=== PATIENT | male | born 1965 | race African-American/Black ===

== ENCOUNTER 2016-10-22 08:12 | Inpatient (IN) | payer BC ==
[2016-10-22 10:28] VITALS: BMI 21.9
--- NOTE | 2016-10-22 11:01 | HP ---
CIWA Score - CIWA Score Nausea/Vomitin-No Nausea/No Vomiting Muscle Tremors: 4-Moderate,w/Arms Extend Anxiety: 4-Mod. Anxious/Guarded Agitation: 4-Moderately Restless Paroxysmal Sweats: 3 Orientation: 0-Oriented Tacttile Disturbances: 0-None Auditory Disturbances: 0-None Visual Disturbances: 0-None Headache: 0-None Present CIWA-Ar Total Score: 15 Admission ROS BHS - HPI Chief Complaint: Withdrawal sx. Allergies/Adverse Reactions: Allergies Allergy/AdvReac Type Severity Reaction Status Date / Time No Known Allergies Allergy Verified 10/22/16 10:11 History of Present Illness: 51 y/o man with a long hx. of alcoholism is admitted for detox. Pt. has been in previous detox reports 2 yrs. sobriety.Pt. went to [facility] ED last because of trauma to rt. wrist. Pt. has a splint on rt. wrist. Exam Limitations: No Limitations - Ebola screening Have you traveled outside of the country in the last 21 days: No Have you had contact with anyone from an Ebola affected area: No Have you been sick,other than usual withdrawal symptoms: No - Review of Systems Constitutional: Diaphoresis EENT: reports: No Symptoms Reported Respiratory: reports: No Symptoms reported Cardiac: reports: No Symptoms Reported GI: reports: No Symptoms Reported : reports: No Symptoms Reported Musculoskeletal: reports: No Symptoms Reported Integumentary: reports: Sweating Neuro: reports: Tremors Endocrine: reports: No Symptoms Reported Hematology: reports: No Symptoms Reported Psychiatric: reports: No Sypmtoms Reported Other Systems: Reviewed and Negative Patient History - Patient Medical History Hx Anemia: No Hx Asthma: No Hx Chronic Obstructive Pulmonary Disease (COPD): No Hx Cancer: No Hx Cardiac Disorders: No Hx Congestive Heart Failure: No Hx Hypertension: No Hx Hypercholesterolemia: No Hx Pacemaker: No HX Cerebrovascular Accident: No Hx Seizures: No Hx Dementia: No Hx Diabetes: No Hx Gastrointestinal Disorders: No Hx Liver Disease: No Hx Genitourinary Disorders: No Hx Sexually Transmitted Disorders: No Hx Renal Disease (ESRD): No Hx Thyroid Disease: No Hx Human Immunodeficiency Virus (HIV): No Hx Hepatitis C: No Hx Depression: Yes Hx Suicide Attempt: No Hx Bipolar Disorder: Yes Hx Schizophrenia: No - Patient Surgical History Past Surgical History: No Hx Neurologic Surgery: No Hx Cataract Extraction: No Hx Cardiac Surgery: No Hx Lung Surgery: No Hx Breast Surgery: No Hx Breast Biopsy: No Hx Abdominal Surgery: No Hx Appendectomy: No Hx Cholecystectomy: No Hx Genitourinary Surgery: No Hx Section: No Hx Orthopedic Surgery: No Anesthesia Reaction: No - PPD History Previous Implant?: Yes Documented Results: Positive w/o proof Results: CXR(-)12/12/2015 PPD to be Administered?: No - Smoking Cessation Smoking history: Current every day smoker Have you smoked in the past 12 months: Yes Aproximately how many cigarettes per day: 10 Cigars Per Day: 0 Hx Chewing Tobacco Use: No Initiated information on smoking cessation: Yes 'Breaking Loose' booklet given: 10/22/16 - Substance & Tx. History Hx Alcohol Use: Yes Hx Substance Use: No Substance Use Type: Alcohol Hx Substance Use Treatment: Yes (detox) - Substances Abused Alcohol-beer Route: Oral Frequency: Daily Amount used: 2-6 pks. Age of first use: 15 Date of Last Use: 10/21/16 Family Disease History - Family Disease History Family Disease History: Diabetes: Father, Other: Mother (DEMENTIA) Admission Physical Exam S - Vital Signs Vital Signs: Vital Signs - 24 hr 10/22/16 10:16 Temperature 97.6 F Pulse Rate 110 H Respiratory 20 Rate Blood Pressure 145/112 - Physical General Appearance: Yes: Tremorous, Sweating, Anxious HEENTM: Yes: Within Normal Limits Respiratory: Yes: Chest Non-Tender, Lungs Clear, Normal Breath Sounds Neck: Yes: Supple Breast: Yes: Breast Exam Deferred Cardiology: Yes: Regular Rhythm, Regular Rate, S1, S2 Abdominal: Yes: Normal Bowel Sounds, Non Tender, Soft Genitourinary: Yes: Within Normal Limits Back: Yes: Within Normal Limits Musculoskeletal: Yes: Within Normal Limits Extremities: Yes: Tremors Neurological: Yes: Fully Oriented, Alert Integumentary: Yes: Diaphoresis Lymphatic: Yes: Within Normal Limits - Diagnostic (1) Alcohol dependence with uncomplicated withdrawal Current Visit: Yes Status: Acute (2) Nicotine dependence Current Visit: Yes Status: Acute Qualifiers: Nicotine product type: cigarettes Substance use status: uncomplicated Qualified Code(s): F17.210 - Nicotine dependence, cigarettes, uncomplicated Comment: . (3) Right wrist injury Current Visit: Yes Status: Acute Qualifiers: Encounter type: initial encounter Qualified Code(s): S69.91XA - Unspecified injury of right wrist, hand and finger(s), initial encounter Cleared for Admission [facility] - Detox or Rehab [facility] Level of Care: Medically Managed Detox Regimen/Protocol: Librium [facility] Breath Alcohol Content Breath Alcohol Content: 0 Urine Drug Screen - Results Drug Screen Negative: No Urine Drug Screen Results: BZO-Benzodiazepines, OXY-Oxycodone
[2016-10-22] MEDS ORDERED: chlordiazePOXIDE HCL 25 MG CAPSULE PO PRN (11:13)
[2016-10-22] MEDS ORDERED: MAGNESIUM CITRATE 300 ML BOTTLE PO PRN (11:13)
[2016-10-22] MEDS ORDERED: MENTHOL/PHENOL 1 EACH UD MM PRN (11:13)
[2016-10-22] MEDS ORDERED: guaiFENesin/D-METHORPHAN HB 10 ML UNIT-DOSE CUPS PO PRN (11:13)
[2016-10-22] MEDS ORDERED: NICOTINE POLACRILEX 2 MG GUM BUC PRN (11:13)
[2016-10-22] MEDS ORDERED: MAGNESIUM HYDROX 2400MG/30ML ORAL SUSPENSION 30 ML CUP PO PRN (11:13)
[2016-10-22] MEDS ORDERED: hydrOXYzine PAMOATE 50 MG CAPSULE (FP) PO PRN (11:13)
[2016-10-22] MEDS ORDERED: LOPERAMIDE HCL 2 MG CAPSULE PO PRN (11:13)
[2016-10-22] MEDS ORDERED: P-EPHED 60MG/TRIPROLIDI 2.5MG TABLET PO PRN (11:13)
[2016-10-22] MEDS ORDERED: MAG HYDROX/AL HYDROX/SIMETH 30 ML UNIT-DOSE CUP PO PRN (11:13)
[2016-10-22] MEDS ORDERED: diphenhydrAMINE HCL 50 MG CAPSULE PO PRN (11:13)
[2016-10-22] MEDS ORDERED: chlordiazePOXIDE HCL 25 MG CAPSULE PO ONE (12:02)
[2016-10-22] MEDS: NICOTINE 21 MG/24 HOURS TOPICAL PATCH TD SCH (12:58)
[2016-10-22] MEDS: chlordiazePOXIDE HCL 25 MG CAPSULE PO SCH ×2 (17:28→22:14)
[2016-10-22] MEDS: IBUPROFEN 400 MG TABLET (FP) PO PRN (17:30)
[2016-10-22 18:02] LABS: URINE APPEARANCE CLOUDY; URINE BILIRUBIN NEGATIVE (NEGATIVE); URINE BLOOD NEGATIVE (NEGATIVE); URINE COLOR YELLOW; URINE GLUCOSE (UA) NEGATIVE (NEGATIVE); URINE KETONE TRACE (NEGATIVE); URINE LEUK ESTERASE NEGATIVE (NEGATIVE); URINE NITRITE NEGATIVE (NEGATIVE); URINE PROTEIN NEGATIVE (NEGATIVE); URINE UROBILINOGEN NEGATIVE E.U./dl (0.2-1.0)
[2016-10-22] MEDS: THIAMINE HCL 100 MG TABLET (FP) PO SCH (22:13)
[2016-10-23] MEDS: chlordiazePOXIDE HCL 25 MG CAPSULE PO SCH ×4 (05:50→22:16)
[2016-10-23] MEDS: IBUPROFEN 400 MG TABLET (FP) PO PRN ×3 (05:51→23:27)
--- NOTE | 2016-10-23 08:26 | EKG ---
Test Reason : Blood Pressure : / mmHG Vent. Rate : 076 BPM Atrial Rate : 076 BPM P-R Int : 130 ms QRS Dur : 086 ms QT Int : 378 ms P-R-T Axes : 071 081 068 degrees QTc Int : 425 ms NORMAL SINUS RHYTHM NORMAL ECG NO PREVIOUS ECGS AVAILABLE Confirmed by SANDY DAMON MD ([id number]) on 10/23/2016 8:25:49 AM Referred By: Eric Orourke Confirmed By:SANDY DAMON MD
[2016-10-23] MEDS: PRENATAL VITAMINS W/ FOLIC ACID TABLET (FP) PO SCH (10:07)
[2016-10-23] MEDS: ACETAMINOPHEN 325 MG TABLET (FP) PO PRN ×2 (10:08→20:09)
[2016-10-23] MEDS: NICOTINE 21 MG/24 HOURS TOPICAL PATCH TD SCH (10:08)
[2016-10-23 10:25] LABS: ALBUMIN 3.7 g/dl (3.4-5.0); ANION GAP 11 (8-16); CALCIUM 9.7 mg/dL (8.5-10.1); CO2 27 mmol/L (21-32); GLUCOSE,RANDOM 109 mg/dL (74-106)
[2016-10-23 10:29] LABS: ALK PHOS 72 U/L (45-117); BILIRUBIN,TOTAL 0.4 mg/dL (0.2-1.0); COCKROFT - GAULT 98.65; CREATININE 0.8 mg/dL (0.7-1.3); SGOT/AST 20 U/L (15-37); SGPT/ALT 11 U/L (12-78); TOT PROT 8.3 g/dl (6.4-8.2)
--- NOTE | 2016-10-23 10:39 | PN ---
[facility] CIWA - CIWA Score Nausea/Vomitin-No Nausea/No Vomiting Muscle Tremors: 4-Moderate,w/Arms Extend Anxiety: 4-Mod. Anxious/Guarded Agitation: 4-Moderately Restless Paroxysmal Sweats: 1-Minimal Palms Moist Orientation: 0-Oriented Tacttile Disturbances: 3-Moderate Itch/Numb/Burn Auditory Disturbances: 0-None Visual Disturbances: 0-None Headache: 0-None Present CIWA-Ar Total Score: 16 BHS Progress Note (SOAP) Subjective: ANXIETY,IRRITABILITY,TREMORS,RIGHT ARM PAIN S/P RIGHT HAND FX TRUAMA. Objective: 10/23/16 10:34 Vital Signs Temperature 95.8 F L 10/23/16 10:01 Pulse Rate 83 10/23/16 10:01 Respiratory Rate 20 10/23/16 10:01 Blood Pressure 139/97 10/23/16 10:01 O2 Sat by Pulse Oximetry (%) Laboratory Last Values Urine Color Yellow 10/22/16 13:00 Urine Appearance Cloudy 10/22/16 13:00 Urine pH 5.0 (5.0-8.0) 10/22/16 13:00 Ur Specific [place] 1.023 (1.001-1.035) 10/22/16 13:00 Urine Protein Negative (NEGATIVE) 10/22/16 13:00 Urine Glucose (UA) Negative (NEGATIVE) 10/22/16 13:00 Urine Ketones Trace (NEGATIVE) H 10/22/16 13:00 Urine Blood Negative (NEGATIVE) 10/22/16 13:00 Urine Nitrite Negative (NEGATIVE) 10/22/16 13:00 Urine Bilirubin Negative (NEGATIVE) 10/22/16 13:00 Urine Urobilinogen Negative E.U./dl (0.2-1.0) 10/22/16 13:00 Ur Leukocyte Esterase Negative (NEGATIVE) 10/22/16 13:00 LAB RESULTS PENDING RIGHT FOREARM IN CAST. ACTIVE ROM OF ALL DIGITS. NO CYANOSIS TO NAIL BEDS. Assessment: 10/23/16 10:35 WITHDRAWAL SX Plan: CONTINUE DETOX MOTRIN PRN
[2016-10-23 10:51] LABS: MCH 34.1 pg (25.7-33.7); MCHC 33.5 g/dl (32.0-35.9); MEAN CELL VOLUME 101.8 fl (80-96); MEAN PLT VOLUME 6.7 fl (7.5-11.1); PLATELET COUNT 710 K/MM3 (134-434); RDW 14.5 % (11.9-15.9); WHITE BLOOD COUNT 6.7 K/mm3 (4.0-10.0)
--- NOTE | 2016-10-23 10:57 | CONSULT ---
[facility] Psychiatric Consult - Data Date of interview: 10/23/16 Admission source: [facility] Identifying data: This is 51 years old male witn unclear past psychiatric hospitalization history , history of nSAchizoaffective disorder, PTSD, intoxicated with: Alcohol and Nicotine Substance Abuse History: - Smoking Cessation. Smoking history: Current every day smoker. Have you smoked in the past 12 months: Yes. Aproximately how many cigarettes per day: 10. Cigars Per Day: 0. Hx Chewing Tobacco Use: No. Initiated information on smoking cessation: Yes. 'Breaking Loose' booklet given : 10/22/16. - Substance & Tx. History. Hx Alcohol Use: Yes. Hx Substance Use : No. Substance Use Type: Alcohol. Hx Substance Use Treatment: Yes (detox). - Substances Abused. Alcohol-beer. Route: Oral. Frequency: Daily. Amount used: 2-6 pks. Age of first use: 15. Date of Last Use: 10/21/16 Medical History: Right wrist injury history Psychiatric History: Patient reports hyiostory of psychiatic disorder, reports taking prior to admission: Seroquel 200mg po qhs. Winside 450mg po tid. Prozac 20mg poqd Physical/Sexual Abuse/Trauma History: Denies Additional Comment: Seroquel 200mg po qhs. Winside 450mg po bid. Prozac 20mg poqd Mental Status Exam - Mental Status Exam Alert and Oriented to: Person Cognitive Function: Fair Patient Appearance: Unkempt Mood: Sad Affect: Flat Patient Behavior: Sedated Speech Pattern: Delayed Voice Loudness: Moderately Soft/Quiet Thought Process: Circumstantial, Thought Blocking Thought Disorder: Being Controlled Hallucinations: Denies Suicidal Ideation: Denies Homicidal Ideation: Denies Insight/Judgement: Fair Sleep: Difficulty falling asleep Appetite: Fair Muscle strength/Tone: Mild Hypotonicity Gait/Station: Shuffling Additional Comments: Seroquel 200mg po qhs. Winside 450mg po tid. Prozac 20mg poqd Psychiatric Findings - Problem List ([place] 1, 2,3) (1) Alcohol dependence with uncomplicated withdrawal Current Visit: Yes Status: Acute (2) Nicotine dependence Current Visit: Yes Status: Acute Qualifiers: Nicotine product type: cigarettes Substance use status: uncomplicated Qualified Code(s): F17.210 - Nicotine dependence, cigarettes, uncomplicated Comment: . (3) Drug-induced mood disorder Current Visit: No Status: Acute Comment: . (4) PTSD (post-traumatic stress disorder) Current Visit: No Status: Chronic (5) Schizoaffective disorder Current Visit: No Status: Chronic Comment: . (6) Schizoaffective disorder, depressive type Current Visit: No Status: Chronic Comment: . (7) Schizoaffective disorder, bipolar type Current Visit: No Status: Suspected - Initial Treatment Plan Initial Treatment Plan: Due to sedated status of patient his medications adjusted to: Winside 300mg po tid. Prozac 20mg poqd. Seroquel 200mg po qhs. Winside blood level
[2016-10-23] MEDS: THIAMINE HCL 100 MG TABLET (FP) PO SCH (22:15)
[2016-10-23] MEDS: LITHIUM CARBONATE 300 MG CAPSULE (FP) PO SCH (22:16)
[2016-10-23] MEDS: QUEtiapine FUMARATE 200 MG TABLET PO SCH (22:16)
[2016-10-24] MEDS: IBUPROFEN 400 MG TABLET (FP) PO PRN ×2 (06:07→22:21)
[2016-10-24] MEDS: chlordiazePOXIDE HCL 25 MG CAPSULE PO SCH ×2 (06:07→10:11)
[2016-10-24] MEDS: PRENATAL VITAMINS W/ FOLIC ACID TABLET (FP) PO SCH (10:10)
[2016-10-24] MEDS: FLUoxetine HCL 20 MG CAPSULE (FP) PO SCH (10:11)
[2016-10-24] MEDS: LITHIUM CARBONATE 300 MG CAPSULE (FP) PO SCH ×2 (10:11→22:20)
[2016-10-24] MEDS: ACETAMINOPHEN 325 MG TABLET (FP) PO PRN (10:11)
[2016-10-24] MEDS: NICOTINE 21 MG/24 HOURS TOPICAL PATCH TD SCH (10:11)
--- NOTE | 2016-10-24 11:53 | PN ---
[facility] CIWA - CIWA Score Nausea/Vomitin-No Nausea/No Vomiting Muscle Tremors: 4-Moderate,w/Arms Extend Anxiety: 4-Mod. Anxious/Guarded Agitation: 4-Moderately Restless Paroxysmal Sweats: 1-Minimal Palms Moist Orientation: 0-Oriented Tacttile Disturbances: 3-Moderate Itch/Numb/Burn Auditory Disturbances: 0-None Visual Disturbances: 0-None Headache: 0-None Present CIWA-Ar Total Score: 16 BHS Progress Note (SOAP) Subjective: ANXIETY,TREMORS,IRRITABILITY. Objective: 10/24/16 11:52 Vital Signs Temperature 96.3 F L 10/24/16 09:22 Pulse Rate 86 10/24/16 09:22 Respiratory Rate 18 10/24/16 09:22 Blood Pressure 121/88 10/24/16 09:22 O2 Sat by Pulse Oximetry (%) Laboratory Last Values WBC 6.7 K/mm3 (4.0-10.0) 10/23/16 06:00 RBC 3.72 M/mm3 (4.00-5.60) L 10/23/16 06:00 Hgb 12.7 GM/dL (11.7-16.9) D 10/23/16 06:00 Hct 37.8 % (35.4-49) 10/23/16 06:00 MCV 101.8 fl (80-96) H 10/23/16 06:00 MCHC 33.5 g/dl (32.0-35.9) 10/23/16 06:00 RDW 14.5 % (11.9-15.9) 10/23/16 06:00 Plt Count 710 K/MM3 (134-434) H D 10/23/16 06:00 MPV 6.7 fl (7.5-11.1) L D 10/23/16 06:00 Sodium 135 mmol/L (136-145) L 10/23/16 06:00 Potassium 4.6 mmol/L (3.5-5.1) 10/23/16 06:00 Chloride 97 mmol/L (98-107) L 10/23/16 06:00 Carbon Dioxide 27 mmol/L (21-32) 10/23/16 06:00 Anion Gap 11 (8-16) 10/23/16 06:00 BUN 4 mg/dL (7-18) L D 10/23/16 06:00 Creatinine 0.8 mg/dL (0.7-1.3) D 10/23/16 06:00 Creat Clearance w eGFR > 60 (>60) 10/23/16 06:00 Random Glucose 109 mg/dL (74-106) H 10/23/16 06:00 Calcium 9.7 mg/dL (8.5-10.1) 10/23/16 06:00 Total Bilirubin 0.4 mg/dL (0.2-1.0) 10/23/16 06:00 AST 20 U/L (15-37) D 10/23/16 06:00 ALT 11 U/L (12-78) L D 10/23/16 06:00 Alkaline Phosphatase 72 U/L (45-117) D 10/23/16 06:00 Total Protein 8.3 g/dl (6.4-8.2) H 10/23/16 06:00 Albumin 3.7 g/dl (3.4-5.0) 10/23/16 06:00 Urine Color Yellow 10/22/16 13:00 Urine Appearance Cloudy 10/22/16 13:00 Urine pH 5.0 (5.0-8.0) 10/22/16 13:00 Ur Specific [place] 1.023 (1.001-1.035) 10/22/16 13:00 Urine Protein Negative (NEGATIVE) 10/22/16 13:00 Urine Glucose (UA) Negative (NEGATIVE) 10/22/16 13:00 Urine Ketones Trace (NEGATIVE) H 10/22/16 13:00 Urine Blood Negative (NEGATIVE) 10/22/16 13:00 Urine Nitrite Negative (NEGATIVE) 10/22/16 13:00 Urine Bilirubin Negative (NEGATIVE) 10/22/16 13:00 Urine Urobilinogen Negative E.U./dl (0.2-1.0) 10/22/16 13:00 Ur Leukocyte Esterase Negative (NEGATIVE) 10/22/16 13:00 RPR Titer Nonreactive (NONREACTIVE) 10/23/16 06:00 Assessment: 10/24/16 11:52 WITHDRAWAL SX Plan: CONTINUE DETOX
[2016-10-24] MEDS: chlordiazePOXIDE 5 MG CAPSULE PO SCH ×2 (17:21→22:20)
[2016-10-24] MEDS: THIAMINE HCL 100 MG TABLET (FP) PO SCH (22:20)
[2016-10-24] MEDS: QUEtiapine FUMARATE 200 MG TABLET PO SCH (22:20)
[2016-10-25] MEDS: chlordiazePOXIDE 5 MG CAPSULE PO SCH ×2 (06:33→10:16)
[2016-10-25] MEDS: LITHIUM CARBONATE 300 MG CAPSULE (FP) PO SCH ×2 (10:16→21:54)
[2016-10-25] MEDS: FLUoxetine HCL 20 MG CAPSULE (FP) PO SCH (10:16)
[2016-10-25] MEDS: NICOTINE 21 MG/24 HOURS TOPICAL PATCH TD SCH (10:16)
[2016-10-25] MEDS: PRENATAL VITAMINS W/ FOLIC ACID TABLET (FP) PO SCH (10:16)
[2016-10-25] MEDS: IBUPROFEN 400 MG TABLET (FP) PO PRN ×2 (10:17→21:56)
--- NOTE | 2016-10-25 12:29 | PN ---
BHS Progress Note (SOAP) Subjective: Sweating,interrupted sleep,restless Objective: 10/25/16 12:27 Vital Signs - 8 hr 10/25/16 09:27 Temperature 96.8 F L Pulse Rate 83 Respiratory 18 Rate Blood Pressure 125/90 Laboratory Last Values WBC 6.7 K/mm3 (4.0-10.0) 10/23/16 06:00 RBC 3.72 M/mm3 (4.00-5.60) L 10/23/16 06:00 Hgb 12.7 GM/dL (11.7-16.9) D 10/23/16 06:00 Hct 37.8 % (35.4-49) 10/23/16 06:00 MCV 101.8 fl (80-96) H 10/23/16 06:00 MCHC 33.5 g/dl (32.0-35.9) 10/23/16 06:00 RDW 14.5 % (11.9-15.9) 10/23/16 06:00 Plt Count 710 K/MM3 (134-434) H D 10/23/16 06:00 MPV 6.7 fl (7.5-11.1) L D 10/23/16 06:00 Sodium 135 mmol/L (136-145) L 10/23/16 06:00 Potassium 4.6 mmol/L (3.5-5.1) 10/23/16 06:00 Chloride 97 mmol/L (98-107) L 10/23/16 06:00 Carbon Dioxide 27 mmol/L (21-32) 10/23/16 06:00 Anion Gap 11 (8-16) 10/23/16 06:00 BUN 4 mg/dL (7-18) L D 10/23/16 06:00 Creatinine 0.8 mg/dL (0.7-1.3) D 10/23/16 06:00 Creat Clearance w eGFR > 60 (>60) 10/23/16 06:00 Random Glucose 109 mg/dL (74-106) H 10/23/16 06:00 Calcium 9.7 mg/dL (8.5-10.1) 10/23/16 06:00 Total Bilirubin 0.4 mg/dL (0.2-1.0) 10/23/16 06:00 AST 20 U/L (15-37) D 10/23/16 06:00 ALT 11 U/L (12-78) L D 10/23/16 06:00 Alkaline Phosphatase 72 U/L (45-117) D 10/23/16 06:00 Total Protein 8.3 g/dl (6.4-8.2) H 10/23/16 06:00 Albumin 3.7 g/dl (3.4-5.0) 10/23/16 06:00 Urine Color Yellow 10/22/16 13:00 Urine Appearance Cloudy 10/22/16 13:00 Urine pH 5.0 (5.0-8.0) 10/22/16 13:00 Ur Specific [place] 1.023 (1.001-1.035) 10/22/16 13:00 Urine Protein Negative (NEGATIVE) 10/22/16 13:00 Urine Glucose (UA) Negative (NEGATIVE) 10/22/16 13:00 Urine Ketones Trace (NEGATIVE) H 10/22/16 13:00 Urine Blood Negative (NEGATIVE) 10/22/16 13:00 Urine Nitrite Negative (NEGATIVE) 10/22/16 13:00 Urine Bilirubin Negative (NEGATIVE) 10/22/16 13:00 Urine Urobilinogen Negative E.U./dl (0.2-1.0) 10/22/16 13:00 Ur Leukocyte Esterase Negative (NEGATIVE) 10/22/16 13:00 [place] 0.2 MEQ/L (0.6-1.2) L 10/24/16 06:00 RPR Titer Nonreactive (NONREACTIVE) 10/23/16 06:00 labs noted Assessment: 10/25/16 12:28 Withdrawal sx. Plan: Continue detox
[2016-10-25] MEDS: chlordiazePOXIDE HCL 10 MG CAPSULE PO SCH ×2 (17:27→22:00)
[2016-10-25] MEDS: QUEtiapine FUMARATE 200 MG TABLET PO SCH (21:54)
[2016-10-25] MEDS: THIAMINE HCL 100 MG TABLET (FP) PO SCH (21:54)
[2016-10-26] MEDS: chlordiazePOXIDE HCL 10 MG CAPSULE PO SCH (06:00)
[2016-10-26 06:34] VITALS: BP 129/87; PULSE 75; TEMP 97.5
--- NOTE | 2016-10-26 14:52 | DS ---
[facility] Detox Discharge Summary Admission Date: 10/22/16 Discharge Date: 10/26/16 - History Present History: Alcohol Dependence Additional Comments: ADVISED PATIENT TO FOLLOW-UP WITH [facility] / REHAB MEDICAL PROVIDER AFTER DISCHARGE FROM DETOX FOR GENERAL MEDICAL ASSESSMENT AND FOR ABNORMAL ADMISSION LAB VALUES. Pertinent Past History: Depression, Bi-Polar disorder. - Physical Exam Results Vital Signs: Vital Signs Temperature 97.5 F L 10/26/16 06:00 Pulse Rate 75 10/26/16 06:00 Respiratory Rate 16 10/26/16 06:00 Blood Pressure 129/87 10/26/16 06:00 O2 Sat by Pulse Oximetry (%) Pertinent Admission Physical Exam Findings: WITHDRAWAL SYMPTOMS. Laboratory Last Values WBC 6.7 K/mm3 (4.0-10.0) 10/23/16 06:00 RBC 3.72 M/mm3 (4.00-5.60) L 10/23/16 06:00 Hgb 12.7 GM/dL (11.7-16.9) D 10/23/16 06:00 Hct 37.8 % (35.4-49) 10/23/16 06:00 MCV 101.8 fl (80-96) H 10/23/16 06:00 MCHC 33.5 g/dl (32.0-35.9) 10/23/16 06:00 RDW 14.5 % (11.9-15.9) 10/23/16 06:00 Plt Count 710 K/MM3 (134-434) H D 10/23/16 06:00 MPV 6.7 fl (7.5-11.1) L D 10/23/16 06:00 Sodium 135 mmol/L (136-145) L 10/23/16 06:00 Potassium 4.6 mmol/L (3.5-5.1) 10/23/16 06:00 Chloride 97 mmol/L (98-107) L 10/23/16 06:00 Carbon Dioxide 27 mmol/L (21-32) 10/23/16 06:00 Anion Gap 11 (8-16) 10/23/16 06:00 BUN 4 mg/dL (7-18) L D 10/23/16 06:00 Creatinine 0.8 mg/dL (0.7-1.3) D 10/23/16 06:00 Creat Clearance w eGFR > 60 (>60) 10/23/16 06:00 Random Glucose 109 mg/dL (74-106) H 10/23/16 06:00 Calcium 9.7 mg/dL (8.5-10.1) 10/23/16 06:00 Total Bilirubin 0.4 mg/dL (0.2-1.0) 10/23/16 06:00 AST 20 U/L (15-37) D 10/23/16 06:00 ALT 11 U/L (12-78) L D 10/23/16 06:00 Alkaline Phosphatase 72 U/L (45-117) D 10/23/16 06:00 Total Protein 8.3 g/dl (6.4-8.2) H 10/23/16 06:00 Albumin 3.7 g/dl (3.4-5.0) 10/23/16 06:00 Urine Color Yellow 10/22/16 13:00 Urine Appearance Cloudy 10/22/16 13:00 Urine pH 5.0 (5.0-8.0) 10/22/16 13:00 Ur Specific [place] 1.023 (1.001-1.035) 10/22/16 13:00 Urine Protein Negative (NEGATIVE) 10/22/16 13:00 Urine Glucose (UA) Negative (NEGATIVE) 10/22/16 13:00 Urine Ketones Trace (NEGATIVE) H 10/22/16 13:00 Urine Blood Negative (NEGATIVE) 10/22/16 13:00 Urine Nitrite Negative (NEGATIVE) 10/22/16 13:00 Urine Bilirubin Negative (NEGATIVE) 10/22/16 13:00 Urine Urobilinogen Negative E.U./dl (0.2-1.0) 10/22/16 13:00 Ur Leukocyte Esterase Negative (NEGATIVE) 10/22/16 13:00 [place] 0.2 MEQ/L (0.6-1.2) L 10/24/16 06:00 RPR Titer Nonreactive (NONREACTIVE) 10/23/16 06:00 LABS NOTED. - Treatment Hospital Course: Detox Protocol Followed, Detoxed Safely, Responded well, Discharged Condition Good Patient has Accepted a Rehab Referral to: NO - PT. ELECTING TO GO HOME. AA / 12- STEP PROGRAMS RECOMMENDED. - Medication Discharge Medications: Ambulatory Orders Jones Carbonate [Lithobid] 600 mg PO TID 12/11/15 Fluoxetine HCl [Prozac] 20 mg PO DAILY #30 capsule 12/12/15 Quetiapine Fumarate [Seroquel -] 200 mg PO HS #30 tab 12/12/15 Ibuprofen [Motrin -] 400 mg PO TID PRN 06/03/16 Fluoxetine HCl [Prozac] 20 mg PO DAILY #30 capsule 10/23/16 [place] Carbonate [Eskalith -] 300 mg PO BID #60 cap 10/23/16 Quetiapine Fumarate [Seroquel -] 200 mg PO HS #30 tab 10/23/16 - Diagnosis (1) Alcohol dependence with uncomplicated withdrawal Status: Acute (2) Drug-induced mood disorder Status: Acute (3) Nicotine dependence Status: Chronic Qualifiers: Nicotine product type: cigarettes Substance use status: uncomplicated Qualified Code(s): F17.210 - Nicotine dependence, cigarettes, uncomplicated (4) Right wrist injury Status: Acute Qualifiers: Encounter type: initial encounter Qualified Code(s): S69.91XA - Unspecified injury of right wrist, hand and finger(s), initial encounter (5) PTSD (post-traumatic stress disorder) Status: Chronic (6) Schizoaffective disorder Status: Chronic Qualifiers: Schizoaffective disorder type: unspecified Qualified Code(s): F25.9 - Schizoaffective disorder, unspecified (7) Schizoaffective disorder, depressive type Status: Chronic (8) Schizoaffective disorder, bipolar type Status: Suspected - AMA Did Patient Leave Against Medical Advice: No
== END 2016-10-26 09:51 | disposition home or self-care (01) | DRG 775 ==
LOC: YASAS 08:12 → Y3N 11:51
PROVIDERS: ADMIT Internal Medicine; ATTEND Internal Medicine
PROC: HZ2ZZZZ Detoxification Services for Substance Abuse Treatment (ICD-10-PCS; principal; 2016-10-26)
DX: F10.230 Alcohol dependence with withdrawal, uncomplicated (principal); F17.210 Nicotine dependence, cigarettes, uncomplicated; F19.24 Other psychoactive substance dependence with psychoactive substance-induced mood disorder; F25.0 Schizoaffective disorder, bipolar type; S69.91XD Unspecified injury of right wrist, hand and finger(s), subsequent encounter; X58.XXXD Exposure to other specified factors, subsequent encounter
CPT/HCPCS: 36415; 80053; 80178; 81003; 85027; 86593; 93005; 93010

== ENCOUNTER 2016-12-03 12:40 | Inpatient (IN) | payer BC ==
[2016-12-03 16:42] VITALS: BMI 21.9
--- NOTE | 2016-12-03 19:49 | HP ---
CIWA Score - CIWA Score Nausea/Vomitin-Mild Nausea/No Vomiting Muscle Tremors: 4-Moderate,w/Arms Extend Anxiety: 4-Mod. Anxious/Guarded Agitation: 4-Moderately Restless Paroxysmal Sweats: 1-Minimal Palms Moist Orientation: 1-Uncertain about Date Tacttile Disturbances: 0-None Auditory Disturbances: 0-None Visual Disturbances: 1-Very Mild Sensitivity Headache: 1-Very Mild CIWA-Ar Total Score: 17 Admission ROS BHS - HPI Chief Complaint: withdrawal sx patient was treated for alcohol intoxication at "[facility]" 12/02/16 released 12/03/16 Allergies/Adverse Reactions: Allergies Allergy/AdvReac Type Severity Reaction Status Date / Time No Known Allergies Allergy Verified 10/22/16 10:11 History of Present Illness: 51 yeas old male with long history of alcohol nicotine dependence has positive ppd and bipolar ii is admitted to detox Exam Limitations: No Limitations - Ebola screening Have you traveled outside of the country in the last 21 days: No Have you had contact with anyone from an Ebola affected area: No Have you been sick,other than usual withdrawal symptoms: No Do you have a fever: No - Review of Systems Constitutional: Chills, Loss of Appetite, Changes in sleep, Unintentional Wgt. Loss, Unexplained wgt Loss EENT: reports: No Symptoms Reported Respiratory: reports: No Symptoms reported Cardiac: reports: No Symptoms Reported GI: reports: Nausea, Poor Appetite, Poor Fluid Intake, Indigestion, Abdominal cramping : reports: No Symptoms Reported Musculoskeletal: reports: No Symptoms Reported Neuro: reports: Seizure (2015), Tremors Endocrine: reports: No Symptoms Reported Hematology: reports: No Symptoms Reported Psychiatric: reports: Judgement Intact, Anxious, Depressed Other Systems: Reviewed and Negative Patient History - Patient Medical History Hx Anemia: No Hx Asthma: No Hx Chronic Obstructive Pulmonary Disease (COPD): No Hx Cancer: No Hx Cardiac Disorders: No Hx Congestive Heart Failure: No Hx Hypertension: No Hx Hypercholesterolemia: No Hx Pacemaker: No HX Cerebrovascular Accident: No Hx Seizures: Yes (alcohol related) Hx Dementia: No Hx Diabetes: No Hx Gastrointestinal Disorders: Yes Hx Liver Disease: No Hx Genitourinary Disorders: No Hx Sexually Transmitted Disorders: No Hx Renal Disease (ESRD): No Hx Thyroid Disease: No Hx Human Immunodeficiency Virus (HIV): No Hx Hepatitis C: No Hx Depression: No Hx Suicide Attempt: Yes (stabbed self 2012) Hx Bipolar Disorder: Yes Hx Schizophrenia: No - Patient Surgical History Past Surgical History: No Hx Neurologic Surgery: No Hx Cataract Extraction: No Hx Cardiac Surgery: No Hx Lung Surgery: No Hx Breast Surgery: No Hx Breast Biopsy: No Hx Abdominal Surgery: No Hx Appendectomy: No Hx Cholecystectomy: No Hx Genitourinary Surgery: No Hx Orthopedic Surgery: No - PPD History Previous Implant?: Yes Documented Results: Positive w/o proof Implanted On Prior R Admission?: No Results: CXR(-)12/12/2015 PPD to be Administered?: No - Smoking Cessation Smoking history: Current every day smoker Have you smoked in the past 12 months: Yes Aproximately how many cigarettes per day: 10 Cigars Per Day: 0 Hx Chewing Tobacco Use: No Initiated information on smoking cessation: Yes 'Breaking Loose' booklet given: 12/03/16 - Substance & Tx. History Hx Alcohol Use: Yes Hx Substance Use: No Substance Use Type: Alcohol Hx Substance Use Treatment: Yes - Substances Abused Alcohol Route: Oral Frequency: Daily Amount used: 40ozx4 Age of first use: 14 Date of Last Use: 12/03/16 Family Disease History - Family Disease History Family Disease History: Diabetes: Father (), Other: Mother (DEMENTIA ) Other Family History: only child Admission Physical Exam BHS - Vital Signs Vital Signs: Vital Signs - 24 hr 12/03/16 16:40 Temperature 96 F L Pulse Rate 78 Respiratory 20 Rate Blood Pressure 121/73 - Physical General Appearance: Yes: Appropriately Dressed, Mild Distress, Alcohol on Breath , Thin, Tremorous, Irritable, Sweating, Anxious HEENTM: Yes: Hearing grossly Normal, Normal ENT Inspection, Normocephalic, Normal Voice Respiratory: Yes: Chest Non-Tender, Lungs Clear, Normal Breath Sounds, No Respiratory Distress, No Accessory Muscle Use Neck: Yes: Supple, Trachea in good position Breast: Yes: Breasts Symetrical Cardiology: Yes: Regular Rhythm, Regular Rate, S1, S2 Abdominal: Yes: Non Tender, Soft Genitourinary: Yes: Within Normal Limits Back: Yes: Normal Inspection Musculoskeletal: Yes: full range of Motion, Gait Steady Extremities: Yes: Normal Range of Motion, Non-Tender, Tremors Neurological: Yes: Alert, Motor Strength 5/5, Normal Response, Depressed Affect Integumentary: Yes: Warm Lymphatic: Yes: Within Normal Limits - Diagnostic (1) Alcohol dependence with uncomplicated withdrawal Current Visit: Yes Status: Acute (2) Nicotine dependence Current Visit: Yes Status: Acute Qualifiers: Nicotine product type: cigarettes Substance use status: in withdrawal Qualified Code(s): F17.213 - Nicotine dependence, cigarettes, with withdrawal Comment: . (3) Positive PPD, treated Current Visit: Yes Status: Resolved (4) Bipolar II disorder Current Visit: Yes Status: Suspected (5) Weight loss Current Visit: Yes Status: Acute (6) GERD (gastroesophageal reflux disease) Current Visit: Yes Status: Chronic Qualifiers: Esophagitis presence: without esophagitis Qualified Code(s): K21.9 - Gastro-esophageal reflux disease without esophagitis Cleared for Admission BHS - Detox or Rehab [facility] Level of Care: Medically Managed Detox Regimen/Protocol: Librium [facility] Breath Alcohol Content Breath Alcohol Content: 0.164 Urine Drug Screen - Results Drug Screen Negative: No Urine Drug Screen Results: BZO-Benzodiazepines, TCA-Tricyclic Antidepress
[2016-12-03] MEDS ORDERED: NICOTINE POLACRILEX 2 MG GUM BC PRN (19:55)
[2016-12-03] MEDS ORDERED: MAGNESIUM HYDROX 2400MG/30ML ORAL SUSPENSION 30 ML CUP PO PRN (19:55)
[2016-12-03] MEDS ORDERED: MAG HYDROX/AL HYDROX/SIMETH 30 ML UNIT-DOSE CUP PO PRN (19:55)
[2016-12-03] MEDS ORDERED: MAGNESIUM CITRATE 300 ML BOTTLE PO PRN (19:55)
[2016-12-03] MEDS ORDERED: guaiFENesin/D-METHORPHAN HB 10 ML UNIT-DOSE CUPS PO PRN (19:55)
[2016-12-03] MEDS ORDERED: P-EPHED 60MG/TRIPROLIDI 2.5MG TABLET PO PRN (19:55)
[2016-12-03] MEDS ORDERED: hydrOXYzine PAMOATE 50 MG CAPSULE (FP) PO PRN (19:55)
[2016-12-03] MEDS ORDERED: MENTHOL/PHENOL 1 EACH UD MM PRN (19:55)
[2016-12-03] MEDS ORDERED: LOPERAMIDE HCL 2 MG CAPSULE PO PRN (19:55)
[2016-12-03] MEDS ORDERED: chlordiazePOXIDE HCL 25 MG CAPSULE PO ONE (19:55)
[2016-12-03] MEDS ORDERED: chlordiazePOXIDE HCL 25 MG CAPSULE PO PRN (19:55)
[2016-12-03] MEDS: THIAMINE HCL 100 MG TABLET (FP) PO SCH (21:39)
[2016-12-03] MEDS: RANITIDINE HCL 150 MG TABLET (FP) PO SCH (21:39)
[2016-12-03] MEDS: diphenhydrAMINE HCL 50 MG CAPSULE PO PRN (21:40)
[2016-12-03] MEDS: chlordiazePOXIDE HCL 25 MG CAPSULE PO SCH (23:01)
[2016-12-04 00:21] LABS: URINE APPEARANCE CLEAR; URINE BILIRUBIN NEGATIVE (NEGATIVE); URINE BLOOD NEGATIVE (NEGATIVE); URINE COLOR LTYELLOW; URINE GLUCOSE (UA) NEGATIVE (NEGATIVE); URINE KETONE NEGATIVE (NEGATIVE); URINE LEUK ESTERASE NEGATIVE (NEGATIVE); URINE NITRITE NEGATIVE (NEGATIVE); URINE PROTEIN NEGATIVE (NEGATIVE); URINE UROBILINOGEN NEGATIVE E.U./dl (0.2-1.0)
[2016-12-04] MEDS: chlordiazePOXIDE HCL 25 MG CAPSULE PO SCH ×4 (05:42→22:35)
[2016-12-04 10:07] LABS: MCH 34.3 pg (25.7-33.7); MCHC 34.2 g/dl (32.0-35.9); MEAN CELL VOLUME 100.2 fl (80-96); MEAN PLT VOLUME 7.1 fl (7.5-11.1); PLATELET COUNT 530 K/MM3 (134-434); RDW 15.2 % (11.9-15.9); WHITE BLOOD COUNT 7.2 K/mm3 (4.0-10.0)
[2016-12-04 10:19] LABS: ALBUMIN 4.1 g/dl (3.4-5.0); ALK PHOS 56 U/L (45-117); ANION GAP 10 (8-16); BILIRUBIN,TOTAL 0.4 mg/dL (0.2-1.0); CALCIUM 9.9 mg/dL (8.5-10.1); CO2 26 mmol/L (21-32); COCKROFT - GAULT 98.65; CREATININE 0.8 mg/dL (0.7-1.3); GLUCOSE,RANDOM 102 mg/dL (74-106); SGOT/AST 16 U/L (15-37); SGPT/ALT 12 U/L (12-78); TOT PROT 8.1 g/dl (6.4-8.2)
[2016-12-04] MEDS: RANITIDINE HCL 150 MG TABLET (FP) PO SCH ×2 (10:39→22:35)
[2016-12-04] MEDS: PRENATAL VITAMINS W/ FOLIC ACID TABLET (FP) PO SCH (10:39)
[2016-12-04] MEDS: NICOTINE 14 MG/24 HOURS TOPICAL PATCH TD SCH (10:40)
--- NOTE | 2016-12-04 11:23 | PN ---
[facility] CIWA - CIWA Score Nausea/Vomitin-No Nausea/No Vomiting Muscle Tremors: 4-Moderate,w/Arms Extend Anxiety: 4-Mod. Anxious/Guarded Agitation: 4-Moderately Restless Paroxysmal Sweats: 1-Minimal Palms Moist Orientation: 0-Oriented Tacttile Disturbances: 3-Moderate Itch/Numb/Burn Auditory Disturbances: 0-None Visual Disturbances: 0-None Headache: 0-None Present CIWA-Ar Total Score: 16 S Progress Note (SOAP) Subjective: ANXIETY,SWEATS, TREMORS,MUSCLE ACHES, INTERMITTENT SLEEP Objective: 12/04/16 11:22 Vital Signs Temperature 99.1 F 12/04/16 10:26 Pulse Rate 79 12/04/16 10:26 Respiratory Rate 18 12/04/16 10:26 Blood Pressure 117/79 12/04/16 10:26 O2 Sat by Pulse Oximetry (%) Laboratory Last Values WBC 7.2 K/mm3 (4.0-10.0) 12/04/16 06:00 RBC 3.31 M/mm3 (4.00-5.60) L 12/04/16 06:00 Hgb 11.3 GM/dL (11.7-16.9) L D 12/04/16 06:00 Hct 33.2 % (35.4-49) L 12/04/16 06:00 MCV 100.2 fl (80-96) H 12/04/16 06:00 MCHC 34.2 g/dl (32.0-35.9) 12/04/16 06:00 RDW 15.2 % (11.9-15.9) 12/04/16 06:00 Plt Count 530 K/MM3 (134-434) H D 12/04/16 06:00 MPV 7.1 fl (7.5-11.1) L 12/04/16 06:00 Sodium 137 mmol/L (136-145) 12/04/16 06:00 Potassium 4.4 mmol/L (3.5-5.1) 12/04/16 06:00 Chloride 101 mmol/L (98-107) 12/04/16 06:00 Carbon Dioxide 26 mmol/L (21-32) 12/04/16 06:00 Anion Gap 10 (8-16) 12/04/16 06:00 BUN 12 mg/dL (7-18) D 12/04/16 06:00 Creatinine 0.8 mg/dL (0.7-1.3) 12/04/16 06:00 Creat Clearance w eGFR > 60 (>60) 12/04/16 06:00 Random Glucose 102 mg/dL (74-106) 12/04/16 06:00 Calcium 9.9 mg/dL (8.5-10.1) 12/04/16 06:00 Total Bilirubin 0.4 mg/dL (0.2-1.0) 12/04/16 06:00 AST 16 U/L (15-37) 12/04/16 06:00 ALT 12 U/L (12-78) 12/04/16 06:00 Alkaline Phosphatase 56 U/L (45-117) D 12/04/16 06:00 Total Protein 8.1 g/dl (6.4-8.2) 12/04/16 06:00 Albumin 4.1 g/dl (3.4-5.0) 12/04/16 06:00 Urine Color Ltyellow 12/03/16 23:15 Urine Appearance Clear 12/03/16 23:15 Urine pH 6.0 (5.0-8.0) 12/03/16 23:15 Urine Protein Negative (NEGATIVE) 12/03/16 23:15 Urine Glucose (UA) Negative (NEGATIVE) 12/03/16 23:15 Urine Ketones Negative (NEGATIVE) 12/03/16 23:15 Urine Blood Negative (NEGATIVE) 12/03/16 23:15 Urine Nitrite Negative (NEGATIVE) 12/03/16 23:15 Urine Bilirubin Negative (NEGATIVE) 12/03/16 23:15 Urine Urobilinogen Negative E.U./dl (0.2-1.0) 12/03/16 23:15 Ur Leukocyte Esterase Negative (NEGATIVE) 12/03/16 23:15 Assessment: 12/04/16 11:22 WITHDRAWAL SX Plan: CONTINUE DETOX
--- NOTE | 2016-12-04 11:43 | EKG ---
Test Reason : Blood Pressure : / mmHG Vent. Rate : 080 BPM Atrial Rate : 080 BPM P-R Int : 134 ms QRS Dur : 078 ms QT Int : 394 ms P-R-T Axes : 075 081 060 degrees QTc Int : 454 ms NORMAL SINUS RHYTHM NORMAL ECG WHEN COMPARED WITH ECG OF 22-OCT-2016 12:02, NO SIGNIFICANT CHANGE WAS FOUND Confirmed by ADEBAYO JONES MD ([id number]) on 12/04/2016 11:43:00 AM Referred By: Confirmed By:ADEBAYO JONES MD
--- NOTE | 2016-12-04 16:35 | CONSULT ---
[facility] Psychiatric Consult - Data Date of interview: 12/04/16 Admission source: [facility] Identifying data: Readmission to [facility] for this 51 y/o AA male seeking detox treatment on for alcohol dependence.Patient is ,a father of one ,domiciled,unemployed and supported on SSI benefits. Substance Abuse History: - Smoking Cessation. Smoking history: Current every day smoker. Have you smoked in the past 12 months: Yes. Aproximately how many cigarettes per day: 10. Cigars Per Day: 0. Hx Chewing Tobacco Use: No. Initiated information on smoking cessation: Yes. 'Breaking Loose' booklet given : 12/03/16. - Substance & Tx. History. Hx Alcohol Use: Yes. Hx Substance Use : No. Substance Use Type: Alcohol. Hx Substance Use Treatment: Yes. - Substances Abused. Alcohol. Route: Oral. Frequency: Daily. Amount used: 40ozx4. Age of first use: 14. Date of Last Use: 12/03/16. Confirmed by patient. Medical History: History of withdrawal-related seizures. Psychiatric History: Diagnosed with Schizoaffective Disorder and PTSD (2013) .History of multiple psychiatric hospitalizations.Mr Reilly is an unreliable historian.He indicates that he still gets his outpatient psychiatric services at the [facility] in the [place].Maintained on a combination of seroquel 200 mg/hs + lithium carbonate 300 mg po tid (verified via review of recent pharmacy claims of 11/19/16 at [facility]) .Patient declares that he has NOT taken his prescribed medications for " a little over a week." Denies history of suicide attempts. Physical/Sexual Abuse/Trauma History: Patient denies. Additional Comment: Urine Drug Screen Results: BZO-Benzodiazepines, TCA- Tricyclic Antidepressant.Noted. Mental Status Exam - Mental Status Exam Alert and Oriented to: Time, Place, Person Cognitive Function: Good Patient Appearance: Well Groomed Mood: Anxious Affect: Mood Congruent Patient Behavior: Fatigued, Cooperative Speech Pattern: Clear Voice Loudness: Normal Thought Process: Goal Oriented Thought Disorder: Not Present Hallucinations: Denies Suicidal Ideation: Denies Homicidal Ideation: Denies Insight/Judgement: Poor Sleep: Poorly, Difficulty falling asleep Appetite: Good Muscle strength/Tone: Normal Gait/Station: Normal (observed ambulating around unit) Psychiatric Findings - Problem List ([place] 1, 2,3) (1) Schizoaffective disorder Current Visit: Yes Status: Chronic Qualifiers: Schizoaffective disorder type: unspecified Qualified Code(s): F25.9 - Schizoaffective disorder, unspecified Comment: . (2) Alcohol dependence with uncomplicated withdrawal Current Visit: Yes Status: Acute (3) Nicotine dependence Current Visit: Yes Status: Acute Qualifiers: Nicotine product type: cigarettes Substance use status: in withdrawal Qualified Code(s): F17.213 - Nicotine dependence, cigarettes, with withdrawal Comment: . (4) GERD (gastroesophageal reflux disease) Current Visit: Yes Status: Chronic Qualifiers: Esophagitis presence: without esophagitis Qualified Code(s): K21.9 - Gastro-esophageal reflux disease without esophagitis (5) Positive PPD, treated Current Visit: Yes Status: Resolved (6) Insomnia Current Visit: Yes Status: Acute - Initial Treatment Plan Initial Treatment Plan: Previous records are reviewed.Psychoeducation.Detoxification.Medications : lithium is held (until level becomes available) + seroquel 100 mg po hs (reduced in view of past history of oversedation).Patient is made aware of this strategy of treatment.Consent (verbal) given.Observation.Will follow lithium level (sample already drawn and sent).NO scripts needed at discharge.
[2016-12-04] MEDS: QUEtiapine FUMARATE 100 MG TABLET (FP) PO SCH (22:35)
[2016-12-04] MEDS: diphenhydrAMINE HCL 50 MG CAPSULE PO PRN (22:35)
[2016-12-04] MEDS: THIAMINE HCL 100 MG TABLET (FP) PO SCH (22:35)
[2016-12-04] MEDS: ACETAMINOPHEN 325 MG TABLET (FP) PO PRN (22:36)
[2016-12-05] MEDS: chlordiazePOXIDE HCL 25 MG CAPSULE PO SCH ×3 (05:26→17:08)
[2016-12-05] MEDS: RANITIDINE HCL 150 MG TABLET (FP) PO SCH ×2 (10:32→22:03)
[2016-12-05] MEDS: PRENATAL VITAMINS W/ FOLIC ACID TABLET (FP) PO SCH (10:32)
[2016-12-05] MEDS: NICOTINE 14 MG/24 HOURS TOPICAL PATCH TD SCH (10:33)
[2016-12-05] MEDS: ACETAMINOPHEN 325 MG TABLET (FP) PO PRN ×2 (10:33→17:08)
--- NOTE | 2016-12-05 11:29 | PN ---
[facility] CIWA - CIWA Score Nausea/Vomitin-No Nausea/No Vomiting Muscle Tremors: 3 Anxiety: 5 Agitation: 4-Moderately Restless Paroxysmal Sweats: 1-Minimal Palms Moist Orientation: 0-Oriented Tacttile Disturbances: 2-Mild Itch/Numbness/Burn Auditory Disturbances: 0-None Visual Disturbances: 0-None Headache: 0-None Present CIWA-Ar Total Score: 15 S Progress Note (SOAP) Subjective: IRRITABILITY,ANXIETY,SWEATS. Objective: 12/05/16 11:28 Vital Signs Temperature 97.8 F 12/05/16 10:22 Pulse Rate 67 12/05/16 10:22 Respiratory Rate 18 12/05/16 10:22 Blood Pressure 124/78 12/05/16 10:22 O2 Sat by Pulse Oximetry (%) Laboratory Last Values WBC 7.2 K/mm3 (4.0-10.0) 12/04/16 06:00 RBC 3.31 M/mm3 (4.00-5.60) L 12/04/16 06:00 Hgb 11.3 GM/dL (11.7-16.9) L D 12/04/16 06:00 Hct 33.2 % (35.4-49) L 12/04/16 06:00 MCV 100.2 fl (80-96) H 12/04/16 06:00 MCHC 34.2 g/dl (32.0-35.9) 12/04/16 06:00 RDW 15.2 % (11.9-15.9) 12/04/16 06:00 Plt Count 530 K/MM3 (134-434) H D 12/04/16 06:00 MPV 7.1 fl (7.5-11.1) L 12/04/16 06:00 Sodium 137 mmol/L (136-145) 12/04/16 06:00 Potassium 4.4 mmol/L (3.5-5.1) 12/04/16 06:00 Chloride 101 mmol/L (98-107) 12/04/16 06:00 Carbon Dioxide 26 mmol/L (21-32) 12/04/16 06:00 Anion Gap 10 (8-16) 12/04/16 06:00 BUN 12 mg/dL (7-18) D 12/04/16 06:00 Creatinine 0.8 mg/dL (0.7-1.3) 12/04/16 06:00 Creat Clearance w eGFR > 60 (>60) 12/04/16 06:00 Random Glucose 102 mg/dL (74-106) 12/04/16 06:00 Calcium 9.9 mg/dL (8.5-10.1) 12/04/16 06:00 Total Bilirubin 0.4 mg/dL (0.2-1.0) 12/04/16 06:00 AST 16 U/L (15-37) 12/04/16 06:00 ALT 12 U/L (12-78) 12/04/16 06:00 Alkaline Phosphatase 56 U/L (45-117) D 12/04/16 06:00 Total Protein 8.1 g/dl (6.4-8.2) 12/04/16 06:00 Albumin 4.1 g/dl (3.4-5.0) 12/04/16 06:00 Urine Color Ltyellow 12/03/16 23:15 Urine Appearance Clear 12/03/16 23:15 Urine pH 6.0 (5.0-8.0) 12/03/16 23:15 Ur Specific [place] 1.020 (1.005-1.025) 12/03/16 23:15 Urine Protein Negative (NEGATIVE) 12/03/16 23:15 Urine Glucose (UA) Negative (NEGATIVE) 12/03/16 23:15 Urine Ketones Negative (NEGATIVE) 12/03/16 23:15 Urine Blood Negative (NEGATIVE) 12/03/16 23:15 Urine Nitrite Negative (NEGATIVE) 12/03/16 23:15 Urine Bilirubin Negative (NEGATIVE) 12/03/16 23:15 Urine Urobilinogen Negative E.U./dl (0.2-1.0) 12/03/16 23:15 Ur Leukocyte Esterase Negative (NEGATIVE) 12/03/16 23:15 [place] 0.4 MEQ/L (0.6-1.2) L 12/03/16 11:30 RPR Titer Nonreactive (NONREACTIVE) 12/04/16 06:00 Assessment: 12/05/16 11:29 WITHDRAWAL SX Plan: CONTINUE DETOX
[2016-12-05] MEDS ORDERED: LIDOCAINE VISCOUS 2% ORAL/TOP 20 ML UNIT-DOSE CUP MM PRN (19:03)
[2016-12-05] MEDS: chlordiazePOXIDE 5 MG CAPSULE PO SCH (22:03)
[2016-12-05] MEDS: QUEtiapine FUMARATE 100 MG TABLET (FP) PO SCH (22:03)
[2016-12-05] MEDS: THIAMINE HCL 100 MG TABLET (FP) PO SCH (22:03)
[2016-12-05] MEDS: diphenhydrAMINE HCL 50 MG CAPSULE PO PRN (22:04)
[2016-12-06] MEDS: chlordiazePOXIDE 5 MG CAPSULE PO SCH ×3 (05:52→17:23)
--- NOTE | 2016-12-06 09:48 | PN ---
[facility]HS Progress Note (SOAP) Subjective: Sweating,interrupted sleep,restless. Objective: 12/06/16 09:47 Vital Signs - 8 hr 12/06/16 12/06/16 03:30 06:29 Temperature 98.0 F Pulse Rate 72 Respiratory 18 16 Rate Blood Pressure 100/66 Laboratory Last Values WBC 7.2 K/mm3 (4.0-10.0) 12/04/16 06:00 RBC 3.31 M/mm3 (4.00-5.60) L 12/04/16 06:00 Hgb 11.3 GM/dL (11.7-16.9) L D 12/04/16 06:00 Hct 33.2 % (35.4-49) L 12/04/16 06:00 MCV 100.2 fl (80-96) H 12/04/16 06:00 MCHC 34.2 g/dl (32.0-35.9) 12/04/16 06:00 RDW 15.2 % (11.9-15.9) 12/04/16 06:00 Plt Count 530 K/MM3 (134-434) H D 12/04/16 06:00 MPV 7.1 fl (7.5-11.1) L 12/04/16 06:00 Sodium 137 mmol/L (136-145) 12/04/16 06:00 Potassium 4.4 mmol/L (3.5-5.1) 12/04/16 06:00 Chloride 101 mmol/L (98-107) 12/04/16 06:00 Carbon Dioxide 26 mmol/L (21-32) 12/04/16 06:00 Anion Gap 10 (8-16) 12/04/16 06:00 BUN 12 mg/dL (7-18) D 12/04/16 06:00 Creatinine 0.8 mg/dL (0.7-1.3) 12/04/16 06:00 Creat Clearance w eGFR > 60 (>60) 12/04/16 06:00 Random Glucose 102 mg/dL (74-106) 12/04/16 06:00 Calcium 9.9 mg/dL (8.5-10.1) 12/04/16 06:00 Total Bilirubin 0.4 mg/dL (0.2-1.0) 12/04/16 06:00 AST 16 U/L (15-37) 12/04/16 06:00 ALT 12 U/L (12-78) 12/04/16 06:00 Alkaline Phosphatase 56 U/L (45-117) D 12/04/16 06:00 Total Protein 8.1 g/dl (6.4-8.2) 12/04/16 06:00 Albumin 4.1 g/dl (3.4-5.0) 12/04/16 06:00 Urine Color Ltyellow 12/03/16 23:15 Urine Appearance Clear 12/03/16 23:15 Urine pH 6.0 (5.0-8.0) 12/03/16 23:15 Ur Specific [place] 1.020 (1.005-1.025) 12/03/16 23:15 Urine Protein Negative (NEGATIVE) 12/03/16 23:15 Urine Glucose (UA) Negative (NEGATIVE) 12/03/16 23:15 Urine Ketones Negative (NEGATIVE) 12/03/16 23:15 Urine Blood Negative (NEGATIVE) 12/03/16 23:15 Urine Nitrite Negative (NEGATIVE) 12/03/16 23:15 Urine Bilirubin Negative (NEGATIVE) 12/03/16 23:15 Urine Urobilinogen Negative E.U./dl (0.2-1.0) 12/03/16 23:15 Ur Leukocyte Esterase Negative (NEGATIVE) 12/03/16 23:15 [place] 0.4 MEQ/L (0.6-1.2) L 12/03/16 11:30 RPR Titer Nonreactive (NONREACTIVE) 12/04/16 06:00 labs noted Assessment: 12/06/16 09:48 Withdrawal sx. Plan: Continue detox
[2016-12-06] MEDS: RANITIDINE HCL 150 MG TABLET (FP) PO SCH ×2 (10:32→22:09)
[2016-12-06] MEDS: PRENATAL VITAMINS W/ FOLIC ACID TABLET (FP) PO SCH (10:32)
[2016-12-06] MEDS: IBUPROFEN 600 MG TABLET (FP) PO PRN ×2 (10:33→22:09)
[2016-12-06] MEDS: NICOTINE 14 MG/24 HOURS TOPICAL PATCH TD SCH (10:33)
--- NOTE | 2016-12-06 10:39 | PN ---
[facility] Progress Note Note: Psychiatry Attending's note : Labs reviewed. Normal electrolytes. Li level = 0.4 on 12/04/16. BUN = 12 / creatinine = 0.8 GFR > 60.Normal renal function. [place] is re-started at 300 mg po tid. Side-effects/benefits discussed with patient. Made aware of risks of renal dysfunction, thyroid problems,weight gain,alopecia areata exacerbation of psoriasis and tremors. History of good tolerability,as per patient. Mr Reilly is in agreement with careplan.
[2016-12-06] MEDS: LITHIUM CARBONATE 300 MG CAPSULE (FP) PO SCH ×2 (14:12→22:09)
[2016-12-06] MEDS: chlordiazePOXIDE HCL 10 MG CAPSULE PO SCH (22:09)
[2016-12-06] MEDS: THIAMINE HCL 100 MG TABLET (FP) PO SCH (22:09)
[2016-12-06] MEDS: diphenhydrAMINE HCL 50 MG CAPSULE PO PRN (22:09)
[2016-12-06] MEDS: QUEtiapine FUMARATE 100 MG TABLET (FP) PO SCH (22:09)
[2016-12-07] MEDS: chlordiazePOXIDE HCL 10 MG CAPSULE PO SCH (06:03)
[2016-12-07] MEDS: LITHIUM CARBONATE 300 MG CAPSULE (FP) PO SCH (06:03)
[2016-12-07] MEDS: IBUPROFEN 600 MG TABLET (FP) PO PRN (06:04)
[2016-12-07 06:41] VITALS: BP 129/78; PULSE 75; TEMP 98.2
--- NOTE | 2016-12-07 20:02 | DS ---
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 Pertinent Past History: GERD, Seizures (Alcohol-Related), History of Positive PPD (Treated), Bipolar Disorder. - Physical Exam Results Vital Signs: Vital Signs Temperature 98.2 F 12/07/16 06:39 Pulse Rate 75 12/07/16 06:39 Respiratory Rate 18 12/07/16 06:39 Blood Pressure 129/78 12/07/16 06:39 O2 Sat by Pulse Oximetry (%) Pertinent Admission Physical Exam Findings: WITHDRAWAL SYMPTOMS. Laboratory Tests 12/03/16 12/03/16 12/04/16 11:30 23:15 06:00 WBC 7.2 RBC 3.31 L Hgb 11.3 L D Hct 33.2 L MCV 100.2 H MCHC 34.2 RDW 15.2 Plt Count 530 H D MPV 7.1 L Sodium Potassium Chloride Carbon Dioxide Anion Gap BUN Creatinine Creat Clearance w eGFR Random Glucose Calcium Total Bilirubin AST ALT Alkaline Phosphatase Total Protein Albumin Urine Color Ltyellow Urine Appearance Clear Urine pH 6.0 Ur Specific [place] 1.020 Urine Protein Negative Urine Glucose (UA) Negative Urine Ketones Negative Urine Blood Negative Urine Nitrite Negative Urine Bilirubin Negative Urine Urobilinogen Negative Ur Leukocyte Esterase Negative [place] 0.4 L RPR Titer 12/04/16 12/04/16 06:00 06:00 WBC RBC Hgb Hct MCV MCHC RDW Plt Count MPV Sodium 137 Potassium 4.4 Chloride 101 Carbon Dioxide 26 Anion Gap 10 BUN 12 D Creatinine 0.8 Creat Clearance w eGFR > 60 Random Glucose 102 Calcium 9.9 Total Bilirubin 0.4 AST 16 ALT 12 Alkaline Phosphatase 56 D Total Protein 8.1 Albumin 4.1 Urine Color Urine Appearance Urine pH Ur Specific [place] Urine Protein Urine Glucose (UA) Urine Ketones Urine Blood Urine Nitrite Urine Bilirubin Urine Urobilinogen Ur Leukocyte Esterase [place] RPR Titer Nonreactive LABS NOTED. - Treatment Hospital Course: Detox Protocol Followed, Detoxed Safely, Responded well, Discharged Condition Good Patient has Accepted a Rehab Referral to: PT. ELECTING TO GO HOME. 12-STEP AA OUTPATIENT PROGRAMS RECOMMENDED. - Medication Discharge Medications: Ambulatory Orders [place] Carbonate [Lithobid] 600 mg PO TID 12/11/15 Fluoxetine HCl [Prozac] 20 mg PO DAILY #30 capsule 12/12/15 Quetiapine Fumarate [Seroquel -] 200 mg PO HS #30 tab 12/12/15 Ibuprofen [Motrin -] 400 mg PO TID PRN 06/03/16 Fluoxetine HCl [Prozac] 20 mg PO DAILY #30 capsule 10/23/16 [place] Carbonate [Eskalith -] 300 mg PO BID #60 cap 10/23/16 Quetiapine Fumarate [Seroquel -] 200 mg PO HS #30 tab 10/23/16 - Diagnosis (1) Alcohol dependence with uncomplicated withdrawal Status: Acute (2) Drug-induced mood disorder Status: Acute (3) Insomnia Status: Acute Qualifiers: Insomnia type: unspecified Qualified Code(s): G47.00 - Insomnia, unspecified (4) Nicotine dependence Status: Chronic Qualifiers: Nicotine product type: cigarettes Substance use status: in withdrawal Qualified Code(s): F17.213 - Nicotine dependence, cigarettes, with withdrawal (5) Weight loss Status: Acute (6) GERD (gastroesophageal reflux disease) Status: Chronic Qualifiers: Esophagitis presence: without esophagitis Qualified Code(s): K21.9 - Gastro-esophageal reflux disease without esophagitis (7) Bipolar II disorder Status: Suspected - AMA Did Patient Leave Against Medical Advice: No
== END 2016-12-07 09:00 | disposition home or self-care (01) | DRG 775 ==
LOC: YASAS 12:40 → Y3N 20:09
PROVIDERS: ADMIT Internal Medicine; ATTEND Internal Medicine
PROC: HZ2ZZZZ Detoxification Services for Substance Abuse Treatment (ICD-10-PCS; principal; 2016-12-03)
DX: F10.230 Alcohol dependence with withdrawal, uncomplicated (principal); F17.213 Nicotine dependence, cigarettes, with withdrawal; F19.24 Other psychoactive substance dependence with psychoactive substance-induced mood disorder; F31.81 Bipolar II disorder; F25.9 Schizoaffective disorder, unspecified; G47.00 Insomnia, unspecified; K21.9 Gastro-esophageal reflux disease without esophagitis; R76.11 Nonspecific reaction to tuberculin skin test without active tuberculosis; Z86.69 Personal history of other diseases of the nervous system and sense organs; Z87.898 Personal history of other specified conditions; Z91.5 Personal history of self-harm
CPT/HCPCS: 36415; 71020-TC; 80053; 80178; 81003; 85027; 86593; 93005; 93010

== ENCOUNTER 2017-04-10 09:09 | Inpatient (IN) | payer BC ==
[2017-04-10 10:52] VITALS: BMI 19.8
--- NOTE | 2017-04-10 13:28 | HP ---
CIWA Score - CIWA Score Nausea/Vomitin Muscle Tremors: 3 Anxiety: 4-Mod. Anxious/Guarded Agitation: 2 Paroxysmal Sweats: 4-Forehead w/Sweat Beads Orientation: 0-Oriented Tacttile Disturbances: 0-None Auditory Disturbances: 1-Very Mild Visual Disturbances: 0-None Headache: 0-None Present CIWA-Ar Total Score: 17 Admission ROS BHS - HPI Chief Complaint: "I'm here because I want to better my life and because I want to get off of Alcohol." Pt. is here to detox from Alcohol. Allergies/Adverse Reactions: Allergies Allergy/AdvReac Type Severity Reaction Status Date / Time No Known Allergies Allergy Verified 04/10/17 11:39 History of Present Illness: Pt. is a 51 YO male here to Detox from Alcohol. Pt. has had several previous Detox admissions at [facility]; Last One: 11/2016. Exam Limitations: No Limitations - Ebola screening Have you traveled outside of the country in the last 21 days: No Have you had contact with anyone from an Ebola affected area: No Have you been sick,other than usual withdrawal symptoms: No Do you have a fever: No - Review of Systems Constitutional: Chills, Diaphoresis, Loss of Appetite, Malaise, Night Sweats, Changes in sleep, Unintentional Wgt. Loss (Lost approx. 15 lbs. over last 3 months.) EENT: reports: No Symptoms Reported Respiratory: reports: No Symptoms reported Cardiac: reports: No Symptoms Reported GI: reports: Nausea, Poor Appetite, Vomiting : reports: No Symptoms Reported Musculoskeletal: reports: Back Pain Integumentary: reports: Sweating Neuro: reports: Tremors Endocrine: reports: No Symptoms Reported Hematology: reports: No Symptoms Reported Psychiatric: reports: Judgement Intact, Mood/Affect Appropiate, Orientated x3, Anxious, Depressed (and Bipolar Disorder. On meds.) Other Systems: Reviewed and Negative Patient History - Patient Medical History Hx Anemia: No Hx Asthma: No Hx Chronic Obstructive Pulmonary Disease (COPD): No Hx Cancer: No Hx Cardiac Disorders: No Hx Congestive Heart Failure: No Hx Hypertension: No Hx Hypercholesterolemia: No Hx Pacemaker: No HX Cerebrovascular Accident: No Hx Seizures: No Hx Dementia: No Hx Diabetes: No Hx Gastrointestinal Disorders: No Hx Liver Disease: No Hx Genitourinary Disorders: No Hx Sexually Transmitted Disorders: No Hx Renal Disease (ESRD): No Hx Thyroid Disease: No Hx Human Immunodeficiency Virus (HIV): No (Last tested: 2015: NEGATIVE.) Hx Hepatitis C: No (Last tested: 2015: NEGATIVE.) Hx Depression: Yes (On meds.) Hx Suicide Attempt: No (ROMANT[facility] DENIES CURRENT SI / HI.) Hx Bipolar Disorder: Yes (On meds.) Hx Schizophrenia: No Other Medical History: DENIES. - Patient Surgical History Past Surgical History: No Hx Neurologic Surgery: No Hx Cataract Extraction: No Hx Cardiac Surgery: No Hx Lung Surgery: No Hx Breast Surgery: No Hx Breast Biopsy: No Hx Abdominal Surgery: No Hx Appendectomy: No Hx Cholecystectomy: No Hx Genitourinary Surgery: No Hx Section: No Hx Orthopedic Surgery: No Anesthesia Reaction: No - PPD History Previous Implant?: Yes Documented Results: Positive w/o proof Implanted On Prior [facility] Admission?: No Results: CXR(-)12/04/16 PPD to be Administered?: No - Reproductive History Patient is a Female of Child Bearing Age (11 -55 yrs old): No (PAITENT IS MALE.) - Smoking Cessation Smoking history: Current every day smoker Have you smoked in the past 12 months: Yes Aproximately how many cigarettes per day: 10 Cigars Per Day: 0 Hx Chewing Tobacco Use: No Initiated information on smoking cessation: Yes 'Breaking Loose' booklet given: 04/10/17 (GIVEN TO PATIENT.) - Substance & Tx. History Hx Alcohol Use: Yes Hx Substance Use: Yes Substance Use Type: Alcohol Hx Substance Use Treatment: Yes (Several previous Detox admissions at [facility]; Last : 11/2016.) - Substances Abused Alcohol-beer Route: Oral Frequency: Daily Amount used: 2-6 pks. Age of first use: 19 Date of Last Use: 04/10/17 Family Disease History - Family Disease History Family Disease History: Diabetes: Father (), Other: Mother (DEMENTIA ) Admission Physical Exam BHS - Vital Signs Vital Signs: Vital Signs - 24 hr 04/10/17 10:48 Temperature 98 F Pulse Rate 150 H Respiratory 20 Rate Blood Pressure 106/72 - Physical General Appearance: Yes: Nourished, Appropriately Dressed, Mild Distress, Tremorous, Sweating, Anxious HEENTM: Yes: Hearing grossly Normal, Normocephalic, Normal Voice, TESSA, Pharynx Normal Respiratory: Yes: Chest Non-Tender, Lungs Clear, No Respiratory Distress, No Accessory Muscle Use Neck: Yes: No masses,lesions,Nodules, Supple, Trachea in good position Breast: Yes: Breast Exam Deferred Cardiology: Yes: Regular Rhythm, S1, S2, Tachycardia Abdominal: Yes: Normal Bowel Sounds, Non Tender, Flat, Soft Genitourinary: Yes: Within Normal Limits Back: Yes: Decreased Range of Motion Musculoskeletal: Yes: Gait Steady, Back pain Extremities: Yes: Normal Range of Motion, Non-Tender, Tremors Neurological: Yes: Fully Oriented, Alert, Normal Mood/Affect, Normal Response Integumentary: Yes: Normal Color, Dry, Warm Lymphatic: Yes: Within Normal Limits - Diagnostic (1) Alcohol dependence with uncomplicated withdrawal Current Visit: Yes Status: Acute (2) Nicotine dependence Current Visit: Yes Status: Chronic Qualifiers: Nicotine product type: cigarettes Substance use status: uncomplicated Qualified Code(s): F17.210 - Nicotine dependence, cigarettes, uncomplicated; F17.210 - Nicotine dependence, cigarettes, uncomplicated Comment: . (3) Anxiety and depression Current Visit: Yes Status: Chronic (4) History of bipolar disorder Current Visit: Yes Status: Chronic Cleared for Admission [facility] - Detox or Rehab [facility] Level of Care: Medically Managed Detox Regimen/Protocol: Librium [facility] Breath Alcohol Content Breath Alcohol Content: 0.228 Urine Drug Screen - Results Drug Screen Negative: No Urine Drug Screen Results: BZO-Benzodiazepines
[2017-04-10] MEDS ORDERED: guaiFENesin/D-METHORPHAN HB 10 ML UNIT-DOSE CUPS PO PRN (13:59)
[2017-04-10] MEDS ORDERED: chlordiazePOXIDE HCL 25 MG CAPSULE PO PRN (13:59)
[2017-04-10] MEDS ORDERED: MAGNESIUM CITRATE 300 ML BOTTLE PO PRN (13:59)
[2017-04-10] MEDS ORDERED: P-EPHED 60MG/TRIPROLIDI 2.5MG TABLET PO PRN (13:59)
[2017-04-10] MEDS ORDERED: MAGNESIUM HYDROX 2400MG/30ML ORAL SUSPENSION 30 ML CUP PO PRN (13:59)
[2017-04-10] MEDS ORDERED: MAG HYDROX/AL HYDROX/SIMETH 30 ML UNIT-DOSE CUP PO PRN (13:59)
[2017-04-10] MEDS ORDERED: NICOTINE POLACRILEX 2 MG GUM BUC PRN (13:59)
[2017-04-10] MEDS ORDERED: LOPERAMIDE HCL 2 MG CAPSULE PO PRN (13:59)
[2017-04-10] MEDS ORDERED: IBUPROFEN 400 MG TABLET (FP) PO PRN (13:59)
[2017-04-10] MEDS ORDERED: MENTHOL/PHENOL 1 EACH UD MM PRN (13:59)
[2017-04-10] MEDS ORDERED: ACETAMINOPHEN 325 MG TABLET (FP) PO PRN (13:59)
[2017-04-10] MEDS ORDERED: chlordiazePOXIDE HCL 25 MG CAPSULE PO ONE (14:06)
[2017-04-10] MEDS: hydrOXYzine PAMOATE 50 MG CAPSULE (FP) PO PRN (14:58)
[2017-04-10] MEDS: NICOTINE 21 MG/24 HOURS TOPICAL PATCH TD SCH (14:59)
[2017-04-10 16:36] LABS: MCH 34.6 pg (25.7-33.7); MCHC 34.5 g/dl (32.0-35.9); MEAN CELL VOLUME 100.3 fl (80-96); MEAN PLT VOLUME 7.7 fl (7.5-11.1); PLATELET COUNT 281 K/MM3 (134-434); RDW 15.7 % (11.9-15.9); WHITE BLOOD COUNT 7.3 K/mm3 (4.0-10.0)
[2017-04-10 16:50] LABS: ALBUMIN 3.4 g/dl (3.4-5.0); ANION GAP 14 (8-16); CALCIUM 8.9 mg/dL (8.5-10.1); CO2 21 mmol/L (21-32); GLUCOSE,RANDOM 74 mg/dL (74-106)
[2017-04-10 16:55] LABS: ALK PHOS 81 U/L (45-117); BILIRUBIN,TOTAL 0.7 mg/dL (0.2-1.0); CREATININE 0.6 mg/dL (0.7-1.3); SGPT/ALT 12 U/L (12-78); TOT PROT 7.6 g/dl (6.4-8.2)
[2017-04-10 16:57] LABS: SGOT/AST 26 U/L (15-37)
[2017-04-10] MEDS: chlordiazePOXIDE HCL 25 MG CAPSULE PO SCH ×2 (17:24→22:23)
[2017-04-10 20:25] LABS: URINE APPEARANCE SLCLOUDY; URINE BILIRUBIN NEGATIVE (NEGATIVE); URINE BLOOD 1+ (NEGATIVE); URINE COLOR YELLOW; URINE GLUCOSE (UA) NEGATIVE (NEGATIVE); URINE KETONE TRACE (NEGATIVE); URINE NITRITE NEGATIVE (NEGATIVE); URINE UROBILINOGEN NEGATIVE mg/dL (0.2-1.0)
[2017-04-10 20:58] LABS: URINE PROTEIN 1+ (NEGATIVE)
[2017-04-10 21:02] LABS: URINE HYALINE CAST 1 /lpf; URINE MUCUS RARE; URINE RBC <1 /hpf (0-3); URINE WBC 1 /hpf (3-5)
[2017-04-10] MEDS: THIAMINE HCL 100 MG TABLET (FP) PO SCH (22:23)
[2017-04-10 22:50] LABS: URINE LEUK ESTERASE Negative (NEGATIVE)
[2017-04-11] MEDS: chlordiazePOXIDE HCL 25 MG CAPSULE PO SCH ×4 (05:49→22:36)
--- NOTE | 2017-04-11 09:29 | EKG ---
Test Reason : Blood Pressure : / mmHG Vent. Rate : 153 BPM Atrial Rate : 072 BPM P-R Int : 000 ms QRS Dur : 088 ms QT Int : 304 ms P-R-T Axes : 000 084 080 degrees QTc Int : 485 ms SUPRAVENTRICULAR TACHYCARDIA NONSPECIFIC ST ABNORMALITY ABNORMAL ECG WHEN COMPARED WITH ECG OF 03-DEC-2016 20:51, VENT. RATE HAS INCREASED BY 73 BPM Confirmed by OLENA SALCEDO MD ([id number]) on 04/11/2017 9:29:30 AM Referred By: Confirmed By:OLENA SALCEDO MD
[2017-04-11] MEDS: PRENATAL VITAMINS W/ FOLIC ACID TABLET (FP) PO SCH (10:11)
[2017-04-11] MEDS: NICOTINE 21 MG/24 HOURS TOPICAL PATCH TD SCH (10:12)
--- NOTE | 2017-04-11 14:40 | PN ---
[facility] CIWA - CIWA Score Nausea/Vomitin-No Nausea/No Vomiting Muscle Tremors: 4-Moderate,w/Arms Extend Anxiety: 4-Mod. Anxious/Guarded Agitation: 3 Paroxysmal Sweats: 3 Orientation: 1-Uncertain about Date Tacttile Disturbances: 1-Very Mild Itch/Numbness Auditory Disturbances: 0-None Visual Disturbances: 0-None Headache: 0-None Present CIWA-Ar Total Score: 16 S Progress Note (SOAP) Subjective: Interrupted sleep, agitation, tremors, chills, body aches, anxiety, fatigue Objective: 04/11/17 14:38 Vital Signs Temperature 96.4 F L 04/11/17 13:04 Pulse Rate 85 04/11/17 13:04 Respiratory Rate 18 04/11/17 13:04 Blood Pressure 101/57 04/11/17 13:04 O2 Sat by Pulse Oximetry (%) Laboratory Last Values WBC 7.3 K/mm3 (4.0-10.0) 04/10/17 14:00 RBC 3.82 M/mm3 (4.00-5.60) L 04/10/17 14:00 Hgb 13.2 GM/dL (11.7-16.9) D 04/10/17 14:00 Hct 38.4 % (35.4-49) D 04/10/17 14:00 MCV 100.3 fl (80-96) H 04/10/17 14:00 MCH 34.6 pg (25.7-33.7) H 04/10/17 14:00 MCHC 34.5 g/dl (32.0-35.9) 04/10/17 14:00 RDW 15.7 % (11.9-15.9) 04/10/17 14:00 Plt Count 281 K/MM3 (134-434) D 04/10/17 14:00 MPV 7.7 fl (7.5-11.1) 04/10/17 14:00 Sodium 130 mmol/L (136-145) L 04/10/17 14:00 Potassium 4.1 mmol/L (3.5-5.1) 04/10/17 14:00 Chloride 95 mmol/L (98-107) L 04/10/17 14:00 Carbon Dioxide 21 mmol/L (21-32) 04/10/17 14:00 Anion Gap 14 (8-16) 04/10/17 14:00 BUN 4 mg/dL (7-18) L D 04/10/17 14:00 Creatinine 0.6 mg/dL (0.7-1.3) L D 04/10/17 14:00 Creat Clearance w eGFR > 60 (>60) 04/10/17 14:00 Random Glucose 74 mg/dL (74-106) D 04/10/17 14:00 Calcium 8.9 mg/dL (8.5-10.1) 04/10/17 14:00 Total Bilirubin 0.7 mg/dL (0.2-1.0) D 04/10/17 14:00 AST 26 U/L (15-37) D 04/10/17 14:00 ALT 12 U/L (12-78) 04/10/17 14:00 Alkaline Phosphatase 81 U/L (45-117) D 04/10/17 14:00 Total Protein 7.6 g/dl (6.4-8.2) 04/10/17 14:00 Albumin 3.4 g/dl (3.4-5.0) 04/10/17 14:00 Urine Color Yellow 04/10/17 19:43 Urine Appearance Slcloudy 04/10/17 19:43 Urine pH 6.0 (5.0-8.0) 04/10/17 19:43 Ur Specific [place] 1.010 (1.005-1.025) 04/10/17 19:43 Urine Protein 1+ (NEGATIVE) H 04/10/17 19:43 Urine Glucose (UA) Negative (NEGATIVE) 04/10/17 19:43 Urine Ketones Trace (NEGATIVE) H 04/10/17 19:43 Urine Blood 1+ (NEGATIVE) H 04/10/17 19:43 Urine Nitrite Negative (NEGATIVE) 04/10/17 19:43 Urine Bilirubin Negative (NEGATIVE) 04/10/17 19:43 Urine Urobilinogen Negative mg/dL (0.2-1.0) 04/10/17 19:43 Ur Leukocyte Esterase Negative (NEGATIVE) 04/10/17 19:43 Urine RBC <1 /hpf (0-3) 04/10/17 19:43 Urine WBC 1 /hpf (3-5) 04/10/17 19:43 Ur Epithelial Cells Rare /hpf (FEW) 04/10/17 19:43 Hyaline Casts 1 /lpf 04/10/17 19:43 Urine Mucus Rare 04/10/17 19:43 RPR Titer Nonreactive (NONREACTIVE) 04/10/17 14:00 Labs noted, Sodium and chloride decreased, increased oral hydration encouraged. 04/11/17 14:47 04/11/17 14:49 04/11/17 14:51 Assessment: Withdrawal sx Plan: Continue detox. Alert and oriented x 3 and in no acute distress No significant medical hx Increase oral fluid intake
--- NOTE | 2017-04-11 16:40 | CONSULT ---
[facility] Psychiatric Consult - Data Date of interview: 04/11/17 Admission source: [facility] Identifying data: One of multiple admissions to [facility] for this 51 y/o AA male seeking detox treatment on for alcohol dependence.Patient is ,a father of one,domiciled,unemployed and supported on SSI benefits. Substance Abuse History: Patient agrees with this report. Smoking Cessation. Smoking history: Current every day smoker. Have you smoked in the past 12 months: Yes. Aproximately how many cigarettes per day: 10. Cigars Per Day: 0. Hx Chewing Tobacco Use: No. Initiated information on smoking cessation: Yes. 'Breaking Loose' booklet given: 04/10/17 (GIVEN TO PATIENT.). - Substance & Tx. History. Hx Alcohol Use: Yes. Hx Substance Use: Yes. Substance Use Type: Alcohol. Hx Substance Use Treatment: Yes (Several previous Detox admissions at [facility]; Last: 11/2016.). - Substances Abused. Alcohol-beer. Route: Oral. Frequency: Daily. Amount used: 2-6 pks. Age of first use: 19. Date of Last Use: 04/10/17 Medical History: History of withdrawal-related seizures. Psychiatric History: Diagnosed with Schizoaffective Disorder and PTSD (2013) .History of multiple psychiatric hospitalizations.Patient is still followed at the [facility] in the [place].Prescribed seroquel 200 mg/ hs + lithium carbonate 300 mg po tid (as per recent pharmacy claims of 02/17/17 at [facility]).Mr Reilly states that he has not taken his medications " for a couple of weeks ".He denies history of suicide attempts. Physical/Sexual Abuse/Trauma History: Patient denies. Additional Comment: Urine Drug Screen Results: BZO-Benzodiazepines.Noted. Mental Status Exam - Mental Status Exam Alert and Oriented to: Time, Place, Person Cognitive Function: Good Patient Appearance: Unkempt, Disheveled Mood: Nervous, Withdrawn Affect: Mood Congruent Patient Behavior: Fatigued, Cooperative Speech Pattern: Clear Voice Loudness: Normal Thought Process: Goal Oriented Thought Disorder: Not Present Hallucinations: Denies Suicidal Ideation: Denies Homicidal Ideation: Denies Insight/Judgement: Poor Sleep: Poorly, Difficulty falling asleep (wants seroquel) Appetite: Good Muscle strength/Tone: Normal Gait/Station: Normal Psychiatric Findings - Problem List ([place] 1, 2,3) (1) Schizoaffective disorder Current Visit: Yes Status: Chronic Qualifiers: Schizoaffective disorder type: bipolar Qualified Code(s): F25.0 - Schizoaffective disorder, bipolar type; F25.0 - Schizoaffective disorder, bipolar type; F25.0 - Schizoaffective disorder, bipolar type; F25.0 - Schizoaffective disorder, bipolar type Comment: . (2) Alcohol dependence with uncomplicated withdrawal Current Visit: Yes Status: Acute (3) Nicotine dependence Current Visit: Yes Status: Acute Qualifiers: Nicotine product type: cigarettes Substance use status: uncomplicated Qualified Code(s): F17.210 - Nicotine dependence, cigarettes, uncomplicated; F17.210 - Nicotine dependence, cigarettes, uncomplicated Comment: . (4) GERD (gastroesophageal reflux disease) Current Visit: Yes Status: Chronic Qualifiers: Esophagitis presence: without esophagitis Qualified Code(s): K21.9 - Gastro-esophageal reflux disease without esophagitis; K21.9 - Gastro- esophageal reflux disease without esophagitis; K21.9 - Gastro-esophageal reflux disease without esophagitis (5) Insomnia Current Visit: Yes Status: Acute Qualifiers: Insomnia type: unspecified Qualified Code(s): G47.00 - Insomnia, unspecified; G47.00 - Insomnia, unspecified - Initial Treatment Plan Initial Treatment Plan: Psychoeducation.Detoxification.Medications : seroquel 100 mg po hs.No lithium (patient is inconsistent,non-adherent).Awaits lithium level.Side effects/benefits of seroquel discussed with the patient.He agrees with this careplan.Observation.
[2017-04-11] MEDS: QUEtiapine FUMARATE 100 MG TABLET (FP) PO SCH (22:36)
[2017-04-11] MEDS: THIAMINE HCL 100 MG TABLET (FP) PO SCH (22:36)
[2017-04-12] MEDS: chlordiazePOXIDE HCL 25 MG CAPSULE PO SCH ×2 (05:32→10:14)
[2017-04-12] MEDS: PRENATAL VITAMINS W/ FOLIC ACID TABLET (FP) PO SCH (10:14)
[2017-04-12] MEDS: NICOTINE 21 MG/24 HOURS TOPICAL PATCH TD SCH (10:20)
--- NOTE | 2017-04-12 15:08 | PN ---
S CIWA - CIWA Score Nausea/Vomitin Muscle Tremors: 3 Anxiety: 3 Agitation: 3 Paroxysmal Sweats: 1-Minimal Palms Moist Orientation: 0-Oriented Tacttile Disturbances: 1-Very Mild Itch/Numbness Auditory Disturbances: 1-Very Mild Visual Disturbances: 0-None Headache: 2-Mild CIWA-Ar Total Score: 17 BHS Progress Note (SOAP) Subjective: alert,irritable,anxious,interrupted sleep,tremor Objective: 04/12/17 15:04 Vital Signs Temperature 98.2 F 04/12/17 14:09 Pulse Rate 93 H 04/12/17 14:09 Respiratory Rate 18 04/12/17 14:09 Blood Pressure 106/66 04/12/17 14:09 O2 Sat by Pulse Oximetry (%) ekg on 04/10/17 supravetricular tachcardia on 04/10/17 153 /min no chest pain,no sob,no dizziness will repeat ekg now Laboratory Last Values WBC 7.3 K/mm3 (4.0-10.0) 04/10/17 14:00 RBC 3.82 M/mm3 (4.00-5.60) L 04/10/17 14:00 Hgb 13.2 GM/dL (11.7-16.9) D 04/10/17 14:00 Hct 38.4 % (35.4-49) D 04/10/17 14:00 MCV 100.3 fl (80-96) H 04/10/17 14:00 MCH 34.6 pg (25.7-33.7) H 04/10/17 14:00 MCHC 34.5 g/dl (32.0-35.9) 04/10/17 14:00 RDW 15.7 % (11.9-15.9) 04/10/17 14:00 Plt Count 281 K/MM3 (134-434) D 04/10/17 14:00 MPV 7.7 fl (7.5-11.1) 04/10/17 14:00 Sodium 130 mmol/L (136-145) L 04/10/17 14:00 Potassium 4.1 mmol/L (3.5-5.1) 04/10/17 14:00 Chloride 95 mmol/L (98-107) L 04/10/17 14:00 Carbon Dioxide 21 mmol/L (21-32) 04/10/17 14:00 Anion Gap 14 (8-16) 04/10/17 14:00 BUN 4 mg/dL (7-18) L D 04/10/17 14:00 Creatinine 0.6 mg/dL (0.7-1.3) L D 04/10/17 14:00 Creat Clearance w eGFR > 60 (>60) 04/10/17 14:00 Random Glucose 74 mg/dL (74-106) D 04/10/17 14:00 Calcium 8.9 mg/dL (8.5-10.1) 04/10/17 14:00 Total Bilirubin 0.7 mg/dL (0.2-1.0) D 04/10/17 14:00 AST 26 U/L (15-37) D 04/10/17 14:00 ALT 12 U/L (12-78) 04/10/17 14:00 Alkaline Phosphatase 81 U/L (45-117) D 04/10/17 14:00 Total Protein 7.6 g/dl (6.4-8.2) 04/10/17 14:00 Albumin 3.4 g/dl (3.4-5.0) 04/10/17 14:00 Urine Color Yellow 04/10/17 19:43 Urine Appearance Slcloudy 04/10/17 19:43 Urine pH 6.0 (5.0-8.0) 04/10/17 19:43 Ur Specific [place] 1.010 (1.005-1.025) 04/10/17 19:43 Urine Protein 1+ (NEGATIVE) H 04/10/17 19:43 Urine Glucose (UA) Negative (NEGATIVE) 04/10/17 19:43 Urine Ketones Trace (NEGATIVE) H 04/10/17 19:43 Urine Blood 1+ (NEGATIVE) H 04/10/17 19:43 Urine Nitrite Negative (NEGATIVE) 04/10/17 19:43 Urine Bilirubin Negative (NEGATIVE) 04/10/17 19:43 Urine Urobilinogen Negative mg/dL (0.2-1.0) 04/10/17 19:43 Ur Leukocyte Esterase Negative (NEGATIVE) 04/10/17 19:43 Urine RBC <1 /hpf (0-3) 04/10/17 19:43 Urine WBC 1 /hpf (3-5) 04/10/17 19:43 Ur Epithelial Cells Rare /hpf (FEW) 04/10/17 19:43 Hyaline Casts 1 /lpf 04/10/17 19:43 Urine Mucus Rare 04/10/17 19:43 RPR Titer Nonreactive (NONREACTIVE) 04/10/17 14:00 Assessment: 04/12/17 15:07 withdrawal symptom Plan: continue detox,repeat ekg today
--- NOTE | 2017-04-12 15:18 | PN ---
S Progress Note Note: repeat ekg today,nsr,normal ecg, continue detox
[2017-04-12] MEDS: chlordiazePOXIDE 5 MG CAPSULE PO SCH ×2 (18:02→22:10)
[2017-04-12] MEDS: THIAMINE HCL 100 MG TABLET (FP) PO SCH (22:10)
[2017-04-12] MEDS: QUEtiapine FUMARATE 100 MG TABLET (FP) PO SCH (22:10)
[2017-04-13] MEDS: chlordiazePOXIDE 5 MG CAPSULE PO SCH ×2 (05:18→10:21)
[2017-04-13] MEDS: NICOTINE 21 MG/24 HOURS TOPICAL PATCH TD SCH (10:21)
[2017-04-13] MEDS: PRENATAL VITAMINS W/ FOLIC ACID TABLET (FP) PO SCH (10:21)
--- NOTE | 2017-04-13 11:41 | EKG ---
Test Reason : Blood Pressure : / mmHG Vent. Rate : 086 BPM Atrial Rate : 086 BPM P-R Int : 128 ms QRS Dur : 092 ms QT Int : 390 ms P-R-T Axes : 057 070 067 degrees QTc Int : 466 ms NORMAL SINUS RHYTHM T WAVE ABNORMALITY, CONSIDER ANTERIOR ISCHEMIA Confirmed by OLENA SALCEDO MD ([id number]) on 04/13/2017 11:41:13 AM Referred By: Confirmed By:OLENA SALCEDO MD
--- NOTE | 2017-04-13 14:17 | PN ---
S Progress Note (SOAP) Subjective: ALERT,IRRITABLE,ANXIOUS,INTERRUPTED SLEEP,TREMOR Objective: 04/13/17 14:16 Vital Signs Temperature 98.1 F 04/13/17 11:05 Pulse Rate 79 04/13/17 11:05 Respiratory Rate 18 04/13/17 11:05 Blood Pressure 113/75 04/13/17 11:05 O2 Sat by Pulse Oximetry (%) Assessment: 04/13/17 14:17 WITHDRAWAL SYMPTOM Plan: CONTINUE DETOX,DISCHARGE IN AM
[2017-04-13] MEDS: chlordiazePOXIDE HCL 10 MG CAPSULE PO SCH ×2 (17:56→22:17)
[2017-04-13] MEDS ORDERED: QUEtiapine FUMARATE 200 MG TABLET PO SCH (22:00)
[2017-04-13] MEDS: THIAMINE HCL 100 MG TABLET (FP) PO SCH (22:17)
[2017-04-14] MEDS: hydrOXYzine PAMOATE 50 MG CAPSULE (FP) PO PRN (01:02)
[2017-04-14 06:39] VITALS: PULSE 83
--- NOTE | 2017-04-14 08:33 | PN ---
S Progress Note (SOAP) Subjective: patient has episode of confusion at night ammonia level drawn this morning alert agitated,oriented x 3 Objective: 04/14/17 08:32 Vital Signs Temperature 96.1 F L 04/14/17 06:00 Pulse Rate 83 04/14/17 06:00 Respiratory Rate 18 04/14/17 06:00 Blood Pressure 134/83 04/14/17 06:00 O2 Sat by Pulse Oximetry (%) Assessment: 04/14/17 08:32 04/14/17 08:32 alter mental status last night,agitated this morning Plan: hold discharge,psychiatric evaluation
[2017-04-14] MEDS: chlordiazePOXIDE HCL 10 MG CAPSULE PO SCH ×2 (08:50→10:25)
[2017-04-14] MEDS: NICOTINE 21 MG/24 HOURS TOPICAL PATCH TD SCH (10:25)
--- NOTE | 2017-04-14 10:28 | PN ---
S Progress Note Note: seen and evaluated by dr Jake jacobo for discharge alert,oriented x 3 Vital Signs Temperature 96.1 F L 04/14/17 06:00 Pulse Rate 83 04/14/17 06:00 Respiratory Rate 18 04/14/17 06:00 Blood Pressure 134/83 04/14/17 06:00 O2 Sat by Pulse Oximetry (%) blood for ammonia level pending patient would lik to be discharge,did not want to wait medically stable for discharge follow up with after care program as arrangement
--- NOTE | 2017-04-14 10:31 | PN ---
Psychiatric Progress Note Vital Signs: Vital Signs Period Temp Pulse Resp BP Sys/Leigh Pulse Ox Last 24 Hr 96.1 F-98.2 F 72-83 18-18 106-134/68-83 Date of Session: 04/14/17 Chief Complaint:: " I felt dizzy last night but I am fine now.I am ready to go home." HPI: Day 5 of detoxification treatment for alcohol dependence.Hospital course was uneventful until the patient developed alteration of mental status ( agitation,disorientation,disorganized behavior) and unsteady gait.Mr Reilly is scheduled for discharge on this date. ROS: Patient is ambulatory (steadier gait),alert and oriented to three spheres.Conversation is relevant,coherent and goal-directed.Patient is well- related to his surroundings.Answers questions appropriately.No somatic complaints offered. Current Medications: Active Medications Generic Name Dose Route Start Last Admin Trade Name Freq PRN Reason Stop Dose Admin Acetaminophen 650 mg 04/10/17 13:59 Tylenol - PO Q4H PRN FEVER OR PAIN Al Hydroxide/Mg Hydroxide 30 ml 04/10/17 13:59 Mylanta Oral Suspension - PO Q6H PRN DYSPEPSIA Chlordiazepoxide HCl 10 mg 04/13/17 17:00 04/14/17 10:25 Librium - PO 04/14/17 11:01 Not Given [id number] DOYLE Eucalyptus/Menthol/Phenol/Sorbitol 1 each 04/10/17 13:59 Cepastat Lozenge - MM Q4H PRN SORE THROAT Guaifenesin 10 ml 04/10/17 13:59 Robitussin Dm - PO Q6H PRN COUGH Hydroxyzine Pamoate 50 mg 04/10/17 13:59 04/14/17 01:02 Vistaril - PO 50 mg Q4H PRN Administration AGITATION Ibuprofen 400 mg 04/10/17 13:59 04/10/17 15:02 Motrin - PO 400 mg Q6H PRN Administration SEVERE PAIN Loperamide HCl 4 mg 04/10/17 13:59 Imodium - PO Q6H PRN DIARRHEA Magnesium Citrate 300 ml 04/10/17 13:59 Citroma - PO Q48H PRN CONSTIPATION Magnesium Hydroxide 30 ml 04/10/17 13:59 Milk Of Magnesia - PO DAILY PRN CONSTIPATION Nicotine 21 mg 04/10/17 14:00 04/14/17 10:25 Nicoderm Patch - TD Not Given DAILY DOYLE Nicotine Polacrilex 2 mg 04/10/17 13:59 Nicorette Gum - BUC Q2H PRN NICOTINE REPLACEMENT RX Multivit/Folic Acid/Iron 1 tab 04/11/17 10:00 04/13/17 10:21 Vitamins (Sjr) - PO 1 tab DAILY DOYLE Administration Pseudoephedrine/Triprolidine 1 combo 04/10/17 13:59 04/11/17 22:36 Actifed - PO 1 combo TID PRN Administration NASAL CONGESTION Quetiapine Fumarate 200 mg 04/13/17 22:00 04/13/17 22:17 Seroquel - PO 200 mg HS DOYLE Administration Thiamine HCl 100 mg 04/10/17 22:00 04/13/17 22:17 Vitamin B1 - PO 100 mg HS DOYLE Administration Medication(s) Change(s): Yes.Seroquel is lowered to 100 mg po hs.Contact made with the pharmacist at [facility] ([phone]) to cancel script for seroquel 200 mg/hs # 30 (sent on 04/11/17).New script for 100 mg/hs # 30 is electronically sent today.Patient is made aware.Mr Reilly declines lithium.He admits to total non-adherence (lithium level = 0).Patient states that he will revisit this aspect of his care with his psychiatrist at [facility]. Current Side Effect: Yes (sedation likely due to seroquel.Dose is now reduced.) Lab tests ordered: Yes (ammonia level is requested by medical attending,Dr Emmanuel..) Lab tests reviewed: Yes (ammonia level is pending.[place] level = 0.) Provider note:: Case discussed with the medical attending,Dr Emmanuel.Nursing progress notes are reviewed.Previous records are revisited (similar episode had occurred on 12/13/15 ; see my note).Patient is interviewed by this video game script writer.Mr Reilly is cooperative,eager to return home,fully aware of his environment and ambulatory.Gait has improved.Patient communicates coherently (mildly slurred speech) and appropriately.Goals are thoroughly described : go home,be with fiancee,take care of personal chores and return to [facility] program.Cognition is well preserved as evidenced by : aware of buses + train routes,direction to case address,cognizant of current world events and masterful of details pertinent to personal history.Mr Reilly does aknowledge the fact he " felt weird " overnight but he also reports feeling considerably much better as the morning progresses.No evidence of psychosis or olena.No delirium.Patient moves around independently.Fully capable of self-care at time of this examination.Mr Reilly has declined to transition to an inpatient rehabilitation program." This time,I prefer to go home to my .I will see my psychiatrist at [facility]." MSE completed.See report.Stable mental status. Total face to face time:: 35 Mental Status Exam - Mental Status Exam Alert and Oriented to: Time, Place, Person Cognitive Function: Good Patient Appearance: Well Groomed (acceptable level of personal hygiene) Mood: Hopeful, Euthymic Affect: Appropriate, Normal Range Patient Behavior: Fatigued, Appropriate, Cooperative Speech Pattern: Clear, Slurred (mildlyslurred ; spontaneous and logical speech) Voice Loudness: Normal Thought Process: Goal Oriented Hallucinations: Denies Suicidal Ideation: Denies Homicidal Ideation: Denies Insight/Judgement: Fair Sleep: Well Appetite: Good Gait/Station: Normal Psychiatric Treatment Plan - Problem List (1) Schizoaffective disorder Current Visit: Yes Qualifiers: Schizoaffective disorder type: bipolar Qualified Code(s): F25.0 - Schizoaffective disorder, bipolar type; F25.0 - Schizoaffective disorder, bipolar type; F25.0 - Schizoaffective disorder, bipolar type; F25.0 - Schizoaffective disorder, bipolar type Comment: . (2) Alcohol dependence with uncomplicated withdrawal Current Visit: Yes (3) Nicotine dependence Current Visit: Yes Qualifiers: Nicotine product type: cigarettes Substance use status: uncomplicated Qualified Code(s): F17.210 - Nicotine dependence, cigarettes, uncomplicated; F17.210 - Nicotine dependence, cigarettes, uncomplicated Comment: . (4) GERD (gastroesophageal reflux disease) Current Visit: Yes Qualifiers: Esophagitis presence: without esophagitis Qualified Code(s): K21.9 - Gastro-esophageal reflux disease without esophagitis; K21.9 - Gastro- esophageal reflux disease without esophagitis; K21.9 - Gastro-esophageal reflux disease without esophagitis (5) Insomnia Current Visit: Yes Qualifiers: Insomnia type: unspecified Qualified Code(s): G47.00 - Insomnia, unspecified; G47.00 - Insomnia, unspecified
--- NOTE | 2017-04-14 10:40 | DS ---
[facility] Detox Discharge Summary Admission Date: 04/10/17 Discharge Date: 04/14/17 - History Present History: Alcohol Dependence Additional Comments: follow up with after care program as arrangement ,follow up with own pmd and psychiatrist Pertinent Past History: nicotine dependence schizoaffective disorder - Physical Exam Results Vital Signs: Vital Signs Temperature 96.1 F L 04/14/17 06:00 Pulse Rate 83 04/14/17 06:00 Respiratory Rate 18 04/14/17 06:00 Blood Pressure 134/83 04/14/17 06:00 O2 Sat by Pulse Oximetry (%) Pertinent Admission Physical Exam Findings: withdrawal symptom - Treatment Hospital Course: Detox Protocol Followed, Detoxed Safely, Responded well, Discharged Condition Good Patient has Accepted a Rehab Referral to: declined - Medication Discharge Medications: Ambulatory Orders [place] Carbonate [Lithobid] 600 mg PO TID 12/11/15 Fluoxetine HCl [Prozac] 20 mg PO DAILY #30 capsule 12/12/15 Quetiapine Fumarate [Seroquel -] 200 mg PO HS #30 tab 12/12/15 Ibuprofen [Motrin -] 400 mg PO TID PRN 06/03/16 Quetiapine Fumarate [Seroquel -] 200 mg PO HS #30 tab 04/11/17 - Diagnosis (1) Alcohol dependence with uncomplicated withdrawal Current Visit: Yes Status: Acute (2) Nicotine dependence Current Visit: Yes Status: Acute Qualifiers: Nicotine product type: cigarettes Substance use status: uncomplicated Qualified Code(s): F17.210 - Nicotine dependence, cigarettes, uncomplicated; F17.210 - Nicotine dependence, cigarettes, uncomplicated (3) Schizoaffective disorder Current Visit: Yes Status: Chronic Qualifiers: Schizoaffective disorder type: bipolar Qualified Code(s): F25.0 - Schizoaffective disorder, bipolar type; F25.0 - Schizoaffective disorder, bipolar type; F25.0 - Schizoaffective disorder, bipolar type; F25.0 - Schizoaffective disorder, bipolar type - AMA Did Patient Leave Against Medical Advice: No
[2017-04-14 11:03] VITALS: BP 108/74; TEMP 97.5
== END 2017-04-14 11:06 | disposition home or self-care (01) | DRG 775 ==
LOC: YASAS 09:09 → Y6N 13:26
PROVIDERS: ADMIT Internal Medicine; ATTEND Internal Medicine
PROC: HZ2ZZZZ Detoxification Services for Substance Abuse Treatment (ICD-10-PCS; principal; 2017-04-10)
DX: F10.230 Alcohol dependence with withdrawal, uncomplicated (principal); F17.210 Nicotine dependence, cigarettes, uncomplicated; F25.0 Schizoaffective disorder, bipolar type; F31.9 Bipolar disorder, unspecified; G47.00 Insomnia, unspecified; K21.9 Gastro-esophageal reflux disease without esophagitis; R76.11 Nonspecific reaction to tuberculin skin test without active tuberculosis
CPT/HCPCS: 36415; 80053; 80178; 81003; 81015; 82140; 85027; 86593; 93005; 93010

== ENCOUNTER 2017-07-02 11:24 | Inpatient (IN) | payer BC ==
[2017-07-02 11:43] VITALS: BMI 21.2
--- NOTE | 2017-07-02 13:02 | HP ---
CIWA Score - CIWA Score Nausea/Vomitin-No Nausea/No Vomiting Muscle Tremors: 4-Moderate,w/Arms Extend Anxiety: 3 Agitation: 3 Paroxysmal Sweats: 3 Orientation: 0-Oriented Tacttile Disturbances: 0-None Auditory Disturbances: 0-None Visual Disturbances: 0-None Headache: 0-None Present CIWA-Ar Total Score: 13 Admission ROS BHS - HPI Chief Complaint: I am here for detox and go to rehab. Allergies/Adverse Reactions: Allergies Allergy/AdvReac Type Severity Reaction Status Date / Time No Known Allergies Allergy Verified 07/02/17 12:00 History of Present Illness: pt is a 51yr old male with a history of alcohol dependence seeking detox for treatment. Exam Limitations: No Limitations - Ebola screening Have you traveled outside of the country in the last 21 days: No (N) Have you had contact with anyone from an Ebola affected area: No Have you been sick,other than usual withdrawal symptoms: No Do you have a fever: No - Review of Systems Constitutional: Chills, Diaphoresis, Loss of Appetite, Changes in sleep EENT: reports: No Symptoms Reported Respiratory: reports: No Symptoms reported Cardiac: reports: No Symptoms Reported GI: reports: Poor Appetite, Poor Fluid Intake, Indigestion : reports: No Symptoms Reported Musculoskeletal: reports: No Symptoms Reported Integumentary: reports: [place] Neuro: reports: Headache, Tingling, Tremors Endocrine: reports: Excessive Sweating, Flushing Hematology: reports: No Symptoms Reported Psychiatric: reports: Judgement Intact, Mood/Affect Appropiate, Orientated x3, Agitated, Anxious Other Systems: Reviewed and Negative Patient History - Patient Medical History Hx Anemia: No Hx Asthma: No Hx Chronic Obstructive Pulmonary Disease (COPD): No Hx Cancer: No Hx Cardiac Disorders: No Hx Congestive Heart Failure: No Hx Hypertension: No Hx Hypercholesterolemia: No Hx Pacemaker: No HX Cerebrovascular Accident: No Hx Seizures: No Hx Dementia: No Hx Diabetes: No Hx Gastrointestinal Disorders: No Hx Liver Disease: No Hx Genitourinary Disorders: No Hx Sexually Transmitted Disorders: No Hx Renal Disease (ESRD): No Hx Thyroid Disease: No Hx Human Immunodeficiency Virus (HIV): No (NEGATIVE.) Hx Hepatitis C: No (NEGATIVE.) Hx Depression: Yes Hx Suicide Attempt: No Hx Bipolar Disorder: Yes (On meds.) Hx Schizophrenia: No - Patient Surgical History Past Surgical History: No Hx Neurologic Surgery: No Hx Cataract Extraction: No Hx Cardiac Surgery: No Hx Lung Surgery: No Hx Breast Surgery: No Hx Breast Biopsy: No Hx Abdominal Surgery: No Hx Appendectomy: No Hx Cholecystectomy: No Hx Genitourinary Surgery: No Hx Section: No Hx Orthopedic Surgery: No Anesthesia Reaction: No - PPD History Previous Implant?: Yes Documented Results: Positive w/o proof Results: CXR(-)12/04/16 PPD to be Administered?: No - Reproductive History Patient is a Female of Child Bearing Age (11 -55 yrs old): No - Smoking Cessation Smoking history: Current every day smoker Have you smoked in the past 12 months: Yes Aproximately how many cigarettes per day: 10 Cigars Per Day: 0 Hx Chewing Tobacco Use: No Initiated information on smoking cessation: Yes 'Breaking Loose' booklet given: 07/02/17 - Substance & Tx. History Hx Alcohol Use: Yes Hx Substance Use: No Substance Use Type: Alcohol Hx Substance Use Treatment: Yes (last detox 207) - Substances Abused Alcohol-beer/vodka Route: Oral Frequency: Daily Amount used: 2-6 pks./1 pt. Age of first use: 18 Date of Last Use: 07/02/17 Family Disease History - Family Disease History Family Disease History: Diabetes: Father (), Other: Mother (DEMENTIA ) Admission Physical Exam S - Vital Signs Vital Signs: Vital Signs - 24 hr 07/02/17 11:40 Temperature 96.9 F L Pulse Rate 110 H Respiratory 18 Rate Blood Pressure 110/80 - Physical General Appearance: Yes: Appropriately Dressed, Moderate Distress, Tremorous, Irritable, Sweating, Anxious HEENTM: Yes: Normal Voice Respiratory: Yes: Lungs Clear, Normal Breath Sounds, No Respiratory Distress Neck: Yes: No masses,lesions,Nodules Breast: Yes: Within Normal Limits Cardiology: Yes: Regular Rhythm, Regular Rate, S1, S2 Abdominal: Yes: Normal Bowel Sounds, Non Tender, Flat Genitourinary: Yes: Within Normal Limits Back: Yes: Normal Inspection Musculoskeletal: Yes: full range of Motion Extremities: Yes: Normal Capillary Refill, Normal Inspection, Tremors Neurological: Yes: Fully Oriented, Alert, Normal Response Integumentary: Yes: Normal Color Lymphatic: Yes: Within Normal Limits - Diagnostic (1) Alcohol dependence with uncomplicated withdrawal Current Visit: Yes Status: Chronic (2) Nicotine dependence Current Visit: No Status: Acute Qualifiers: Nicotine product type: cigarettes Substance use status: uncomplicated Qualified Code(s): F17.210 - Nicotine dependence, cigarettes, uncomplicated Comment: . (3) Anxiety and depression Current Visit: No Status: Chronic (4) GERD (gastroesophageal reflux disease) Current Visit: No Status: Chronic Qualifiers: Esophagitis presence: without esophagitis Qualified Code(s): K21.9 - Gastro -esophageal reflux disease without esophagitis (5) History of bipolar disorder Current Visit: No Status: Chronic Cleared for Admission [facility] - Detox or Rehab [facility] Level of Care: Medically Managed Detox Regimen/Protocol: Librium S Breath Alcohol Content Breath Alcohol Content: 0.268 Urine Drug Screen - Results Drug Screen Negative: Yes
[2017-07-02] MEDS ORDERED: NICOTINE POLACRILEX 4 MG GUM BUC PRN (13:03)
[2017-07-02] MEDS ORDERED: ACETAMINOPHEN 325 MG TABLET (FP) PO PRN (13:03)
[2017-07-02] MEDS ORDERED: hydrOXYzine PAMOATE 50 MG CAPSULE (FP) PO PRN (13:03)
[2017-07-02] MEDS ORDERED: LOPERAMIDE HCL 2 MG CAPSULE PO PRN (13:03)
[2017-07-02] MEDS ORDERED: chlordiazePOXIDE HCL 25 MG CAPSULE PO PRN (13:03)
[2017-07-02] MEDS ORDERED: MAGNESIUM HYDROX 2400MG/30ML ORAL SUSPENSION 30 ML CUP PO PRN (13:03)
[2017-07-02] MEDS ORDERED: MAGNESIUM CITRATE 300 ML BOTTLE PO PRN (13:03)
[2017-07-02] MEDS ORDERED: MAG HYDROX/AL HYDROX/SIMETH 30 ML UNIT-DOSE CUP PO PRN (13:03)
[2017-07-02] MEDS ORDERED: MENTHOL/PHENOL 1 EACH UD MM PRN (13:03)
[2017-07-02] MEDS ORDERED: P-EPHED 60MG/TRIPROLIDI 2.5MG TABLET PO PRN (13:03)
[2017-07-02] MEDS ORDERED: IBUPROFEN 400 MG TABLET (FP) PO PRN (13:03)
[2017-07-02] MEDS ORDERED: guaiFENesin/D-METHORPHAN HB 10 ML UNIT-DOSE CUPS PO PRN (13:03)
[2017-07-02] MEDS ORDERED: chlordiazePOXIDE HCL 25 MG CAPSULE PO ONE (14:15)
--- NOTE | 2017-07-02 15:00 | CONSULT ---
[facility] Psychiatric Consult - Data Date of interview: 07/02/17 Admission source: [facility] Identifying data: Readmission to [facility] for this 51 y/o AA male seeking detox treatment on for alcohol dependence.Patient is ,a father of one,domiciled,unemployed and supported on SSI benefits. Substance Abuse History: Discussed with patient in this interview.Mr Reilly confirmed daily use of alcohol.See details in current [facility] report : Smoking history: Current every day smoker. Have you smoked in the past 12 months: Yes. Aproximately how many cigarettes per day: 10. Cigars Per Day: 0. Hx Chewing Tobacco Use: No. Initiated information on smoking cessation: Yes. 'Breaking Loose' booklet given: 07/02/17. - Substance & Tx. History. Hx Alcohol Use: Yes. Hx Substance Use: No. Substance Use Type: Alcohol. Hx Substance Use Treatment: Yes (last detox 207). - Substances Abused. Alcohol-beer/vodka. Route: Oral. Frequency: Daily. Amount used: 2-6 pks./1 pt. Age of first use: 18. Date of Last Use: 07/02/17 Medical History: Patient endorses good general health.Remote history of withdrawal-related seizures. 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 Physical/Sexual Abuse/Trauma History: Patient denies. Additional Comment: Drug Screen is negative. Mental Status Exam - Mental Status Exam Alert and Oriented to: Time, Place, Person Cognitive Function: Grossly Intact Patient Appearance: Unkempt, Disheveled Mood: Angry, Nervous, Irritable Affect: Mood Congruent, Constricted Patient Behavior: Fatigued, Cooperative (superficially cooperative) Speech Pattern: Clear Voice Loudness: Normal Thought Process: Goal Oriented Thought Disorder: Not Present Hallucinations: Denies Suicidal Ideation: Denies Homicidal Ideation: Denies Insight/Judgement: Poor Sleep: Poorly, Difficulty falling asleep Appetite: Fair Muscle strength/Tone: Normal Gait/Station: Normal Psychiatric Findings - Problem List ([place] 1, 2,3) (1) Alcohol dependence with uncomplicated withdrawal Current Visit: Yes Status: Acute (2) Alcohol-induced mood disorder Current Visit: Yes Status: Acute (3) Nicotine dependence Current Visit: Yes Status: Acute Qualifiers: Nicotine product type: cigarettes Substance use status: uncomplicated Qualified Code(s): F17.210 - Nicotine dependence, cigarettes, uncomplicated (4) Schizoaffective disorder Current Visit: Yes Status: Chronic Qualifiers: Schizoaffective disorder type: bipolar Qualified Code(s): F25.0 - Schizoaffective disorder, bipolar type Comment: On medications.OPD care at the [facility] in [facility].Questionable compliance. (5) Insomnia Current Visit: Yes Status: Acute Qualifiers: Insomnia type: unspecified Qualified Code(s): G47.00 - Insomnia, unspecified - Initial Treatment Plan Initial Treatment Plan: Records reviewed.Medications reconciled.Psychoeducation and support.Sleep hygiene advised to patient.Detoxification initiated on admission.Will hold seroquel at this time (well established history of marked sedation / significant alteration of mental status ; see my note of 04/14/17) .Resume prozac at 20 mg po daily + trazodone 50 mg po hs.Side effects/benefits of both drugs are discussed with the patient.Mr Reilly is made aware of the risk of suicidal ideation,sexual dysfunction and priapism.[place] is deferred until results of basic metabolic panel and Li level (requested).Will follow.Patient consented (verbally) to this plan of care.Observation.
[2017-07-02] MEDS: chlordiazePOXIDE HCL 25 MG CAPSULE PO SCH ×2 (17:27→22:16)
[2017-07-02 18:40] LABS: MCH 34.6 pg (25.7-33.7); MCHC 34.3 g/dl (32.0-35.9); MEAN CELL VOLUME 101.1 fl (80-96); MEAN PLT VOLUME 7.5 fl (7.5-11.1); PLATELET COUNT 308 K/MM3 (134-434); RBC 3.75 M/mm3 (4.00-5.60); RDW 14.5 % (11.9-15.9); WHITE BLOOD COUNT 5.3 K/mm3 (4.0-10.0)
[2017-07-02 18:49] LABS: ALBUMIN 3.8 g/dl (3.4-5.0); ALK PHOS 66 U/L (45-117); ANION GAP 9 (8-16); BILIRUBIN,TOTAL 0.4 mg/dL (0.2-1.0); BLOOD UREA NITROGEN 4 mg/dL (7-18); CHLORIDE 100 mmol/L (98-107); CO2 25 mmol/L (21-32); CREATININE 0.7 mg/dL (0.7-1.3); GLUCOSE,RANDOM 77 mg/dL (74-106); POTASSIUM 4.2 mmol/L (3.5-5.1); SGOT/AST 41 U/L (15-37); SGPT/ALT 13 U/L (12-78); SODIUM 134 mmol/L (136-145)
[2017-07-02 19:05] LABS: URINE APPEARANCE SLCLOUDY; URINE BILIRUBIN NEGATIVE (NEGATIVE); URINE BLOOD NEGATIVE (NEGATIVE); URINE COLOR YELLOW; URINE GLUCOSE (UA) NEGATIVE (NEGATIVE); URINE KETONE TRACE (NEGATIVE); URINE LEUK ESTERASE NEGATIVE (NEGATIVE); URINE NITRITE NEGATIVE (NEGATIVE); URINE PROTEIN NEGATIVE (NEGATIVE)
[2017-07-02] MEDS: THIAMINE HCL 100 MG TABLET (FP) PO SCH (22:16)
[2017-07-02] MEDS: traZODone HCL 50 MG TABLET (FP) PO SCH (22:16)
[2017-07-02] MEDS: RANITIDINE HCL 150 MG TABLET (FP) PO SCH (22:16)
[2017-07-03] MEDS: chlordiazePOXIDE HCL 25 MG CAPSULE PO SCH ×4 (05:49→22:09)
[2017-07-03] MEDS: RANITIDINE HCL 150 MG TABLET (FP) PO SCH ×2 (10:33→22:09)
[2017-07-03] MEDS: PRENATAL VITAMINS W/ FOLIC ACID TABLET (FP) PO SCH (10:33)
[2017-07-03] MEDS: FLUoxetine HCL 20 MG CAPSULE (FP) PO SCH (10:33)
[2017-07-03] MEDS: NICOTINE 21 MG/24 HOURS TOPICAL PATCH TD SCH (10:34)
--- NOTE | 2017-07-03 10:44 | PN ---
[facility] CIWA - CIWA Score Nausea/Vomitin-No Nausea/No Vomiting Muscle Tremors: 4-Moderate,w/Arms Extend Anxiety: 4-Mod. Anxious/Guarded Agitation: 4-Moderately Restless Paroxysmal Sweats: 1-Minimal Palms Moist Orientation: 0-Oriented Tacttile Disturbances: 3-Moderate Itch/Numb/Burn Auditory Disturbances: 0-None Visual Disturbances: 0-None Headache: 0-None Present CIWA-Ar Total Score: 16 BHS Progress Note (SOAP) Subjective: ANXIETY,IRRITABILITY,TREMORS,CHILLS. Objective: 07/03/17 10:43 Vital Signs 07/03/17 07/03/17 07/03/17 03:30 06:17 08:54 Temperature 99.3 F 98.2 F Pulse Rate 61 63 Respiratory 18 18 18 Rate Blood Pressure 114/75 96/60 Laboratory Last Values WBC 5.3 K/mm3 (4.0-10.0) 07/02/17 15:00 RBC 3.75 M/mm3 (4.00-5.60) L 07/02/17 15:00 Hgb 13.0 GM/dL (11.7-16.9) 07/02/17 15:00 Hct 38.0 % (35.4-49) 07/02/17 15:00 MCV 101.1 fl (80-96) H 07/02/17 15:00 MCH 34.6 pg (25.7-33.7) H 07/02/17 15:00 MCHC 34.3 g/dl (32.0-35.9) 07/02/17 15:00 RDW 14.5 % (11.9-15.9) 07/02/17 15:00 Plt Count 308 K/MM3 (134-434) 07/02/17 15:00 MPV 7.5 fl (7.5-11.1) 07/02/17 15:00 Sodium 134 mmol/L (136-145) L 07/02/17 15:00 Potassium 4.2 mmol/L (3.5-5.1) 07/02/17 15:00 Chloride 100 mmol/L (98-107) 07/02/17 15:00 Carbon Dioxide 25 mmol/L (21-32) 07/02/17 15:00 Anion Gap 9 (8-16) 07/02/17 15:00 BUN 4 mg/dL (7-18) L D 07/02/17 15:00 Creatinine 0.7 mg/dL (0.7-1.3) D 07/02/17 15:00 Creat Clearance w eGFR > 60 (>60) 07/02/17 15:00 Random Glucose 77 mg/dL (74-106) 07/02/17 15:00 Calcium 9.0 mg/dL (8.5-10.1) 07/02/17 15:00 Total Bilirubin 0.4 mg/dL (0.2-1.0) D 07/02/17 15:00 AST 41 U/L (15-37) H D 07/02/17 15:00 ALT 13 U/L (12-78) 07/02/17 15:00 Alkaline Phosphatase 66 U/L (45-117) 07/02/17 15:00 Total Protein 8.0 g/dl (6.4-8.2) 07/02/17 15:00 Albumin 3.8 g/dl (3.4-5.0) 07/02/17 15:00 Urine Color Yellow 07/02/17 15:00 Urine Appearance Slcloudy 07/02/17 15:00 Urine pH 5.0 (5.0-8.0) 07/02/17 15:00 Ur Specific [place] 1.015 (1.001-1.035) 07/02/17 15:00 Urine Protein Negative (NEGATIVE) 07/02/17 15:00 Urine Glucose (UA) Negative (NEGATIVE) 07/02/17 15:00 Urine Ketones Trace (NEGATIVE) H 07/02/17 15:00 Urine Blood Negative (NEGATIVE) 07/02/17 15:00 Urine Nitrite Negative (NEGATIVE) 07/02/17 15:00 Urine Bilirubin Negative (NEGATIVE) 07/02/17 15:00 Urine Urobilinogen 2.0 mg/dL (0.2-1.0) 07/02/17 15:00 Ur Leukocyte Esterase Negative (NEGATIVE) 07/02/17 15:00 Assessment: 07/03/17 10:43 WITHDRAWAL SX Plan: CONTINUE DETOX
--- NOTE | 2017-07-03 12:35 | EKG ---
Test Reason : Blood Pressure : / mmHG Vent. Rate : 100 BPM Atrial Rate : 100 BPM P-R Int : 126 ms QRS Dur : 090 ms QT Int : 346 ms P-R-T Axes : 075 084 069 degrees QTc Int : 446 ms NORMAL SINUS RHYTHM NONSPECIFIC T WAVE ABNORMALITY ABNORMAL ECG WHEN COMPARED WITH ECG OF 12-APR-2017 14:10, NONSPECIFIC T WAVE ABNORMALITY NOW EVIDENT IN LATERAL LEADS Confirmed by NEY JEAN-BAPTISTE, YENY ([id number]) on 07/03/2017 12:34:29 PM Referred By: Confirmed By:YENY BREWSTER MD
--- NOTE | 2017-07-03 13:40 | PN ---
[facility] Progress Note Note: PT IS A 51 Y/O AA/MALE WHO WAS ADMITTED ON 07/02/17 FOR ALCOHOL DETOX. PT HAS ABNORMAL ADMISSION EKG WHICH DID NOT CONVERT IN SUBSEQUENT REPEATS, A CHANGE FROM LAST ADMISSION. ARTRIAL FIBRILLATION WITH PREMATURE VENTRICULAR OR ABERRANTTLY CONDUCTED COMPLEXES NONSPECIFIC T WAVE ABNORMALITY PROLONGED QT WITH VENT RATE 96. DENIES CP OR SOB BUT IRRITABLE. Vital Signs Temperature 97.7 F 07/03/17 13:27 Pulse Rate 86 07/03/17 13:27 Respiratory Rate 17 07/03/17 13:27 Blood Pressure 96/62 07/03/17 13:27 O2 Sat by Pulse Oximetry (%) 98 07/03/17 13:27 IMPRESSION: R/O CARDIAC INVOLVEMENT DEHYDRATION PLAN:TRANSFER PT VIA AMBULANCE TO [facility] FOR STABILIZATION. PT MAY RETURN TO [facility] WHEN STABLE TO CONTINUE DETOX. SPOKE TO LATISHA GARCIA AT THE ER.
[2017-07-03] MEDS: THIAMINE HCL 100 MG TABLET (FP) PO SCH (22:09)
[2017-07-03] MEDS: traZODone HCL 50 MG TABLET (FP) PO SCH (22:09)
[2017-07-04] MEDS: chlordiazePOXIDE HCL 25 MG CAPSULE PO SCH ×2 (05:17→10:17)
[2017-07-04] MEDS: FLUoxetine HCL 20 MG CAPSULE (FP) PO SCH (10:18)
[2017-07-04] MEDS: PRENATAL VITAMINS W/ FOLIC ACID TABLET (FP) PO SCH (10:18)
[2017-07-04] MEDS: NICOTINE 21 MG/24 HOURS TOPICAL PATCH TD SCH (10:18)
[2017-07-04] MEDS: RANITIDINE HCL 150 MG TABLET (FP) PO SCH ×2 (10:18→22:25)
--- NOTE | 2017-07-04 12:17 | PN ---
[facility] CIWA - CIWA Score Nausea/Vomitin-No Nausea/No Vomiting Muscle Tremors: 3 Anxiety: 4-Mod. Anxious/Guarded Agitation: 3 Paroxysmal Sweats: No Perspiration Orientation: 0-Oriented Tacttile Disturbances: 2-Mild Itch/Numbness/Burn Auditory Disturbances: 0-None Visual Disturbances: 0-None Headache: 0-None Present CIWA-Ar Total Score: 12 S Progress Note (SOAP) Subjective: DECREASED ANXIETY,SWEATS,TREMORS. DENIES ACUTE DISCOMFORT. PT WAS CLEARED YESTERDAY AT [facility] AND TRANSPORTED BACK TO CONTINUE DETOX. Objective: 07/04/17 12:16 Vital Signs Temperature 96.7 F L 07/04/17 09:28 Pulse Rate 71 07/04/17 09:28 Respiratory Rate 16 07/04/17 09:28 Blood Pressure 105/70 07/04/17 09:28 O2 Sat by Pulse Oximetry (%) 98 07/03/17 13:27 Laboratory Last Values WBC 5.3 K/mm3 (4.0-10.0) 07/02/17 15:00 RBC 3.75 M/mm3 (4.00-5.60) L 07/02/17 15:00 Hgb 13.0 GM/dL (11.7-16.9) 07/02/17 15:00 Hct 38.0 % (35.4-49) 07/02/17 15:00 MCV 101.1 fl (80-96) H 07/02/17 15:00 MCH 34.6 pg (25.7-33.7) H 07/02/17 15:00 MCHC 34.3 g/dl (32.0-35.9) 07/02/17 15:00 RDW 14.5 % (11.9-15.9) 07/02/17 15:00 Plt Count 308 K/MM3 (134-434) 07/02/17 15:00 MPV 7.5 fl (7.5-11.1) 07/02/17 15:00 Sodium 134 mmol/L (136-145) L 07/02/17 15:00 Potassium 4.2 mmol/L (3.5-5.1) 07/02/17 15:00 Chloride 100 mmol/L (98-107) 07/02/17 15:00 Carbon Dioxide 25 mmol/L (21-32) 07/02/17 15:00 Anion Gap 9 (8-16) 07/02/17 15:00 BUN 4 mg/dL (7-18) L D 07/02/17 15:00 Creatinine 0.7 mg/dL (0.7-1.3) D 07/02/17 15:00 Creat Clearance w eGFR > 60 (>60) 07/02/17 15:00 Random Glucose 77 mg/dL (74-106) 07/02/17 15:00 Calcium 9.0 mg/dL (8.5-10.1) 07/02/17 15:00 Total Bilirubin 0.4 mg/dL (0.2-1.0) D 07/02/17 15:00 AST 41 U/L (15-37) H D 07/02/17 15:00 ALT 13 U/L (12-78) 07/02/17 15:00 Alkaline Phosphatase 66 U/L (45-117) 07/02/17 15:00 Total Protein 8.0 g/dl (6.4-8.2) 07/02/17 15:00 Albumin 3.8 g/dl (3.4-5.0) 07/02/17 15:00 Urine Color Yellow 07/02/17 15:00 Urine Appearance Slcloudy 07/02/17 15:00 Urine pH 5.0 (5.0-8.0) 07/02/17 15:00 Ur Specific [place] 1.015 (1.001-1.035) 07/02/17 15:00 Urine Protein Negative (NEGATIVE) 07/02/17 15:00 Urine Glucose (UA) Negative (NEGATIVE) 07/02/17 15:00 Urine Ketones Trace (NEGATIVE) H 07/02/17 15:00 Urine Blood Negative (NEGATIVE) 07/02/17 15:00 Urine Nitrite Negative (NEGATIVE) 07/02/17 15:00 Urine Bilirubin Negative (NEGATIVE) 07/02/17 15:00 Urine Urobilinogen 2.0 mg/dL (0.2-1.0) 07/02/17 15:00 Ur Leukocyte Esterase Negative (NEGATIVE) 07/02/17 15:00 [place] 0.1 MEQ/L (0.6-1.2) L 01/03/18 15:00 RPR Titer Nonreactive (NONREACTIVE) 07/02/17 15:00 Assessment: 07/04/17 12:16 WITHDRAWAL SX Plan: CONTINUE DETOX
[2017-07-04] MEDS: chlordiazePOXIDE 5 MG CAPSULE PO SCH ×2 (17:12→22:25)
[2017-07-04] MEDS: THIAMINE HCL 100 MG TABLET (FP) PO SCH (22:25)
[2017-07-04] MEDS: traZODone HCL 50 MG TABLET (FP) PO SCH (22:25)
[2017-07-05] MEDS: chlordiazePOXIDE 5 MG CAPSULE PO SCH (05:32)
[2017-07-05 06:23] VITALS: BP 128/77; PULSE 70; TEMP 97.5
--- NOTE | 2017-07-05 13:59 | DS ---
[facility] Detox Discharge Summary Admission Date: 07/02/17 Discharge Date: 07/05/17 - History Present History: Alcohol Dependence, Cannabis Dependence, Cocaine Dependence Pertinent Past History: GERD, wrist injury, PTSD - Physical Exam Results Vital Signs: Vital Signs Temperature 97.5 F L 07/05/17 06:23 Pulse Rate 70 07/05/17 06:23 Respiratory Rate 18 07/05/17 06:23 Blood Pressure 128/77 07/05/17 06:23 O2 Sat by Pulse Oximetry (%) 98 07/03/17 13:27 Pertinent Admission Physical Exam Findings: Laboratory Last Values WBC 5.3 K/mm3 (4.0-10.0) 07/02/17 15:00 RBC 3.75 M/mm3 (4.00-5.60) L 07/02/17 15:00 Hgb 13.0 GM/dL (11.7-16.9) 07/02/17 15:00 Hct 38.0 % (35.4-49) 07/02/17 15:00 MCV 101.1 fl (80-96) H 07/02/17 15:00 MCH 34.6 pg (25.7-33.7) H 07/02/17 15:00 MCHC 34.3 g/dl (32.0-35.9) 07/02/17 15:00 RDW 14.5 % (11.9-15.9) 07/02/17 15:00 Plt Count 308 K/MM3 (134-434) 07/02/17 15:00 MPV 7.5 fl (7.5-11.1) 07/02/17 15:00 Sodium 134 mmol/L (136-145) L 07/02/17 15:00 Potassium 4.2 mmol/L (3.5-5.1) 07/02/17 15:00 Chloride 100 mmol/L (98-107) 07/02/17 15:00 Carbon Dioxide 25 mmol/L (21-32) 07/02/17 15:00 Anion Gap 9 (8-16) 07/02/17 15:00 BUN 4 mg/dL (7-18) L D 07/02/17 15:00 Creatinine 0.7 mg/dL (0.7-1.3) D 07/02/17 15:00 Creat Clearance w eGFR > 60 (>60) 07/02/17 15:00 Random Glucose 77 mg/dL (74-106) 07/02/17 15:00 Calcium 9.0 mg/dL (8.5-10.1) 07/02/17 15:00 Total Bilirubin 0.4 mg/dL (0.2-1.0) D 07/02/17 15:00 AST 41 U/L (15-37) H D 07/02/17 15:00 ALT 13 U/L (12-78) 07/02/17 15:00 Alkaline Phosphatase 66 U/L (45-117) 07/02/17 15:00 Total Protein 8.0 g/dl (6.4-8.2) 07/02/17 15:00 Albumin 3.8 g/dl (3.4-5.0) 07/02/17 15:00 Urine Color Yellow 07/02/17 15:00 Urine Appearance Slcloudy 07/02/17 15:00 Urine pH 5.0 (5.0-8.0) 07/02/17 15:00 Ur Specific [place] 1.015 (1.001-1.035) 07/02/17 15:00 Urine Protein Negative (NEGATIVE) 07/02/17 15:00 Urine Glucose (UA) Negative (NEGATIVE) 07/02/17 15:00 Urine Ketones Trace (NEGATIVE) H 07/02/17 15:00 Urine Blood Negative (NEGATIVE) 07/02/17 15:00 Urine Nitrite Negative (NEGATIVE) 07/02/17 15:00 Urine Bilirubin Negative (NEGATIVE) 07/02/17 15:00 Urine Urobilinogen 2.0 mg/dL (0.2-1.0) 07/02/17 15:00 Ur Leukocyte Esterase Negative (NEGATIVE) 07/02/17 15:00 [place] 0.1 MEQ/L (0.6-1.2) L 07/02/17 15:00 RPR Titer Nonreactive (NONREACTIVE) 07/02/17 15:00 Labs noted - Medication Discharge Medications: Ambulatory Orders Fluoxetine HCl [Prozac -] 20 mg PO DAILY #30 tab 05/05/17 [place] Carbonate [Eskalith -] 300 mg PO BID #60 tab 05/05/17 Quetiapine Fumarate [Seroquel -] 200 mg PO HS #30 tablet 05/05/17 Trazodone HCl [Desyrel -] 50 mg PO HS #30 tablet 05/05/17 Chlordiazepoxide [Librium -] 25 mg PO QID 07/03/17 Ranitidine HCl 150 mg PO BID 07/03/17 Thiamine HCl [B-1] 100 mg PO HS 07/03/17 - Diagnosis (1) Alcohol-induced mood disorder Status: Acute (2) Anxiety and depression Status: Chronic (3) GERD (gastroesophageal reflux disease) Status: Chronic Qualifiers: Esophagitis presence: without esophagitis Qualified Code(s): K21.9 - Gastro -esophageal reflux disease without esophagitis (4) History of bipolar disorder Status: Chronic (5) PTSD (post-traumatic stress disorder) Status: Chronic (6) Alcohol dependence with uncomplicated withdrawal Status: Acute - AMA Did Patient Leave Against Medical Advice: Yes (On assessment, pt appeared unsteady and unsafe for discharge.)
[2017-07-05] MEDS ORDERED: chlordiazePOXIDE HCL 10 MG CAPSULE PO SCH (17:00)
--- NOTE | 2017-07-07 12:47 | EKG ---
Test Reason : Blood Pressure : / mmHG Vent. Rate : 110 BPM Atrial Rate : 153 BPM P-R Int : 000 ms QRS Dur : 086 ms QT Int : 326 ms P-R-T Axes : 000 083 076 degrees QTc Int : 441 ms ATRIAL FIBRILLATION WITH RAPID VENTRICULAR RESPONSE ABNORMAL ECG WHEN COMPARED WITH ECG OF 02-JUL-2017 15:46, ATRIAL FIBRILLATION HAS REPLACED SINUS RHYTHM Confirmed by SANDY DAMON MD ([id number]) on 07/07/2017 12:47:25 PM Referred By: Confirmed By:SANDY DAMON MD
--- NOTE | 2017-07-07 22:07 | EKG ---
Test Reason : Blood Pressure : / mmHG Vent. Rate : 096 BPM Atrial Rate : 107 BPM P-R Int : 000 ms QRS Dur : 086 ms QT Int : 376 ms P-R-T Axes : 000 081 075 degrees QTc Int : 475 ms ATRIAL FIBRILLATION WITH PREMATURE VENTRICULAR OR ABERRANTLY CONDUCTED COMPLEXES NONSPECIFIC T WAVE ABNORMALITY PROLONGED QT ABNORMAL ECG WHEN COMPARED WITH ECG OF 03-JUL-2017 10:04, NO SIGNIFICANT CHANGE WAS FOUND Confirmed by SANDY DAMON MD ([id number]) on 07/07/2017 10:07:11 PM Referred By: Confirmed By:SANDY DAMON MD
== END 2017-07-05 09:20 | disposition left against medical advice (07) | DRG 770 ==
LOC: YASAS 11:24 → Y3N 12:43
PROVIDERS: ADMIT Internal Medicine; ATTEND Internal Medicine
PROC: HZ2ZZZZ Detoxification Services for Substance Abuse Treatment (ICD-10-PCS; principal; 2017-07-02)
DX: F10.24 Alcohol dependence with alcohol-induced mood disorder (principal); F43.10 Post-traumatic stress disorder, unspecified; F31.9 Bipolar disorder, unspecified; F41.8 Other specified anxiety disorders; F25.9 Schizoaffective disorder, unspecified; G47.00 Insomnia, unspecified
CPT/HCPCS: 36415; 80053; 80178; 81003; 85027; 86593; 93005; 93010

== ENCOUNTER 2017-07-03 14:11 | Emergency (ER) | payer BC ==
--- NOTE | 2017-07-03 14:18 | PDOC ---
History of Present Illness - General Chief Complaint: Revisit,Radiology Variance Stated Complaint: ABNORMAL EKG Time Seen by Provider: 07/03/17 14:17 - History of Present Illness Initial Comments: 07/03/17 14:19 Mr. Reilly is a 51 yo male w/ pmh of bipolar disorder and alcohol abuse admitted to [facility] yesterday for alcohol detox who presents for evaluation of abnormal admission EKG at detox facility that was read as afib with pvc's and qt prologation. Patient currently has no complaints and reports he is receiving librium for withdrawal treatment. Last drink was 2 days ago. The patient denies chest pain, shortness of breath, headache and dizziness. Denies fever, chills, nausea, vomit, diarrhea and constipation. Denies dysuria, frequency, urgency and hematuria. Allergies: NKDA Past History - Past Medical History Allergies/Adverse Reactions: Allergies Allergy/AdvReac Type Severity Reaction Status Date / Time No Known Allergies Allergy Verified 07/03/17 14:31 Home Medications: Ambulatory Orders Fluoxetine HCl [Prozac -] 20 mg PO DAILY #30 tab 05/05/17 [place] Carbonate [Eskalith -] 300 mg PO BID #60 tab 05/05/17 Quetiapine Fumarate [Seroquel -] 200 mg PO HS #30 tablet 05/05/17 Trazodone HCl [Desyrel -] 50 mg PO HS #30 tablet 05/05/17 Chlordiazepoxide [Librium -] 25 mg PO QID 07/03/17 Ranitidine HCl 150 mg PO BID 07/03/17 Thiamine HCl [B-1] 100 mg PO HS 07/03/17 Anemia: No Asthma: No Cancer: No Cardiac Disorders: No CVA: No COPD: No CHF: No Dementia: No Diabetes: No GI Disorders: No Disorders: No HTN: No Hypercholesterolemia: No Kidney Stones: No Liver Disease: No Psychiatric Problems: Yes (depression, anxiety, bipolar) Seizures: No Thyroid Disease: No - Surgical History Abdominal Surgery: No Appendectomy: No Cardiac Surgery: No Cholecystectomy: No Lung Surgery: No Neurologic Surgery: No Orthopedic Surgery: No - Reproductive History Testicular Surgery: No - Suicide/Smoking/Psychosocial Hx Smoking History: Current every day smoker Have you smoked in the past 12 months: Yes Number of Cigarettes Smoked Daily: 10 Cigars Per Day: 0 'Breaking Loose' booklet given: 07/02/17 Hx Alcohol Use: Yes Drug/Substance Use Hx: No Substance Use Type: Alcohol Hx Substance Use Treatment: Yes (last detox 207) Review of Systems - Review of Systems Comments:: 07/03/17 14:31 GENERAL/CONSTITUTIONAL: No fever or chills. No weakness. HEAD, EYES, EARS, NOSE AND THROAT: No change in vision. No ear pain or discharge. No sore throat. CARDIOVASCULAR: No chest pain or shortness of breath RESPIRATORY: No cough, wheezing, or hemoptysis. GASTROINTESTINAL: No nausea, vomiting, diarrhea or constipation. GENITOURINARY: No dysuria, frequency, or change in urination. MUSCULOSKELETAL: No joint or muscle swelling or pain. No neck or back pain. SKIN: No rash NEUROLOGIC: No headache, vertigo, loss of consciousness, or change in strength/ sensation. ENDOCRINE: No increased thirst. No abnormal weight change HEMATOLOGIC/LYMPHATIC: No anemia, easy bleeding, or history of blood clots. ALLERGIC/IMMUNOLOGIC: No hives or skin allergy. *Physical Exam - Physical Exam Comments: 07/03/17 14:31 GENERAL: Awake, alert, and fully oriented, in no acute distress HEAD: No signs of trauma, normocephalic, atraumatic EYES: PERRLA, EOMI, sclera anicteric, conjunctiva clear ENT: Auricles normal inspection, hearing grossly normal, nares patent, oropharynx clear without exudates. Moist mucosa NECK: Normal ROM, supple, no lymphadenopathy, JVD, or masses LUNGS: No distress, speaks full sentences, clear to auscultation bilaterally HEART: Regular rate and rhythm, normal S1 and S2, no murmurs, rubs or gallops, peripheral pulses normal and equal bilaterally. ABDOMEN: Soft, nontender, normoactive bowel sounds. No guarding, no rebound. No masses EXTREMITIES: Normal inspection, Normal range of motion, no edema. No clubbing or cyanosis. NEUROLOGICAL: Cranial nerves II through XII grossly intact. Normal speech, normal gait, no focal sensorimotor deficits SKIN: Warm, Dry, normal turgor, no rashes or lesions noted. ED Treatment Course - LABORATORY CBC & Chemistry Diagram: 07/03/17 14:52 07/03/17 14:52 Medical Decision Making - Medical Decision Making 07/03/17 14:40 Mr. Reilly is a 51 yo male w/ pmh of bipolar disorder and alcohol abuse who presents w/ new onset afib confirmed by in-house EKG. Currently rate controlled at 94 bpm. Will order cardiac workup to r/o acute process. 07/03/17 16:04 Labs all grossly wnl, patient rate controlled w/out medication. Discussed patient with Dr. Arnold for return to [facility]; patient ok for transfer back to detox - will provide cardiology information for outpatient follow-up. *DC/Admit/Observation/Transfer Diagnosis at time of Disposition: Afib Qualifiers: Atrial fibrillation type: unspecified Qualified Code(s): I48.91 - Unspecified atrial fibrillation - Discharge Dispostion Disposition: HOME - Referrals Referrals: Shakeel Cordon MD [Staff Physician] - - Patient Instructions Printed Discharge Instructions: DI for Alcohol Abuse Additional Instructions: Please return if any fever, pain, tremors, altered mental status, or any other concerning symptoms. - Post Discharge Activity
[2017-07-03 14:40] VITALS: TEMP 97.3; BMI 21.2
[2017-07-03 15:11] LABS: BASO % 0.5 % (0-2.0); EOS % 0.7 % (0-4.5); HEMOGLOBIN 12.7 GM/dL (11.7-16.9); LYMPH % 25.1 % (8-40); MCH 33.9 pg (25.7-33.7); MCHC 33.5 g/dl (32.0-35.9); MEAN CELL VOLUME 101.2 fl (80-96); MONO % 10.4 % (3.8-10.2); NEUT % 63.3 % (42.8-82.8); PLATELET COUNT 269 K/MM3 (134-434); RBC 3.75 M/mm3 (4.00-5.60); RDW 14.5 % (11.9-15.9); WHITE BLOOD COUNT 4.3 K/mm3 (4.0-10.0)
[2017-07-03 15:34] LABS: ALBUMIN 3.1 g/dl (3.4-5.0); ANION GAP 8 (8-16); BLOOD UREA NITROGEN 7 mg/dL (7-18); CHLORIDE 103 mmol/L (98-107); CO2 25 mmol/L (21-32); CREATININE 0.7 mg/dL (0.7-1.3); GLUCOSE,RANDOM 101 mg/dL (74-106); MAGNESIUM 1.9 mg/dL (1.8-2.4); POTASSIUM 4.6 mmol/L (3.5-5.1); SGOT/AST 17 U/L (15-37); SGPT/ALT 11 U/L (12-78); SODIUM 136 mmol/L (136-145)
[2017-07-03 15:38] LABS: ALK PHOS 59 U/L (45-117); BILIRUBIN,TOTAL 0.4 mg/dL (0.2-1.0); TOT PROT 6.9 g/dl (6.4-8.2)
[2017-07-03] MEDS ORDERED: MULTIVITAMINS (DAILY MVI) TABLET (FP) PO ONE (15:58)
[2017-07-03] MEDS ORDERED: FOLIC ACID 1 MG TABLET (FP) PO ONE (15:58)
[2017-07-03] MEDS ORDERED: THIAMINE HCL 100 MG TABLET (FP) PO ONE (15:58)
[2017-07-03] MEDS ORDERED: ASPIRIN COATED 81 MG TABLET.EC PO ONE (16:00)
[2017-07-03 16:12] VITALS: BP 95/78; PULSE 97
[2017-07-03] MEDS ORDERED: ASPIRIN COATED 81 MG TABLET.EC ONE (16:15)
[2017-07-03] MEDS ORDERED: FOLIC ACID 1 MG TABLET (FP) ONE (16:16)
== END 2017-07-03 17:47 | disposition home or self-care (01) ==
LOC: JER 14:11
DX: I48.91 Unspecified atrial fibrillation (principal); I49.3 Ventricular premature depolarization; I45.81 Long QT syndrome; F31.9 Bipolar disorder, unspecified; F41.9 Anxiety disorder, unspecified; F10.10 Alcohol abuse, uncomplicated; F17.210 Nicotine dependence, cigarettes, uncomplicated
CPT/HCPCS: 36415; 80053; 82550; 83735; 84484; 85025; 99283-25

== ENCOUNTER 2017-07-16 12:19 | Inpatient (IN) | payer BC ==
[2017-07-16 14:57] VITALS: BMI 21.2
[2017-07-16] MEDS ORDERED: MAGNESIUM CITRATE 300 ML BOTTLE PO PRN (17:45)
[2017-07-16] MEDS ORDERED: ACETAMINOPHEN 325 MG TABLET (FP) PO PRN (17:45)
[2017-07-16] MEDS ORDERED: MAG HYDROX/AL HYDROX/SIMETH 30 ML UNIT-DOSE CUP PO PRN (17:45)
[2017-07-16] MEDS ORDERED: MENTHOL/PHENOL 1 EACH UD MM PRN (17:45)
[2017-07-16] MEDS ORDERED: P-EPHED 60MG/TRIPROLIDI 2.5MG TABLET PO PRN (17:45)
[2017-07-16] MEDS ORDERED: IBUPROFEN 400 MG TABLET (FP) PO PRN (17:45)
[2017-07-16] MEDS ORDERED: MAGNESIUM HYDROX 2400MG/30ML ORAL SUSPENSION 30 ML CUP PO PRN (17:45)
[2017-07-16] MEDS ORDERED: chlordiazePOXIDE HCL 25 MG CAPSULE PO PRN (17:45)
[2017-07-16] MEDS ORDERED: LOPERAMIDE HCL 2 MG CAPSULE PO PRN (17:45)
[2017-07-16] MEDS ORDERED: guaiFENesin/D-METHORPHAN HB 10 ML UNIT-DOSE CUPS PO PRN (17:45)
--- NOTE | 2017-07-16 17:45 | HP ---
CIWA Score - CIWA Score Nausea/Vomitin-Mild Nausea/No Vomiting Muscle Tremors: 4-Moderate,w/Arms Extend Anxiety: 4-Mod. Anxious/Guarded Agitation: 4-Moderately Restless Paroxysmal Sweats: 1-Minimal Palms Moist Orientation: 3-Disoriented Date>2 days Tacttile Disturbances: 1-Very Mild Itch/Numbness Auditory Disturbances: 0-None Visual Disturbances: 0-None Headache: 0-None Present CIWA-Ar Total Score: 18 Admission ROS S - HPI Chief Complaint: withdrawal sx Allergies/Adverse Reactions: Allergies Allergy/AdvReac Type Severity Reaction Status Date / Time No Known Allergies Allergy Verified 07/03/17 14:31 History of Present Illness: 52 years old male with long history of alcohol nicotine dependence has positive ppd and bipolar ii is admitted to detox Exam Limitations: No Limitations - Ebola screening Have you traveled outside of the country in the last 21 days: No Have you had contact with anyone from an Ebola affected area: No Have you been sick,other than usual withdrawal symptoms: No Do you have a fever: No - Review of Systems Constitutional: Loss of Appetite, Changes in sleep, Unintentional Wgt. Loss, Unexplained wgt Loss EENT: reports: No Symptoms Reported Respiratory: reports: No Symptoms reported Cardiac: reports: No Symptoms Reported GI: reports: Nausea, Poor Appetite, Poor Fluid Intake, Abdominal cramping : reports: No Symptoms Reported Musculoskeletal: reports: No Symptoms Reported Integumentary: reports: No Symptoms Reported Neuro: reports: Tremors Endocrine: reports: No Symptoms Reported Hematology: reports: No Symptoms Reported Psychiatric: reports: Judgement Intact, Anxious, Depressed Other Systems: Reviewed and Negative Patient History - Patient Medical History Hx Anemia: No Hx Asthma: No Hx Chronic Obstructive Pulmonary Disease (COPD): No Hx Cancer: No Hx Cardiac Disorders: No Hx Congestive Heart Failure: No Hx Hypertension: No Hx Hypercholesterolemia: No Hx Pacemaker: No HX Cerebrovascular Accident: No Hx Seizures: No Hx Dementia: No Hx Diabetes: No Hx Gastrointestinal Disorders: No Hx Liver Disease: No Hx Genitourinary Disorders: No Hx Sexually Transmitted Disorders: No Hx Renal Disease (ESRD): No Hx Thyroid Disease: No Hx Human Immunodeficiency Virus (HIV): No (NEGATIVE.) Hx Hepatitis C: No (NEGATIVE.) Hx Depression: No Hx Suicide Attempt: No Hx Bipolar Disorder: Yes (On meds.) Hx Schizophrenia: No - Patient Surgical History Past Surgical History: No Hx Neurologic Surgery: No Hx Cataract Extraction: No Hx Cardiac Surgery: No Hx Lung Surgery: No Hx Breast Surgery: No Hx Breast Biopsy: No Hx Abdominal Surgery: No Hx Appendectomy: No Hx Cholecystectomy: No Hx Genitourinary Surgery: No Hx Orthopedic Surgery: No - PPD History Previous Implant?: Yes Documented Results: Positive w/o proof Implanted On Prior R Admission?: No Results: CXR(-)12/04/16 PPD to be Administered?: No - Smoking Cessation Smoking history: Current every day smoker Have you smoked in the past 12 months: Yes Aproximately how many cigarettes per day: 10 Cigars Per Day: 0 Hx Chewing Tobacco Use: No Initiated information on smoking cessation: Yes 'Breaking Loose' booklet given: 07/16/17 - Substance & Tx. History Hx Alcohol Use: Yes Hx Substance Use: No Substance Use Type: Alcohol Hx Substance Use Treatment: Yes (06/2017 [facility] - Substances Abused Alcohol Route: Oral Frequency: Daily Amount used: quart vodka Age of first use: 21 Date of Last Use: 07/16/17 Family Disease History - Family Disease History Family Disease History: Diabetes: Father (), Other: Mother (DEMENTIA ), Brother (no contact) Admission Physical Exam S - Vital Signs Vital Signs: Vital Signs - 24 hr 07/16/17 14:52 Temperature 97 F L Pulse Rate 99 H Respiratory 20 Rate Blood Pressure 121/73 - Physical General Appearance: Yes: Appropriately Dressed, Moderate Distress, Alcohol on Breath, Thin, Tremorous, Irritable, Sweating, Anxious HEENTM: Yes: Hearing grossly Normal, Normal ENT Inspection, Normocephalic, Normal Voice Respiratory: Yes: Chest Non-Tender, Lungs Clear, Normal Breath Sounds, No Respiratory Distress, No Accessory Muscle Use Neck: Yes: Supple, Trachea in good position Breast: Yes: Breasts Symetrical Cardiology: Yes: Regular Rhythm, S1, S2, Tachycardia Abdominal: Yes: Non Tender, Soft, Increased Bowel Sounds Genitourinary: Yes: Within Normal Limits Back: Yes: Normal Inspection Musculoskeletal: Yes: full range of Motion, Gait Steady Extremities: Yes: Normal Inspection, Normal Range of Motion, Non-Tender, Tremors Neurological: Yes: Alert, Motor Strength 5/5, Normal Response, Depressed Affect Integumentary: Yes: Warm Lymphatic: Yes: Within Normal Limits - Diagnostic (1) Bipolar II disorder Current Visit: Yes Status: Suspected (2) Alcohol dependence with uncomplicated withdrawal Current Visit: Yes Status: Acute (3) Nicotine dependence Current Visit: Yes Status: Acute Qualifiers: Nicotine product type: cigarettes Substance use status: in withdrawal Qualified Code(s): F17.213 - Nicotine dependence, cigarettes, with withdrawal (4) Bipolar II disorder Current Visit: Yes Status: Suspected (5) Weight loss Current Visit: Yes Status: Acute Cleared for Admission [facility] - Detox or Rehab [facility] Level of Care: Medically Managed Detox Regimen/Protocol: Librium [facility] Breath Alcohol Content Breath Alcohol Content: 0.308 Urine Drug Screen - Results Drug Screen Negative: No Urine Drug Screen Results: BZO-Benzodiazepines
[2017-07-16 23:34] LABS: URINE APPEARANCE CLEAR; URINE BILIRUBIN NEGATIVE (NEGATIVE); URINE BLOOD NEGATIVE (NEGATIVE); URINE COLOR YELLOW; URINE GLUCOSE (UA) NEGATIVE (NEGATIVE); URINE KETONE TRACE (NEGATIVE); URINE LEUK ESTERASE NEGATIVE (NEGATIVE); URINE NITRITE NEGATIVE (NEGATIVE); URINE PROTEIN NEGATIVE (NEGATIVE); URINE UROBILINOGEN NEGATIVE mg/dL (0.2-1.0)
[2017-07-17] MEDS: THIAMINE HCL 100 MG TABLET (FP) PO SCH ×2 (00:25→22:04)
[2017-07-17] MEDS: chlordiazePOXIDE HCL 25 MG CAPSULE PO SCH ×5 (00:25→22:04)
--- NOTE | 2017-07-17 09:13 | CONSULT ---
[facility] Psychiatric Consult - Data Date of interview: 07/17/17 Admission source: [facility] Identifying data: This is 52 years old male with history of Bipolar Disorder, history of [psychiatric hospitalization iontoxciated with: Alcohol andf Nicotine Substance Abuse History: - Smoking Cessation. Smoking history: Current every day smoker. Have you smoked in the past 12 months: Yes. Aproximately how many cigarettes per day: 10. Cigars Per Day: 0. Hx Chewing Tobacco Use: No. Initiated information on smoking cessation: Yes. 'Breaking Loose' booklet given : 07/16/17. - Substance & Tx. History. Hx Alcohol Use: Yes. Hx Substance Use : No. Substance Use Type: Alcohol. Hx Substance Use Treatment: Yes (06/2017 [facility]). - Substances Abused. Alcohol. Route: Oral. Frequency: Daily. Amount used: quart vodka. Age of first use: 21. Date of Last Use: 07/16/17 Medical History: Weight loss, GERD, history of A.Fib, Psychiatric History: Calista kaur history of Bipolar disorder with most [facility] psychiartric admission on 2014 at Unknown [facility] for safety, reports taking prior to admission: [place] 300mg po bid. Seroquel 200mg po qhs. Prozac 20mg poqd Physical/Sexual Abuse/Trauma History: Denies Additional Comment: [place] 300mg po bid. Seroquel 200mg po qhs. Prozac 20mg poqd Mental Status Exam - Mental Status Exam Alert and Oriented to: Person Cognitive Function: Fair Patient Appearance: Unkempt Mood: Sad Affect: Mood Congruent Patient Behavior: Cooperative Speech Pattern: Appropriate Voice Loudness: Normal Thought Process: Circumstantial Thought Disorder: Being Controlled Hallucinations: Denies Suicidal Ideation: Denies Homicidal Ideation: Denies Insight/Judgement: Fair Sleep: Difficulty falling asleep Appetite: Weight loss Muscle strength/Tone: Mild Hypotonicity Gait/Station: Shuffling Additional Comments: [place] 300mg po bid. Seroquel 200mg po qhs. Prozac 20mg poqd Psychiatric Findings - Problem List ([place] 1, 2,3) (1) Alcohol dependence with uncomplicated withdrawal Current Visit: Yes Status: Acute (2) Nicotine dependence Current Visit: Yes Status: Acute Qualifiers: Nicotine product type: cigarettes Substance use status: in withdrawal Qualified Code(s): F17.213 - Nicotine dependence, cigarettes, with withdrawal (3) Bipolar II disorder Current Visit: Yes Status: Suspected (4) Alcohol-induced mood disorder Current Visit: No Status: Acute (5) Drug-induced mood disorder Current Visit: No Status: Acute Comment: . - Initial Treatment Plan Initial Treatment Plan: [place] 300mg po bid. Seroquel 200mg po qhs. Prozac 20mg poqd
[2017-07-17 10:49] LABS: HEMATOCRIT 36.8 % (35.4-49); HEMOGLOBIN 12.4 GM/dL (11.7-16.9); MCH 33.8 pg (25.7-33.7); MCHC 33.7 g/dl (32.0-35.9); MEAN CELL VOLUME 100.5 fl (80-96); MEAN PLT VOLUME 6.5 fl (7.5-11.1); PLATELET COUNT 625 K/MM3 (134-434); RBC 3.66 M/mm3 (4.00-5.60); WHITE BLOOD COUNT 3.5 K/mm3 (4.0-10.0)
[2017-07-17] MEDS: PRENATAL VITAMINS W/ FOLIC ACID TABLET (FP) PO SCH (10:49)
[2017-07-17] MEDS: FLUoxetine HCL 20 MG CAPSULE (FP) PO SCH (10:49)
[2017-07-17] MEDS: LITHIUM CARBONATE 300 MG CAPSULE (FP) PO SCH ×2 (10:50→22:04)
[2017-07-17 10:51] LABS: ALBUMIN 3.4 g/dl (3.4-5.0); CHLORIDE 102 mmol/L (98-107); POTASSIUM 5.1 mmol/L (3.5-5.1); SODIUM 139 mmol/L (136-145)
[2017-07-17 11:00] LABS: ALK PHOS 55 U/L (45-117); ANION GAP 8 (8-16); BILIRUBIN,TOTAL 0.4 mg/dL (0.2-1.0); BLOOD UREA NITROGEN 8 mg/dL (7-18); CALCIUM 9.5 mg/dL (8.5-10.1); CO2 29 mmol/L (21-32); CREATININE 0.8 mg/dL (0.7-1.3); GLUCOSE,RANDOM 88 mg/dL (74-106); SGOT/AST 23 U/L (15-37); SGPT/ALT 16 U/L (12-78); TOT PROT 7.7 g/dl (6.4-8.2)
--- NOTE | 2017-07-17 11:32 | PN ---
S CIWA - CIWA Score Nausea/Vomitin-No Nausea/No Vomiting Muscle Tremors: 4-Moderate,w/Arms Extend Anxiety: 3 Agitation: 3 Paroxysmal Sweats: 3 Orientation: 0-Oriented Tacttile Disturbances: 0-None Auditory Disturbances: 0-None Visual Disturbances: 0-None Headache: 0-None Present CIWA-Ar Total Score: 13 [facility] Progress Note (SOAP) Subjective: shakes sweats interrupted sleep agitation anxiety Objective: 07/17/17 11:32 Vital Signs Temperature 98.2 F 07/17/17 09:23 Pulse Rate 89 07/17/17 09:23 Respiratory Rate 18 07/17/17 09:23 Blood Pressure 129/79 07/17/17 09:23 O2 Sat by Pulse Oximetry (%) Laboratory Tests 07/16/17 07/17/17 07/17/17 21:01 07:00 07:00 WBC 3.5 L RBC 3.66 L Hgb 12.4 Hct 36.8 MCV 100.5 H MCH 33.8 H MCHC 33.7 RDW 15.0 Plt Count 625 H D MPV 6.5 L Sodium 139 Potassium 5.1 Chloride 102 Carbon Dioxide 29 Anion Gap 8 BUN 8 Creatinine 0.8 Creat Clearance w eGFR > 60 Random Glucose 88 Calcium 9.5 Total Bilirubin 0.4 AST 23 D ALT 16 D Alkaline Phosphatase 55 Total Protein 7.7 Albumin 3.4 Urine Color Yellow Urine Appearance Clear Urine pH 5.0 Ur Specific [place] 1.012 Urine Protein Negative Urine Glucose (UA) Negative Urine Ketones Trace H Urine Blood Negative Urine Nitrite Negative Urine Bilirubin Negative Urine Urobilinogen Negative Ur Leukocyte Esterase Negative aaox3 ambulating no acute distress Assessment: 07/17/17 11:32 withdrawal sx Plan: continue detox increase fluids
--- NOTE | 2017-07-17 12:36 | EKG ---
Test Reason : Blood Pressure : / mmHG Vent. Rate : 095 BPM Atrial Rate : 095 BPM P-R Int : 128 ms QRS Dur : 078 ms QT Int : 368 ms P-R-T Axes : 077 080 052 degrees QTc Int : 462 ms NORMAL SINUS RHYTHM POSSIBLE LEFT ATRIAL ENLARGEMENT NONSPECIFIC T WAVE ABNORMALITY PROLONGED QT ABNORMAL ECG WHEN COMPARED WITH ECG OF 03-JUL-2017 14:04, SINUS RHYTHM HAS REPLACED ATRIAL FIBRILLATION Confirmed by NEY JEAN-BAPTISTE, YENY ([id number]) on 07/17/2017 12:36:00 PM Referred By: Confirmed By:YENY BREWSTER MD
[2017-07-17] MEDS: QUEtiapine FUMARATE 200 MG TABLET PO SCH (22:04)
[2017-07-18] MEDS: chlordiazePOXIDE HCL 25 MG CAPSULE PO SCH ×3 (06:05→17:42)
[2017-07-18] MEDS: PRENATAL VITAMINS W/ FOLIC ACID TABLET (FP) PO SCH (11:12)
[2017-07-18] MEDS: LITHIUM CARBONATE 300 MG CAPSULE (FP) PO SCH ×2 (11:12→22:19)
[2017-07-18] MEDS: FLUoxetine HCL 20 MG CAPSULE (FP) PO SCH (11:12)
--- NOTE | 2017-07-18 12:20 | PN ---
S CIWA - CIWA Score Nausea/Vomitin Muscle Tremors: 2 Anxiety: 2 Agitation: 1-Slight > Activity Paroxysmal Sweats: 2 Orientation: 0-Oriented Tacttile Disturbances: 1-Very Mild Itch/Numbness Auditory Disturbances: 0-None Visual Disturbances: 0-None Headache: 0-None Present CIWA-Ar Total Score: 10 BHS Progress Note (SOAP) Subjective: states he's feeling well wants to leave in am Objective: 07/18/17 12:21 Vital Signs Temperature 98.1 F 07/18/17 11:01 Pulse Rate 75 07/18/17 11:01 Respiratory Rate 18 07/18/17 11:01 Blood Pressure 136/89 07/18/17 11:01 O2 Sat by Pulse Oximetry (%) Laboratory Tests 07/16/17 07/17/17 07/17/17 21:01 07:00 07:00 WBC 3.5 L RBC 3.66 L Hgb 12.4 Hct 36.8 MCV 100.5 H MCH 33.8 H MCHC 33.7 RDW 15.0 Plt Count 625 H D MPV 6.5 L Sodium 139 Potassium 5.1 Chloride 102 Carbon Dioxide 29 Anion Gap 8 BUN 8 Creatinine 0.8 Creat Clearance w eGFR > 60 Random Glucose 88 Calcium 9.5 Total Bilirubin 0.4 AST 23 D ALT 16 D Alkaline Phosphatase 55 Total Protein 7.7 Albumin 3.4 Urine Color Yellow Urine Appearance Clear Urine pH 5.0 Ur Specific [place] 1.012 Urine Protein Negative Urine Glucose (UA) Negative Urine Ketones Trace H Urine Blood Negative Urine Nitrite Negative Urine Bilirubin Negative Urine Urobilinogen Negative Ur Leukocyte Esterase Negative [place] RPR Titer 07/17/17 07/17/17 07:00 07:00 WBC RBC Hgb Hct MCV MCH MCHC RDW Plt Count MPV Sodium Potassium Chloride Carbon Dioxide Anion Gap BUN Creatinine Creat Clearance w eGFR Random Glucose Calcium Total Bilirubin AST ALT Alkaline Phosphatase Total Protein Albumin Urine Color Urine Appearance Urine pH Ur Specific [place] Urine Protein Urine Glucose (UA) Urine Ketones Urine Blood Urine Nitrite Urine Bilirubin Urine Urobilinogen Ur Leukocyte Esterase [place] < 0.1 L RPR Titer Nonreactive pt aox3 in nad ambulating Assessment: 07/18/17 12:22 withdrawal sx's improve , will d/c early pt has important appt to attend Plan: cont. detox increase fluids d/c in am
[2017-07-18] MEDS: THIAMINE HCL 100 MG TABLET (FP) PO SCH (22:14)
[2017-07-18] MEDS: chlordiazePOXIDE 5 MG CAPSULE PO SCH (22:14)
[2017-07-18] MEDS: QUEtiapine FUMARATE 200 MG TABLET PO SCH (22:15)
[2017-07-19] MEDS: chlordiazePOXIDE 5 MG CAPSULE PO SCH (06:00)
[2017-07-19 06:16] VITALS: BP 127/71; PULSE 75; TEMP 98.1
--- NOTE | 2017-07-19 11:31 | DS ---
[facility] Detox Discharge Summary Admission Date: 07/16/17 Discharge Date: 07/19/17 - History Present History: Alcohol Dependence - Physical Exam Results Vital Signs: Vital Signs Temperature 98.1 F 07/19/17 06:16 Pulse Rate 75 07/19/17 06:16 Respiratory Rate 18 07/19/17 06:16 Blood Pressure 127/71 07/19/17 06:16 O2 Sat by Pulse Oximetry (%) Pertinent Admission Physical Exam Findings: withdrawal symptoms Laboratory Last Values WBC 3.5 K/mm3 (4.0-10.0) L 07/17/17 07:00 RBC 3.66 M/mm3 (4.00-5.60) L 07/17/17 07:00 Hgb 12.4 GM/dL (11.7-16.9) 07/17/17 07:00 Hct 36.8 % (35.4-49) 07/17/17 07:00 MCV 100.5 fl (80-96) H 07/17/17 07:00 MCH 33.8 pg (25.7-33.7) H 07/17/17 07:00 MCHC 33.7 g/dl (32.0-35.9) 07/17/17 07:00 RDW 15.0 % (11.9-15.9) 07/17/17 07:00 Plt Count 625 K/MM3 (134-434) H D 07/17/17 07:00 MPV 6.5 fl (7.5-11.1) L 07/17/17 07:00 Sodium 139 mmol/L (136-145) 07/17/17 07:00 Potassium 5.1 mmol/L (3.5-5.1) 07/17/17 07:00 Chloride 102 mmol/L (98-107) 07/17/17 07:00 Carbon Dioxide 29 mmol/L (21-32) 07/17/17 07:00 Anion Gap 8 (8-16) 07/17/17 07:00 BUN 8 mg/dL (7-18) 07/17/17 07:00 Creatinine 0.8 mg/dL (0.7-1.3) 07/17/17 07:00 Creat Clearance w eGFR > 60 (>60) 07/17/17 07:00 Random Glucose 88 mg/dL (74-106) 07/17/17 07:00 Calcium 9.5 mg/dL (8.5-10.1) 07/17/17 07:00 Total Bilirubin 0.4 mg/dL (0.2-1.0) 07/17/17 07:00 AST 23 U/L (15-37) D 07/17/17 07:00 ALT 16 U/L (12-78) D 07/17/17 07:00 Alkaline Phosphatase 55 U/L (45-117) 07/17/17 07:00 Total Protein 7.7 g/dl (6.4-8.2) 07/17/17 07:00 Albumin 3.4 g/dl (3.4-5.0) 07/17/17 07:00 Urine Color Yellow 07/16/17 21:01 Urine Appearance Clear 07/16/17 21:01 Urine pH 5.0 (5.0-8.0) 07/16/17 21:01 Ur Specific [place] 1.012 (1.001-1.035) 07/16/17 21:01 Urine Protein Negative (NEGATIVE) 07/16/17 21:01 Urine Glucose (UA) Negative (NEGATIVE) 07/16/17 21:01 Urine Ketones Trace (NEGATIVE) H 07/16/17 21:01 Urine Blood Negative (NEGATIVE) 07/16/17 21:01 Urine Nitrite Negative (NEGATIVE) 07/16/17 21:01 Urine Bilirubin Negative (NEGATIVE) 07/16/17 21:01 Urine Urobilinogen Negative mg/dL (0.2-1.0) 07/16/17 21:01 Ur Leukocyte Esterase Negative (NEGATIVE) 07/16/17 21:01 [place] 0.3 MEQ/L (0.6-1.2) L 07/18/17 07:00 RPR Titer Nonreactive (NONREACTIVE) 07/17/17 07:00 - Treatment Hospital Course: Detox Protocol Followed, Detoxed Safely, Responded well, Discharged Condition Good, Rehab Referral Accepted Patient has Accepted a Rehab Referral to: Patient to follow up with self help group - Medication Discharge Medications: Ambulatory Orders Quetiapine Fumarate [Seroquel -] 200 mg PO HS #30 tablet 05/05/17 Trazodone HCl [Desyrel -] 50 mg PO HS #30 tablet 05/05/17 Ranitidine HCl 150 mg PO BID 07/03/17 Fluoxetine HCl [Prozac -] 20 mg PO DAILY #30 tab 07/17/17 [place] Carbonate [Eskalith -] 300 mg PO BID #60 tab 07/17/17 Quetiapine Fumarate [Quetiapine Fumarate ER] 200 mg PO HS #30 tab.er.24h - Diagnosis (1) Alcohol-induced mood disorder Status: Acute (2) Drug-induced mood disorder Status: Acute (3) Alcohol dependence with uncomplicated withdrawal Status: Acute (4) GERD (gastroesophageal reflux disease) Status: Chronic Qualifiers: Esophagitis presence: without esophagitis Qualified Code(s): K21.9 - Gastro -esophageal reflux disease without esophagitis (5) Nicotine dependence Status: Chronic Qualifiers: Nicotine product type: cigarettes Substance use status: uncomplicated Qualified Code(s): F17.210 - Nicotine dependence, cigarettes, uncomplicated (6) Bipolar II disorder Status: Suspected - AMA Did Patient Leave Against Medical Advice: No
[2017-07-19] MEDS ORDERED: chlordiazePOXIDE HCL 10 MG CAPSULE PO SCH (23:00)
== END 2017-07-19 09:11 | disposition home or self-care (01) | DRG 775 ==
LOC: YASAS 12:19 → Y6N 19:49
PROVIDERS: ADMIT Internal Medicine; ATTEND Internal Medicine
PROC: HZ2ZZZZ Detoxification Services for Substance Abuse Treatment (ICD-10-PCS; principal; 2017-07-16)
DX: F10.230 Alcohol dependence with withdrawal, uncomplicated (principal); F10.24 Alcohol dependence with alcohol-induced mood disorder; F17.210 Nicotine dependence, cigarettes, uncomplicated; F25.1 Schizoaffective disorder, depressive type; F25.0 Schizoaffective disorder, bipolar type; F41.8 Other specified anxiety disorders; F43.10 Post-traumatic stress disorder, unspecified; I48.91 Unspecified atrial fibrillation; K21.9 Gastro-esophageal reflux disease without esophagitis; R94.31 Abnormal electrocardiogram [ECG] [EKG]; G47.00 Insomnia, unspecified; R00.0 Tachycardia, unspecified; Z87.898 Personal history of other specified conditions
CPT/HCPCS: 36415; 80053; 80178; 81003; 85027; 86593; 93005; 93010

== ENCOUNTER 2017-10-16 10:04 | Inpatient (IN) | payer BC ==
[2017-10-16 10:38] VITALS: BMI 22.1
--- NOTE | 2017-10-16 12:53 | HP ---
CIWA Score - CIWA Score Nausea/Vomitin Muscle Tremors: 3 Anxiety: 3 Agitation: 2 Paroxysmal Sweats: 1-Minimal Palms Moist Orientation: 0-Oriented Tacttile Disturbances: 2-Mild Itch/Numbness/Burn Auditory Disturbances: 1-Very Mild Visual Disturbances: 0-None Headache: 2-Mild CIWA-Ar Total Score: 17 Admission ROS BHS - HPI Chief Complaint: i need help to stop drinking alcohol Allergies/Adverse Reactions: Allergies Allergy/AdvReac Type Severity Reaction Status Date / Time No Known Allergies Allergy Verified 10/16/17 12:36 History of Present Illness: this 52 years old male with alcohol dependence seeking detox,withdrawal symptom, last detox 2 months ago unknown facility syncope alcohol related gerd longest period of sobriety 1 year nicotine dependence positive ppd bipolar disorder with depression multiple admissions in the past but keep relapsing - Ebola screening Have you traveled outside of the country in the last 21 days: No Have you traveled to any of the following countries: [place] Have you had contact with anyone from an Ebola affected area: No Have you been sick,other than usual withdrawal symptoms: No Do you have a fever: No - Review of Systems Constitutional: Loss of Appetite, Malaise, Night Sweats, Changes in sleep, Weakness, Unintentional Wgt. Loss EENT: reports: Nose Congestion Respiratory: reports: No Symptoms reported Cardiac: reports: No Symptoms Reported GI: reports: Nausea, Vomiting, Abdominal cramping : reports: No Symptoms Reported Musculoskeletal: reports: Back Pain, Muscle Pain Integumentary: reports: Dryness Neuro: reports: Headache, Tremors Endocrine: reports: No Symptoms Reported Hematology: reports: No Symptoms Reported Psychiatric: reports: No Sypmtoms Reported, Judgement Intact, Mood/Affect Appropiate, Agitated, Anxious, other (bipolar disorder) Patient History - Patient Medical History Hx Anemia: No Hx Asthma: No Hx Chronic Obstructive Pulmonary Disease (COPD): No Hx Cancer: No Hx Cardiac Disorders: No Hx Congestive Heart Failure: No Hx Hypertension: No Hx Hypercholesterolemia: No Hx Pacemaker: No HX Cerebrovascular Accident: No Hx Seizures: No Hx Dementia: No Hx Diabetes: No Hx Gastrointestinal Disorders: No Hx Liver Disease: No Hx Genitourinary Disorders: No Hx Sexually Transmitted Disorders: No Hx Renal Disease (ESRD): No Hx Thyroid Disease: No Hx Human Immunodeficiency Virus (HIV): No (NEGATIVE. last 2015) Hx Hepatitis C: No (NEGATIVE.) Hx Depression: Yes (on med) Hx Suicide Attempt: No Hx Bipolar Disorder: Yes (On meds.) Hx Schizophrenia: No Other Medical History: depression,no suicidal,no homicidal - Patient Surgical History Past Surgical History: No Hx Neurologic Surgery: No Hx Cataract Extraction: No Hx Cardiac Surgery: No Hx Lung Surgery: No Hx Breast Surgery: No Hx Breast Biopsy: No Hx Abdominal Surgery: No Hx Appendectomy: No Hx Cholecystectomy: No Hx Genitourinary Surgery: No Hx Section: No Hx Orthopedic Surgery: No Anesthesia Reaction: No - PPD History Documented Results: Positive w/proof Implanted On Prior [facility] Admission?: No Results: CXR(-)12/04/16 PPD to be Administered?: No - Smoking Cessation Smoking history: Current every day smoker Have you smoked in the past 12 months: Yes Aproximately how many cigarettes per day: 10 Cigars Per Day: 0 Hx Chewing Tobacco Use: No Initiated information on smoking cessation: Yes 'Breaking Loose' booklet given: 10/16/17 - Substance & Tx. History Hx Alcohol Use: Yes Hx Substance Use: No Substance Use Type: Alcohol Hx Substance Use Treatment: Yes (last 08/17 unknown facility) - Substances Abused Alcohol Route: Oral Frequency: Daily Amount used: 12pk beer Age of first use: 18 Date of Last Use: 10/16/17 Family Disease History - Family Disease History Family Disease History: Diabetes: Father (), Other: Mother (DEMENTIA ), Brother (no contact) Admission Physical Exam BHS - Vital Signs Vital Signs: Vital Signs - 24 hr 10/16/17 10:37 Temperature 97.2 F L Pulse Rate 103 H Respiratory 20 Rate Blood Pressure 102/68 - Physical General Appearance: Yes: Moderate Distress, Tremorous, Irritable, Sweating, Anxious HEENTM: Yes: Normal ENT Inspection, TESSA, Pharynx Normal Respiratory: Yes: Lungs Clear, Normal Breath Sounds, No Respiratory Distress Neck: Yes: Within Normal Limits Breast: Yes: Within Normal Limits Cardiology: Yes: Tachycardia Abdominal: Yes: Within Normal Limits, Normal Bowel Sounds, Non Tender, Flat, Soft Genitourinary: Yes: Within Normal Limits Back: Yes: Normal Inspection, Muscle Spasm Musculoskeletal: Yes: full range of Motion, Back pain, Muscle Pain Extremities: Yes: Normal Range of Motion, Tremors Neurological: Yes: senior research fellow II-XII NML intact, Fully Oriented, Alert, Motor Strength 5/5 Integumentary: Yes: Dry Lymphatic: Yes: Within Normal Limits - Diagnostic (1) Alcohol dependence with intoxication Status: Acute (2) Alcohol dependence with uncomplicated withdrawal Status: Acute (3) Weight loss Status: Acute (4) History of bipolar disorder Status: Chronic (5) Nicotine dependence Status: Chronic Qualifiers: Nicotine product type: cigarettes Substance use status: uncomplicated Qualified Code(s): F17.210 - Nicotine dependence, cigarettes, uncomplicated (6) Bipolar II disorder Status: Suspected Cleared for Admission [facility] - Detox or Rehab [facility] Level of Care: Medically Managed Detox Regimen/Protocol: Librium [facility] Breath Alcohol Content Breath Alcohol Content: 0.196 Urine Drug Screen - Results Drug Screen Negative: No Urine Drug Screen Results: DOUGLAS-Cocaine
[2017-10-16] MEDS ORDERED: MAGNESIUM HYDROX 2400MG/30ML ORAL SUSPENSION 30 ML CUP PO PRN (13:26)
[2017-10-16] MEDS ORDERED: ACETAMINOPHEN 325 MG TABLET (FP) PO PRN (13:26)
[2017-10-16] MEDS ORDERED: IBUPROFEN 400 MG TABLET (FP) PO PRN (13:26)
[2017-10-16] MEDS ORDERED: MENTHOL/PHENOL 1 EACH UD MM PRN (13:26)
[2017-10-16] MEDS ORDERED: MAGNESIUM CITRATE 300 ML BOTTLE PO PRN (13:26)
[2017-10-16] MEDS ORDERED: chlordiazePOXIDE HCL 25 MG CAPSULE PO PRN (13:26)
[2017-10-16] MEDS ORDERED: P-EPHED 60MG/TRIPROLIDI 2.5MG TABLET PO PRN (13:26)
[2017-10-16] MEDS ORDERED: LOPERAMIDE HCL 2 MG CAPSULE PO PRN (13:26)
[2017-10-16] MEDS ORDERED: guaiFENesin/D-METHORPHAN HB 10 ML UNIT-DOSE CUPS PO PRN (13:26)
[2017-10-16] MEDS ORDERED: MAG HYDROX/AL HYDROX/SIMETH 30 ML UNIT-DOSE CUP PO PRN (13:26)
[2017-10-16 13:54] VITALS: BP 120/78; PULSE 75; TEMP 98.8
[2017-10-16] MEDS ORDERED: chlordiazePOXIDE HCL 25 MG CAPSULE PO ONE (14:00)
[2017-10-16] MEDS ORDERED: NICOTINE 21 MG/24 HOURS TOPICAL PATCH TD SCH (14:00)
--- NOTE | 2017-10-16 14:32 | PN ---
[facility] Progress Note Note: ekg showed atrial fibrillation with rapid ventricular response rate 149/min bp 120/78,p150.r18,t98.8 patient to be transferred to [facility] for evaluation and stabilization ,endorsed to dr SPEAR to be [facility]
--- NOTE | 2017-10-16 14:52 | EKG ---
Test Reason : Blood Pressure : / mmHG Vent. Rate : 149 BPM Atrial Rate : 298 BPM P-R Int : 000 ms QRS Dur : 068 ms QT Int : 334 ms P-R-T Axes : 000 081 072 degrees QTc Int : 526 ms SUPRAVENTRICULAR TACHYCARDIA ABNORMAL ECG Confirmed by YENY BREWSTER MD ([id number]) on 10/16/2017 2:52:08 PM Referred By: Confirmed By:YENY BREWSTER MD
[2017-10-16] MEDS: RANITIDINE HCL 150 MG TABLET (FP) PO SCH (15:25)
--- NOTE | 2017-10-16 17:45 | PN ---
[facility] Progress Note Note: Psychiatric nurse practitioner note: Telecommunications Support informed by staff that patient was sent out by ambulance to emergency room due to abnormal EKG. Psychiatric consultation deferred.
[2017-10-16 18:06] LABS: URINE APPEARANCE CLEAR; URINE BILIRUBIN NEGATIVE (<2.0 mg/dL); URINE COLOR LTYELLOW; URINE GLUCOSE (UA) NEGATIVE (NEGATIVE); URINE KETONE NEGATIVE (NEGATIVE); URINE LEUK ESTERASE NEGATIVE (NEGATIVE); URINE NITRITE NEGATIVE (NEGATIVE); URINE PROTEIN NEGATIVE (NEGATIVE); URINE UROBILINOGEN NEGATIVE mg/dL (0.2-1.0)
[2017-10-16 18:15] LABS: URINE MUCUS RARE
[2017-10-16] MEDS: chlordiazePOXIDE HCL 25 MG CAPSULE PO SCH (18:49)
[2017-10-16] MEDS ORDERED: THIAMINE HCL 100 MG TABLET (FP) PO SCH (22:00)
[2017-10-16] MEDS ORDERED: MELATONIN 5 MG TABLETS PO PRN (22:00)
[2017-10-17] MEDS: chlordiazePOXIDE HCL 25 MG CAPSULE PO SCH (00:01)
[2017-10-17] MEDS: RANITIDINE HCL 150 MG TABLET (FP) PO SCH (00:01)
[2017-10-17] MEDS ORDERED: PRENATAL VITAMINS W/ FOLIC ACID TABLET (FP) PO SCH (10:00)
[2017-10-17] MEDS ORDERED: chlordiazePOXIDE HCL 25 MG CAPSULE PO SCH (17:00)
[2017-10-18] MEDS ORDERED: chlordiazePOXIDE 5 MG CAPSULE PO SCH (17:00)
[2017-10-19] MEDS ORDERED: chlordiazePOXIDE HCL 10 MG CAPSULE PO SCH (17:00)
== END 2017-10-17 00:06 | disposition short-term general hospital (02) | DRG 775 ==
LOC: YASAS 10:04 → Y3N 12:53
PROVIDERS: ADMIT Internal Medicine; ATTEND Internal Medicine
PROC: HZ2ZZZZ Detoxification Services for Substance Abuse Treatment (ICD-10-PCS; principal; 2017-10-16)
DX: F10.230 Alcohol dependence with withdrawal, uncomplicated (principal); F17.213 Nicotine dependence, cigarettes, with withdrawal; F31.81 Bipolar II disorder; F31.9 Bipolar disorder, unspecified; R94.31 Abnormal electrocardiogram [ECG] [EKG]; I48.91 Unspecified atrial fibrillation; K21.9 Gastro-esophageal reflux disease without esophagitis
CPT/HCPCS: 36415; 71045-TC-FY; 80053; 80307; 81003; 81015; 82550; 82553; 83605; 83735; 83880; 84100; 84443; 84484; 85025; 85610; 85730; 93005; 93010; 93306-TC; 96365; 96366; 99284-25; G0378; J7030

== ENCOUNTER 2017-10-16 15:24 | Observation (INO) | payer BC ==
--- NOTE | 2017-10-16 16:16 | PDOC ---
History of Present Illness - General History Source: Patient Exam Limitations: No Limitations - History of Present Illness Initial Comments: 10/16/17 17:06 The patient is a 52 year old female with significant past medical history of depression, anxiety and bipolar disorder is brought to the emergency department via EMS from [facility] due to Afib EKG waves. The EMS reports he was brought over for dehydration and withdrawal symptoms. The patient reports he checked into the [facility] facility for alcohol detox earlier today. The patient reports drinking couple of beers prior to checking into the detox facility. The patient denies chest pain, shortness of breath, heart palpitations, headache and dizziness. Denies fever, nausea, vomit, diarrhea and constipation. Denies dysuria, frequency, urgency and hematuria. Denies recent travel or recent trauma. Denies any leg cramps. Medication: Denies any use of medication Allergies: none reported Surgical History: None reported Social History: The patient reports drinking two 6 packs of beer daily. The reports history of smoking. Denies the use of any recreational drugs. <Gloria Florence - Last Filed: 10/16/17 17:06> <Kia Estrada - Last Filed: 10/16/17 19:18> - General Stated Complaint: DEHYDRATION Time Seen by Provider: 10/16/17 16:07 Past History <Gloria Florence - Last Filed: 10/16/17 17:06> - Past Medical History Anemia: No Asthma: No Cancer: No Cardiac Disorders: No CVA: No COPD: No CHF: No Dementia: No Diabetes: No GI Disorders: No Disorders: No HTN: No Hypercholesterolemia: No Kidney Stones: No Liver Disease: No Psychiatric Problems: Yes (depression, anxiety, bipolar) Seizures: No Thyroid Disease: No - Surgical History Abdominal Surgery: No Appendectomy: No Cardiac Surgery: No Cholecystectomy: No Lung Surgery: No Neurologic Surgery: No Orthopedic Surgery: No - Reproductive History Testicular Surgery: No - Suicide/Smoking/Psychosocial Hx Smoking History: Current every day smoker Have you smoked in the past 12 months: Yes Number of Cigarettes Smoked Daily: 10 Cigars Per Day: 0 'Breaking Loose' booklet given: 10/16/17 Hx Alcohol Use: Yes Drug/Substance Use Hx: No Substance Use Type: Alcohol Hx Substance Use Treatment: Yes (last 08/17 unknown facility) <Kia Estrada - Last Filed: 10/16/17 19:18> - Past Medical History Allergies/Adverse Reactions: Allergies Allergy/AdvReac Type Severity Reaction Status Date / Time No Known Allergies Allergy Verified 10/16/17 12:36 Home Medications: Ambulatory Orders Ranitidine HCl 150 mg PO BID 07/03/17 Fluoxetine HCl [Prozac -] 20 mg PO DAILY #30 tab 07/17/17 [place] Carbonate [Eskalith -] 300 mg PO BID #60 tab 07/17/17 Quetiapine Fumarate [Quetiapine Fumarate ER] 200 mg PO HS #30 tab.er.24h Review of Systems - Review of Systems Able to Perform ROS?: Yes Comments:: 10/16/17 17:07 GENERAL/CONSTITUTIONAL: (+) Withdrawal chills No fever or weakness. HEAD, EYES, EARS, NOSE AND THROAT: No change in vision. No ear pain or discharge. No sore throat. CARDIOVASCULAR: No chest pain or shortness of breath. RESPIRATORY: No cough, wheezing, or hemoptysis. GASTROINTESTINAL: No nausea, vomiting, diarrhea or constipation. GENITOURINARY: No dysuria, frequency, or change in urination. MUSCULOSKELETAL: No joint or muscle swelling or pain. No neck or back pain. SKIN: No rash NEUROLOGIC: No headache, vertigo, loss of consciousness, or change in strength/ sensation. ENDOCRINE: No increased thirst. No abnormal weight change. HEMATOLOGIC/LYMPHATIC: No anemia, easy bleeding, or history of blood clots. ALLERGIC/IMMUNOLOGIC: No hives or skin allergy. <Gloria Florence - Last Filed: 10/16/17 17:06> *Physical Exam - Vital Signs Last Vital Signs Temp Pulse Resp BP Pulse Ox 98.4 F 111 H 14 103/68 98 10/16/17 16:05 10/16/17 16:05 10/16/17 16:05 10/16/17 16:05 10/16/17 16:05 - Physical Exam Comments: 10/16/17 17:08 GENERAL: Awake, alert, and fully oriented, in no acute distress HEAD: No signs of trauma EYES: PERRLA, EOMI, sclera anicteric, conjunctiva clear ENT: (+) Mild tongue fasciculations. Auricles normal inspection, hearing grossly normal, nares patent, oropharynx clear without exudates. Moist mucosa NECK: Normal ROM, supple, no lymphadenopathy, JVD, or masses LUNGS: Breath sounds equal, clear to auscultation bilaterally. No wheezes, and no crackles HEART: (+) Irregularly irregular, Tachycardia., normal S1 and S2, no murmurs, rubs or gallops ABDOMEN: Soft, nontender, normoactive bowel sounds. No guarding, no rebound. No masses EXTREMITIES: (+) tremors in the hands.Normal range of motion, no edema. No clubbing or cyanosis. No cords, erythema, or tenderness NEUROLOGICAL: Cranial nerves II through XII grossly intact. Normal speech SKIN: Warm, Dry, normal turgor, no rashes or lesions noted. <Gloria Florenec - Last Filed: 10/16/17 17:06> Heart Score/ECG Review - ECG Intrepretation Comment:: 10/16/17 17:56 afib at 130, nl axis, pvc, abnl ekg with RVR 10/16/17 17:57 repeat ekg: sinus tach at 105, nl axis, nl interval, no acute st/t wave findings pts afib broke to sinus tach on her own <Kia Estrada - Last Filed: 10/16/17 19:18> ED Treatment Course - LABORATORY CBC & Chemistry Diagram: 10/16/17 16:40 10/16/17 16:40 - Medications Given in the ED: ED Medications Discontinued Medications Generic Name Dose Route Start Last Admin Trade Name Freq PRN Reason Stop Dose Admin Chlordiazepoxide HCl 25 mg 10/16/17 16:53 10/16/17 17:03 Librium - PO 10/16/17 16:54 25 mg ONCE ONE Administration Sodium Chloride 1,000 ml 10/16/17 16:22 10/16/17 16:59 Normal Saline - IV 10/16/17 16:23 1,000 ml ONCE ONE Administration <Gloria Florence - Last Filed: 10/16/17 17:06> - LABORATORY CBC & Chemistry Diagram: 10/16/17 16:40 10/16/17 16:40 <Kia Estrada - Last Filed: 10/16/17 19:18> Medical Decision Making - Medical Decision Making 10/16/17 17:54 a/p: 52yo male sent from [facility] for eval of afib w rvr -pt arrives in afib rvr at 130 -went to [facility] and was admitted for detox from [facility] -last drink was this AM - drinks 2x 6pack per day -denies palpitations, cp/sob, no abd pain, no n/v/d -denies urinary complaints -no drug use -no f/c -no cough -no recent meds -will monitor -labs, ekg, cxr, will need obs vs admission 10/16/17 18:02 pts afib w rvr has broken to sinus tach labs reviewed - currently stable will continue to monitor call placed to dr. gregg 10/16/17 19:01 case discussed with the IM resident Carolyn who accepts pt to service under Dr. Vyas another call placed to Dr. Larkin - pending call back 10/16/17 19:[address] Larkin who recommends metoprolol 25mg now asa - 324mg monitor overnight will monitor and reassess <Kia Estrada - Last Filed: 10/16/17 19:18> *DC/Admit/Observation/Transfer - Attestations Scribe Attestion: 10/16/17 17:09 Documentation prepared by Gloria Florence, acting as medical record consultant for Kia Estrada DO. <Gloria Florence - Last Filed: 10/16/17 17:06> - Discharge Dispostion Admit: Yes - Attestations Physician Attestion: 10/16/17 19:02 I, Dr. Kia Estrada DO, attest that this document has been prepared under my direction and personally reviewed by me in its entirety. I further attest, that it accurately reflects all work, treatment, procedures and medical decision -making performed by me. <Kia Estrada - Last Filed: 10/16/17 19:18> Diagnosis at time of Disposition: Alcohol dependence with intoxication, Abnormal EKG, Atrial fibrillation with RVR - Discharge Dispostion Condition at time of disposition: Fair
[2017-10-16] MEDS ORDERED: SODIUM CHLORIDE 0.9% 1000 ML INFUS.BAG IV ONE (16:22)
[2017-10-16] MEDS ORDERED: FOLIC ACID INJECTION - 1 MG, THIAMINE HCL 100 MG, MULTIVIT INJECTION ADULT 10 ML in SOD... IVPB ONE (16:23)
[2017-10-16] MEDS ORDERED: dilTIAZem HCL 50 MG/10 ML - 10 ML VIAL IVPUSH ONE (16:24)
[2017-10-16] MEDS ORDERED: dilTIAZem HCL 50 MG/10 ML - 10 ML VIAL ONE (16:34)
[2017-10-16] MEDS ORDERED: chlordiazePOXIDE HCL 25 MG CAPSULE PO ONE ×2 (16:53→23:45)
[2017-10-16] MEDS ORDERED: chlordiazePOXIDE HCL 25 MG CAPSULE ONE (17:01)
[2017-10-16 17:08] LABS: BASO % 0.3 % (0-2.0); EOS % 0.1 % (0-4.5); HEMATOCRIT 37.5 % (35.4-49); HEMOGLOBIN 13.3 GM/dL (11.7-16.9); LYMPH % 11.9 % (8-40); MCH 34.9 pg (25.7-33.7); MCHC 35.6 g/dl (32.0-35.9); MEAN CELL VOLUME 98.1 fl (80-96); MEAN PLT VOLUME 7.5 fl (7.5-11.1); MONO % 10.3 % (3.8-10.2); NEUT % 77.4 % (42.8-82.8); PLATELET COUNT 286 K/MM3 (134-434); RBC 3.82 M/mm3 (4.00-5.60); RDW 14.7 % (11.9-15.9)
[2017-10-16 17:18] LABS: INR 1.13 (0.82-1.09); PROTHROMBIN TIME (PATIENT) 12.8 SEC (9.98-11.88)
[2017-10-16 17:21] LABS: ACTIVATED PTT 30.6 SECONDS (26.9-34.4)
[2017-10-16 17:34] LABS: ALBUMIN 3.3 g/dl (3.4-5.0); ANION GAP 13 (8-16); BILIRUBIN,TOTAL 0.4 mg/dL (0.2-1.0); BLOOD UREA NITROGEN 6 mg/dL (7-18); CHLORIDE 97 mmol/L (98-107); CO2 23 mmol/L (21-32); CREATININE 0.8 mg/dL (0.7-1.3); GLUCOSE,RANDOM 103 mg/dL (74-106); SGOT/AST 17 U/L (15-37); SGPT/ALT 10 U/L (12-78); SODIUM 133 mmol/L (136-145); TOT PROT 7.8 g/dl (6.4-8.2)
[2017-10-16 17:37] LABS: ALK PHOS 75 U/L (45-117)
[2017-10-16] MEDS ORDERED: ASPIRIN 81 MG CHEWABLE TABLETS PO ONE (19:16)
[2017-10-16] MEDS ORDERED: metoPROLOL SUCCINATE 25 MG TAB.SR.24H (FP) PO ONE (19:17)
[2017-10-16] MEDS ORDERED: ASPIRIN 81 MG CHEWABLE TABLETS ONE (19:33)
--- NOTE | 2017-10-16 20:18 | HP ---
CHIEF COMPLAINT: A-Fib W/ RVR HISTORY OF PRESENT ILLNESS: Patient is a 52 yo M with pmh of Anxiety, Depression , Bipolar disorder and alcohol abuse, was sent to the emergency room from [facility] after routine EKG revealed A-Fib with RVR. In the ER he was in A-fib with rate of 130. Before medications were administered, patient went back into sinus rhythm. He denies chest pain, sob, lightheadedness, dizziness, palpitations. Patient denies having any heart conditions. Patient does complain of tremors, agitation and sweating but says its from alcohol withdrawals. Patient denies nausea, vomiting, diarrhea, fevers, cough, abdominal pain. ER course was notable for: (1) afib at 130, nl axis, pvc, abnl ekg with RVR (2) Currently in sinus rhythm Recent Travel: denies PAST MEDICAL HISTORY: per hpi PAST SURGICAL HISTORY: n/a Social History: Smoking: half pack a day for "many years" Alcohol: 2x 6 packs a day Drugs: denies Family History: Allergies No Known Allergies Allergy (Verified 10/16/17 12:36) HOME MEDICATIONS: Home Medications Medication Instructions Recorded Ranitidine HCl 150 mg PO BID 07/03/17 Fluoxetine HCl [Prozac -] 20 mg PO DAILY #30 tab 07/17/17 [place] Carbonate [Eskalith -] 300 mg PO BID #60 tab 07/17/17 Quetiapine Fumarate [Quetiapine 200 mg PO HS #30 tab.er.24h 07/17/17 Fumarate ER] REVIEW OF SYSTEMS CONSTITUTIONAL: diaphoresis Absent: fever, chills, generalized weakness, malaise, loss of appetite, weight change HEENT: Absent: rhinorrhea, nasal congestion, throat pain, throat swelling, difficulty swallowing, mouth swelling, ear pain, eye pain, visual changes CARDIOVASCULAR: Absent: chest pain, syncope, palpitations, irregular heart rate, lightheadedness , peripheral edema RESPIRATORY: Absent: cough, shortness of breath, dyspnea with exertion, orthopnea, wheezing, stridor, hemoptysis GASTROINTESTINAL: Absent: abdominal pain, abdominal distension, nausea, vomiting, diarrhea, constipation, melena, hematochezia GENITOURINARY: Absent: dysuria, frequency, urgency, hesitancy, hematuria, flank pain, genital pain MUSCULOSKELETAL: Absent: myalgia, arthralgia, joint swelling, back pain, neck pain SKIN: Absent: rash, itching, pallor NEUROLOGIC: Absent: headache, focal weakness or paresthesias, dizziness, unsteady gait, seizure, mental status changes, bladder or bowel incontinence PSYCHIATRIC: Absent: anxiety, depression, suicidal or homicidal ideation, hallucinations. PHYSICAL EXAMINATION Vital Signs - 24 hr 10/16/17 10/16/17 10/16/17 15:24 16:05 20:06 Temperature 98.4 F 98.4 F Pulse Rate 111 H Pulse Rate [ 96 H Right] Respiratory 14 16 Rate Blood Pressure 103/68 Blood Pressure 106/67 [Left] O2 Sat by Pulse 98 98 96 Oximetry (%) GENERAL: appears comfortable with slight hand tremors. in NAD HEAD: Normal with no signs of trauma. EYES: Pupils equal, round and reactive to light, extraocular movements intact, sclera anicteric, conjunctiva clear. EARS, NOSE, THROAT: Ears normal, nares patent, oropharynx clear without exudates. Moist mucous membranes. NECK: Normal range of motion, supple without lymphadenopathy, JVD, or masses. LUNGS: mild inspiratory wheezing HEART: tachy, no mumurs appreciated ABDOMEN: Soft, nontender, not distended, normoactive bowel sounds UPPER EXTREMITIES: 2+ pulses, warm, well-perfused. No cyanosis. No clubbing. No peripheral edema. LOWER EXTREMITIES: 2+ pulses, warm, well-perfused. No calf tenderness. No peripheral edema. NEUROLOGICAL: Cranial nerves II-XII intact. Normal speech. Normal gait. PSYCHIATRIC: Cooperative. Good eye contact. Appropriate mood and affect. Laboratory Results - last 24 hr 10/16/17 10/16/17 10/16/17 16:40 16:40 16:40 WBC RBC Hgb Hct MCV MCH MCHC RDW Plt Count MPV Neutrophils % Lymphocytes % Monocytes % Eosinophils % Basophils % PT with INR 12.80 H INR 1.13 PTT (Actin FS) 30.6 Sodium 133 L Potassium 4.0 D Chloride 97 L Carbon Dioxide 23 D Anion Gap 13 BUN 6 L D Creatinine 0.8 Creat Clearance w eGFR > 60 Random Glucose 103 Lactic Acid 1.7 Calcium 9.0 Magnesium 2.0 Total Bilirubin 0.4 AST 17 D ALT 10 L D Alkaline Phosphatase 75 D Creatine Kinase 203 Creatine Kinase Index 0.4 CK-MB (CK-2) < 1.000 Troponin I < 0.02 B-Natriuretic Peptide Total Protein 7.8 Albumin 3.3 L Alcohol, Quantitative 10/16/17 10/16/17 10/16/17 16:40 16:40 16:40 WBC 8.0 D RBC 3.82 L Hgb 13.3 Hct 37.5 MCV 98.1 H MCH 34.9 H MCHC 35.6 RDW 14.7 Plt Count 286 D MPV 7.5 D Neutrophils % 77.4 D Lymphocytes % 11.9 D Monocytes % 10.3 H Eosinophils % 0.1 D Basophils % 0.3 PT with INR INR PTT (Actin FS) Sodium Potassium Chloride Carbon Dioxide Anion Gap BUN Creatinine Creat Clearance w eGFR Random Glucose Lactic Acid Calcium Magnesium Total Bilirubin AST ALT Alkaline Phosphatase Creatine Kinase Creatine Kinase Index CK-MB (CK-2) Troponin I B-Natriuretic Peptide 53.43 Total Protein Albumin Alcohol, Quantitative 28.74 H* ASSESSMENT/PLAN: Patient is a 52 yo M with a pmhx of Anxiety, depression, bipolar disorder and alcohol abuse was sent from [facility] because of A-fib w/RVR found on routine EKG. #New Paroxysmal A-fib w/ RVR -now sinus -chadvasc2 score 0 -No AG indicated at this time -Cardiac monitoring -Echo in AM -TSH -Rate control with Metoprolol -Cardio consulted #Alcohol abuse -CIWA score 6 -seewald consulted -Librium -Utox #FEN -Banana Bag -WNL -Sodium restricted diet #PPX -SCDs Obs-telet Visit type - Emergency Visit Emergency Visit: Yes ED Registration Date: 10/16/17 Care time: The patient presented to the Emergency Department on the above date and was hospitalized for further evaluation of their emergent condition. - New Patient This patient is new to me today: Yes Date on this admission: 10/17/17 - Critical Care Critical Care patient: No Hospitalist Screening - Colonoscopy Questionnaire Colonoscopy Questionnaire: Colonoscopy Questionnaire - Patient: 50 - 75 years old and never had a screening colonoscopy: Unknown History of colon or rectal polyps, or CA: Unknown History of IBD, Crohn's disease or UC: Unknown History of abdominal radiation therapy as a child: Unknown - Relative: 1 with colon or rectal CA, or polyps at age 60 or younger: Unknown Colon or rectal CA diagnosed at age 45 or younger: Unknown Multiple relatives with colon or rectal CA: Unknown - Outcome: Screening Result: Negative Screen
--- NOTE | 2017-10-16 21:23 | PN ---
Teaching Attending Note Name of Resident: Samreen Johnson ATTENDING PHYSICIAN STATEMENT I saw and evaluated the patient. I reviewed the resident's note and discussed the case with the resident. I agree with the resident's findings and plan as documented. SUBJECTIVE: 52M pmh bipolar, anxiety, presents from [facility] when he went this morning for ETOH detox due to EKG showing Afib with RVR. He has anxiety, shaking, and sweating. no hallucinations or headache OBJECTIVE: Gen: AAOx3, no acute distress CV: mild tachycardia no m/r/g Lungs: CTA Na 133 EKGa: initially Afib , later sinus tachycardia ETOH 28 ASSESSMENT AND PLAN: 52M with ETOH withdrawal and new onset atrial fibrillation spontaneously reverted to sinus rhythm librium protocol IVF thiamine folate MTV monitor on Tele ECHO cardiology eval, will defer to them for anticoagulation recommendations given CHADSVasc of 0
--- NOTE | 2017-10-16 21:54 | HP ---
CHIEF COMPLAINT: irregular heart rhythm PCP: in [place] HISTORY OF PRESENT ILLNESS: This is a 52 year old male with a history of alcohol dependance, bipolar, who was sent over from [facility] due to irregular rhythm found on EKG during routine admission for detox. Patient was not symptomatic and unaware of his condition previously. Mr. Reilly drank a few beers before going to [facility]. He normally drink 12 beers a day or "as much as he can". HE has been in detox programs multiple times. He not been taking his prescribed medications for bipolar disorder due to alcohol consumption. HE denies chest pain, sob, palpitations, leg swelling. HE does admit to being anxious, tremulous and diaphoretic, diarrhea all x1 day. ER course was notable for: ECG a fib with rvr that resolved with out medication. Recent Travel: no PAST MEDICAL HISTORY: alcohol dependance , cocaine, bipolar, +ppd PAST SURGICAL HISTORY: Social History: Smoking:half ppd Alcohol:yes Drugs: "no" Family History: Allergies No Known Allergies Allergy (Verified 10/16/17 12:36) HOME MEDICATIONS: Home Medications Medication Instructions Recorded Ranitidine HCl 150 mg PO BID 07/03/17 Fluoxetine HCl [Prozac -] 20 mg PO DAILY #30 tab 07/17/17 [place] Carbonate [Eskalith -] 300 mg PO BID #60 tab 07/17/17 Quetiapine Fumarate [Quetiapine 200 mg PO HS #30 tab.er.24h 07/17/17 Fumarate ER] REVIEW OF SYSTEMS CONSTITUTIONAL: Absent: fever, chills, diaphoresis, generalized weakness, malaise, loss of appetite, weight change HEENT: Absent: rhinorrhea, nasal congestion, throat pain, throat swelling, difficulty swallowing, mouth swelling, ear pain, eye pain, visual changes CARDIOVASCULAR: Absent: chest pain, syncope, palpitations, irregular heart rate, lightheadedness , peripheral edema RESPIRATORY: Absent: cough, shortness of breath, dyspnea with exertion, orthopnea, wheezing, stridor, hemoptysis GASTROINTESTINAL: Positive:diarrhea Absent: abdominal pain, abdominal distension, nausea, vomiting, constipation, melena, hematochezia GENITOURINARY: Absent: dysuria, frequency, urgency, hesitancy, hematuria, flank pain, genital pain MUSCULOSKELETAL: Absent: myalgia, arthralgia, joint swelling, back pain, neck pain SKIN: Absent: rash, itching, pallor HEMATOLOGIC/IMMUNOLOGIC: Absent: easy bleeding, easy bruising, lymphadenopathy, frequent infections ENDOCRINE: Absent: unexplained weight gain, unexplained weight loss, heat intolerance, cold intolerance NEUROLOGIC: Absent: headache, focal weakness or paresthesias, dizziness, unsteady gait, seizure, mental status changes, bladder or bowel incontinence PSYCHIATRIC: Positive: anxiety Absent: depression, suicidal or homicidal ideation, hallucinations. PHYSICAL EXAMINATION Vital Signs - 24 hr 10/16/17 10/16/17 10/16/17 15:24 16:05 20:06 Temperature 98.4 F 98.4 F Pulse Rate 111 H Pulse Rate [ 96 H Right] Respiratory 14 16 Rate Blood Pressure 103/68 Blood Pressure 106/67 [Left] O2 Sat by Pulse 98 98 96 Oximetry (%) GENERAL: diaphoretic; anxious, Awake, alert, and fully oriented, in no acute distress. HEAD: Normal with no signs of trauma. EYES: Pupils equal, round and reactive to light, extraocular movements intact, sclera anicteric, conjunctiva clear. No lid lag. EARS, NOSE, THROAT: Ears normal, nares patent, oropharynx clear without exudates. Moist mucous membranes. NECK: Normal range of motion, supple without lymphadenopathy, JVD, or masses. LUNGS: bilateral wheezes HEART: Regular rate and rhythm, normal S1 and S2 without murmur, rub or gallop. ABDOMEN: Soft, nontender, not distended, normoactive bowel sounds, no guarding, no rebound, no masses. No hepatomegaly or splenomegaly. MUSCULOSKELETAL: Normal range of motion at all joints. No bony deformities or tenderness. No CVA tenderness. UPPER EXTREMITIES: 2+ pulses, warm, well-perfused. No cyanosis. No clubbing. No peripheral edema. LOWER EXTREMITIES: 2+ pulses, warm, well-perfused. No calf tenderness. No peripheral edema. NEUROLOGICAL: Cranial nerves II-XII intact. Normal speech. motor strength 5/5/ sensation intact throughout/reflexes 2+ PSYCHIATRIC: anxious SKIN: Warm, dry, normal turgor, no rashes or lesions noted, normal capillary refill. Laboratory Results - last 24 hr 10/16/17 10/16/17 10/16/17 16:40 16:40 16:40 WBC RBC Hgb Hct MCV MCH MCHC RDW Plt Count MPV Neutrophils % Lymphocytes % Monocytes % Eosinophils % Basophils % PT with INR 12.80 H INR 1.13 PTT (Actin FS) 30.6 Sodium 133 L Potassium 4.0 D Chloride 97 L Carbon Dioxide 23 D Anion Gap 13 BUN 6 L D Creatinine 0.8 Creat Clearance w eGFR > 60 Random Glucose 103 Lactic Acid 1.7 Calcium 9.0 Magnesium 2.0 Total Bilirubin 0.4 AST 17 D ALT 10 L D Alkaline Phosphatase 75 D Creatine Kinase 203 Creatine Kinase Index 0.4 CK-MB (CK-2) < 1.000 Troponin I < 0.02 B-Natriuretic Peptide Total Protein 7.8 Albumin 3.3 L Alcohol, Quantitative 10/16/17 10/16/17 10/16/17 16:40 16:40 16:40 WBC 8.0 D RBC 3.82 L Hgb 13.3 Hct 37.5 MCV 98.1 H MCH 34.9 H MCHC 35.6 RDW 14.7 Plt Count 286 D MPV 7.5 D Neutrophils % 77.4 D Lymphocytes % 11.9 D Monocytes % 10.3 H Eosinophils % 0.1 D Basophils % 0.3 PT with INR INR PTT (Actin FS) Sodium Potassium Chloride Carbon Dioxide Anion Gap BUN Creatinine Creat Clearance w eGFR Random Glucose Lactic Acid Calcium Magnesium Total Bilirubin AST ALT Alkaline Phosphatase Creatine Kinase Creatine Kinase Index CK-MB (CK-2) Troponin I B-Natriuretic Peptide 53.43 Total Protein Albumin Alcohol, Quantitative 28.74 H* ASSESSMENT/PLAN: This is a 52 year old male with alcohol dependance, with new onset atrial fibrillation found on ECG. #new paroxysmal atrial fibrillation with rvr -cardiac tele -repeat ECG in nsr; without any medications -was given metoprolol for rate control after rhythm had converted to sinus -echo -tsh chadvasc2 score is 0; will hold off AC -cardio consult #alcohol dependance : -banana bag; -vitamin replacement -librium protocol -detox consulted DVT ppl: lovenox sq Dispo:obs tele Visit type - Emergency Visit Emergency Visit: Yes ED Registration Date: 10/16/17 Care time: The patient presented to the Emergency Department on the above date and was hospitalized for further evaluation of their emergent condition. - New Patient This patient is new to me today: Yes Date on this admission: 10/16/17 - Critical Care Critical Care patient: No
--- NOTE | 2017-10-16 23:31 | CONSULT ---
Consult Detox [facility] Reason for Current Admission/Consult: substance use Referred by:: joy tomas - History History of Present Illness: 52 yo m admitted to [facility] for alcohol detox startted on libirum protocol but ekg showed atrial fibrillation with rapid ventricular response rate 149/min bp 120/78,p150.r18,t98.8 patient to be transferred to [facility] er for evaluation and admitted, libirum detox continued, patient comfortable in bed. - History Source History Provided By: Patient, Medical Record, Caregiver Limitations to Obtaining History: No Limitations - Alcohol/Substance Use Hx Alcohol Use: Yes - Significant Medical Findings: 52 yo m resting omfortably in bed, tolerating libirum detox as ordered, no signs of withdrwal noted. Assessment Plan - Diagnosis (1) Afib Status: Acute Qualifiers: Atrial fibrillation type: unspecified Qualified Code(s): I48.91 - Unspecified atrial fibrillation (2) Alcohol dependence with uncomplicated withdrawal Status: Acute (3) Alcohol-induced mood disorder Status: Acute (4) Drug-induced mood disorder Status: Acute Comment: . (5) Insomnia Status: Acute Qualifiers: Insomnia type: unspecified Qualified Code(s): G47.00 - Insomnia, unspecified (6) Nicotine dependence Status: Acute Qualifiers: Nicotine product type: cigarettes Substance use status: in withdrawal Qualified Code(s): F17.213 - Nicotine dependence, cigarettes, with withdrawal (7) Weight loss Status: Acute (8) Atrial fibrillation with RVR Status: Chronic (9) Bipolar II disorder Status: Chronic (10) GERD (gastroesophageal reflux disease) Status: Chronic Qualifiers: Esophagitis presence: without esophagitis Qualified Code(s): K21.9 - Gastro -esophageal reflux disease without esophagitis (11) Schizoaffective disorder, depressive type Status: Chronic Comment: . - Plan Plan: chart, imaging and labs reviewed. Patient examined and hsitory taken. care discussed with medical team. REcommend: 1. cont libiru detox as ordered, fluids, vitamins supplementation. 2. cardiac arrryhytmia management as per priamry team. [facility]. [facility] when[facility]. - Medication Detox Regimen/Protocol: Librium
[2017-10-16] MEDS ORDERED: chlordiazePOXIDE HCL 25 MG CAPSULE PO PRN (23:33)
[2017-10-17] MEDS: chlordiazePOXIDE HCL 25 MG CAPSULE PO SCH ×5 (00:10→21:35)
[2017-10-17] MEDS: SODIUM CHLORIDE 1,000 ML IV SCH ×2 (03:47→04:20)
[2017-10-17 04:16] VITALS: BMI 21.3
[2017-10-17 07:11] LABS: INR 1.17 (0.82-1.09); PROTHROMBIN TIME (PATIENT) 13.2 SEC (9.98-11.88)
[2017-10-17 07:34] LABS: MAGNESIUM 1.9 mg/dL (1.8-2.4); PHOSPHOROUS 2.4 mg/dL (2.5-4.9)
--- NOTE | 2017-10-17 09:55 | EKG ---
Test Reason : Blood Pressure : / mmHG Vent. Rate : 105 BPM Atrial Rate : 105 BPM P-R Int : 118 ms QRS Dur : 086 ms QT Int : 340 ms P-R-T Axes : 072 082 048 degrees QTc Int : 449 ms SINUS TACHYCARDIA POSSIBLE LEFT ATRIAL ENLARGEMENT WHEN COMPARED WITH ECG OF 16-OCT-2017 16:20, SINUS RHYTHM HAS REPLACED ATRIAL FIBRILLATION Confirmed by OLENA SALCEDO MD ([id number]) on 10/17/2017 9:55:14 AM Referred By: Confirmed By:OLENA SALCEDO MD
--- NOTE | 2017-10-17 09:56 | EKG ---
Test Reason : Blood Pressure : / mmHG Vent. Rate : 134 BPM Atrial Rate : 214 BPM P-R Int : 000 ms QRS Dur : 082 ms QT Int : 316 ms P-R-T Axes : 000 092 059 degrees QTc Int : 471 ms ATRIAL FIBRILLATION WITH RAPID VENTRICULAR RESPONSE WITH PREMATURE VENTRICULAR OR ABERRANTLY CONDUCTED COMPLEXES RIGHTWARD AXIS MINIMAL VOLTAGE CRITERIA FOR LVH, MAY BE NORMAL VARIANT ABNORMAL ECG Confirmed by OLENA SALCEDO MD ([id number]) on 10/17/2017 9:56:01 AM Referred By: Confirmed By:OLENA SALCEDO MD
[2017-10-17] MEDS ORDERED: PRENATAL VITAMINS W/ FOLIC ACID TABLET (FP) PO SCH (10:00)
[2017-10-17] MEDS ORDERED: metoPROLOL SUCCINATE 25 MG TAB.SR.24H (FP) PO SCH (10:00)
[2017-10-17] MEDS ORDERED: ASPIRIN 81 MG CHEWABLE TABLETS PO SCH (10:00)
[2017-10-17] MEDS: RANITIDINE HCL 150 MG TABLET (FP) PO SCH ×2 (11:00→21:33)
--- NOTE | 2017-10-17 11:04 | CON.CARD ---
Cardiology Consult (text) - Consultation Consultation Note: cc: afib hpi: 52 m hx etoh abuse, smoking here with new afib. Was at etoh rehab and ecg showed new afib with rvr so sent to ER. Pt reports feeling palps then. In ER converted on own to sr. No cp, sob, dizzy, loc, pnd, orthopnea, le edema. No hx hrt dz. pmh: per hpi psh: nc social: +etoh, +tob fam: no premature cad, scd ros: per hpi; no nvd, fever, vision changes, gib, hematuria, dysuira meds: Home Medications Medication Instructions Recorded Ranitidine HCl 150 mg PO BID 07/03/17 Fluoxetine HCl [Prozac -] 20 mg PO DAILY #30 tab 07/17/17 [place] Carbonate [Eskalith -] 300 mg PO BID #60 tab 07/17/17 Quetiapine Fumarate [Quetiapine 200 mg PO HS #30 tab.er.24h 07/17/17 Fumarate ER] pe: Vital Signs Period Temp Pulse Resp BP Sys/Leigh Pulse Ox Last 24 Hr 97.1 F-98.4 F 76-111 14-20 103-122/67-76 96-98 nad no jvd rrr s1s2 no mrg cta bl nl eff aaox3 no le e/c/c abd nt nd pos bs no jaundice diaphoresis pos dp pt no carortid bruits Laboratory Last Values WBC 8.0 K/mm3 (4.0-10.0) D 10/16/17 16:40 RBC 3.82 M/mm3 (4.00-5.60) L 10/16/17 16:40 Hgb 13.3 GM/dL (11.7-16.9) 10/16/17 16:40 Hct 37.5 % (35.4-49) 10/16/17 16:40 MCV 98.1 fl (80-96) H 10/16/17 16:40 MCH 34.9 pg (25.7-33.7) H 10/16/17 16:40 MCHC 35.6 g/dl (32.0-35.9) 10/16/17 16:40 RDW 14.7 % (11.9-15.9) 10/16/17 16:40 Plt Count 286 K/MM3 (134-434) D 10/16/17 16:40 MPV 7.5 fl (7.5-11.1) D 10/16/17 16:40 Neutrophils % 77.4 % (42.8-82.8) D 10/16/17 16:40 Lymphocytes % 11.9 % (8-40) D 10/16/17 16:40 Monocytes % 10.3 % (3.8-10.2) H 10/16/17 16:40 Eosinophils % 0.1 % (0-4.5) D 10/16/17 16:40 Basophils % 0.3 % (0-2.0) 10/16/17 16:40 PT with INR 13.20 SEC (9.98-11.88) H 10/17/17 06:25 INR 1.17 (0.82-1.09) H 10/17/17 06:25 PTT (Actin FS) 30.6 SECONDS (26.9-34.4) 10/16/17 16:40 Sodium 133 mmol/L (136-145) L 10/16/17 16:40 Potassium 4.0 mmol/L (3.5-5.1) D 10/16/17 16:40 Chloride 97 mmol/L (98-107) L 10/16/17 16:40 Carbon Dioxide 23 mmol/L (21-32) D 10/16/17 16:40 Anion Gap 13 (8-16) 10/16/17 16:40 BUN 6 mg/dL (7-18) L D 10/16/17 16:40 Creatinine 0.8 mg/dL (0.7-1.3) 10/16/17 16:40 Creat Clearance w eGFR > 60 (>60) 10/16/17 16:40 Random Glucose 103 mg/dL (74-106) 10/16/17 16:40 Lactic Acid 1.7 mmol/L (0.0-2.0) 10/16/17 16:40 Calcium 9.0 mg/dL (8.5-10.1) 10/16/17 16:40 Phosphorus 2.4 mg/dL (2.5-4.9) L 10/17/17 06:25 Magnesium 1.9 mg/dL (1.8-2.4) 10/17/17 06:25 Total Bilirubin 0.4 mg/dL (0.2-1.0) 10/16/17 16:40 AST 17 U/L (15-37) D 10/16/17 16:40 ALT 10 U/L (12-78) L D 10/16/17 16:40 Alkaline Phosphatase 75 U/L (45-117) D 10/16/17 16:40 Creatine Kinase 203 IU/L (39-308) 10/16/17 16:40 Creatine Kinase Index 0.4 % (0.0-5.0) 10/16/17 16:40 CK-MB (CK-2) < 1.000 ng/mL (0.5-3.6) 10/16/17 16:40 Troponin I < 0.02 ng/ml (0.00-0.05) 10/16/17 16:40 B-Natriuretic Peptide 53.43 pg/ml (5-125) 10/16/17 16:40 Total Protein 7.8 g/dl (6.4-8.2) 10/16/17 16:40 Albumin 3.3 g/dl (3.4-5.0) L 10/16/17 16:40 TSH 0.51 uIU/ml (0.358-3.74) 10/17/17 06:25 Alcohol, Quantitative 28.74 mg/dL (0.0-5.0) H* 10/16/17 16:40 cxr: clear lungs ecg: afib with rvr, no ischemic changes,nl qtc....repeat ecg sr with nl intervals, no ischemic changes tele: sr echo 09/2017: low nl lvef, nl rv, mild mr/pr a/p: 52 m hx etoh abuse, smoking here with new afib. afib: -converted to sr on own yesterday, remains in sr now -start toprol 25 qd in case has further afib -chadsvasc is 0 so cont asa 81. -echo, tsh, unremarkable etoh, smoking: -cessation -etoh detox per primary team cardiac [place] stable for dc
--- NOTE | 2017-10-17 14:08 | PN ---
Teaching Attending Note Name of Resident: Osvaldo Hanley ATTENDING PHYSICIAN STATEMENT I saw and evaluated the patient. I reviewed the resident's note and discussed the case with the resident. I agree with the resident's findings and plan as documented. SUBJECTIVE: complains of cough, no SOB, sputum production x 2 days , subjective fever at home . OBJECTIVE: NAD CV: irreg irreg , no JVD Lungs: CTAB Ext: no edema, no trmor ASSESSMENT AND PLAN: 52 y/o man with h/o ETOH dependence, Bipolar, anxiety and depression who presented to [facility] for detox, and was found tohave A fib with RVR. 1- A fib with RVR. recurred after converting to sinus. this was confirmed with EKG this am . trigger might be infection and/or alcohol intoxication - toprol xl daily - CHADSVASC score of 0 , aspirin - echo no etiology. TSH Nl 2- Cough , and sputum production. Cxray showed LLL infiltrate. will treat for CAP. CURB65 is 0 , no indication for hospitalization or IV abx for this - start po levaquin x 5 days 3- Alcohol intoxication : detox with librium. - MVT, thiamine and folate dispo : No medical indication for inpatient hospitalization , but needs detox. will d/w Dr. Arnold re. Admission to [facility] for detox
[2017-10-17] MEDS ORDERED: NAPH,MB-DB/K PH,MBDB POWDER PACKET PO ONE (16:15)
[2017-10-17] MEDS: guaiFENesin/D-METHORPHAN HB 10 ML UNIT-DOSE CUPS PO PRN ×2 (16:24→21:35)
--- NOTE | 2017-10-17 16:26 | PN ---
Physical Exam: Selected Entries 10/16/17 10/17/17 10/17/17 16:05 08:00 14:00 Temperature 98.3 F Pulse Rate 111 H 95 H Respiratory 20 Rate Blood Pressure 103/66 O2 Sat by Pulse 98 Oximetry (%) Oxygen Delivery Room Air Method Laboratory Tests 10/16/17 16:40 WBC 8.0 D Hgb 13.3 Hct 37.5 Plt Count 286 D 10/16 EKG- 1530: A fib with rvr rate of 134 and 1650: sinus tachycardia at 105 bpm 10/16 CXR- No acute disease 10/17 Echo- EF 50%, LA is borderline dilated 10/17 CXR- Developing left base infiltrate 10/17 EKG- Atrial Fibrillation ASSESSMENT/PLAN: 52 year old male with a history of alcohol dependance, bipolar, who was sent over from [facility] due to irregular rhythm found on EKG during routine admission for detox. Patient admitted for new onset atrial fibrillation with RVR. Patient converted to sinus rhythm in ER with toprol xl. Patient underwent echocardiogram and started on aspirin 81 mg as well as toprol xl 25 mg. Patient found to have pneumonia on CXR and will be treated with 5 days of levaquin 500 mg. Patient will be transferred back to [facility] to complete detox. Visit type - Emergency Visit Emergency Visit: Yes ED Registration Date: 10/16/17 Care time: The patient presented to the Emergency Department on the above date and was hospitalized for further evaluation of their emergent condition. - New Patient This patient is new to me today: Yes Date on this admission: 10/17/17 - Critical Care Critical Care patient: No
[2017-10-17] MEDS ORDERED: PT OWN MED DRAWER 7, Y5N ONE (18:52)
--- NOTE | 2017-10-17 19:29 | DS ---
Physical Exam: Selected Entries 10/16/17 10/17/17 10/17/17 16:05 08:00 14:00 Temperature 98.3 F Pulse Rate 111 H 95 H Respiratory 20 Rate Blood Pressure 103/66 O2 Sat by Pulse 98 Oximetry (%) Oxygen Delivery Room Air Method Laboratory Tests 10/16/17 16:40 WBC 8.0 D Hgb 13.3 Hct 37.5 Plt Count 286 D 10/16 EKG- 1530: A fib with rvr rate of 134 and 1650: sinus tachycardia at 105 bpm 10/16 CXR- No acute disease 10/17 Echo- EF 50%, LA is borderline dilated 10/17 CXR- Developing left base infiltrate 10/17 EKG- Atrial Fibrillation HOSPITAL COURSE: Date of Admission:10/16/17 Date of Discharge: 10/17/17 52 year old male with a history of alcohol dependance, bipolar, who was sent over from [facility] due to irregular rhythm found on EKG during routine admission for detox. Patient admitted for new onset atrial fibrillation with RVR. Patient converted to sinus rhythm in ER with toprol xl. Patient underwent echocardiogram and started on aspirin 81 mg as well as toprol xl 25 mg. Patient found to have pneumonia on CXR and will be treated with 5 days of levaquin 500 mg. Patient will be transferred back to [facility] to complete detox. Minutes to complete discharge: 36 Discharge Summary Reason For Visit: ATRIAL FIBRILLATION WITH RAPID VENTRICULAR RESPONS Current Active Problems Atrial fibrillation with RVR (Acute) Pneumonia (Acute) Alcohol dependence with intoxication (Chronic) Nicotine dependence (Chronic) Condition: Stable - Instructions Diet, Activity, Other Instructions: You were in the hospital for an abnormal heart rhythm found on your EKG. You will be transferred back to [facility] to finish alcohol detox. You will need to start taking aspirin 81 mg by mouth daily and Toprol Xl 25 mg by mouth daily. In addition, you have a pneumonia. You will need to take 4 more days of antibiotics. Take Levaquin 500 mg by mouth daily x 4 more days. Continue your home medications as prescribed. Please follow up with your primary care provider and art objects supervisor within 1 week. Referrals have been provided to our resident clinic (Dr. Cam) and the art objects supervisor that saw you in the hospital (Dr. Larkin). If you have chest pain, shortness of breath, or any new/worsening symptoms please come back to the hospital immediately. Referrals: James Cam MD [Staff Physician] - Martin Larkin MD [Staff Physician] - Nabil Arnold MD [Staff Physician] - Disposition: TRANSFER ACUTE CARE/OTHER HOSP - Home Medications Comprehensive Discharge Medication List: Ambulatory Orders Fluoxetine HCl [Prozac -] 20 mg PO DAILY #30 tab 07/17/17 Aspirin [ASA -] 81 mg PO DAILY #30 tab.chew 10/17/17 [place] Carbonate [Lithobid] 300 mg PO TID 10/17/17 Metoprolol Succinate [Toprol XL -] 25 mg PO DAILY #30 tab.sr.24h 10/17/17 Quetiapine Fumarate [Seroquel -] 100 mg PO DAILY 10/17/17 levoFLOXacin [Levaquin -] 500 mg PO DAILY@0600 #5 tablet 10/17/17 This patient is new to me today: Yes Date on this admission: 10/17/17 Emergency Visit: Yes ED Registration Date: 10/16/17 Care time: The patient presented to the Emergency Department on the above date and was hospitalized for further evaluation of their emergent condition. Critical Care patient: No - Discharge Referral Referred to [facility] Med [facility] No
[2017-10-17] MEDS ORDERED: THIAMINE HCL 100 MG TABLET (FP) PO SCH (22:00)
[2017-10-18 02:53] VITALS: PULSE 70
[2017-10-18] MEDS: chlordiazePOXIDE HCL 25 MG CAPSULE PO SCH (06:02)
[2017-10-18 06:04] VITALS: BP 112/72; TEMP 98.5
--- NOTE | 2017-10-18 08:30 | PN ---
Progress Note, Physician - Current Medication List Current Medications: Active Medications Aspirin (Asa -) 81 mg PO DAILY [facility] Last Admin: 10/17/17 11:00 Dose: 81 mg Chlordiazepoxide HCl (Librium -) 25 mg PO [id number] [facility] Stop: 10/18/17 17:01 Last Admin: 10/18/17 06:02 Dose: 25 mg Chlordiazepoxide HCl (Librium -) 15 mg PO [id number] [facility] Stop: 10/19/17 17:01 Chlordiazepoxide HCl (Librium -) 25 mg PO Q4H PRN PRN Reason: WITHDRAWAL(CONT SUBST) Stop: 10/19/17 23:32 Guaifenesin (Robitussin Dm -) 10 ml PO Q4H PRN PRN Reason: COUGH Last Admin: 10/17/17 21:35 Dose: 10 ml Levofloxacin (Levaquin -) 500 mg PO DAILY@0600 [facility] Last Admin: 10/18/17 06:02 Dose: 500 mg Metoprolol Succinate (Toprol Xl -) 25 mg PO DAILY [facility] Last Admin: 10/17/17 11:00 Dose: 25 mg Multivit/Folic Acid/Iron ( Vitamins (Sjr) -) 1 tab PO DAILY [facility] Last Admin: 10/17/17 11:00 Dose: 1 tab Ranitidine HCl (Zantac -) 150 mg PO BID [facility] Last Admin: 10/17/17 21:33 Dose: 150 mg Thiamine HCl (Vitamin B1 -) 100 mg PO HS [facility] Last Admin: 10/17/17 21:33 Dose: 100 mg - Objective Vital Signs: Vital Signs Temperature 98.5 F 10/18/17 05:00 Pulse Rate 70 10/18/17 05:00 Respiratory Rate 18 10/18/17 05:00 Blood Pressure 112/72 10/18/17 05:00 O2 Sat by Pulse Oximetry (%) 98 10/18/17 06:00 Labs: CBC, BMP 10/16/17 16:40 10/16/17 16:40 INR, PTT INR 1.17 (0.82-1.09) H 10/17/17 06:25 Assessment/Plan cxr: clear lungs ecg: afib with rvr, no ischemic changes,nl qtc....repeat ecg sr with nl intervals, no ischemic changes echo 09/2017: low nl lvef, nl rv, mild mr/pr a/p: 52 m hx etoh abuse, smoking here with new afib. afib: -converted to NSR spontaneously -started toprol 25 qd in case has further afib -chadsvasc is 0 so cont asa 81. -echo, tsh, unremarkable etoh, smoking: -cessation -etoh detox per primary team cardiac [place] stable for dc
--- NOTE | 2017-10-18 08:46 | EKG ---
Test Reason : Blood Pressure : / mmHG Vent. Rate : 096 BPM Atrial Rate : 357 BPM P-R Int : 000 ms QRS Dur : 084 ms QT Int : 356 ms P-R-T Axes : 000 074 049 degrees QTc Int : 449 ms ATRIAL FIBRILLATION WITH PREMATURE VENTRICULAR OR ABERRANTLY CONDUCTED COMPLEXES ABNORMAL ECG WHEN COMPARED WITH ECG OF 16-OCT-2017 17:54, ATRIAL FIBRILLATION HAS REPLACED SINUS RHYTHM Confirmed by ROBERT JEAN-BAPTISTE, ADEBAYO ([id number]) on 10/18/2017 8:46:08 AM Referred By: ANGELINA GOMES Confirmed By:ADEBAYO JONES MD
[2017-10-18] MEDS ORDERED: chlordiazePOXIDE 5 MG CAPSULE PO SCH (23:00)
== END 2017-10-18 10:28 | disposition other institution (70) ==
LOC: JER 15:24 → JERBED 19:02 → J4W 21:04
PROVIDERS: ADMIT Internal Medicine; ATTEND Internal Medicine
PROC: 3E033GC Introduction of Other Therapeutic Substance into Peripheral Vein, Percutaneous Approach (ICD-10-PCS; principal; 2017-10-16)
PROC: 3E0337Z Introduction of Electrolytic and Water Balance Substance into Peripheral Vein, Percutaneous Approach (ICD-10-PCS; 2017-10-16)
DX: I48.0 Paroxysmal atrial fibrillation (principal); F10.220 Alcohol dependence with intoxication, uncomplicated; F10.230 Alcohol dependence with withdrawal, uncomplicated; R94.31 Abnormal electrocardiogram [ECG] [EKG]; F17.210 Nicotine dependence, cigarettes, uncomplicated; F32.9 Major depressive disorder, single episode, unspecified; F41.9 Anxiety disorder, unspecified; R05 Cough; F10.24 Alcohol dependence with alcohol-induced mood disorder; K21.9 Gastro-esophageal reflux disease without esophagitis; F43.10 Post-traumatic stress disorder, unspecified; F25.1 Schizoaffective disorder, depressive type; J18.9 Pneumonia, unspecified organism
CPT/HCPCS: 36415; 71045-TC-FY; 80053; 80307; 82550; 82553; 83605; 83735; 83880; 84100; 84443; 84484; 85025; 85610; 85730; 93005; 93010; 93306-TC; 96365; 96366; 99284-25; G0378; J7030

== ENCOUNTER 2017-10-18 08:35 | Inpatient (IN) | payer BC ==
[2017-10-18] MEDS ORDERED: MAGNESIUM HYDROX 2400MG/30ML ORAL SUSPENSION 30 ML CUP PO PRN (09:31)
[2017-10-18] MEDS ORDERED: P-EPHED 60MG/TRIPROLIDI 2.5MG TABLET PO PRN (09:31)
[2017-10-18] MEDS ORDERED: chlordiazePOXIDE HCL 25 MG CAPSULE PO PRN (09:31)
[2017-10-18] MEDS ORDERED: MENTHOL/PHENOL 1 EACH UD MM PRN (09:31)
[2017-10-18] MEDS ORDERED: hydrOXYzine PAMOATE 25 MG CAPSULE (FP) PO PRN (09:31)
[2017-10-18] MEDS ORDERED: LOPERAMIDE HCL 2 MG CAPSULE PO PRN (09:31)
[2017-10-18] MEDS ORDERED: guaiFENesin/D-METHORPHAN HB 10 ML UNIT-DOSE CUPS PO PRN (09:31)
[2017-10-18] MEDS ORDERED: MAG HYDROX/AL HYDROX/SIMETH 30 ML UNIT-DOSE CUP PO PRN (09:31)
[2017-10-18] MEDS ORDERED: MAGNESIUM CITRATE 300 ML BOTTLE PO PRN (09:31)
[2017-10-18 09:40] VITALS: BMI 21.2
--- NOTE | 2017-10-18 09:48 | HP ---
CIWA Score - CIWA Score Nausea/Vomitin-Mild Nausea/No Vomiting Muscle Tremors: 3 Anxiety: 4-Mod. Anxious/Guarded Agitation: 0-Normal Activity Paroxysmal Sweats: No Perspiration Orientation: 1-Uncertain about Date Tacttile Disturbances: 0-None Auditory Disturbances: 0-None Visual Disturbances: 0-None Headache: 1-Very Mild CIWA-Ar Total Score: 10 Admission ROS [facility] - HPI Chief Complaint: I'm coming from the hospital, I need to finish my detox Allergies/Adverse Reactions: Allergies Allergy/AdvReac Type Severity Reaction Status Date / Time No Known Allergies Allergy Verified 10/16/17 12:36 History of Present Illness: 52 yo gentleman coming from [facility] where he was treated for afib and pneumonia. He was admitted to [facility] on 10/16, transferred to [facility] on 10/17 where he was treated and now back to complete detox. Patient diagnosed with pneumonia - levoquin changed to augmentin to avoid interaction with seroquel per consulation with pharmacist. Exam Limitations: Clinical Condition - Ebola screening Have you traveled outside of the country in the last 21 days: No (N) Have you had contact with anyone from an Ebola affected area: No Have you been sick,other than usual withdrawal symptoms: No Do you have a fever: No - Review of Systems Constitutional: Loss of Appetite, Changes in sleep, Weakness, Unintentional Wgt. Loss EENT: reports: Blurred Vision Respiratory: reports: Cough Cardiac: reports: No Symptoms Reported GI: reports: Nausea, Poor Appetite, Indigestion : reports: Frequency Musculoskeletal: reports: No Symptoms Reported Integumentary: reports: Dryness Neuro: reports: Tremors Endocrine: reports: No Symptoms Reported Hematology: reports: No Symptoms Reported Psychiatric: reports: Judgement Intact, Mood/Affect Appropiate, Anxious Other Systems: Reviewed and Negative Patient History - Patient Medical History Hx Anemia: No Hx Asthma: No Hx Chronic Obstructive Pulmonary Disease (COPD): No Hx Cancer: No Hx Cardiac Disorders: Yes (atrial fibrillation) Hx Congestive Heart Failure: No Hx Hypertension: No Hx Hypercholesterolemia: No Hx Pacemaker: No HX Cerebrovascular Accident: No Hx Seizures: No Hx Dementia: No Hx Diabetes: No Hx Gastrointestinal Disorders: Yes (GERD) Hx Liver Disease: No Hx Genitourinary Disorders: No Hx Sexually Transmitted Disorders: No Hx Renal Disease (ESRD): No Hx Thyroid Disease: No Hx Human Immunodeficiency Virus (HIV): No (NEGATIVE. last 2015) Hx Hepatitis C: No (NEGATIVE.) Hx Depression: Yes (on med) Hx Suicide Attempt: No Hx Bipolar Disorder: Yes (On meds.) Hx Schizophrenia: No - Patient Surgical History Past Surgical History: No Hx Neurologic Surgery: No Hx Cataract Extraction: No Hx Cardiac Surgery: No Hx Lung Surgery: No Hx Breast Surgery: No Hx Breast Biopsy: No Hx Abdominal Surgery: No Hx Appendectomy: No Hx Cholecystectomy: No Hx Genitourinary Surgery: No Hx Section: No Hx Orthopedic Surgery: No Anesthesia Reaction: No - PPD History Previous Implant?: Yes Documented Results: Negative w/proof Results: CXR(-)12/04/16 PPD to be Administered?: No - Reproductive History Patient is a Female of Child Bearing Age (11 -55 yrs old): No (male) - Smoking Cessation Smoking history: Current every day smoker Have you smoked in the past 12 months: Yes Aproximately how many cigarettes per day: 10 Cigars Per Day: 0 Hx Chewing Tobacco Use: No Initiated information on smoking cessation: Yes 'Breaking Loose' booklet given: 10/18/17 (give on floor) - Substance & Tx. History Hx Alcohol Use: Yes Hx Substance Use: No Substance Use Type: Alcohol Hx Substance Use Treatment: Yes (detox, rehab) - Substances Abused etoh Route: Oral Frequency: Daily Amount used: beer : three six packs Age of first use: 19 Date of Last Use: 10/16/17 Family Disease History - Family Disease History Family Disease History: Diabetes: Father (, etoh), Other: Mother ( DEMENTIA ), Brother (no contact), Sister (three - healthy) Admission Physical Exam S - Vital Signs Vital Signs: Vital Signs - 24 hr 10/18/17 09:37 Temperature 96 F L Pulse Rate 76 Respiratory 20 Rate Blood Pressure 118/75 - Physical General Appearance: Yes: Nourished, Appropriately Dressed, Mild Distress, Anxious HEENTM: Yes: EOMI, Hearing grossly Normal, Normal ENT Inspection, Normocephalic , Normal Voice, Pharynx Normal Respiratory: Yes: No Respiratory Distress, Crackles, Wheezing Neck: Yes: No masses,lesions,Nodules, Supple Breast: Yes: Breast Exam Deferred Cardiology: Yes: Regular Rhythm, Regular Rate Abdominal: Yes: Flat Genitourinary: Yes: Frequency Back: Yes: Normal Inspection Musculoskeletal: Yes: full range of Motion, Gait Steady Extremities: Yes: Normal Inspection, Normal Range of Motion, Non-Tender Neurological: Yes: Alert, Normal Mood/Affect, Normal Response, Numbness Integumentary: Yes: Normal Color, Dry, Warm Lymphatic: Yes: Within Normal Limits - Diagnostic (1) Alcohol dependence with intoxication Current Visit: Yes Status: Chronic Qualifiers: Complication of substance-induced condition: uncomplicated Qualified Code(s ): F10.220 - Alcohol dependence with intoxication, uncomplicated (2) Atrial fibrillation with RVR Current Visit: Yes Status: Resolved (3) Pneumonia Current Visit: Yes Status: Acute Qualifiers: Pneumonia type: due to unspecified organism Laterality: left Lung location: lower lobe of lung Qualified Code(s): J18.1 - Lobar pneumonia, unspecified organism (4) Nicotine dependence Current Visit: Yes Status: Chronic Qualifiers: Nicotine product type: cigarettes Substance use status: uncomplicated Qualified Code(s): F17.210 - Nicotine dependence, cigarettes, uncomplicated (5) Abnormal EKG Current Visit: Yes Status: Resolved (6) Insomnia Current Visit: Yes Status: Acute Qualifiers: Insomnia type: unspecified Qualified Code(s): G47.00 - Insomnia, unspecified (7) GERD (gastroesophageal reflux disease) Current Visit: Yes Status: Chronic Qualifiers: Esophagitis presence: without esophagitis Qualified Code(s): K21.9 - Gastro -esophageal reflux disease without esophagitis Cleared for Admission [facility] - Detox or Rehab [facility] Level of Care: Medically Managed Detox Regimen/Protocol: Librium S Breath Alcohol Content Breath Alcohol Content: 0 Urine Drug Screen - Results Drug Screen Negative: No Urine Drug Screen Results: BZO-Benzodiazepines
[2017-10-18] MEDS ORDERED: ACETAMINOPHEN 325 MG TABLET (FP) PO PRN (09:54)
[2017-10-18] MEDS ORDERED: AMOX TR/POT CLAV 500MG/125MG TABLETS (FP) PO SCH (10:15)
[2017-10-18] MEDS: metoPROLOL SUCCINATE 25 MG TAB.SR.24H (FP) PO SCH (11:23)
[2017-10-18] MEDS: chlordiazePOXIDE 5 MG CAPSULE PO SCH ×3 (11:23→22:17)
[2017-10-18] MEDS: ASPIRIN 81 MG CHEWABLE TABLETS PO SCH (11:23)
[2017-10-18] MEDS: FLUoxetine HCL 20 MG CAPSULE (FP) PO SCH (11:23)
[2017-10-18] MEDS: QUEtiapine FUMARATE 100 MG TABLET (FP) PO SCH (11:23)
[2017-10-18] MEDS: PRENATAL VITAMINS W/ FOLIC ACID TABLET (FP) PO SCH (11:24)
[2017-10-18] MEDS: AMOX TR/POT CLAV 500MG/125MG TABLETS (FP) PO SCH ×2 (11:58→17:25)
--- NOTE | 2017-10-18 13:50 | PN ---
[facility] Progress Note Note: Patient returned form [facility] ER after evaluation for Pneumonia and abnormal ECG. Patient currently in stable medical condition. VS Stable. Patient currently afebrile. A & O X 3, Observed ambulating on unit. Patient to continue remainder of Detox regimen. Patient denies chest pain and SOB. Patient advised to follow-up with [employer] at [facility] in [facility] after discharge from detox for follow-up medical evaluation for Pneumonia and history of cardiac abnormalities. Josue Harrison BLUNGER
[2017-10-18] MEDS: THIAMINE HCL 100 MG TABLET (FP) PO SCH (22:17)
[2017-10-18] MEDS: MELATONIN 5 MG TABLETS PO PRN (22:18)
[2017-10-19] MEDS: chlordiazePOXIDE 5 MG CAPSULE PO SCH (06:22)
[2017-10-19] MEDS: AMOX TR/POT CLAV 500MG/125MG TABLETS (FP) PO SCH (07:23)
[2017-10-19] MEDS: PRENATAL VITAMINS W/ FOLIC ACID TABLET (FP) PO SCH (10:17)
[2017-10-19] MEDS: QUEtiapine FUMARATE 100 MG TABLET (FP) PO SCH (10:17)
[2017-10-19] MEDS: ASPIRIN 81 MG CHEWABLE TABLETS PO SCH (10:18)
[2017-10-19] MEDS: metoPROLOL SUCCINATE 25 MG TAB.SR.24H (FP) PO SCH (10:18)
[2017-10-19] MEDS: FLUoxetine HCL 20 MG CAPSULE (FP) PO SCH (10:18)
--- NOTE | 2017-10-19 10:19 | CONSULT ---
[facility] Psychiatric Consult - Data Date of interview: 10/19/17 Admission source: Self-referred Identifying data: Mr Reilly is a 52 years old Black male, father of, unemployed on SSI, domiciled seeking detox treatment for alcohol. Substance Abuse History: Reports history of alcohol use. Refer to addiction counselor's note for further information Medical History: Significant GERD, recent treatment for AFib/ pneumonia and history of withdrawal-related seizures. Smokes 10 cigarettes daily
--- NOTE | 2017-10-19 10:27 | PN ---
[facility] Progress Note Note: Patient did not want to be seen
[2017-10-19] MEDS: chlordiazePOXIDE HCL 10 MG CAPSULE PO SCH ×3 (12:00→22:20)
--- NOTE | 2017-10-19 13:56 | PN ---
S CIWA - CIWA Score Nausea/Vomitin Muscle Tremors: 4-Moderate,w/Arms Extend Anxiety: 4-Mod. Anxious/Guarded Agitation: 4-Moderately Restless Paroxysmal Sweats: 3 Orientation: 0-Oriented Tacttile Disturbances: 0-None Auditory Disturbances: 0-None Visual Disturbances: 0-None Headache: 1-Very Mild CIWA-Ar Total Score: 19 [facility] Progress Note (SOAP) Subjective: Anxious, sweating, tremor Objective: 10/19/17 13:51 Last Vital Signs Temp Pulse Resp BP Pulse Ox 96.5 F L 79 18 93/60 10/19/17 13:32 10/19/17 13:32 10/19/17 13:32 10/19/17 13:32 Noted with hypotension (93/60) Labs reviewed: results within normal limits UA shows 1+ blood Assessment: 10/19/17 13:54 Withdrawal symptoms Noted with microscopic hematuria Plan: Continue detox Microscopic hematuria: encouraged to drink lots of water, repeat UA
[2017-10-19] MEDS: THIAMINE HCL 100 MG TABLET (FP) PO SCH (22:19)
[2017-10-19] MEDS: MELATONIN 5 MG TABLETS PO PRN (22:22)
[2017-10-20] MEDS: chlordiazePOXIDE HCL 10 MG CAPSULE PO SCH (05:15)
[2017-10-20 09:11] VITALS: BP 117/76; PULSE 77; TEMP 96.1
--- NOTE | 2017-10-20 10:23 | PN ---
[facility] Progress Note (SOAP) Subjective: DETOX COMPLETED. ALERT O X 3. NAD. PT REPORTS HE IS GOING HOME AND IS NOT GOING TO ANY REHAB AT ALL. REPORTS HIS PRIMARY CARE IS AT [place], [place] WITH DR. BALWINDER WELSH FOR MEDICAL MANAGEMENT. Objective: 10/20/17 10:22 Vital Signs Temperature 96.1 F L 10/20/17 09:11 Pulse Rate 77 10/20/17 09:11 Respiratory Rate 18 10/20/17 09:11 Blood Pressure 117/76 10/20/17 09:11 O2 Sat by Pulse Oximetry (%) Assessment: 10/20/17 10:23 WITHDRAWAL SX Plan: CONTINUE DETOX
--- NOTE | 2017-10-20 10:33 | PN ---
[facility] Progress Note (SOAP) Subjective: DETOX COMPLETED. ALERT O X 3. NAD. PT REPORTS HE IS GOING HOME AND IS NOT GOING TO ANY REHAB AT ALL. REPORTS HIS PRIMARY CARE IS AT [place], [place] WITH DR. BALWINDER WELSH FOR MEDICAL MANAGEMENT. AUGMENTIN RX #15 SENT TO [facility] TO COMPLETE HIS TREATMENT. PT REPORTS HE HAS HIS MEDS AT HOME. Objective: 10/20/17 10:36 Vital Signs Temperature 96.1 F L 10/20/17 09:11 Pulse Rate 77 10/20/17 09:11 Respiratory Rate 18 10/20/17 09:11 Blood Pressure 117/76 10/20/17 09:11 O2 Sat by Pulse Oximetry (%) Assessment: 10/20/17 10:36 MEDICALLY STABLE Plan: D/C PT TODAY FOLLOW UP WITH PMD FOR MEDICAL MANAGEMENT AFTER DISCHARGE.
--- NOTE | 2017-10-20 10:43 | DS ---
[facility] Detox Discharge Summary Admission Date: 10/18/17 Discharge Date: 10/20/17 - History Present History: Alcohol Dependence Additional Comments: DETOX COMPLETED. ALERT O X 3. MEDICALLY STABLE. FOLLOW UP WITH PMD AT [place], [place] FOR MEDICAL MANAGEMENT. Pertinent Past History: PLEASE SEE DX BELOW - Physical Exam Results Vital Signs: Vital Signs Temperature 96.1 F L 10/20/17 09:11 Pulse Rate 77 10/20/17 09:11 Respiratory Rate 18 10/20/17 09:11 Blood Pressure 117/76 10/20/17 09:11 O2 Sat by Pulse Oximetry (%) Pertinent Admission Physical Exam Findings: WITHDRAWAL SX - Treatment Hospital Course: Detox Protocol Followed, Detoxed Safely, Responded well, Discharged Condition Good, Rehab Referral Accepted Patient has Accepted a Rehab Referral to: REFUSED - Medication Discharge Medications: Ambulatory Orders Fluoxetine HCl [Prozac -] 20 mg PO DAILY #30 tab 07/17/17 Aspirin [ASA -] 81 mg PO DAILY #30 tab.chew 10/17/17 [place] Carbonate [Lithobid] 300 mg PO TID 10/17/17 Metoprolol Succinate [Toprol XL -] 25 mg PO DAILY #30 tab.sr.24h 10/17/17 Quetiapine Fumarate [Seroquel -] 100 mg PO DAILY 10/17/17 Amoxicillin/Potassium Clav [Augmentin 500-125 Tablet] 1 each PO TIDCM 5 Days # 15 tablet 10/18/17 Amox-Tr/K Cl [Augmentin 500-125mg Tablet -] 1 tab PO TIDCM #15 tablet 10/20/17 - Diagnosis (1) Afib Status: Acute Qualifiers: Atrial fibrillation type: unspecified Qualified Code(s): I48.91 - Unspecified atrial fibrillation (2) Alcohol dependence with uncomplicated withdrawal Status: Acute (3) Pneumonia Status: Acute Qualifiers: Pneumonia type: due to unspecified organism Laterality: left Lung location: lower lobe of lung Qualified Code(s): J18.1 - Lobar pneumonia, unspecified organism (4) GERD (gastroesophageal reflux disease) Status: Chronic Qualifiers: Esophagitis presence: without esophagitis Qualified Code(s): K21.9 - Gastro -esophageal reflux disease without esophagitis (5) Nicotine dependence Status: Acute Qualifiers: Nicotine product type: cigarettes Substance use status: in withdrawal Qualified Code(s): F17.213 - Nicotine dependence, cigarettes, with withdrawal - AMA Did Patient Leave Against Medical Advice: No
== END 2017-10-20 09:02 | disposition home or self-care (01) | DRG 775 ==
LOC: YASAS 08:35 → Y3N 09:50
PROVIDERS: ADMIT Internal Medicine; ATTEND Internal Medicine
PROC: HZ2ZZZZ Detoxification Services for Substance Abuse Treatment (ICD-10-PCS; principal; 2017-10-18)
DX: F10.230 Alcohol dependence with withdrawal, uncomplicated (principal); F17.213 Nicotine dependence, cigarettes, with withdrawal; K21.9 Gastro-esophageal reflux disease without esophagitis; G47.00 Insomnia, unspecified; R94.31 Abnormal electrocardiogram [ECG] [EKG]; J18.1 Lobar pneumonia, unspecified organism; F31.9 Bipolar disorder, unspecified; I48.91 Unspecified atrial fibrillation

== ENCOUNTER 2017-12-23 16:11 | Emergency (ER) | payer BC ==
[2017-12-23 17:01] VITALS: BMI 21.2
--- NOTE | 2017-12-23 17:07 | PDOC ---
Attending Attestation - Resident Resident Name: Edilson Mccord - ED Attending Attestation I have performed the following: I have examined & evaluated the patient, The case was reviewed & discussed with the resident, I agree w/resident's findings & plan, Exceptions are as noted - HPI HPI: 12/23/17 17:06 52 yo male sent frm [facility] because he had an ekg w bigeminy and tachycadrdia. he is intoxicated -pt has no chest pain - Physicial Exam PE: 12/23/17 17:10 slender ,conversant 52 yo male w AOB sent for ekg concerns hed ncat neck supple lungs cta b/l cvs [id number] abd flat,no rebound ext no cellulitis,from neuro intoxicated but conversant,moving al extremities purposefully - Medical Decision Making 12/23/17 17:13 ekg is NSR @ 93 bpm, no evidence of ischemia plan discharge back to [facility] detox
--- NOTE | 2017-12-23 17:11 | PDOC ---
History of Present Illness - General Chief Complaint: Tremors Stated Complaint: ABD PAIN Time Seen by Provider: 12/23/17 16:18 History Source: Patient Exam Limitations: No Limitations - History of Present Illness Initial Comments: 12/23/17 17:10 Patient is a 52M with history of alcohol abuse and afib sent here today from [facility] for an abnormal EKG that showed a rate of 116 with bigeminy. Patient has no complaints at this time. Denies chest pain, shortness of breath, nausea, vomiting, fevers, chills. Patient was intoxicated at [facility], and has not been given any librium at this point. Past History - Past Medical History Allergies/Adverse Reactions: Allergies Allergy/AdvReac Type Severity Reaction Status Date / Time No Known Allergies Allergy Verified 12/23/17 10:25 Home Medications: Ambulatory Orders Fluoxetine HCl [Prozac -] 20 mg PO DAILY #30 tab 07/17/17 Aspirin [ASA -] 81 mg PO DAILY #30 tab.chew 10/17/17 [place] Carbonate [Lithobid] 300 mg PO TID 10/17/17 Metoprolol Succinate [Toprol XL -] 25 mg PO DAILY #30 tab.sr.24h 10/17/17 Quetiapine Fumarate [Seroquel -] 100 mg PO DAILY 10/17/17 Anemia: No Asthma: No Cancer: No Cardiac Disorders: Yes (atrial fibrilation-GOES TO [facility] FOR CARE) CVA: No COPD: No CHF: No Dementia: No Diabetes: No GI Disorders: No Disorders: No HTN: No Hypercholesterolemia: No Kidney Stones: No Liver Disease: No Psychiatric Problems: Yes (depression, anxiety, bipolar) Seizures: No Thyroid Disease: No - Surgical History Abdominal Surgery: No Appendectomy: No Cardiac Surgery: No Cholecystectomy: No Lung Surgery: No Neurologic Surgery: No Orthopedic Surgery: No - Reproductive History Testicular Surgery: No - Immunization History Immunization Up to Date: No (UNKNOWN) - Suicide/Smoking/Psychosocial Hx Smoking History: Current every day smoker Have you smoked in the past 12 months: Yes Number of Cigarettes Smoked Daily: 10 Cigars Per Day: 0 Information on smoking cessation initiated: No 'Breaking Loose' booklet given: 12/23/17 Hx Alcohol Use: Yes (LAST DRINK THIS AM) Drug/Substance Use Hx: No Substance Use Type: Alcohol, Cocaine Hx Substance Use Treatment: Yes (LAST TX AT [facility]) Review of Systems - Review of Systems Comments:: 12/23/17 17:16 GENERAL/CONSTITUTIONAL: No fever or chills. No weakness. HEAD, EYES, EARS, NOSE AND THROAT: No change in vision. No sore throat. CARDIOVASCULAR: No chest pain or shortness of breath RESPIRATORY: No cough, wheezing, or hemoptysis. GASTROINTESTINAL: No nausea, vomiting, diarrhea or constipation. GENITOURINARY: No dysuria, frequency, or change in urination. MUSCULOSKELETAL: No joint or muscle swelling or pain. No neck or back pain. SKIN: No rash NEUROLOGIC: No headache, vertigo, loss of consciousness, or change in strength/ sensation. ENDOCRINE: No increased thirst. No abnormal weight change HEMATOLOGIC/LYMPHATIC: No anemia, easy bleeding, or history of blood clots. ALLERGIC/IMMUNOLOGIC: No hives or skin allergy. *Physical Exam - Vital Signs Last Vital Signs Temp Pulse Resp BP Pulse Ox 98.1 F 91 H 18 103/65 97 12/23/17 16:25 12/23/17 16:25 12/23/17 16:25 12/23/17 16:25 12/23/17 16:25 - Physical Exam Comments: 12/23/17 17:16 GENERAL: Awake, alert, and fully oriented, in no acute distress HEAD: No signs of trauma, normocephalic, atraumatic EYES: PERRLA, EOMI, sclera anicteric, conjunctiva clear ENT: Auricles normal inspection, hearing grossly normal, nares patent, oropharynx clear without exudates. Moist mucosa NECK: Normal ROM, supple, no lymphadenopathy, JVD, or masses LUNGS: No distress, speaks full sentences, clear to auscultation bilaterally HEART: Regular rate and rhythm, normal S1 and S2, no murmurs, rubs or gallops, peripheral pulses normal and equal bilaterally. ABDOMEN: Soft, nontender, normoactive bowel sounds. No guarding, no rebound. No masses EXTREMITIES: Normal inspection, Normal range of motion, no edema. No clubbing or cyanosis. NEUROLOGICAL: Cranial nerves II through XII grossly intact. Normal speech, normal gait, no focal sensorimotor deficits SKIN: Warm, Dry, normal turgor, no rashes or lesions noted. Medical Decision Making - Medical Decision Making 12/23/17 17:17 Patient is 52M with history of afib, cocaine abuse, and etoh abuse here today with abnormal EKG at [facility]. Patient with no complaints at this time. Will repeat EKG and dispo. Old EKG reviewed. Shows sinus tachycardia with rate of 115 and multiple PVCs in bigeminy pattern. Non-specific t wave abnormality. No st elevations/ depressions. EKG here today shows normal sinus rhythms with PVCs. QTc of 479. No significant t wave abnormalities. No st elevations/depressions. Normal QRS and [place] intervals. Will discharge back to [facility]. *DC/Admit/Observation/Transfer Diagnosis at time of Disposition: Abnormal EKG - Discharge Dispostion Disposition: HOME Condition at time of disposition: Good Decision to Admit order: No - Referrals - Patient Instructions Additional Instructions: Please return to [facility] for further treatment. Please return to the ED if you have any new, worsening or concerning symptoms. - Post Discharge Activity
[2017-12-23 18:45] VITALS: BP 108/69; PULSE 74; TEMP 98.4
--- NOTE | 2017-12-24 13:03 | EKG ---
Test Reason : Blood Pressure : / mmHG Vent. Rate : 093 BPM Atrial Rate : 093 BPM P-R Int : 128 ms QRS Dur : 086 ms QT Int : 386 ms P-R-T Axes : 067 077 062 degrees QTc Int : 479 ms SINUS RHYTHM WITH PREMATURE SUPRAVENTRICULAR COMPLEXES NONSPECIFIC ST AND T WAVE ABNORMALITY PROLONGED QT ABNORMAL ECG WHEN COMPARED WITH ECG OF 23-DEC-2017 14:10, PREMATURE VENTRICULAR COMPLEXES ARE NO LONGER PRESENT PREMATURE SUPRAVENTRICULAR COMPLEXES ARE NOW PRESENT Confirmed by ROBERT JEAN-BAPTISTE, ADEBAYO ([id number]) on 12/24/2017 1:03:32 PM Referred By: Confirmed By:ADEBAYO JONES MD
== END 2017-12-23 17:58 | disposition home or self-care (01) ==
LOC: JER 16:11
DX: R94.31 Abnormal electrocardiogram [ECG] [EKG] (principal); I48.91 Unspecified atrial fibrillation; F14.10 Cocaine abuse, uncomplicated; F10.10 Alcohol abuse, uncomplicated; F17.210 Nicotine dependence, cigarettes, uncomplicated; F41.8 Other specified anxiety disorders
CPT/HCPCS: 93005; 93010; 99282-25

== ENCOUNTER 2018-01-24 08:33 | Inpatient (IN) | payer BC ==
[2018-01-24 11:07] VITALS: BMI 22.8
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
[2018-01-24] MEDS ORDERED: NICOTINE POLACRILEX 2 MG GUM BUC PRN (12:15)
[2018-01-24] MEDS ORDERED: ACETAMINOPHEN 325 MG TABLET (FP) PO PRN (12:15)
[2018-01-24] MEDS ORDERED: MAGNESIUM HYDROX 2400MG/30ML ORAL SUSPENSION 30 ML CUP PO PRN (12:15)
[2018-01-24] MEDS ORDERED: guaiFENesin/D-METHORPHAN HB 10 ML UNIT-DOSE CUPS PO PRN (12:15)
[2018-01-24] MEDS ORDERED: P-EPHED 60MG/TRIPROLIDI 2.5MG TABLET PO PRN (12:15)
[2018-01-24] MEDS ORDERED: MAGNESIUM CITRATE 300 ML BOTTLE PO PRN (12:15)
[2018-01-24] MEDS ORDERED: LOPERAMIDE HCL 2 MG CAPSULE PO PRN (12:15)
[2018-01-24] MEDS ORDERED: chlordiazePOXIDE HCL 25 MG CAPSULE PO PRN (12:15)
[2018-01-24] MEDS ORDERED: MENTHOL/PHENOL 1 EACH UD MM PRN (12:15)
[2018-01-24] MEDS ORDERED: MAG HYDROX/AL HYDROX/SIMETH 30 ML UNIT-DOSE CUP PO PRN (12:15)
[2018-01-24] MEDS ORDERED: ARTIFICIAL TEARS (POLYVINYL ALCOHOL 1.4%) OPTH DROPS OU PRN (12:46)
[2018-01-24] MEDS ORDERED: chlordiazePOXIDE HCL 25 MG CAPSULE PO ONE (13:45)
[2018-01-24] MEDS: ASPIRIN 81 MG CHEWABLE TABLETS PO SCH (14:55)
[2018-01-24] MEDS: metoPROLOL SUCCINATE 25 MG TAB.SR.24H (FP) PO SCH (14:55)
[2018-01-24] MEDS: chlordiazePOXIDE HCL 25 MG CAPSULE PO SCH ×2 (17:09→22:09)
[2018-01-24 17:58] LABS: URINE APPEARANCE CLEAR; URINE BILIRUBIN NEGATIVE (<2.0 mg/dL); URINE COLOR STRAW; URINE GLUCOSE (UA) NEGATIVE (NEGATIVE); URINE KETONE NEGATIVE (NEGATIVE); URINE LEUK ESTERASE NEGATIVE (NEGATIVE); URINE NITRITE NEGATIVE (NEGATIVE); URINE PROTEIN NEGATIVE (NEGATIVE); URINE UROBILINOGEN NEGATIVE mg/dL (0.2-1.0)
[2018-01-24] MEDS: MELATONIN 5 MG TABLETS PO PRN (22:09)
[2018-01-24] MEDS: THIAMINE HCL 100 MG TABLET (FP) PO SCH (22:09)
[2018-01-25] MEDS: chlordiazePOXIDE HCL 25 MG CAPSULE PO SCH ×4 (05:03→22:04)
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
[2018-01-25 10:08] LABS: HEMATOCRIT 33.1 % (35.4-49); HEMOGLOBIN 11.3 GM/dL (11.7-16.9); MCH 33.3 pg (25.7-33.7); MCHC 34.1 g/dl (32.0-35.9); MEAN CELL VOLUME 97.7 fl (80-96); MEAN PLT VOLUME 6.6 fl (7.5-11.1); PLATELET COUNT 504 K/MM3 (134-434); RBC 3.39 M/mm3 (4.00-5.60); RDW 15.7 % (11.9-15.9); WHITE BLOOD COUNT 4.6 K/mm3 (4.0-10.0)
[2018-01-25 10:23] LABS: CHLORIDE 108 mmol/L (98-107); POTASSIUM 4.3 mmol/L (3.5-5.1); SODIUM 142 mmol/L (136-145)
[2018-01-25] MEDS: ASPIRIN 81 MG CHEWABLE TABLETS PO SCH (10:27)
[2018-01-25] MEDS: FLUoxetine HCL 20 MG CAPSULE (FP) PO SCH (10:27)
[2018-01-25] MEDS: PRENATAL VITAMINS W/ FOLIC ACID TABLET (FP) PO SCH (10:27)
[2018-01-25] MEDS: metoPROLOL SUCCINATE 25 MG TAB.SR.24H (FP) PO SCH (10:27)
[2018-01-25 10:34] LABS: ALBUMIN 3.4 g/dl (3.4-5.0); ALK PHOS 47 U/L (45-117); ANION GAP 7 (8-16); BILIRUBIN,TOTAL 0.4 mg/dL (0.2-1.0); BLOOD UREA NITROGEN 11 mg/dL (7-18); CALCIUM 8.9 mg/dL (8.5-10.1); CO2 27 mmol/L (21-32); CREATININE 0.8 mg/dL (0.7-1.3); GLUCOSE,RANDOM 92 mg/dL (74-106); SGOT/AST 18 U/L (15-37); SGPT/ALT 13 U/L (12-78); TOT PROT 7.2 g/dl (6.4-8.2)
--- NOTE | 2018-01-25 12:38 | PN ---
S CIWA - CIWA Score Nausea/Vomitin-Mild Nausea/No Vomiting Muscle Tremors: 2 Anxiety: 1-Mildly Anxious Agitation: 1-Slight > Activity Paroxysmal Sweats: 1-Minimal Palms Moist Orientation: 0-Oriented Tacttile Disturbances: 0-None Auditory Disturbances: 0-None Visual Disturbances: 0-None Headache: 0-None Present CIWA-Ar Total Score: 6 BHS Progress Note (SOAP) Subjective: pt requesting candelario for pos PPD, going to outpt Rx program that needs xray, also pt would like artificial tears- no eye pain, no vision problems- pt has a black eye from a recent injury Objective: 01/25/18 12:38 Vital Signs - 24 hr 01/24/18 01/24/18 01/24/18 14:02 14:30 15:00 Temperature 96.7 F L Pulse Rate 52 L 50 L 56 L Respiratory 18 14 14 Rate Blood Pressure 125/69 01/24/18 01/24/18 01/24/18 15:30 16:00 16:30 Temperature Pulse Rate 56 L 58 L 58 L Respiratory 14 14 Rate Blood Pressure 01/24/18 01/24/18 01/24/18 17:00 17:30 18:00 Temperature Pulse Rate 85 86 82 Respiratory 16 16 18 Rate Blood Pressure 01/24/18 01/24/18 01/24/18 18:03 18:30 19:00 Temperature 99.3 F Pulse Rate 85 91 H 86 Respiratory 16 18 18 Rate Blood Pressure 100/54 01/24/18 01/24/18 01/24/18 19:30 20:00 20:30 Temperature Pulse Rate 81 78 80 Respiratory 16 18 16 Rate Blood Pressure 01/24/18 01/24/18 01/24/18 21:00 21:30 22:00 Temperature Pulse Rate 82 78 80 Respiratory 16 18 18 Rate Blood Pressure 01/24/18 01/24/18 01/24/18 22:09 22:30 23:00 Temperature 98.4 F Pulse Rate 78 81 83 Respiratory 16 16 18 Rate Blood Pressure 113/70 01/24/18 01/25/18 01/25/18 23:30 00:00 00:32 Temperature Pulse Rate 84 80 73 Respiratory 18 18 Rate Blood Pressure 01/25/18 01/25/18 01/25/18 01:00 01:30 02:00 Temperature Pulse Rate 73 69 65 Respiratory 18 18 18 Rate Blood Pressure 01/25/18 01/25/18 01/25/18 02:30 03:00 03:30 Temperature Pulse Rate 67 74 67 Respiratory 18 18 Rate Blood Pressure 01/25/18 01/25/18 01/25/18 04:00 04:30 05:00 Temperature Pulse Rate 67 67 67 Respiratory 18 18 Rate Blood Pressure 01/25/18 01/25/18 01/25/18 05:30 06:00 06:11 Temperature 97.4 F L Pulse Rate 67 65 65 Respiratory 18 18 18 Rate Blood Pressure 105/68 01/25/18 01/25/18 01/25/18 06:30 07:00 07:30 Temperature Pulse Rate 65 63 61 Respiratory 18 18 18 Rate Blood Pressure 01/25/18 01/25/18 01/25/18 08:00 08:30 09:00 Temperature Pulse Rate 65 68 68 Respiratory 18 18 18 Rate Blood Pressure 01/25/18 01/25/18 01/25/18 09:13 09:30 10:00 Temperature 97.3 F L Pulse Rate 68 70 68 Respiratory 18 18 18 Rate Blood Pressure 96/59 01/25/18 01/25/18 01/25/18 10:30 11:00 11:30 Temperature Pulse Rate 65 65 68 Respiratory 18 18 18 Rate Blood Pressure 01/25/18 12:00 Temperature Pulse Rate 77 Respiratory 18 Rate Blood Pressure nl VS mild anemia Laboratory Tests 01/24/18 01/25/18 01/25/18 16:02 07:45 07:45 WBC 4.6 RBC 3.39 L Hgb 11.3 L Hct 33.1 L MCV 97.7 H MCH 33.3 MCHC 34.1 RDW 15.7 Plt Count 504 H D MPV 6.6 L Sodium 142 Potassium 4.3 Chloride 108 H Carbon Dioxide 27 Anion Gap 7 L BUN 11 Creatinine 0.8 Creat Clearance w eGFR > 60 Random Glucose 92 Calcium 8.9 Total Bilirubin 0.4 AST 18 D ALT 13 D Alkaline Phosphatase 47 Total Protein 7.2 Albumin 3.4 Urine Color Straw Urine Appearance Clear Urine pH 5.0 Ur Specific [place] 1.006 Urine Protein Negative Urine Glucose (UA) Negative Urine Ketones Negative Urine Blood Negative Urine Nitrite Negative Urine Bilirubin Negative Urine Urobilinogen Negative Ur Leukocyte Esterase Negative RPR Titer HIV 1&2 Antibody Screen HIV P24 Antigen 01/25/18 01/25/18 07:45 07:45 WBC RBC Hgb Hct MCV MCH MCHC RDW Plt Count MPV Sodium Potassium Chloride Carbon Dioxide Anion Gap BUN Creatinine Creat Clearance w eGFR Random Glucose Calcium Total Bilirubin AST ALT Alkaline Phosphatase Total Protein Albumin Urine Color Urine Appearance Urine pH Ur Specific [place] Urine Protein Urine Glucose (UA) Urine Ketones Urine Blood Urine Nitrite Urine Bilirubin Urine Urobilinogen Ur Leukocyte Esterase RPR Titer Nonreactive HIV 1&2 Antibody Screen Negative HIV P24 Antigen Negative eyes: vision, WNL, EOMI, with conjuctival hemorrage--L eye lateral lower eye and of eye lid Assessment: 01/25/18 12:49 52 yo gentleman here for detox from alcohol-continue detox protocol Plan: continue detox protocol
[2018-01-25] MEDS: THIAMINE HCL 100 MG TABLET (FP) PO SCH (22:04)
[2018-01-25] MEDS: QUEtiapine FUMARATE 100 MG TABLET (FP) PO SCH (22:04)
[2018-01-25] MEDS: ARTIFICIAL TEARS (POLYVINYL ALCOHOL 1.4%) OPTH DROPS OU SCH (22:40)
[2018-01-26] MEDS: chlordiazePOXIDE HCL 25 MG CAPSULE PO SCH ×2 (05:38→10:08)
[2018-01-26] MEDS: FLUoxetine HCL 20 MG CAPSULE (FP) PO SCH (10:07)
[2018-01-26] MEDS: metoPROLOL SUCCINATE 25 MG TAB.SR.24H (FP) PO SCH (10:07)
[2018-01-26] MEDS: PRENATAL VITAMINS W/ FOLIC ACID TABLET (FP) PO SCH (10:07)
[2018-01-26] MEDS: ASPIRIN 81 MG CHEWABLE TABLETS PO SCH (10:07)
[2018-01-26] MEDS: ARTIFICIAL TEARS (POLYVINYL ALCOHOL 1.4%) OPTH DROPS OU SCH ×2 (10:08→22:09)
--- NOTE | 2018-01-26 11:07 | EKG ---
Test Reason : Blood Pressure : / mmHG Vent. Rate : 090 BPM Atrial Rate : 090 BPM P-R Int : 132 ms QRS Dur : 088 ms QT Int : 370 ms P-R-T Axes : 070 082 063 degrees QTc Int : 452 ms SINUS RHYTHM WITH PREMATURE ATRIAL COMPLEXES OTHERWISE NORMAL ECG WHEN COMPARED WITH ECG OF 24-DEC-2017 12:01, PREMATURE ATRIAL COMPLEXES ARE NOW PRESENT T WAVE VARIATION Confirmed by MARISOL JEAN-BAPTISTE, SANDY ([id number]) on 01/26/2018 11:07:16 AM Referred By: Confirmed By:SANDY DAMON MD
--- NOTE | 2018-01-26 11:45 | PN ---
[facility] CIWA - CIWA Score Nausea/Vomitin-No Nausea/No Vomiting Muscle Tremors: 3 Anxiety: 4-Mod. Anxious/Guarded Agitation: 4-Moderately Restless Paroxysmal Sweats: No Perspiration Orientation: 0-Oriented Tacttile Disturbances: 2-Mild Itch/Numbness/Burn Auditory Disturbances: 0-None Visual Disturbances: 2-Mild Sensitivity Headache: 0-None Present CIWA-Ar Total Score: 15 BHS Progress Note (SOAP) Subjective: Anxious, Tremors, Interrupted Sleep. Objective: PATIENT A & O X 3, OBSERVED AMBULATING ON UNIT. NO ACUTE DISTRESS. 01/26/18 11:41 Vital Signs Temperature 98.1 F 01/26/18 09:36 Pulse Rate 58 L 01/26/18 09:36 Respiratory Rate 18 01/26/18 09:36 Blood Pressure 108/70 01/26/18 09:36 O2 Sat by Pulse Oximetry (%) Laboratory Tests 01/24/18 01/25/18 01/25/18 16:02 07:45 07:45 WBC 4.6 RBC 3.39 L Hgb 11.3 L Hct 33.1 L MCV 97.7 H MCH 33.3 MCHC 34.1 RDW 15.7 Plt Count 504 H D MPV 6.6 L Sodium 142 Potassium 4.3 Chloride 108 H Carbon Dioxide 27 Anion Gap 7 L BUN 11 Creatinine 0.8 Creat Clearance w eGFR > 60 Random Glucose 92 Calcium 8.9 Total Bilirubin 0.4 AST 18 D ALT 13 D Alkaline Phosphatase 47 Total Protein 7.2 Albumin 3.4 Urine Color Straw Urine Appearance Clear Urine pH 5.0 Ur Specific [place] 1.006 Urine Protein Negative Urine Glucose (UA) Negative Urine Ketones Negative Urine Blood Negative Urine Nitrite Negative Urine Bilirubin Negative Urine Urobilinogen Negative Ur Leukocyte Esterase Negative RPR Titer HIV 1&2 Antibody Screen HIV P24 Antigen 01/25/18 01/25/18 07:45 07:45 WBC RBC Hgb Hct MCV MCH MCHC RDW Plt Count MPV Sodium Potassium Chloride Carbon Dioxide Anion Gap BUN Creatinine Creat Clearance w eGFR Random Glucose Calcium Total Bilirubin AST ALT Alkaline Phosphatase Total Protein Albumin Urine Color Urine Appearance Urine pH Ur Specific [place] Urine Protein Urine Glucose (UA) Urine Ketones Urine Blood Urine Nitrite Urine Bilirubin Urine Urobilinogen Ur Leukocyte Esterase RPR Titer Nonreactive HIV 1&2 Antibody Screen Negative HIV P24 Antigen Negative LABS NOTED. Assessment: 01/26/18 11:42 WITHDRAWAL SYMPTOMS. ANEMIA. 01/26/18 11:45 Plan: CONTINUE DETOX.
[2018-01-26] MEDS: chlordiazePOXIDE 5 MG CAPSULE PO SCH ×2 (17:28→22:07)
[2018-01-26 21:11] VITALS: PULSE 58
[2018-01-26] MEDS: THIAMINE HCL 100 MG TABLET (FP) PO SCH (22:06)
[2018-01-26] MEDS: MELATONIN 5 MG TABLETS PO PRN (22:07)
[2018-01-26] MEDS: QUEtiapine FUMARATE 100 MG TABLET (FP) PO SCH (22:07)
[2018-01-27] MEDS: chlordiazePOXIDE 5 MG CAPSULE PO SCH (06:00)
[2018-01-27 06:07] VITALS: BP 106/64; TEMP 98
--- NOTE | 2018-01-27 11:10 | PN ---
BHS Progress Note (SOAP) Subjective: PT DECLINED TO COMPLETE DETOX STATING HE HAD IMPORTANT THINGS TO TAKE CARE OF SO HAS BASILIA LEAVE. ALERT O X 3. STEADY GAIT ON AMBULATION. DENIES ANY DISCOMFORT. Objective: 01/27/18 11:09 Vital Signs 01/27/18 01/27/18 03:30 06:07 Temperature 98 F Pulse Rate 58 L Respiratory 18 18 Rate Blood Pressure 106/64 Laboratory Tests 01/24/18 01/25/18 01/25/18 16:02 07:45 07:45 WBC 4.6 RBC 3.39 L Hgb 11.3 L Hct 33.1 L MCV 97.7 H MCH 33.3 MCHC 34.1 RDW 15.7 Plt Count 504 H D MPV 6.6 L Sodium 142 Potassium 4.3 Chloride 108 H Carbon Dioxide 27 Anion Gap 7 L BUN 11 Creatinine 0.8 Creat Clearance w eGFR > 60 Random Glucose 92 Calcium 8.9 Total Bilirubin 0.4 AST 18 D ALT 13 D Alkaline Phosphatase 47 Total Protein 7.2 Albumin 3.4 Urine Color Straw Urine Appearance Clear Urine pH 5.0 Ur Specific [place] 1.006 Urine Protein Negative Urine Glucose (UA) Negative Urine Ketones Negative Urine Blood Negative Urine Nitrite Negative Urine Bilirubin Negative Urine Urobilinogen Negative Ur Leukocyte Esterase Negative RPR Titer HIV 1&2 Antibody Screen HIV P24 Antigen 01/25/18 01/25/18 07:45 07:45 WBC RBC Hgb Hct MCV MCH MCHC RDW Plt Count MPV Sodium Potassium Chloride Carbon Dioxide Anion Gap BUN Creatinine Creat Clearance w eGFR Random Glucose Calcium Total Bilirubin AST ALT Alkaline Phosphatase Total Protein Albumin Urine Color Urine Appearance Urine pH Ur Specific [place] Urine Protein Urine Glucose (UA) Urine Ketones Urine Blood Urine Nitrite Urine Bilirubin Urine Urobilinogen Ur Leukocyte Esterase RPR Titer Nonreactive HIV 1&2 Antibody Screen Negative HIV P24 Antigen Negative Assessment: 01/27/18 11:09 NAD Plan: PT SIGNED OUT AMA
--- NOTE | 2018-01-27 11:17 | DS ---
[facility] Detox Discharge Summary Admission Date: 01/24/18 Discharge Date: 01/27/18 - History Present History: Alcohol Dependence, Cocaine Dependence, Sedative Dependence Additional Comments: PT DECLINED TO CONTINUE WITH DETOX FOR PERSONAL REASONS. ALERT O X 3. NAD. PT REPORTS HAS A PMD DR BRITT AT [facility] FOR HIS MEDICAL NEEDS. HAS OWN MEDS AT HOME. Pertinent Past History: PLEASE SEE DX BELOW. - Physical Exam Results Vital Signs: Vital Signs Temperature 98 F 01/27/18 06:07 Pulse Rate 58 L 01/27/18 06:07 Respiratory Rate 18 01/27/18 06:07 Blood Pressure 106/64 01/27/18 06:07 O2 Sat by Pulse Oximetry (%) Pertinent Admission Physical Exam Findings: WITHDRAWAL SX S/P BLACK EYE ON LEFT EYE SEEN ON ADMISSION Laboratory Tests 01/24/18 01/25/18 01/25/18 16:02 07:45 07:45 WBC 4.6 RBC 3.39 L Hgb 11.3 L Hct 33.1 L MCV 97.7 H MCH 33.3 MCHC 34.1 RDW 15.7 Plt Count 504 H D MPV 6.6 L Sodium 142 Potassium 4.3 Chloride 108 H Carbon Dioxide 27 Anion Gap 7 L BUN 11 Creatinine 0.8 Creat Clearance w eGFR > 60 Random Glucose 92 Calcium 8.9 Total Bilirubin 0.4 AST 18 D ALT 13 D Alkaline Phosphatase 47 Total Protein 7.2 Albumin 3.4 Urine Color Straw Urine Appearance Clear Urine pH 5.0 Ur Specific [place] 1.006 Urine Protein Negative Urine Glucose (UA) Negative Urine Ketones Negative Urine Blood Negative Urine Nitrite Negative Urine Bilirubin Negative Urine Urobilinogen Negative Ur Leukocyte Esterase Negative RPR Titer HIV 1&2 Antibody Screen HIV P24 Antigen 01/25/18 01/25/18 07:45 07:45 WBC RBC Hgb Hct MCV MCH MCHC RDW Plt Count MPV Sodium Potassium Chloride Carbon Dioxide Anion Gap BUN Creatinine Creat Clearance w eGFR Random Glucose Calcium Total Bilirubin AST ALT Alkaline Phosphatase Total Protein Albumin Urine Color Urine Appearance Urine pH Ur Specific [place] Urine Protein Urine Glucose (UA) Urine Ketones Urine Blood Urine Nitrite Urine Bilirubin Urine Urobilinogen Ur Leukocyte Esterase RPR Titer Nonreactive HIV 1&2 Antibody Screen Negative HIV P24 Antigen Negative - Treatment Hospital Course: Detox Protocol Followed, Detoxed Safely, Responded well, Discharged Condition Good - Medication Discharge Medications: Ambulatory Orders [place] Carbonate [Lithobid] 300 mg PO TID #90 tablet.er 12/24/17 Aspirin [ASA -] 81 mg PO DAILY #30 tab.chew 12/26/17 Metoprolol Succinate [Toprol XL -] 25 mg PO DAILY #30 tab.sr.24h 12/26/17 Fluoxetine HCl [Prozac -] 20 mg PO DAILY #30 tab 01/25/18 Quetiapine Fumarate [Seroquel] 100 mg PO HS #30 tablet 01/25/18 - Diagnosis (1) Alcohol dependence with uncomplicated withdrawal Status: Acute (2) Black eye of left side Status: Acute Qualifiers: Encounter type: subsequent encounter Qualified Code(s): S00.12XD - Contusion of left eyelid and periocular area, subsequent encounter (3) Cocaine dependence, uncomplicated Status: Acute (4) Sedative hypnotic or anxiolytic dependence Status: Acute (5) Weight loss Status: Acute (6) GERD (gastroesophageal reflux disease) Status: Chronic Qualifiers: Esophagitis presence: without esophagitis Qualified Code(s): K21.9 - Gastro -esophageal reflux disease without esophagitis (7) History of atrial fibrillation without current medication Status: Chronic (8) Nicotine dependence Status: Acute Qualifiers: Nicotine product type: cigarettes Substance use status: in withdrawal Qualified Code(s): F17.213 - Nicotine dependence, cigarettes, with withdrawal - AMA Did Patient Leave Against Medical Advice: Yes (AMA)
[2018-01-27] MEDS ORDERED: chlordiazePOXIDE HCL 10 MG CAPSULE PO SCH (17:00)
== END 2018-01-27 09:32 | disposition left against medical advice (07) | DRG 770 ==
LOC: YASAS 08:33 → Y3N 12:46
PROVIDERS: ADMIT Surgery; ATTEND Surgery
PROC: HZ2ZZZZ Detoxification Services for Substance Abuse Treatment (ICD-10-PCS; principal; 2018-01-24)
DX: F10.230 Alcohol dependence with withdrawal, uncomplicated (principal); F13.230 Sedative, hypnotic or anxiolytic dependence with withdrawal, uncomplicated; F14.20 Cocaine dependence, uncomplicated; F17.213 Nicotine dependence, cigarettes, with withdrawal; F25.1 Schizoaffective disorder, depressive type; F31.9 Bipolar disorder, unspecified; F19.24 Other psychoactive substance dependence with psychoactive substance-induced mood disorder; F19.282 Other psychoactive substance dependence with psychoactive substance-induced sleep disorder; F41.8 Other specified anxiety disorders; I48.91 Unspecified atrial fibrillation; K21.9 Gastro-esophageal reflux disease without esophagitis; R63.4 Abnormal weight loss; Z68.22 Body mass index [BMI] 22.0-22.9, adult; S00.12XD Contusion of left eyelid and periocular area, subsequent encounter; X58.XXXD Exposure to other specified factors, subsequent encounter
CPT/HCPCS: 36415; 80053; 81003; 85027; 86593; 87389; 93005; 93010

== ENCOUNTER 2018-04-08 11:27 | Inpatient (IN) | payer BC ==
[2018-04-08 11:54] VITALS: BMI 22.5
--- NOTE | 2018-04-08 13:12 | HP ---
CIWA Score - CIWA Score Nausea/Vomitin-No Nausea/No Vomiting Muscle Tremors: 2 Anxiety: 3 Agitation: 4-Moderately Restless Paroxysmal Sweats: 1-Minimal Palms Moist Orientation: 1-Uncertain about Date Tacttile Disturbances: 0-None Auditory Disturbances: 0-None Visual Disturbances: 0-None Headache: 3-Moderate CIWA-Ar Total Score: 14 Admission ROS S - HPI Chief Complaint: ETOH WITHDRAWAL SYMPTOMS. Allergies/Adverse Reactions: Allergies Allergy/AdvReac Type Severity Reaction Status Date / Time No Known Allergies Allergy Verified 04/08/18 12:50 History of Present Illness: PATIENT PRESENTS WITH ETOH WITHDRAWAL SYMPTOMS. PATIENT STARTED DRINKING AT AGE 16. LAST DRINK THIS MORNING. DRINKS 2 PINTS OF LIQUOR DAILY. DENIES HX OF SEIZURES BUT HAS HAD BLACKOUTS IN PAST. PATIENT HAS FIRST DRINK UPON WAKING UP IN THE MORNING. HAS HAD SEVERAL ATTEMPTS/ADMISSIONS TO DETOX IN PAST 6 MONTHS. ALSO SMOKES CRACK/COCAINE. 20 DOLLARS/DAY. LAST TIME HE SMOKED WAS LAST WEEK. PATIENTS LONGEST PERIOD OF SOBRIETY ONE YEAR. PMH AFIB, DEPRESSION, SCHIZOPHRENIA. DENIES SI/HI AND SUICIDE ATTEMPTS. Exam Limitations: Intoxication - Ebola screening Have you traveled outside of the country in the last 21 days: No Have you had contact with anyone from an Ebola affected area: No Have you been sick,other than usual withdrawal symptoms: No Do you have a fever: No - Review of Systems Constitutional: Night Sweats, Changes in sleep, Unexplained wgt Loss EENT: reports: No Symptoms Reported Respiratory: reports: No Symptoms reported Cardiac: reports: No Symptoms Reported GI: reports: Poor Appetite, Poor Fluid Intake, Abdominal cramping : reports: No Symptoms Reported Musculoskeletal: reports: Back Pain, Joint Pain, Muscle Pain Integumentary: reports: Sweating Neuro: reports: Headache, Tremors Endocrine: reports: Unexplained Weight Loss Hematology: reports: No Symptoms Reported Psychiatric: reports: Anxious, Depressed Patient History - Patient Medical History Hx Anemia: No Hx Asthma: No Hx Chronic Obstructive Pulmonary Disease (COPD): No Hx Cancer: No Hx Cardiac Disorders: Yes (HX AFIB) Hx Congestive Heart Failure: No Hx Hypertension: No Hx Hypercholesterolemia: No Hx Pacemaker: No HX Cerebrovascular Accident: No Hx Seizures: No Hx Dementia: No Hx Diabetes: No Hx Gastrointestinal Disorders: No Hx Liver Disease: Yes (elevated LFTs when drinking) Hx Genitourinary Disorders: No Hx Sexually Transmitted Disorders: No (DENIES) Hx Renal Disease (ESRD): No Hx Thyroid Disease: No Hx Human Immunodeficiency Virus (HIV): No (NEGATIVE HX) Hx Hepatitis C: No (NEGATIVE.) Hx Depression: Yes Hx Suicide Attempt: No (DENIES S/I) Hx Bipolar Disorder: Yes (poor adherence to meds.) Hx Schizophrenia: No - Patient Surgical History Past Surgical History: No Hx Neurologic Surgery: No Hx Cataract Extraction: No Hx Cardiac Surgery: No Hx Lung Surgery: No Hx Breast Surgery: No Hx Breast Biopsy: No Hx Abdominal Surgery: No Hx Appendectomy: No Hx Cholecystectomy: No Hx Genitourinary Surgery: No Hx Orthopedic Surgery: No Anesthesia Reaction: No - PPD History Previous Implant?: Yes Documented Results: Positive w/o proof Results: CXR- 12/24/17 PPD to be Administered?: No - Smoking Cessation Smoking history: Current every day smoker Have you smoked in the past 12 months: Yes Aproximately how many cigarettes per day: 10 Cigars Per Day: 0 Hx Chewing Tobacco Use: No Initiated information on smoking cessation: Yes 'Breaking Loose' booklet given: 04/08/18 - Substance & Tx. History Hx Alcohol Use: Yes Hx Substance Use: Yes Substance Use Type: Alcohol, Cocaine Hx Substance Use Treatment: Yes Family Disease History - Family Disease History Family Disease History: Diabetes: Father (, etoh), Other: Mother ( DEMENTIA ), Brother (no contact), Sister (three - healthy) Admission Physical Exam BHS - Vital Signs Vital Signs: Vital Signs - 24 hr 04/08/18 11:50 Temperature 96.4 F L Pulse Rate 101 H Respiratory 18 Rate Blood Pressure 140/70 - Physical General Appearance: Yes: Appropriately Dressed, Disheveled, Intoxicated, Thin, Sweating, Anxious HEENTM: Yes: Hearing grossly Normal, Normocephalic, Normal Voice, TESSA, Pharynx Normal, Nasal Congestion Respiratory: Yes: Chest Non-Tender, Lungs Clear, Normal Breath Sounds, No Respiratory Distress, No Accessory Muscle Use Neck: Yes: No masses,lesions,Nodules, Supple, Trachea in good position Breast: Yes: Breast Exam Deferred Cardiology: Yes: Regular Rhythm, Regular Rate, S1, S2 Abdominal: Yes: Normal Bowel Sounds, Non Tender, Soft Genitourinary: Yes: Within Normal Limits Musculoskeletal: Yes: Gait Steady, Back pain, Muscle Pain Neurological: Yes: linoleum layer helper II-XII NML intact, Alert, Motor Strength 5/5, Depressed Affect Integumentary: Yes: Normal Color, Warm, Moist Lymphatic: Yes: Within Normal Limits - Diagnostic (1) Cocaine dependence, uncomplicated Current Visit: Yes Status: Chronic (2) PPD positive, treated Current Visit: Yes Status: Chronic (3) Alcohol dependence with uncomplicated withdrawal Current Visit: Yes Status: Acute (4) Schizoaffective disorder, bipolar type Current Visit: Yes Status: Chronic (5) Depression Current Visit: Yes Status: Chronic Qualifiers: Depression Type: unspecified Qualified Code(s): F32.9 - Major depressive disorder, single episode, unspecified (6) Atrial fibrillation with RVR Current Visit: Yes Status: Chronic Cleared for Admission [facility] - Detox or Rehab [facility] Level of Care: Medically Managed Detox Regimen/Protocol: Librium [facility] Breath Alcohol Content Breath Alcohol Content: 0.177 Urine Drug Screen - Results Drug Screen Negative: No Urine Drug Screen Results: DOUGLAS-Cocaine
[2018-04-08] MEDS ORDERED: IBUPROFEN 400 MG TABLET (FP) PO PRN (13:22)
[2018-04-08] MEDS ORDERED: NICOTINE POLACRILEX 2 MG GUM BUC PRN (13:22)
[2018-04-08] MEDS ORDERED: LOPERAMIDE HCL 2 MG CAPSULE PO PRN (13:22)
[2018-04-08] MEDS ORDERED: P-EPHED 60MG/TRIPROLIDI 2.5MG TABLET PO PRN (13:22)
[2018-04-08] MEDS ORDERED: MAGNESIUM HYDROX 2400MG/30ML ORAL SUSPENSION 30 ML CUP PO PRN (13:22)
[2018-04-08] MEDS ORDERED: hydrOXYzine PAMOATE 25 MG CAPSULE (FP) PO PRN (13:22)
[2018-04-08] MEDS ORDERED: guaiFENesin/D-METHORPHAN HB 10 ML UNIT-DOSE CUPS PO PRN (13:22)
[2018-04-08] MEDS ORDERED: MAG HYDROX/AL HYDROX/SIMETH 30 ML UNIT-DOSE CUP PO PRN (13:22)
[2018-04-08] MEDS ORDERED: ACETAMINOPHEN 325 MG TABLET (FP) PO PRN (13:22)
[2018-04-08] MEDS ORDERED: MENTHOL/PHENOL 1 EACH UD MM PRN (13:22)
[2018-04-08] MEDS ORDERED: MAGNESIUM CITRATE 300 ML BOTTLE PO PRN (13:22)
[2018-04-08] MEDS ORDERED: chlordiazePOXIDE HCL 25 MG CAPSULE PO PRN (13:25)
[2018-04-08 14:46] LABS: HEMATOCRIT 38.2 % (35.4-49); HEMOGLOBIN 13.1 GM/dL (11.7-16.9); MCH 32.5 pg (25.7-33.7); MCHC 34.2 g/dl (32.0-35.9); MEAN PLT VOLUME 6.5 fl (7.5-11.1); PLATELET COUNT 527 K/MM3 (134-434); RBC 4.03 M/mm3 (4.00-5.60); RDW 17.8 % (11.9-15.9); WHITE BLOOD COUNT 4.6 K/mm3 (4.0-10.0)
[2018-04-08 14:53] LABS: ALBUMIN 3.6 g/dl (3.4-5.0); ALK PHOS 61 U/L (45-117); ANION GAP 9 MMOL/L (8-16); BILIRUBIN,TOTAL 0.3 mg/dL (0.2-1); BLOOD UREA NITROGEN 6 mg/dL (7-18); CALCIUM 9.1 mg/dL (8.5-10.1); CHLORIDE 105 mmol/L (98-107); CO2 24 mmol/L (21-32); CREATININE 0.9 mg/dL (0.55-1.3); GLUCOSE,RANDOM 99 mg/dL (74-106); SGOT/AST 31 U/L (15-37); SGPT/ALT 17 U/L (13-61); SODIUM 138 mmol/L (136-145); TOT PROT 7.9 g/dl (6.4-8.2)
[2018-04-08 17:17] LABS: URINE APPEARANCE CLEAR; URINE BILIRUBIN NEGATIVE (<2.0 mg/dL); URINE COLOR STRAW; URINE GLUCOSE (UA) NEGATIVE (NEGATIVE); URINE KETONE NEGATIVE (NEGATIVE); URINE LEUK ESTERASE NEGATIVE (NEGATIVE); URINE NITRITE NEGATIVE (NEGATIVE); URINE PROTEIN NEGATIVE (NEGATIVE); URINE UROBILINOGEN NEGATIVE mg/dL (0.2-1.0)
[2018-04-08 17:33] LABS: EPI CELLS RARE /HPF (FEW); URINE MUCUS RARE
[2018-04-08] MEDS: chlordiazePOXIDE HCL 25 MG CAPSULE PO SCH ×2 (18:30→23:38)
[2018-04-08] MEDS: THIAMINE HCL 100 MG TABLET (FP) PO SCH (23:38)
[2018-04-09] MEDS: chlordiazePOXIDE HCL 25 MG CAPSULE PO SCH ×4 (06:18→22:18)
--- NOTE | 2018-04-09 07:41 | CONSULT ---
[facility] Psychiatric Consult - Data Date of interview: 04/09/18 Admission source: [facility] Identifying data: This is a 52 years old male, single father of two, ,living alone, unemployed, on PA, with psychiatric hospitalization history, history of Bipolar Disorder/ Schizoaffective diosrder, with long history of Alcohol and Nicotine dependence, is here presenting withdrawal symptoms and seeking detox. Patient denies suicidal and homicidal history. Substance Abuse History: - Smoking Cessation. Smoking history: Current every day smoker. Have you smoked in the past 12 months: Yes. Aproximately how many cigarettes per day: 10. Cigars Per Day: 0. Hx Chewing Tobacco Use: No. Initiated information on smoking cessation: Yes. 'Breaking Loose' booklet given : 04/08/18. - Substance & Tx. History. Hx Alcohol Use: Yes. Hx Substance Use : Yes. Substance Use Type: Alcohol, Cocaine. 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 Patient reports currently taking: Prozac 20mg poqd. [place] 300mg po tid. Seroquel 100mg po qhs. Reports not taking [place] for the las 2 weeks. Rec: Blood [place] level. [place] 300mg po bid. Prozac 20mg poqd. Seroquel 100mg po qhs Physical/Sexual Abuse/Trauma History: Unclear Additional Comment: Rec: Blood [place] level. [place] 300mg po bid. Prozac 20mg poqd. Seroquel 100mg po qhs Mental Status Exam - Mental Status Exam Alert and Oriented to: Person Cognitive Function: Fair Patient Appearance: Unkempt Mood: Suspicious Affect: Constricted Patient Behavior: Cooperative Speech Pattern: Delayed Voice Loudness: Normal Thought Process: Circumstantial Thought Disorder: Being Controlled Hallucinations: Denies Suicidal Ideation: Denies Homicidal Ideation: Denies Insight/Judgement: Fair Sleep: Difficulty falling asleep Appetite: Weight loss Muscle strength/Tone: Mild Hypotonicity Gait/Station: Shuffling Additional Comments: Rec: Blood [place] level. [place] 300mg po bid. Prozac 20mg poqd. Seroquel 100mg po qhs Psychiatric Findings - Problem List ([place] 1, 2,3) (1) Alcohol dependence with uncomplicated withdrawal Current Visit: Yes Status: Acute (2) Cocaine dependence, uncomplicated Current Visit: Yes Status: Chronic (3) Schizoaffective disorder, bipolar type Current Visit: Yes Status: Chronic (4) Abnormal EKG Current Visit: No Status: Acute (5) Alcohol-induced mood disorder Current Visit: No Status: Acute (6) Delirium Current Visit: No Status: Acute (7) Drug-induced mood disorder Current Visit: No Status: Acute Comment: . (8) Non-compliance with treatment Current Visit: No Status: Acute (9) Right wrist injury Current Visit: No Status: Acute Qualifiers: Encounter type: initial encounter Qualified Code(s): S69.91XA - Unspecified injury of right wrist, hand and finger(s), initial encounter (10) Substance induced mood disorder Current Visit: No Status: Acute (11) Substance-induced sleep disorder Current Visit: No Status: Acute (12) Weight loss Current Visit: No Status: Acute (13) Bipolar II disorder Current Visit: No Status: Chronic (14) PTSD (post-traumatic stress disorder) Current Visit: No Status: Chronic - Initial Treatment Plan Initial Treatment Plan: Rec: Blood [place] level. [place] 300mg po bid. Prozac 20mg poqd. Seroquel 100mg po qhs
--- NOTE | 2018-04-09 11:16 | PN ---
[facility] CIWA - CIWA Score Nausea/Vomitin-No Nausea/No Vomiting Muscle Tremors: 3 Anxiety: 3 Agitation: 4-Moderately Restless Paroxysmal Sweats: 3 Orientation: 0-Oriented Tacttile Disturbances: 0-None Auditory Disturbances: 0-None Visual Disturbances: 0-None Headache: 0-None Present CIWA-Ar Total Score: 13 BHS Progress Note (SOAP) Subjective: sweats shakes interrupted sleep agitation Objective: 04/09/18 11:15 Vital Signs Temperature 98.2 F 04/09/18 10:56 Pulse Rate 96 H 04/09/18 10:56 Respiratory Rate 17 04/09/18 10:56 Blood Pressure 118/71 04/09/18 10:56 O2 Sat by Pulse Oximetry (%) Laboratory Tests 04/08/18 04/08/18 04/08/18 13:30 13:30 13:30 WBC 4.6 RBC 4.03 Hgb 13.1 Hct 38.2 MCV 95.0 MCH 32.5 MCHC 34.2 RDW 17.8 H Plt Count 527 H D MPV 6.5 L D Sodium 138 Potassium 4.0 Chloride 105 Carbon Dioxide 24 Anion Gap 9 BUN 6 L Creatinine 0.9 Creat Clearance w eGFR > 60 Random Glucose 99 Calcium 9.1 Total Bilirubin 0.3 AST 31 ALT 17 Alkaline Phosphatase 61 Total Protein 7.9 Albumin 3.6 Urine Color Urine Appearance Urine pH Ur Specific [place] Urine Protein Urine Glucose (UA) Urine Ketones Urine Blood Urine Nitrite Urine Bilirubin Urine Urobilinogen Ur Leukocyte Esterase Urine WBC (Auto) Urine RBC (Auto) Ur Epithelial Cells Urine Mucus RPR Titer Nonreactive 04/08/18 15:35 WBC RBC Hgb Hct MCV MCH MCHC RDW Plt Count MPV Sodium Potassium Chloride Carbon Dioxide Anion Gap BUN Creatinine Creat Clearance w eGFR Random Glucose Calcium Total Bilirubin AST ALT Alkaline Phosphatase Total Protein Albumin Urine Color Straw Urine Appearance Clear Urine pH 6.0 Ur Specific [place] 1.005 L Urine Protein Negative Urine Glucose (UA) Negative Urine Ketones Negative Urine Blood 1+ H Urine Nitrite Negative Urine Bilirubin Negative Urine Urobilinogen Negative Ur Leukocyte Esterase Negative Urine WBC (Auto) 1 Urine RBC (Auto) <1 Ur Epithelial Cells Rare Urine Mucus Rare RPR Titer aaox3 ambulating no acute distress repeat cbc d/t elevated platelets Assessment: 04/09/18 11:16 withdrawal sx Plan: continue detox increase fluids f/u pending labs
--- NOTE | 2018-04-09 12:13 | EKG ---
Test Reason : Blood Pressure : / mmHG Vent. Rate : 089 BPM Atrial Rate : 089 BPM P-R Int : 128 ms QRS Dur : 086 ms QT Int : 370 ms P-R-T Axes : 077 085 075 degrees QTc Int : 450 ms NORMAL SINUS RHYTHM NONSPECIFIC T WAVE ABNORMALITY ABNORMAL ECG WHEN COMPARED WITH ECG OF 23-FEB-2018 16:42, NONSPECIFIC T WAVE ABNORMALITY NOW EVIDENT IN LATERAL LEADS Confirmed by NEY JEAN-BAPTISTE, YENY ([id number]) on 04/09/2018 12:13:31 PM Referred By: Confirmed By:YENY BREWSTER MD
[2018-04-09] MEDS: LITHIUM CARBONATE 300 MG CAPSULE (FP) PO SCH ×2 (12:23→22:18)
[2018-04-09] MEDS: FLUoxetine HCL 20 MG CAPSULE (FP) PO SCH (12:23)
[2018-04-09] MEDS: ASPIRIN 81 MG CHEWABLE TABLETS PO SCH (12:23)
[2018-04-09] MEDS: PRENATAL VITAMINS W/ FOLIC ACID TABLET (FP) PO SCH (12:23)
[2018-04-09] MEDS: THIAMINE HCL 100 MG TABLET (FP) PO SCH (22:18)
[2018-04-09] MEDS: QUEtiapine FUMARATE 100 MG TABLET (FP) PO SCH (22:18)
[2018-04-09] MEDS: MELATONIN 5 MG TABLETS PO PRN (22:19)
[2018-04-10] MEDS: chlordiazePOXIDE HCL 25 MG CAPSULE PO SCH ×2 (07:57→10:17)
[2018-04-10 10:04] LABS: BASO % 0.2 % (0-2.0); EOS % 3.8 % (0-4.5); HEMATOCRIT 38.9 % (35.4-49); HEMOGLOBIN 12.7 GM/dL (11.7-16.9); LYMPH % 43.1 % (8-40); MCH 31.7 pg (25.7-33.7); MCHC 32.8 g/dl (32.0-35.9); MEAN CELL VOLUME 96.8 fl (80-96); MEAN PLT VOLUME 6.8 fl (7.5-11.1); MONO % 10.7 % (3.8-10.2); NEUT % 42.2 % (42.8-82.8); PLATELET COUNT 460 K/MM3 (134-434); RBC 4.02 M/mm3 (4.00-5.60); RDW 17.5 % (11.9-15.9); WHITE BLOOD COUNT 3.8 K/mm3 (4.0-10.0)
[2018-04-10] MEDS: PRENATAL VITAMINS W/ FOLIC ACID TABLET (FP) PO SCH (10:14)
[2018-04-10] MEDS: ASPIRIN 81 MG CHEWABLE TABLETS PO SCH (10:14)
[2018-04-10] MEDS: FLUoxetine HCL 20 MG CAPSULE (FP) PO SCH (10:15)
[2018-04-10] MEDS: LITHIUM CARBONATE 300 MG CAPSULE (FP) PO SCH ×2 (10:15→22:20)
--- NOTE | 2018-04-10 12:13 | PN ---
S CIWA - CIWA Score Nausea/Vomitin-No Nausea/No Vomiting Muscle Tremors: 4-Moderate,w/Arms Extend Anxiety: 3 Agitation: 4-Moderately Restless Paroxysmal Sweats: 2 Orientation: 0-Oriented Tacttile Disturbances: 0-None Auditory Disturbances: 0-None Visual Disturbances: 0-None Headache: 0-None Present CIWA-Ar Total Score: 13 BHS Progress Note (SOAP) Subjective: irritable agitation sweats body aches Objective: 04/10/18 12:12 Vital Signs Temperature 97.9 F 04/10/18 10:17 Pulse Rate 61 04/10/18 10:17 Respiratory Rate 16 04/10/18 10:17 Blood Pressure 134/78 04/10/18 10:17 O2 Sat by Pulse Oximetry (%) Laboratory Tests 04/08/18 04/08/18 04/08/18 13:30 13:30 13:30 WBC 4.6 RBC 4.03 Hgb 13.1 Hct 38.2 MCV 95.0 MCH 32.5 MCHC 34.2 RDW 17.8 H Plt Count 527 H D MPV 6.5 L D Absolute Neuts (auto) Neutrophils % Lymphocytes % Monocytes % Eosinophils % Basophils % Nucleated RBC % Sodium 138 Potassium 4.0 Chloride 105 Carbon Dioxide 24 Anion Gap 9 BUN 6 L Creatinine 0.9 Creat Clearance w eGFR > 60 Random Glucose 99 Calcium 9.1 Total Bilirubin 0.3 AST 31 ALT 17 Alkaline Phosphatase 61 Total Protein 7.9 Albumin 3.6 Urine Color Urine Appearance Urine pH Ur Specific [place] Urine Protein Urine Glucose (UA) Urine Ketones Urine Blood Urine Nitrite Urine Bilirubin Urine Urobilinogen Ur Leukocyte Esterase Urine WBC (Auto) Urine RBC (Auto) Ur Epithelial Cells Urine Mucus [place] RPR Titer Nonreactive 04/08/18 04/09/18 04/10/18 15:35 09:00 07:00 WBC 3.8 L RBC 4.02 Hgb 12.7 Hct 38.9 MCV 96.8 H MCH 31.7 MCHC 32.8 RDW 17.5 H Plt Count 460 H MPV 6.8 L Absolute Neuts (auto) 1.6 Neutrophils % 42.2 L D Lymphocytes % 43.1 H D Monocytes % 10.7 H Eosinophils % 3.8 D Basophils % 0.2 Nucleated RBC % 0 Sodium Potassium Chloride Carbon Dioxide Anion Gap BUN Creatinine Creat Clearance w eGFR Random Glucose Calcium Total Bilirubin AST ALT Alkaline Phosphatase Total Protein Albumin Urine Color Straw Urine Appearance Clear Urine pH 6.0 Ur Specific [place] 1.005 L Urine Protein Negative Urine Glucose (UA) Negative Urine Ketones Negative Urine Blood 1+ H Urine Nitrite Negative Urine Bilirubin Negative Urine Urobilinogen Negative Ur Leukocyte Esterase Negative Urine WBC (Auto) 1 Urine RBC (Auto) <1 Ur Epithelial Cells Rare Urine Mucus Rare [place] 0 L RPR Titer aaox3 ambulating no acute distress Assessment: 04/10/18 12:13 withdrawal sx Plan: continue detox increase fluids platelets improving.
[2018-04-10] MEDS: chlordiazePOXIDE 5 MG CAPSULE PO SCH ×2 (18:18→22:19)
[2018-04-10] MEDS: THIAMINE HCL 100 MG TABLET (FP) PO SCH (22:19)
[2018-04-10] MEDS: QUEtiapine FUMARATE 100 MG TABLET (FP) PO SCH (22:21)
[2018-04-10] MEDS: MELATONIN 5 MG TABLETS PO PRN (22:21)
[2018-04-11] MEDS: chlordiazePOXIDE 5 MG CAPSULE PO SCH ×2 (06:17→11:01)
[2018-04-11] MEDS: PRENATAL VITAMINS W/ FOLIC ACID TABLET (FP) PO SCH (11:01)
[2018-04-11] MEDS: ASPIRIN 81 MG CHEWABLE TABLETS PO SCH (11:01)
[2018-04-11] MEDS: LITHIUM CARBONATE 300 MG CAPSULE (FP) PO SCH ×2 (11:01→22:03)
[2018-04-11] MEDS: FLUoxetine HCL 20 MG CAPSULE (FP) PO SCH (11:02)
--- NOTE | 2018-04-11 15:04 | PN ---
[facility] Progress Note Note: fatigue, irritable, body aches Vital Signs Temperature 97.1 F L 04/11/18 10:52 Pulse Rate 69 04/11/18 10:52 Respiratory Rate 16 04/11/18 10:52 Blood Pressure 144/71 04/11/18 10:52 O2 Sat by Pulse Oximetry (%) Laboratory Last Values WBC 3.8 K/mm3 (4.0-10.0) L 04/10/18 07:00 RBC 4.02 M/mm3 (4.00-5.60) 04/10/18 07:00 Hgb 12.7 GM/dL (11.7-16.9) 04/10/18 07:00 Hct 38.9 % (35.4-49) 04/10/18 07:00 MCV 96.8 fl (80-96) H 04/10/18 07:00 MCH 31.7 pg (25.7-33.7) 04/10/18 07:00 MCHC 32.8 g/dl (32.0-35.9) 04/10/18 07:00 RDW 17.5 % (11.9-15.9) H 04/10/18 07:00 Plt Count 460 K/MM3 (134-434) H 04/10/18 07:00 MPV 6.8 fl (7.5-11.1) L 04/10/18 07:00 Absolute Neuts (auto) 1.6 K/mm3 (1.5-8.0) 04/10/18 07:00 Neutrophils % 42.2 % (42.8-82.8) L D 04/10/18 07:00 Lymphocytes % 43.1 % (8-40) H D 04/10/18 07:00 Monocytes % 10.7 % (3.8-10.2) H 04/10/18 07:00 Eosinophils % 3.8 % (0-4.5) D 04/10/18 07:00 Basophils % 0.2 % (0-2.0) 04/10/18 07:00 Nucleated RBC % 0 % (0-0) 04/10/18 07:00 Sodium 138 mmol/L (136-145) 04/08/18 13:30 Potassium 4.0 mmol/L (3.5-5.1) 04/08/18 13:30 Chloride 105 mmol/L (98-107) 04/08/18 13:30 Carbon Dioxide 24 mmol/L (21-32) 04/08/18 13:30 Anion Gap 9 MMOL/L (8-16) 04/08/18 13:30 BUN 6 mg/dL (7-18) L 04/08/18 13:30 Creatinine 0.9 mg/dL (0.55-1.3) 04/08/18 13:30 Creat Clearance w eGFR > 60 (>60) 04/08/18 13:30 Random Glucose 99 mg/dL (74-106) 04/08/18 13:30 Calcium 9.1 mg/dL (8.5-10.1) 04/08/18 13:30 Total Bilirubin 0.3 mg/dL (0.2-1) 04/08/18 13:30 AST 31 U/L (15-37) 04/08/18 13:30 ALT 17 U/L (13-61) 04/08/18 13:30 Alkaline Phosphatase 61 U/L (45-117) 04/08/18 13:30 Total Protein 7.9 g/dl (6.4-8.2) 04/08/18 13:30 Albumin 3.6 g/dl (3.4-5.0) 04/08/18 13:30 Urine Color Straw 04/08/18 15:35 Urine Appearance Clear 04/08/18 15:35 Urine pH 6.0 (5.0-8.0) 04/08/18 15:35 Ur Specific [place] 1.005 (1.010-1.035) L 04/08/18 15:35 Urine Protein Negative (NEGATIVE) 04/08/18 15:35 Urine Glucose (UA) Negative (NEGATIVE) 04/08/18 15:35 Urine Ketones Negative (NEGATIVE) 04/08/18 15:35 Urine Blood 1+ (NEGATIVE) H 04/08/18 15:35 Urine Nitrite Negative (NEGATIVE) 04/08/18 15:35 Urine Bilirubin Negative (<2.0 mg/dL) 04/08/18 15:35 Urine Urobilinogen Negative mg/dL (0.2-1.0) 04/08/18 15:35 Ur Leukocyte Esterase Negative (NEGATIVE) 04/08/18 15:35 Urine WBC (Auto) 1 /hpf (3-5) 04/08/18 15:35 Urine RBC (Auto) <1 /hpf (0-3) 04/08/18 15:35 Ur Epithelial Cells Rare /HPF (FEW) 04/08/18 15:35 Urine Mucus Rare 04/08/18 15:35 [place] 0 MEQ/L (0.6-1.2) L 04/09/18 09:00 RPR Titer Nonreactive (NONREACTIVE) 04/08/18 13:30 Aox3 no distress skin intact full ROM ambulating in the unit withdrawal sx increase fluids continue detox continue to monitor
[2018-04-11] MEDS: chlordiazePOXIDE HCL 10 MG CAPSULE PO SCH ×2 (18:02→22:03)
[2018-04-11] MEDS: QUEtiapine FUMARATE 100 MG TABLET (FP) PO SCH (22:03)
[2018-04-11] MEDS: MELATONIN 5 MG TABLETS PO PRN (22:03)
[2018-04-11] MEDS: THIAMINE HCL 100 MG TABLET (FP) PO SCH (22:03)
[2018-04-12] MEDS: chlordiazePOXIDE HCL 10 MG CAPSULE PO SCH (06:21)
[2018-04-12 08:06] VITALS: BP 121/65; PULSE 61; TEMP 97.2
--- NOTE | 2018-04-12 09:26 | DS ---
[facility] Detox Discharge Summary Admission Date: 04/08/18 Discharge Date: 04/12/18 - History Present History: Alcohol Dependence Additional Comments: 52 years old male admitted on 04/08/18 for alcohol withdrawal sx completed detox regimen tolerated well denies alcohol withdrawal sx alert o riented x 3 no acute distress aftercare [place] - Physical Exam Results Vital Signs: Vital Signs Temperature 97.2 F L 04/12/18 08:05 Pulse Rate 61 04/12/18 08:05 Respiratory Rate 18 04/12/18 08:05 Blood Pressure 121/65 04/12/18 08:05 O2 Sat by Pulse Oximetry (%) Pertinent Admission Physical Exam Findings: alcohol withdrwaal sx Vital Signs Temperature 97.2 F L 04/12/18 08:05 Pulse Rate 61 04/12/18 08:05 Respiratory Rate 18 04/12/18 08:05 Blood Pressure 121/65 04/12/18 08:05 O2 Sat by Pulse Oximetry (%) Laboratory Last Values WBC 3.8 K/mm3 (4.0-10.0) L 04/10/18 07:00 RBC 4.02 M/mm3 (4.00-5.60) 04/10/18 07:00 Hgb 12.7 GM/dL (11.7-16.9) 04/10/18 07:00 Hct 38.9 % (35.4-49) 04/10/18 07:00 MCV 96.8 fl (80-96) H 04/10/18 07:00 MCH 31.7 pg (25.7-33.7) 04/10/18 07:00 MCHC 32.8 g/dl (32.0-35.9) 04/10/18 07:00 RDW 17.5 % (11.9-15.9) H 04/10/18 07:00 Plt Count 460 K/MM3 (134-434) H 04/10/18 07:00 MPV 6.8 fl (7.5-11.1) L 04/10/18 07:00 Absolute Neuts (auto) 1.6 K/mm3 (1.5-8.0) 04/10/18 07:00 Neutrophils % 42.2 % (42.8-82.8) L D 04/10/18 07:00 Lymphocytes % 43.1 % (8-40) H D 04/10/18 07:00 Monocytes % 10.7 % (3.8-10.2) H 04/10/18 07:00 Eosinophils % 3.8 % (0-4.5) D 04/10/18 07:00 Basophils % 0.2 % (0-2.0) 04/10/18 07:00 Nucleated RBC % 0 % (0-0) 04/10/18 07:00 Sodium 138 mmol/L (136-145) 04/08/18 13:30 Potassium 4.0 mmol/L (3.5-5.1) 04/08/18 13:30 Chloride 105 mmol/L (98-107) 04/08/18 13:30 Carbon Dioxide 24 mmol/L (21-32) 04/08/18 13:30 Anion Gap 9 MMOL/L (8-16) 04/08/18 13:30 BUN 6 mg/dL (7-18) L 04/08/18 13:30 Creatinine 0.9 mg/dL (0.55-1.3) 04/08/18 13:30 Creat Clearance w eGFR > 60 (>60) 04/08/18 13:30 Random Glucose 99 mg/dL (74-106) 04/08/18 13:30 Calcium 9.1 mg/dL (8.5-10.1) 04/08/18 13:30 Total Bilirubin 0.3 mg/dL (0.2-1) 04/08/18 13:30 AST 31 U/L (15-37) 04/08/18 13:30 ALT 17 U/L (13-61) 04/08/18 13:30 Alkaline Phosphatase 61 U/L (45-117) 04/08/18 13:30 Total Protein 7.9 g/dl (6.4-8.2) 04/08/18 13:30 Albumin 3.6 g/dl (3.4-5.0) 04/08/18 13:30 Urine Color Straw 04/08/18 15:35 Urine Appearance Clear 04/08/18 15:35 Urine pH 6.0 (5.0-8.0) 04/08/18 15:35 Ur Specific [place] 1.005 (1.010-1.035) L 04/08/18 15:35 Urine Protein Negative (NEGATIVE) 04/08/18 15:35 Urine Glucose (UA) Negative (NEGATIVE) 04/08/18 15:35 Urine Ketones Negative (NEGATIVE) 04/08/18 15:35 Urine Blood 1+ (NEGATIVE) H 04/08/18 15:35 Urine Nitrite Negative (NEGATIVE) 04/08/18 15:35 Urine Bilirubin Negative (<2.0 mg/dL) 04/08/18 15:35 Urine Urobilinogen Negative mg/dL (0.2-1.0) 04/08/18 15:35 Ur Leukocyte Esterase Negative (NEGATIVE) 04/08/18 15:35 Urine WBC (Auto) 1 /hpf (3-5) 04/08/18 15:35 Urine RBC (Auto) <1 /hpf (0-3) 04/08/18 15:35 Ur Epithelial Cells Rare /HPF (FEW) 04/08/18 15:35 Urine Mucus Rare 04/08/18 15:35 [place] 0 MEQ/L (0.6-1.2) L 04/09/18 09:00 RPR Titer Nonreactive (NONREACTIVE) 04/08/18 13:30 lab noted - Treatment Hospital Course: Detox Protocol Followed, Detoxed Safely, Responded well, Discharged Condition Good, Rehab Referral Accepted Patient has Accepted a Rehab Referral to: [facility] - Medication Discharge Medications: Ambulatory Orders [place] Carbonate [Lithobid] 300 mg PO TID #90 tablet.er 12/24/17 Aspirin [ASA -] 81 mg PO DAILY #30 tab.chew 12/26/17 Fluoxetine HCl [Prozac -] 20 mg PO DAILY #30 tab 01/25/18 Quetiapine Fumarate [Seroquel] 100 mg PO HS #30 tablet 01/25/18 Fluoxetine HCl [Prozac -] 20 mg PO DAILY #30 capsule 04/09/18 [place] Carbonate [Eskalith -] 300 mg PO BID #60 capsule 04/09/18 Quetiapine Fumarate [Seroquel] 100 mg PO HS #30 tablet 04/09/18 Diltiazem HCl [Diltiazem 24Hr ER] 120 mg PO DAILY #30 cap.er.24h 04/12/18 - Diagnosis (1) Drug-induced mood disorder Status: Suspected (2) Nicotine dependence Status: Acute Qualifiers: Nicotine product type: cigarettes Substance use status: in withdrawal Qualified Code(s): F17.213 - Nicotine dependence, cigarettes, with withdrawal (3) Substance induced mood disorder Status: Suspected (4) Weight loss Status: Acute (5) Bipolar II disorder Status: Suspected (6) GERD (gastroesophageal reflux disease) Status: Chronic Qualifiers: Esophagitis presence: without esophagitis Qualified Code(s): K21.9 - Gastro -esophageal reflux disease without esophagitis (7) PPD positive, treated Status: Resolved (8) Sedative hypnotic or anxiolytic dependence Status: Acute - AMA Did Patient Leave Against Medical Advice: No
== END 2018-04-12 08:48 | disposition home or self-care (01) | DRG 774 ==
LOC: YASAS 11:27 → Y6N 14:17
PROC: HZ2ZZZZ Detoxification Services for Substance Abuse Treatment (ICD-10-PCS; principal; 2018-04-08)
DX: F10.230 Alcohol dependence with withdrawal, uncomplicated (principal); F13.20 Sedative, hypnotic or anxiolytic dependence, uncomplicated; F14.20 Cocaine dependence, uncomplicated; F17.213 Nicotine dependence, cigarettes, with withdrawal; F19.282 Other psychoactive substance dependence with psychoactive substance-induced sleep disorder; F19.24 Other psychoactive substance dependence with psychoactive substance-induced mood disorder; F31.81 Bipolar II disorder; F43.10 Post-traumatic stress disorder, unspecified; F25.0 Schizoaffective disorder, bipolar type; F32.9 Major depressive disorder, single episode, unspecified; K21.9 Gastro-esophageal reflux disease without esophagitis; R41.0 Disorientation, unspecified; R76.11 Nonspecific reaction to tuberculin skin test without active tuberculosis; R31.29 Other microscopic hematuria; R63.4 Abnormal weight loss; Z68.22 Body mass index [BMI] 22.0-22.9, adult; S69.81XA Other specified injuries of right wrist, hand and finger(s), initial encounter; X58.XXXA Exposure to other specified factors, initial encounter; Y93.89 Activity, other specified; Y92.89 Other specified places as the place of occurrence of the external cause; Y99.8 Other external cause status; I48.91 Unspecified atrial fibrillation
CPT/HCPCS: 36415; 80053; 80178; 81003; 81015; 85025; 85027; 86593; 93005; 93010

== ENCOUNTER 2018-05-14 10:39 | Inpatient (IN) | payer BC ==
[2018-05-14 11:42] VITALS: BMI 21.2
--- NOTE | 2018-05-14 11:54 | HP ---
CIWA Score Nausea/Vomitin Muscle Tremors: 2 Anxiety: 2 Agitation: 2 Paroxysmal Sweats: 1-Minimal Palms Moist Orientation: 0-Oriented Tacttile Disturbances: 1-Very Mild Itch/Numbness Auditory Disturbances: 1-Very Mild Visual Disturbances: 0-None Headache: 2-Mild CIWA-Ar Total Score: 13 - Admission Criteria OASAS Guidelines: Admission for Medically Managed Detox: Requires at least one of the followin. CIWA greater than 12 2. Seizures within the past 24 hours 3. Delirium tremens within the past 24 hours 4. Hallucinations within the past 24 hours 5. Acute intervention needed for co occurring medical disorder 6. Acute intervention needed for co occurring psychiatric disorder 7. Severe withdrawal that cannot be handled at a lower level of care (continued vomiting, continued diarrhea, abnormal vital signs) requiring intravenous medication and/or fluids 8. Patient presents the following: CIWA greater than 12 Admission Criteria Met: Admission criteria met Admission ROS [facility] - HPI Chief Complaint: i need help to stop drinking alcohol and cocaine Allergies/Adverse Reactions: Allergies Allergy/AdvReac Type Severity Reaction Status Date / Time No Known Allergies Allergy Verified 05/14/18 11:39 History of Present Illness: this 52 years old male with alcohol and cocaine dependence seeking detox, withdrawal symptom,last detox [facility] 04/08/18 to 04/12/18 syncope alcohol related history of atrial fibrillation bipolar disorder,anxiety,depression, no medication weight loss longest period of sobriety 1 year - Ebola screening Have you traveled outside of the country in the last 21 days: No Have you had contact with anyone from an Ebola affected area: No Have you been sick,other than usual withdrawal symptoms: No Do you have a fever: No - Review of Systems Constitutional: Loss of Appetite, Malaise, Night Sweats, Changes in sleep, Weakness, Unintentional Wgt. Loss EENT: reports: Nose Congestion Respiratory: reports: No Symptoms reported Cardiac: reports: Other (atrial fibrillation) GI: reports: Nausea, Abdominal cramping : reports: No Symptoms Reported Musculoskeletal: reports: Back Pain, Muscle Pain Integumentary: reports: Dryness Neuro: reports: Headache, Tremors Endocrine: reports: No Symptoms Reported Hematology: reports: No Symptoms Reported Psychiatric: reports: No Sypmtoms Reported, Judgement Intact, Mood/Affect Appropiate, Orientated x3 Patient History - Patient Medical History Hx Anemia: No Hx Asthma: No Hx Chronic Obstructive Pulmonary Disease (COPD): No Hx Cancer: No Hx Cardiac Disorders: Yes (HX AFIB) Hx Congestive Heart Failure: No Hx Hypertension: No Hx Hypercholesterolemia: No Hx Pacemaker: No HX Cerebrovascular Accident: No Hx Seizures: No Hx Dementia: No Hx Diabetes: No Hx Gastrointestinal Disorders: No Hx Liver Disease: Yes (elevated LFTs when drinking) Hx Genitourinary Disorders: No Hx Sexually Transmitted Disorders: No (DENIES) Hx Renal Disease (ESRD): No Hx Thyroid Disease: No Hx Human Immunodeficiency Virus (HIV): No (NEGATIVE HX last 04/16) Hx Hepatitis C: No (NEGATIVE.) Hx Depression: Yes Hx Suicide Attempt: No (DENIES S/I) Hx Bipolar Disorder: Yes (poor adherence to meds.) Hx Schizophrenia: No Other Medical History: no suicidal,no homicidal - Patient Surgical History Past Surgical History: No Hx Neurologic Surgery: No Hx Cataract Extraction: No Hx Cardiac Surgery: No Hx Lung Surgery: No Hx Breast Surgery: No Hx Breast Biopsy: No Hx Abdominal Surgery: No Hx Appendectomy: No Hx Cholecystectomy: No Hx Genitourinary Surgery: No Hx Section: No Hx Orthopedic Surgery: No Anesthesia Reaction: No - PPD History Previous Implant?: Yes Documented Results: Positive w/proof Implanted On Prior [facility] Admission?: No Results: CXR- 12/24/17 PPD to be Administered?: No - Smoking Cessation Smoking history: Current every day smoker Have you smoked in the past 12 months: Yes Aproximately how many cigarettes per day: 10 Cigars Per Day: 0 Hx Chewing Tobacco Use: No Initiated information on smoking cessation: Yes 'Breaking Loose' booklet given: 05/14/18 - Substance & Tx. History Hx Alcohol Use: Yes Hx Substance Use: Yes Substance Use Type: Alcohol, Cocaine Hx Substance Use Treatment: Yes ([facility] 04/08/18 to 04/12/18) - Substances Abused Cocaine Route: Inhalation Frequency: 1-2 times per week Amount used: $20 Age of first use: 22 Date of Last Use: 05/13/18 Alcohol-beer Route: Oral Frequency: Daily Amount used: 2-6 pks. Age of first use: 17 Date of Last Use: 05/14/18 Family Disease History - Family Disease History Family Disease History: Diabetes: Father (, etoh), Other: Mother ( DEMENTIA ), Brother (no contact), Sister (three - healthy) Admission Physical Exam [facility] - Vital Signs Vital Signs: Vital Signs - 24 hr 05/14/18 11:40 Temperature 97.4 F L Pulse Rate 75 Respiratory 17 Rate Blood Pressure 138/91 - Physical General Appearance: Yes: Moderate Distress, Tremorous, Irritable, Anxious HEENTM: Yes: Normal ENT Inspection, TESSA, Pharynx Normal Respiratory: Yes: Within Normal Limits, Lungs Clear, Normal Breath Sounds Neck: Yes: Within Normal Limits, Supple, Trachea in good position Breast: Yes: Within Normal Limits Cardiology: Yes: Regular Rhythm, Regular Rate, S1, S2 Abdominal: Yes: Within Normal Limits, Normal Bowel Sounds, Soft Genitourinary: Yes: Within Normal Limits Back: Yes: Muscle Spasm Musculoskeletal: Yes: Back pain, Muscle Pain Extremities: Yes: Tremors Neurological: Yes: bread wrapper II-XII NML intact, Fully Oriented, Alert, Motor Strength 5/5 Integumentary: Yes: Dry Lymphatic: Yes: Within Normal Limits - Diagnostic (1) Alcohol dependence with uncomplicated withdrawal Current Visit: No Status: Chronic (2) Weight loss Current Visit: No Status: Acute (3) Alcohol dependence with intoxication Current Visit: No Status: Chronic Qualifiers: Complication of substance-induced condition: uncomplicated Qualified Code(s ): F10.220 - Alcohol dependence with intoxication, uncomplicated (4) History of atrial fibrillation Current Visit: Yes Status: Acute (5) Syncope Current Visit: Yes Status: Acute (6) Nicotine dependence Current Visit: No Status: Acute Qualifiers: Nicotine product type: cigarettes Substance use status: in withdrawal Qualified Code(s): F17.213 - Nicotine dependence, cigarettes, with withdrawal (7) Weight loss Current Visit: No Status: Acute (8) Bipolar disorder Current Visit: Yes Status: Acute (9) Insomnia secondary to depression with anxiety Current Visit: Yes Status: Acute Cleared for Admission [facility] - Detox or Rehab [facility] Level of Care: Medically Managed Detox Regimen/Protocol: Librium [facility] Breath Alcohol Content Breath Alcohol Content: 0.134 Urine Drug Screen - Results Drug Screen Negative: No Urine Drug Screen Results: DOUGLAS-Cocaine
[2018-05-14] MEDS ORDERED: ACETAMINOPHEN 325 MG TABLET (FP) PO PRN (12:14)
[2018-05-14] MEDS ORDERED: P-EPHED 60MG/TRIPROLIDI 2.5MG TABLET PO PRN (12:14)
[2018-05-14] MEDS ORDERED: MAG HYDROX/AL HYDROX/SIMETH 30 ML UNIT-DOSE CUP PO PRN (12:14)
[2018-05-14] MEDS ORDERED: chlordiazePOXIDE HCL 25 MG CAPSULE PO PRN (12:14)
[2018-05-14] MEDS ORDERED: MAGNESIUM HYDROX 2400MG/30ML ORAL SUSPENSION 30 ML CUP PO PRN (12:14)
[2018-05-14] MEDS ORDERED: IBUPROFEN 400 MG TABLET (FP) PO PRN (12:14)
[2018-05-14] MEDS ORDERED: guaiFENesin/D-METHORPHAN HB 10 ML UNIT-DOSE CUPS PO PRN (12:14)
[2018-05-14] MEDS ORDERED: MENTHOL/PHENOL 1 EACH UD MM PRN (12:14)
[2018-05-14] MEDS ORDERED: hydrOXYzine PAMOATE 50 MG CAPSULE (FP) PO PRN (12:14)
[2018-05-14] MEDS ORDERED: LOPERAMIDE HCL 2 MG CAPSULE PO PRN (12:14)
[2018-05-14] MEDS ORDERED: NICOTINE POLACRILEX 2 MG GUM BUC PRN (12:14)
[2018-05-14] MEDS ORDERED: MAGNESIUM CITRATE 300 ML BOTTLE PO PRN (12:14)
--- NOTE | 2018-05-14 14:14 | EKG ---
Test Reason : Blood Pressure : / mmHG Vent. Rate : 074 BPM Atrial Rate : 074 BPM P-R Int : 130 ms QRS Dur : 088 ms QT Int : 428 ms P-R-T Axes : 077 086 076 degrees QTc Int : 475 ms NORMAL SINUS RHYTHM NORMAL ECG WHEN COMPARED WITH ECG OF 08-APR-2018 15:19, NO SIGNIFICANT CHANGE WAS FOUND Confirmed by YENY BREWSTER MD ([id number]) on 05/14/2018 2:14:05 PM Referred By: Confirmed By:YENY BREWSTER MD
[2018-05-14] MEDS: ASPIRIN 81 MG CHEWABLE TABLETS PO SCH (15:41)
[2018-05-14] MEDS: NICOTINE 21 MG/24 HOURS TOPICAL PATCH TD SCH (15:42)
[2018-05-14] MEDS: chlordiazePOXIDE HCL 25 MG CAPSULE PO SCH ×2 (17:44→22:35)
--- NOTE | 2018-05-14 17:50 | PN ---
S Progress Note Note: Psychiatric nurse practitioner note: Percussion Teacher attempted to speak to quality analyst/technical writer concerning psychiatric consultation but patient was too tired and fell asleep during assessment. Psychiatric consultation deferred for 05/15/18.
[2018-05-14 21:30] LABS: URINE APPEARANCE CLEAR; URINE BILIRUBIN NEGATIVE (<2.0 mg/dL); URINE COLOR STRAW; URINE GLUCOSE (UA) NEGATIVE (NEGATIVE); URINE KETONE NEGATIVE (NEGATIVE); URINE LEUK ESTERASE NEGATIVE (NEGATIVE); URINE NITRITE NEGATIVE (NEGATIVE); URINE PROTEIN NEGATIVE (NEGATIVE); URINE UROBILINOGEN NEGATIVE mg/dL (0.2-1.0)
[2018-05-14] MEDS ORDERED: MELATONIN 5 MG TABLETS PO PRN (22:00)
[2018-05-14] MEDS: THIAMINE HCL 100 MG TABLET (FP) PO SCH (22:35)
[2018-05-15] MEDS: chlordiazePOXIDE HCL 25 MG CAPSULE PO SCH ×4 (07:20→22:11)
[2018-05-15 10:03] LABS: HEMATOCRIT 41.4 % (35.4-49); HEMOGLOBIN 13.5 GM/dL (11.7-16.9); MCH 31.6 pg (25.7-33.7); MCHC 32.6 g/dl (32.0-35.9); MEAN CELL VOLUME 96.9 fl (80-96); MEAN PLT VOLUME 7.2 fl (7.5-11.1); PLATELET COUNT 492 K/MM3 (134-434); RBC 4.27 M/mm3 (4.00-5.60); RDW 17.7 % (11.9-15.9); WHITE BLOOD COUNT 3.2 K/mm3 (4.0-10.0)
[2018-05-15] MEDS: ASPIRIN 81 MG CHEWABLE TABLETS PO SCH (10:21)
[2018-05-15] MEDS: NICOTINE 21 MG/24 HOURS TOPICAL PATCH TD SCH (10:22)
[2018-05-15] MEDS: PRENATAL VITAMINS W/ FOLIC ACID TABLET (FP) PO SCH (10:22)
--- NOTE | 2018-05-15 10:28 | PN ---
S CIWA - CIWA Score Nausea/Vomitin-No Nausea/No Vomiting Muscle Tremors: 3 Anxiety: 2 Agitation: 2 Paroxysmal Sweats: 2 Orientation: 0-Oriented Tacttile Disturbances: 0-None Auditory Disturbances: 0-None Visual Disturbances: 0-None Headache: 0-None Present CIWA-Ar Total Score: 9 [facility] Progress Note (SOAP) Subjective: PATIENT C/O SHAKES, SWEATS, CHILLS AND ANXIETY. Objective: 05/15/18 10:26 Vital Signs Temperature 98.2 F 05/15/18 09:33 Pulse Rate 63 05/15/18 09:33 Respiratory Rate 16 05/15/18 09:33 Blood Pressure 116/76 05/15/18 09:33 O2 Sat by Pulse Oximetry (%) Laboratory Tests 05/14/18 05/14/18 05/15/18 13:00 14:18 06:30 WBC 3.2 L RBC 4.27 Hgb 13.5 Hct 41.4 MCV 96.9 H MCH 31.6 MCHC 32.6 RDW 17.7 H Plt Count 492 H MPV 7.2 L Urine Color Straw Urine Appearance Clear Urine pH 6.0 Ur Specific [place] 1.005 L Urine Protein Negative Urine Glucose (UA) Negative Urine Ketones Negative Urine Blood Negative Urine Nitrite Negative Urine Bilirubin Negative Urine Urobilinogen Negative Ur Leukocyte Esterase Negative HIV 1&2 Antibody Screen Negative HIV P24 Antigen Negative PE: SKIN WARM, + FACIAL MOISTURE ALERT AND ORIENTED X 3 EXT FULL ROM, +TREMORS AMB AD JERRELL ANXIOUS 05/15/18 10:28 Assessment: 05/15/18 10:27 WITHDRAWAL SYNDROME Plan: CONTINUE DETOX REGIMEN ENCOURAGE ORAL FLUIDS CONTINUE TO MONITOR CLINICALLY
[2018-05-15 10:58] LABS: ALBUMIN 3.7 g/dl (3.4-5.0); ALK PHOS 50 U/L (45-117); ANION GAP 9 MMOL/L (8-16); BILIRUBIN,TOTAL 0.5 mg/dL (0.2-1); BLOOD UREA NITROGEN 6 mg/dL (7-18); CHLORIDE 102 mmol/L (98-107); CO2 27 mmol/L (21-32); CREATININE 0.7 mg/dL (0.55-1.3); GLUCOSE,RANDOM 71 mg/dL (74-106); POTASSIUM 5.3 mmol/L (3.5-5.1); SGOT/AST 21 U/L (15-37); SGPT/ALT 15 U/L (13-61); SODIUM 137 mmol/L (136-145); TOT PROT 7.6 g/dl (6.4-8.2)
[2018-05-15] MEDS ORDERED: FLU VACCINE QUAD 60 MCG/0.5 ML (MDV 18-19) IM ONE (12:00)
--- NOTE | 2018-05-15 14:18 | CONSULT ---
[facility] Psychiatric Consult - Data Date of interview: 05/15/18 Admission source: [facility] Identifying data: Readmission to [facility] for this 52 y/o AA male seeking detoxification treatment, on , for cocaine and alcohol dependence. Patient is , a father of one, domiciled, unemployed and supported on SSI benefits. Substance Abuse History: Confirmed by the patient in this session. Details in current [facility] report : Smoking history: Current every day smoker. Have you smoked in the past 12 months: Yes. Aproximately how many cigarettes per day: 10. Cigars Per Day: 0. Hx Chewing Tobacco Use: No. Initiated information on smoking cessation: Yes. 'Breaking Loose' booklet given: 05/14/18. - Substance & Tx. History. Hx Alcohol Use: Yes. Hx Substance Use: Yes. Substance Use Type : Alcohol, Cocaine. Hx Substance Use Treatment: Yes ([facility] 04/08/18 to 04/12/18) . - Substances Abused. Cocaine. Route: Inhalation. Frequency: 1-2 times per week. Amount used: $20. Age of first use: 22. Date of Last Use: . Alcohol-beer. Route: Oral. Frequency: Daily. Amount used: 2-6 pks. Age of first use: 17. Date of Last Use: 05/14/18 Medical History: History of atrial fibrillation, positive PPD and sporadic elevation of liver enzymes (alcohol-related). Psychiatric History: Patient endorses a history of multiple psychiatric hospitalizations. Diagnosed with Schizoaffective Disorder and PTSD. Chronically non-adherent to psychotropic medications + psychiatric OPD care. Lost to follow- up. Mr Reilly has no recollection of date of last medication intake. Offers no information about location or name of OPD program. Patient used to be followed at the [facility] clinic in the [place]. Discharged from [facility] in January 2018 on a regimen of prozac 20 mg/day + seroquel 100 mg/hs + lithium 600 mg/hs (as per records). Aftercare not followed as referred. No known history of suicide attempts. Physical/Sexual Abuse/Trauma History: No information. Additional Comment: Urine Drug Screen Results: DOUGLAS-Cocaine. Noted. Mental Status Exam - Mental Status Exam Alert and Oriented to: Time, Place, Person Cognitive Function: Grossly Intact Patient Appearance: Unkempt, Disheveled Mood: Angry, Withdrawn, Irritable Affect: Mood Congruent, Constricted Patient Behavior: Fatigued, Uncooperative Speech Pattern: Clear Voice Loudness: Normal Thought Process: Goal Oriented Thought Disorder: Not Present Hallucinations: Denies Suicidal Ideation: Denies Homicidal Ideation: Denies Insight/Judgement: Poor Sleep: Well Appetite: Good Muscle strength/Tone: Normal Gait/Station: Other (not observed ; patient declines to get out of bed as instructed by interviewer) Psychiatric Findings - Problem List (Centre 1, 2,3) (1) Alcohol dependence with uncomplicated withdrawal Current Visit: Yes Status: Acute (2) Cocaine dependence, uncomplicated Current Visit: Yes Status: Acute (3) Nicotine dependence Current Visit: No Status: Acute Qualifiers: Nicotine product type: cigarettes Substance use status: in withdrawal Qualified Code(s): F17.213 - Nicotine dependence, cigarettes, with withdrawal (4) History of bipolar disorder Current Visit: Yes Status: Chronic (5) Substance induced mood disorder Current Visit: Yes Status: Suspected (6) Insomnia Current Visit: Yes Status: Acute Qualifiers: Insomnia type: unspecified Qualified Code(s): G47.00 - Insomnia, unspecified (7) Non-compliant patient Current Visit: Yes Status: Acute - Initial Treatment Plan Initial Treatment Plan: Psychoeducation. Sleep hygiene. Detoxification in progress. [place] level requested (result will be followed). AA meetings. Group , supportive therapy. Will not resume lithium or fluoxetine (chronic non- adherence). Seroquel 100 mg po hs. Ordered. Side effects/benefits discussed with the patient. Mr Reilly is in agreement with this careplan. Observation.
--- NOTE | 2018-05-15 15:10 | PN ---
[facility] Progress Note Note: LAB REPORTED K+ LEVEL 5.3. PATIENT ASYMPTOMATIC. WILL REPEAT LEVEL IN AM AND CONTINUE TO MONITOR. Vital Signs Temperature 97.3 F L 05/15/18 14:29 Pulse Rate 72 05/15/18 14:29 Respiratory Rate 18 05/15/18 14:29 Blood Pressure 122/84 05/15/18 14:29 O2 Sat by Pulse Oximetry (%)
[2018-05-15] MEDS: THIAMINE HCL 100 MG TABLET (FP) PO SCH (22:10)
[2018-05-15] MEDS: QUEtiapine FUMARATE 100 MG TABLET (FP) PO SCH (22:10)
[2018-05-16] MEDS: chlordiazePOXIDE HCL 25 MG CAPSULE PO SCH ×2 (06:06→10:16)
[2018-05-16] MEDS: PRENATAL VITAMINS W/ FOLIC ACID TABLET (FP) PO SCH (10:16)
[2018-05-16] MEDS: ASPIRIN 81 MG CHEWABLE TABLETS PO SCH (10:16)
[2018-05-16] MEDS: NICOTINE 21 MG/24 HOURS TOPICAL PATCH TD SCH (10:16)
--- NOTE | 2018-05-16 10:38 | PN ---
S CIWA - CIWA Score Nausea/Vomitin-No Nausea/No Vomiting Muscle Tremors: None Anxiety: 3 Agitation: 3 Paroxysmal Sweats: No Perspiration Orientation: 0-Oriented Tacttile Disturbances: 0-None Auditory Disturbances: 0-None Visual Disturbances: 0-None Headache: 2-Mild CIWA-Ar Total Score: 8 [facility] Progress Note (SOAP) Subjective: PATIENT C/O RESTLESSNESS, INTERRUPTED SLEEP AND HEADACHE Objective: 05/16/18 10:36 Vital Signs Period Temp Pulse Resp BP Sys/Leigh Pulse Ox Last 24 Hr 97.3 F-98.7 F 62-77 108-122/64-84 Laboratory Tests 05/14/18 05/14/18 05/15/18 13:00 14:18 06:30 WBC 3.2 L RBC 4.27 Hgb 13.5 Hct 41.4 MCV 96.9 H MCH 31.6 MCHC 32.6 RDW 17.7 H Plt Count 492 H MPV 7.2 L Sodium Potassium Chloride Carbon Dioxide Anion Gap BUN Creatinine Creat Clearance w eGFR Random Glucose Calcium Total Bilirubin AST ALT Alkaline Phosphatase Total Protein Albumin Urine Color Straw Urine Appearance Clear Urine pH 6.0 Ur Specific [place] 1.005 L Urine Protein Negative Urine Glucose (UA) Negative Urine Ketones Negative Urine Blood Negative Urine Nitrite Negative Urine Bilirubin Negative Urine Urobilinogen Negative Ur Leukocyte Esterase Negative RPR Titer HIV 1&2 Antibody Screen Negative HIV P24 Antigen Negative 05/15/18 05/15/18 06:30 06:30 WBC RBC Hgb Hct MCV MCH MCHC RDW Plt Count MPV Sodium 137 Potassium 5.3 H Chloride 102 Carbon Dioxide 27 Anion Gap 9 BUN 6 L Creatinine 0.7 Creat Clearance w eGFR > 60 Random Glucose 71 L Calcium 9.0 Total Bilirubin 0.5 AST 21 ALT 15 Alkaline Phosphatase 50 Total Protein 7.6 Albumin 3.7 Urine Color Urine Appearance Urine pH Ur Specific [place] Urine Protein Urine Glucose (UA) Urine Ketones Urine Blood Urine Nitrite Urine Bilirubin Urine Urobilinogen Ur Leukocyte Esterase RPR Titer Nonreactive HIV 1&2 Antibody Screen HIV P24 Antigen PE: ALERT AND ORIENTED X 3 SKIN WARM AND DRY EXT NO TREMORS, FULL ROM ANXIOUS, IRRITABLE DID NOT WANT TO SPEAK TO PROVIDER Assessment: 05/16/18 10:37 WITHDRAWAL SX Plan: CONTINUE DETOX ENCOURAGE ORAL FLUIDS BMP CANCELLED WILL REORDER PATIENT REMAINS ASYMPTOMATIC
[2018-05-16 11:05] LABS: ANION GAP 7 MMOL/L (8-16); BLOOD UREA NITROGEN 13 mg/dL (7-18); CALCIUM 8.7 mg/dL (8.5-10.1); CHLORIDE 108 mmol/L (98-107); CO2 28 mmol/L (21-32); CREATININE 0.8 mg/dL (0.55-1.3); GLUCOSE,RANDOM 92 mg/dL (74-106); POTASSIUM 4.2 mmol/L (3.5-5.1); SODIUM 143 mmol/L (136-145)
[2018-05-16] MEDS: chlordiazePOXIDE 5 MG CAPSULE PO SCH ×2 (17:04→22:21)
[2018-05-16] MEDS: THIAMINE HCL 100 MG TABLET (FP) PO SCH (22:20)
[2018-05-16] MEDS: QUEtiapine FUMARATE 100 MG TABLET (FP) PO SCH (22:20)
[2018-05-17] MEDS: chlordiazePOXIDE 5 MG CAPSULE PO SCH ×2 (05:55→10:39)
[2018-05-17] MEDS: NICOTINE 21 MG/24 HOURS TOPICAL PATCH TD SCH (10:39)
[2018-05-17] MEDS: ASPIRIN 81 MG CHEWABLE TABLETS PO SCH (10:39)
[2018-05-17] MEDS: PRENATAL VITAMINS W/ FOLIC ACID TABLET (FP) PO SCH (10:39)
--- NOTE | 2018-05-17 12:54 | PN ---
[facility] Progress Note (SOAP) Subjective: Patient asleep but easy arousal, refused to speak with grant writer Objective: 05/17/18 12:53 Last Vital Signs Temp Pulse Resp BP Pulse Ox 97.1 F L 65 18 109/59 L 05/17/18 09:25 05/17/18 09:25 05/17/18 09:25 05/17/18 09:25 Laboratory Tests 05/14/18 05/14/18 05/15/18 13:00 14:18 06:30 WBC 3.2 L RBC 4.27 Hgb 13.5 Hct 41.4 MCV 96.9 H MCH 31.6 MCHC 32.6 RDW 17.7 H Plt Count 492 H MPV 7.2 L Sodium Potassium Chloride Carbon Dioxide Anion Gap BUN Creatinine Creat Clearance w eGFR Random Glucose Calcium Total Bilirubin AST ALT Alkaline Phosphatase Total Protein Albumin Urine Color Straw Urine Appearance Clear Urine pH 6.0 Ur Specific [place] 1.005 L Urine Protein Negative Urine Glucose (UA) Negative Urine Ketones Negative Urine Blood Negative Urine Nitrite Negative Urine Bilirubin Negative Urine Urobilinogen Negative Ur Leukocyte Esterase Negative [place] RPR Titer HIV 1&2 Antibody Screen Negative HIV P24 Antigen Negative 05/15/18 05/15/18 05/16/18 06:30 06:30 08:00 WBC RBC Hgb Hct MCV MCH MCHC RDW Plt Count MPV Sodium 137 Potassium 5.3 H Chloride 102 Carbon Dioxide 27 Anion Gap 9 BUN 6 L Creatinine 0.7 Creat Clearance w eGFR > 60 Random Glucose 71 L Calcium 9.0 Total Bilirubin 0.5 AST 21 ALT 15 Alkaline Phosphatase 50 Total Protein 7.6 Albumin 3.7 Urine Color Urine Appearance Urine pH Ur Specific [place] Urine Protein Urine Glucose (UA) Urine Ketones Urine Blood Urine Nitrite Urine Bilirubin Urine Urobilinogen Ur Leukocyte Esterase [place] 0 L RPR Titer Nonreactive HIV 1&2 Antibody Screen HIV P24 Antigen 05/16/18 08:00 WBC RBC Hgb Hct MCV MCH MCHC RDW Plt Count MPV Sodium 143 Potassium 4.2 Chloride 108 H Carbon Dioxide 28 Anion Gap 7 L BUN 13 Creatinine 0.8 Creat Clearance w eGFR > 60 Random Glucose 92 Calcium 8.7 Total Bilirubin AST ALT Alkaline Phosphatase Total Protein Albumin Urine Color Urine Appearance Urine pH Ur Specific [place] Urine Protein Urine Glucose (UA) Urine Ketones Urine Blood Urine Nitrite Urine Bilirubin Urine Urobilinogen Ur Leukocyte Esterase [place] RPR Titer HIV 1&2 Antibody Screen HIV P24 Antigen Labs reviewed Assessment: 05/17/18 12:54 Withdrawal symptoms Plan: Continue detox Encouraged PO water intake
[2018-05-17] MEDS: chlordiazePOXIDE HCL 10 MG CAPSULE PO SCH ×2 (17:59→22:16)
[2018-05-17] MEDS: QUEtiapine FUMARATE 100 MG TABLET (FP) PO SCH (22:16)
[2018-05-17] MEDS: THIAMINE HCL 100 MG TABLET (FP) PO SCH (22:16)
[2018-05-18] MEDS: chlordiazePOXIDE HCL 10 MG CAPSULE PO SCH (05:37)
[2018-05-18 05:51] VITALS: BP 121/73; PULSE 60; TEMP 98
--- NOTE | 2018-05-18 11:15 | DS ---
[facility] Detox Discharge Summary Admission Date: 05/14/18 Discharge Date: 05/18/18 - History Present History: Alcohol Dependence Additional Comments: 52 years old male admitted on 05/14/18 for alcohol withdrawal sx [facility] - Physical Exam Results Vital Signs: Vital Signs Temperature 98 F 05/18/18 05:51 Pulse Rate 60 05/18/18 05:51 Respiratory Rate 16 05/18/18 05:51 Blood Pressure 121/73 05/18/18 05:51 O2 Sat by Pulse Oximetry (%) Pertinent Admission Physical Exam Findings: alcohol withdrawal sx Vital Signs Temperature 98 F 05/18/18 05:51 Pulse Rate 60 05/18/18 05:51 Respiratory Rate 16 05/18/18 05:51 Blood Pressure 121/73 05/18/18 05:51 O2 Sat by Pulse Oximetry (%) Laboratory Last Values WBC 3.2 K/mm3 (4.0-10.0) L 05/15/18 06:30 RBC 4.27 M/mm3 (4.00-5.60) 05/15/18 06:30 Hgb 13.5 GM/dL (11.7-16.9) 05/15/18 06:30 Hct 41.4 % (35.4-49) 05/15/18 06:30 MCV 96.9 fl (80-96) H 05/15/18 06:30 MCH 31.6 pg (25.7-33.7) 05/15/18 06:30 MCHC 32.6 g/dl (32.0-35.9) 05/15/18 06:30 RDW 17.7 % (11.9-15.9) H 05/15/18 06:30 Plt Count 492 K/MM3 (134-434) H 05/15/18 06:30 MPV 7.2 fl (7.5-11.1) L 05/15/18 06:30 Sodium 143 mmol/L (136-145) 05/16/18 08:00 Potassium 4.2 mmol/L (3.5-5.1) 05/16/18 08:00 Chloride 108 mmol/L (98-107) H 05/16/18 08:00 Carbon Dioxide 28 mmol/L (21-32) 05/16/18 08:00 Anion Gap 7 MMOL/L (8-16) L 05/16/18 08:00 BUN 13 mg/dL (7-18) 05/16/18 08:00 Creatinine 0.8 mg/dL (0.55-1.3) 05/16/18 08:00 Creat Clearance w eGFR > 60 (>60) 05/16/18 08:00 Random Glucose 92 mg/dL (74-106) 05/16/18 08:00 Calcium 8.7 mg/dL (8.5-10.1) 05/16/18 08:00 Total Bilirubin 0.5 mg/dL (0.2-1) 05/15/18 06:30 AST 21 U/L (15-37) 05/15/18 06:30 ALT 15 U/L (13-61) 05/15/18 06:30 Alkaline Phosphatase 50 U/L (45-117) 05/15/18 06:30 Total Protein 7.6 g/dl (6.4-8.2) 05/15/18 06:30 Albumin 3.7 g/dl (3.4-5.0) 05/15/18 06:30 Urine Color Straw 05/14/18 14:18 Urine Appearance Clear 05/14/18 14:18 Urine pH 6.0 (5.0-8.0) 05/14/18 14:18 Ur Specific [place] 1.005 (1.010-1.035) L 05/14/18 14:18 Urine Protein Negative (NEGATIVE) 05/14/18 14:18 Urine Glucose (UA) Negative (NEGATIVE) 05/14/18 14:18 Urine Ketones Negative (NEGATIVE) 05/14/18 14:18 Urine Blood Negative (NEGATIVE) 05/14/18 14:18 Urine Nitrite Negative (NEGATIVE) 05/14/18 14:18 Urine Bilirubin Negative (<2.0 mg/dL) 05/14/18 14:18 Urine Urobilinogen Negative mg/dL (0.2-1.0) 05/14/18 14:18 Ur Leukocyte Esterase Negative (NEGATIVE) 05/14/18 14:18 [place] 0 MEQ/L (0.6-1.2) L 05/16/18 08:00 RPR Titer Nonreactive (NONREACTIVE) 05/15/18 06:30 HIV 1&2 Antibody Screen Negative 05/14/18 13:00 HIV P24 Antigen Negative 05/14/18 13:00 lab noted - Treatment Hospital Course: Detox Protocol Followed, Detoxed Safely, Responded well, Discharged Condition Good, Rehab Referral Accepted Patient has Accepted a Rehab Referral to: [facility] - Medication Discharge Medications: Ambulatory Orders [place] Carbonate [Lithobid] 300 mg PO TID #90 tablet.er 12/24/17 Aspirin [ASA -] 81 mg PO DAILY #30 tab.chew 12/26/17 Fluoxetine HCl [Prozac -] 20 mg PO DAILY #30 tab 01/25/18 Quetiapine Fumarate [Seroquel] 100 mg PO HS #30 tablet 01/25/18 Diltiazem HCl [Diltiazem 24Hr ER] 120 mg PO DAILY #30 cap.er.24h 04/12/18 - Diagnosis (1) Alcohol dependence with uncomplicated withdrawal Status: Acute (2) Weight loss Status: Acute (3) Nicotine dependence Status: Acute Qualifiers: Nicotine product type: cigarettes Substance use status: in withdrawal Qualified Code(s): F17.213 - Nicotine dependence, cigarettes, with withdrawal (4) Bipolar II disorder Status: Suspected - AMA Did Patient Leave Against Medical Advice: No
== END 2018-05-18 09:20 | disposition home or self-care (01) | DRG 775 ==
LOC: YASAS 10:39 → Y3N 12:12
PROC: HZ2ZZZZ Detoxification Services for Substance Abuse Treatment (ICD-10-PCS; principal; 2018-05-14)
DX: F10.230 Alcohol dependence with withdrawal, uncomplicated (principal); F17.213 Nicotine dependence, cigarettes, with withdrawal; F19.24 Other psychoactive substance dependence with psychoactive substance-induced mood disorder; F31.81 Bipolar II disorder; F51.05 Insomnia due to other mental disorder; I48.2 Chronic atrial fibrillation; E86.0 Dehydration; R55 Syncope and collapse; R63.4 Abnormal weight loss; Z68.21 Body mass index [BMI] 21.0-21.9, adult; Z91.19 Patient's noncompliance with other medical treatment and regimen
CPT/HCPCS: 36415; 80048; 80053; 80178; 81003; 85027; 86593; 87389; 93005; 93010

== ENCOUNTER 2018-07-17 08:24 | Inpatient (IN) | payer BC ==
[2018-07-17 09:48] VITALS: BMI 19.1
--- NOTE | 2018-07-17 10:45 | HP ---
CIWA Score Nausea/Vomitin Muscle Tremors: 2 Anxiety: 2 Agitation: 2 Paroxysmal Sweats: 3 Orientation: 0-Oriented Tacttile Disturbances: 2-Mild Itch/Numbness/Burn Auditory Disturbances: 0-None Visual Disturbances: 0-None Headache: 1-Very Mild CIWA-Ar Total Score: 14 - Admission Criteria OASAS Guidelines: Admission for Medically Managed Detox: Requires at least one of the followin. CIWA greater than 12 2. Seizures within the past 24 hours 3. Delirium tremens within the past 24 hours 4. Hallucinations within the past 24 hours 5. Acute intervention needed for co occurring medical disorder 6. Acute intervention needed for co occurring psychiatric disorder 7. Severe withdrawal that cannot be handled at a lower level of care (continued vomiting, continued diarrhea, abnormal vital signs) requiring intravenous medication and/or fluids 8. Patient presents the following: CIWA greater than 12 Admission Criteria Met: Admission criteria met Admission ROS [facility] Chief Complaint: I'm tired of using alcohol -I need to detox and go to rehab. Allergies/Adverse Reactions: Allergies Allergy/AdvReac Type Severity Reaction Status Date / Time No Known Allergies Allergy Verified 07/17/18 10:18 History of Present Illness: 53 y/o m pt with longstanding hx of chronic alcoholism seeking detox and rehab . Exam Limitations: No Limitations - Ebola screening Have you traveled outside of the country in the last 21 days: No Have you had contact with anyone from an Ebola affected area: No Have you been sick,other than usual withdrawal symptoms: No Do you have a fever: No - Review of Systems Constitutional: Malaise, Night Sweats, Changes in sleep, Unintentional Wgt. Loss (14 lbs over last 3 months) EENT: reports: Dental Problems (missing teeth) Respiratory: reports: No Symptoms reported Cardiac: reports: No Symptoms Reported GI: reports: Diarrhea, Nausea, Poor Appetite, Abdominal cramping : reports: Frequency Musculoskeletal: reports: Back Pain Integumentary: reports: Dryness, Sweating Neuro: reports: Headache, Tremors (alcohol related) Endocrine: reports: Increased Urine Hematology: reports: No Symptoms Reported Psychiatric: reports: Anxious, Depressed Other Systems: Reviewed and Negative Patient History - Patient Medical History Hx Anemia: No Hx Asthma: No Hx Chronic Obstructive Pulmonary Disease (COPD): No Hx Cancer: No Hx Cardiac Disorders: Yes (atrial fibrillation) Hx Congestive Heart Failure: No Hx Hypertension: No Hx Hypercholesterolemia: No Hx Pacemaker: No HX Cerebrovascular Accident: No Hx Seizures: No (but h/o blackouts - last 4 days ago ) Hx Dementia: No Hx Diabetes: No Hx Gastrointestinal Disorders: No Hx Liver Disease: Yes (elevated LFTs when drinking) Hx Genitourinary Disorders: No Hx Sexually Transmitted Disorders: No Hx Renal Disease (ESRD): No Hx Thyroid Disease: No Hx Human Immunodeficiency Virus (HIV): No (NEGATIVE HX last 04/16) Hx Hepatitis C: No (NEGATIVE.) Hx Depression: Yes Hx Suicide Attempt: No Hx Bipolar Disorder: Yes (poor adherence to meds. prozac, seroquel, lithium ) Hx Schizophrenia: No - Patient Surgical History Past Surgical History: No Hx Neurologic Surgery: No Hx Cataract Extraction: No Hx Cardiac Surgery: No Hx Lung Surgery: No Hx Breast Surgery: No Hx Breast Biopsy: No Hx Abdominal Surgery: No Hx Appendectomy: No Hx Cholecystectomy: No Hx Genitourinary Surgery: No Hx Section: No Hx Orthopedic Surgery: No Anesthesia Reaction: No - PPD History Previous Implant?: Yes Documented Results: Positive w/o proof Results: CXR(-)12/24/17 PPD to be Administered?: No - Reproductive History Patient is a Female of Child Bearing Age (11 -55 yrs old): No - Smoking Cessation Smoking history: Current every day smoker Have you smoked in the past 12 months: Yes Aproximately how many cigarettes per day: 10 Cigars Per Day: 0 Hx Chewing Tobacco Use: No Initiated information on smoking cessation: Yes 'Breaking Loose' booklet given: 07/17/18 - Substance & Tx. History Hx Alcohol Use: Yes Hx Substance Use: Yes Substance Use Type: Alcohol, Cocaine Hx Substance Use Treatment: Yes ( [facility]) - Substances Abused Cocaine Route: Inhalation Frequency: 1-2 times per week Amount used: $20 Age of first use: 21 Date of Last Use: 07/16/18 Alcohol-beer/vodka Route: Oral Frequency: Daily Amount used: 2-6 pks./2 pts. Age of first use: 20 Date of Last Use: 07/17/18 Family Disease History - Family Disease History Family Disease History: Diabetes: Father (, etoh), Other: Mother ( DEMENTIA ), Brother (no contact), Sister (three - healthy) Admission Physical Exam [facility] - Vital Signs Vital Signs: Vital Signs - 24 hr 07/17/18 09:46 Temperature 97.9 F Pulse Rate 116 H Respiratory 18 Rate Blood Pressure 93/63 53 y/o m pt aox3 in nad with aob, ambulating well and cooperative with exam. - Physical General Appearance: Yes: No Apparent Distress, Disheveled, Thin, Sweating, Anxious HEENTM: Yes: EOMI, Hearing grossly Normal, Normocephalic, Normal Voice, TESSA Respiratory: Yes: Within Normal Limits, Chest Non-Tender, Lungs Clear, Normal Breath Sounds Neck: Yes: Within Normal Limits, No masses,lesions,Nodules, Supple, Trachea in good position Breast: Yes: Within Normal Limits Cardiology: Yes: Regular Rhythm, Regular Rate, S1, S2 Abdominal: Yes: Non Tender, Flat, Increased Bowel Sounds Genitourinary: Yes: Frequency Back: Yes: Decreased Range of Motion Musculoskeletal: Yes: Back pain Extremities: Yes: Tremors (mild) 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 NML intact, Fully Oriented, Alert, Motor Strength 5/5 Integumentary: Yes: Dry (hands), Moist Lymphatic: Yes: Within Normal Limits - Diagnostic (1) Alcohol dependence with uncomplicated withdrawal Current Visit: Yes Status: Chronic (2) Cocaine dependence, uncomplicated Current Visit: Yes Status: Chronic (3) Nicotine dependence Current Visit: Yes Status: Chronic Qualifiers: Nicotine product type: cigarettes Substance use status: in withdrawal Qualified Code(s): F17.213 - Nicotine dependence, cigarettes, with withdrawal (4) Weight loss Current Visit: Yes Status: Acute (5) Anxiety and depression Status: Chronic (6) Bipolar disorder Current Visit: No Status: Chronic Qualifiers: Most recent bipolar episode type: most recent episode unspecified type Cleared for Admission [facility] - Detox or Rehab [facility] Level of Care: Medically Managed Detox Regimen/Protocol: Librium S Breath Alcohol Content Breath Alcohol Content: 0.091 Urine Drug Screen - Results Drug Screen Negative: No Urine Drug Screen Results: DOUGLAS-Cocaine, BZO-Benzodiazepines Inpatient Rehab Admission - Initial Determination Are CD services needed?: Yes Free of communicable disease: No Not in need of hospitalization: No
[2018-07-17] MEDS ORDERED: ACETAMINOPHEN 325 MG TABLET (FP) PO PRN (10:58)
[2018-07-17] MEDS ORDERED: P-EPHED 60MG/TRIPROLIDI 2.5MG TABLET PO PRN (10:58)
[2018-07-17] MEDS ORDERED: MAG HYDROX/AL HYDROX/SIMETH 30 ML UNIT-DOSE CUP PO PRN (10:58)
[2018-07-17] MEDS ORDERED: LOPERAMIDE HCL 2 MG CAPSULE PO PRN (10:58)
[2018-07-17] MEDS ORDERED: NICOTINE POLACRILEX 4 MG GUM BUC PRN (10:58)
[2018-07-17] MEDS ORDERED: MAGNESIUM CITRATE 300 ML BOTTLE PO PRN (10:58)
[2018-07-17] MEDS ORDERED: hydrOXYzine PAMOATE 25 MG CAPSULE (FP) PO PRN (10:58)
[2018-07-17] MEDS ORDERED: guaiFENesin/D-METHORPHAN HB 10 ML UNIT-DOSE CUPS PO PRN (10:58)
[2018-07-17] MEDS ORDERED: chlordiazePOXIDE HCL 25 MG CAPSULE PO PRN (10:58)
[2018-07-17] MEDS ORDERED: MENTHOL/PHENOL 1 EACH UD MM PRN (10:58)
[2018-07-17] MEDS ORDERED: MAGNESIUM HYDROX 2400MG/30ML ORAL SUSPENSION 30 ML CUP PO PRN (10:58)
[2018-07-17] MEDS ORDERED: IBUPROFEN 400 MG TABLET (FP) PO PRN (10:58)
[2018-07-17] MEDS: chlordiazePOXIDE HCL 25 MG CAPSULE PO SCH ×2 (17:29→22:15)
[2018-07-17] MEDS ORDERED: MELATONIN 5 MG TABLETS PO PRN (22:00)
[2018-07-17] MEDS: THIAMINE HCL 100 MG TABLET (FP) PO SCH (22:15)
[2018-07-18] MEDS: chlordiazePOXIDE HCL 25 MG CAPSULE PO SCH ×4 (06:19→23:34)
[2018-07-18 10:08] LABS: ALBUMIN 3.5 g/dl (3.4-5.0); ALK PHOS 54 U/L (45-117); ANION GAP 11 MMOL/L (8-16); BILIRUBIN,TOTAL 0.3 mg/dL (0.2-1); BLOOD UREA NITROGEN 9 mg/dL (7-18); CHLORIDE 99 mmol/L (98-107); CO2 24 mmol/L (21-32); CREATININE 0.8 mg/dL (0.55-1.3); GLUCOSE,RANDOM 76 mg/dL (74-106); SGOT/AST 18 U/L (15-37); SGPT/ALT 13 U/L (13-61); SODIUM 134 mmol/L (136-145); TOT PROT 7.4 g/dl (6.4-8.2)
[2018-07-18 10:15] LABS: HEMATOCRIT 37.3 % (35.4-49); HEMOGLOBIN 12.9 GM/dL (11.7-16.9); MCH 33.7 pg (25.7-33.7); MCHC 34.7 g/dl (32.0-35.9); MEAN CELL VOLUME 97.3 fl (80-96); MEAN PLT VOLUME 7.1 fl (7.5-11.1); PLATELET COUNT 427 K/MM3 (134-434); RBC 3.83 M/mm3 (4.00-5.60); RDW 15.7 % (11.9-15.9); WHITE BLOOD COUNT 3.9 K/mm3 (4.0-10.0)
[2018-07-18] MEDS: ASPIRIN 81 MG CHEWABLE TABLETS PO SCH (10:48)
[2018-07-18] MEDS: PRENATAL VITAMINS W/ FOLIC ACID TABLET (FP) PO SCH (10:48)
--- NOTE | 2018-07-18 10:48 | CONSULT ---
[facility] Psychiatric Consult - Data Date of interview: 05/18/19 Admission source: [facility] Identifying data: Patient is a 53 year old single male, without children, unemployed, domiciled, and is supported by [facility]. This is one of multiple admissions for patient. Patient admitted to for alcohol and cocaine dependence. Substance Abuse History: Smoking Cessation. Smoking history: Current every day smoker. Have you smoked in the past 12 months: Yes. Aproximately how many cigarettes per day: 10. Cigars Per Day: 0. Hx Chewing Tobacco Use: No. Initiated information on smoking cessation: Yes. 'Breaking Loose' booklet given : 07/17/18. - Substance & Tx. History. Hx Alcohol Use: Yes. Hx Substance Use : Yes. Substance Use Type: Alcohol, Cocaine. Hx Substance Use Treatment: Yes ( [facility]). - Substances Abused. Cocaine. Route: Inhalation. Frequency: 1- 2 times per week. Amount used: $20. Age of first use: 21. Date of Last Use: 07/16/18. Alcohol-beer/vodka. Route: Oral. Frequency: Daily. Amount used : 2-6 pks./2 pts. Age of first use: 20. Date of Last Use: 07/17/18 Medical History: History of atrial fibrillation, positive PPD and sporadic elevation of liver enzymes (alcohol-related) Psychiatric History: Patient is an unreliable historian. He denies h/o psychiatric hospitalization but as per previous entries he has reported an extensive history of psychiatric hospitalizations ([facility], [place] and [facility]). Patient has a diagnosis of Bipolar/schizophrenia. He reports h/ o auditory hallucinations but denies psychotic symptoms at the moment. Mr. Reilly has a chronic history of nonadherence to medications and outpatient treatment. He last accepted psychotropic medications while in detox in April of 2018. As per records he has been prescribed prozac + seroquel + [place]. No known history of suicide attempts. Physical/Sexual Abuse/Trauma History: denies. Mental Status Exam - Mental Status Exam Alert and Oriented to: Time, Place, Person Cognitive Function: Good Patient Appearance: Disheveled Mood: Withdrawn, Irritable Affect: Mood Congruent Patient Behavior: Guarded Speech Pattern: Delayed Voice Loudness: Moderately Soft/Quiet Thought Process: Goal Oriented Thought Disorder: Not Present Hallucinations: Denies Suicidal Ideation: Denies Homicidal Ideation: Denies Insight/Judgement: Poor Sleep: Poorly Appetite: Fair Muscle strength/Tone: Normal Gait/Station: Normal Psychiatric Findings - Problem List ([place] 1, 2,3) (1) Alcohol dependence with uncomplicated withdrawal Current Visit: Yes Status: Acute (2) Cocaine dependence, uncomplicated Current Visit: Yes Status: Chronic (3) Nicotine dependence Current Visit: Yes Status: Chronic Qualifiers: Nicotine product type: cigarettes Substance use status: in withdrawal Qualified Code(s): F17.213 - Nicotine dependence, cigarettes, with withdrawal (4) Sedative hypnotic or anxiolytic dependence Current Visit: Yes Status: Acute (5) Schizoaffective disorder Current Visit: Yes Status: Chronic Qualifiers: Schizoaffective disorder type: bipolar Qualified Code(s): F25.0 - Schizoaffective disorder, bipolar type Comment: On medications.OPD care at the [facility] in the [place].Questionable compliance. (6) Substance induced mood disorder Current Visit: Yes Status: Acute - Initial Treatment Plan Initial Treatment Plan: Psychoeducation provided. Detoxification in progress. Will order Seroquel 100mg HS. Benefits and side effects discussed. Verbal consent given.
[2018-07-18] MEDS: NICOTINE 21 MG/24 HOURS TOPICAL PATCH TD SCH (10:49)
--- NOTE | 2018-07-18 10:54 | PN ---
S CIWA - CIWA Score Nausea/Vomitin Muscle Tremors: 2 Anxiety: 2 Agitation: 2 Paroxysmal Sweats: 2 Orientation: 0-Oriented Tacttile Disturbances: 2-Mild Itch/Numbness/Burn Auditory Disturbances: 1-Very Mild Visual Disturbances: 0-None Headache: 2-Mild CIWA-Ar Total Score: 15 S Progress Note (SOAP) Subjective: Interrupted sleep, restlessness, abdominal cramps and malaise Objective: 07/18/18 10:53 Last Vital Signs Temp Pulse Resp BP Pulse Ox 97.9 F 72 16 134/72 07/18/18 09:43 07/18/18 09:43 07/18/18 09:43 07/18/18 09:43 Laboratory Last Values WBC 3.9 K/mm3 (4.0-10.0) L 07/18/18 05:40 RBC 3.83 M/mm3 (4.00-5.60) L 07/18/18 05:40 Hgb 12.9 GM/dL (11.7-16.9) 07/18/18 05:40 Hct 37.3 % (35.4-49) 07/18/18 05:40 MCV 97.3 fl (80-96) H 07/18/18 05:40 MCH 33.7 pg (25.7-33.7) 07/18/18 05:40 MCHC 34.7 g/dl (32.0-35.9) 07/18/18 05:40 RDW 15.7 % (11.9-15.9) D 07/18/18 05:40 Plt Count 427 K/MM3 (134-434) 07/18/18 05:40 MPV 7.1 fl (7.5-11.1) L 07/18/18 05:40 Sickle Cell Screen Negative (NEGATIVE) 07/18/18 05:50 Sodium 134 mmol/L (136-145) L 07/18/18 05:40 Potassium 4.0 mmol/L (3.5-5.1) 07/18/18 05:40 Chloride 99 mmol/L (98-107) 07/18/18 05:40 Carbon Dioxide 24 mmol/L (21-32) 07/18/18 05:40 Anion Gap 11 MMOL/L (8-16) 07/18/18 05:40 BUN 9 mg/dL (7-18) 07/18/18 05:40 Creatinine 0.8 mg/dL (0.55-1.3) 07/18/18 05:40 Creat Clearance w eGFR > 60 (>60) 07/18/18 05:40 Random Glucose 76 mg/dL (74-106) 07/18/18 05:40 Calcium 9.0 mg/dL (8.5-10.1) 07/18/18 05:40 Total Bilirubin 0.3 mg/dL (0.2-1) 07/18/18 05:40 AST 18 U/L (15-37) 07/18/18 05:40 ALT 13 U/L (13-61) 07/18/18 05:40 Alkaline Phosphatase 54 U/L (45-117) 07/18/18 05:40 Total Protein 7.4 g/dl (6.4-8.2) 07/18/18 05:40 Albumin 3.5 g/dl (3.4-5.0) 07/18/18 05:40 HIV 1&2 Antibody Screen Negative 07/17/18 12:25 HIV P24 Antigen Negative 07/17/18 12:25 Labs noted-no panic values Assessment: 07/18/18 10:53 Withdrawal sx Plan: Continue detox
[2018-07-18] MEDS: THIAMINE HCL 100 MG TABLET (FP) PO SCH (23:34)
[2018-07-18] MEDS: QUEtiapine FUMARATE 100 MG TABLET (FP) PO SCH (23:34)
[2018-07-19] MEDS: chlordiazePOXIDE HCL 25 MG CAPSULE PO SCH ×2 (06:30→10:58)
[2018-07-19] MEDS: PRENATAL VITAMINS W/ FOLIC ACID TABLET (FP) PO SCH (10:58)
[2018-07-19] MEDS: NICOTINE 21 MG/24 HOURS TOPICAL PATCH TD SCH (10:58)
[2018-07-19] MEDS: ASPIRIN 81 MG CHEWABLE TABLETS PO SCH (10:58)
--- NOTE | 2018-07-19 13:15 | PN ---
S CIWA - CIWA Score Nausea/Vomitin-Mild Nausea/No Vomiting Muscle Tremors: 3 Anxiety: 2 Agitation: 2 Paroxysmal Sweats: 1-Minimal Palms Moist Orientation: 0-Oriented Tacttile Disturbances: 0-None Auditory Disturbances: 0-None Visual Disturbances: 0-None Headache: 2-Mild CIWA-Ar Total Score: 11 [facility] Progress Note (SOAP) Subjective: tremor sweating anxiety restlessnes Objective: 07/19/18 13:16 Vital Signs Temperature 98.2 F 07/19/18 09:18 Pulse Rate 63 07/19/18 09:18 Respiratory Rate 16 07/19/18 09:18 Blood Pressure 105/54 L 07/19/18 09:18 O2 Sat by Pulse Oximetry (%) Laboratory Last Values WBC 3.9 K/mm3 (4.0-10.0) L 07/18/18 05:40 RBC 3.83 M/mm3 (4.00-5.60) L 07/18/18 05:40 Hgb 12.9 GM/dL (11.7-16.9) 07/18/18 05:40 Hct 37.3 % (35.4-49) 07/18/18 05:40 MCV 97.3 fl (80-96) H 07/18/18 05:40 MCH 33.7 pg (25.7-33.7) 07/18/18 05:40 MCHC 34.7 g/dl (32.0-35.9) 07/18/18 05:40 RDW 15.7 % (11.9-15.9) D 07/18/18 05:40 Plt Count 427 K/MM3 (134-434) 07/18/18 05:40 MPV 7.1 fl (7.5-11.1) L 07/18/18 05:40 Sickle Cell Screen Negative (NEGATIVE) 07/18/18 05:50 Sodium 134 mmol/L (136-145) L 07/18/18 05:40 Potassium 4.0 mmol/L (3.5-5.1) 07/18/18 05:40 Chloride 99 mmol/L (98-107) 07/18/18 05:40 Carbon Dioxide 24 mmol/L (21-32) 07/18/18 05:40 Anion Gap 11 MMOL/L (8-16) 07/18/18 05:40 BUN 9 mg/dL (7-18) 07/18/18 05:40 Creatinine 0.8 mg/dL (0.55-1.3) 07/18/18 05:40 Creat Clearance w eGFR > 60 (>60) 07/18/18 05:40 Random Glucose 76 mg/dL (74-106) 07/18/18 05:40 Calcium 9.0 mg/dL (8.5-10.1) 07/18/18 05:40 Total Bilirubin 0.3 mg/dL (0.2-1) 07/18/18 05:40 AST 18 U/L (15-37) 07/18/18 05:40 ALT 13 U/L (13-61) 07/18/18 05:40 Alkaline Phosphatase 54 U/L (45-117) 07/18/18 05:40 Total Protein 7.4 g/dl (6.4-8.2) 07/18/18 05:40 Albumin 3.5 g/dl (3.4-5.0) 07/18/18 05:40 RPR Titer Nonreactive (NONREACTIVE) 07/18/18 05:40 HIV 1&2 Antibody Screen Negative 07/17/18 12:25 HIV P24 Antigen Negative 07/17/18 12:25 lab noted Assessment: 07/19/18 13:16 withdrawal sx Plan: continue detox
[2018-07-19] MEDS: chlordiazePOXIDE 5 MG CAPSULE PO SCH ×2 (17:42→23:08)
[2018-07-19] MEDS: QUEtiapine FUMARATE 100 MG TABLET (FP) PO SCH (23:08)
[2018-07-19] MEDS: THIAMINE HCL 100 MG TABLET (FP) PO SCH (23:10)
[2018-07-20] MEDS: chlordiazePOXIDE 5 MG CAPSULE PO SCH ×2 (06:53→10:35)
[2018-07-20] MEDS: PRENATAL VITAMINS W/ FOLIC ACID TABLET (FP) PO SCH (10:34)
[2018-07-20] MEDS: ASPIRIN 81 MG CHEWABLE TABLETS PO SCH (10:34)
[2018-07-20] MEDS: NICOTINE 21 MG/24 HOURS TOPICAL PATCH TD SCH (10:37)
--- NOTE | 2018-07-20 15:10 | PN ---
[facility] Progress Note (SOAP) Subjective: Sweating, Anxious. Objective: PATIENT A & O X 3, OBSERVED AMBULATING ON UNIT. IN NO ACUTE DISTRESS. 07/20/18 15:10 Vital Signs Temperature 97.3 F L 07/20/18 13:26 Pulse Rate 59 L 07/20/18 13:26 Respiratory Rate 16 07/20/18 13:26 Blood Pressure 96/53 L 07/20/18 13:26 O2 Sat by Pulse Oximetry (%) Laboratory Tests 07/17/18 07/18/18 07/18/18 12:25 05:40 05:40 WBC 3.9 L RBC 3.83 L Hgb 12.9 Hct 37.3 MCV 97.3 H MCH 33.7 MCHC 34.7 RDW 15.7 D Plt Count 427 MPV 7.1 L Sickle Cell Screen Sodium 134 L Potassium 4.0 Chloride 99 Carbon Dioxide 24 Anion Gap 11 BUN 9 Creatinine 0.8 Creat Clearance w eGFR > 60 POC Glucometer Random Glucose 76 Calcium 9.0 Total Bilirubin 0.3 AST 18 ALT 13 Alkaline Phosphatase 54 Total Protein 7.4 Albumin 3.5 RPR Titer HIV 1&2 Antibody Screen Negative HIV P24 Antigen Negative 07/18/18 07/18/18 07/20/18 05:40 05:50 06:55 WBC RBC Hgb Hct MCV MCH MCHC RDW Plt Count MPV Sickle Cell Screen Negative Sodium Potassium Chloride Carbon Dioxide Anion Gap BUN Creatinine Creat Clearance w eGFR POC Glucometer 112 Random Glucose Calcium Total Bilirubin AST ALT Alkaline Phosphatase Total Protein Albumin RPR Titer Nonreactive HIV 1&2 Antibody Screen HIV P24 Antigen LABS NOTED. Assessment: 07/20/18 15:11 WITHDRAWAL SYMPTOMS. Plan: CONTINUE DETOX.
[2018-07-20] MEDS: chlordiazePOXIDE HCL 10 MG CAPSULE PO SCH ×2 (17:15→22:06)
[2018-07-20] MEDS: THIAMINE HCL 100 MG TABLET (FP) PO SCH (22:06)
[2018-07-20] MEDS: QUEtiapine FUMARATE 100 MG TABLET (FP) PO SCH (22:06)
[2018-07-21 06:29] VITALS: BP 133/60; PULSE 56; TEMP 97.7
[2018-07-21] MEDS: chlordiazePOXIDE HCL 10 MG CAPSULE PO SCH (06:40)
--- NOTE | 2018-07-21 15:36 | DS ---
[facility] Detox Discharge Summary Admission Date: 07/17/18 Discharge Date: 07/21/18 - History Present History: Alcohol Dependence, Cocaine Dependence, Sedative Dependence Additional Comments: PATIENT GOING TO '[facility] ([place], [place]) FOR AFTERCARE. PATIENT ADVISED TO FOLLOW-UP WITH MODEL TECHNICIAN (PATIENT UNABLE TO RECALL NAME OF MODEL TECHNICIAN AT THIS TIME) [facility] ([place], [place]) AFTER DISCHARGE FROM DETOX UNIT FOR GENERAL MEDICAL ASSESSMENT AND FOR HISTORY OF HTN AND OF A-FIB. DISCHARGE PRESCRIPTIONS SENT TO PATIENT'S PHARMACY TO HOLD HIM OVER UNTIL HE IS ABLE TO MAKE A FOLLOW-UP APPOINTMENT WITH MODEL TECHNICIAN. PATIENT WAS DISCHARGED FROM DETOX UNIT NI STABLE MEDICAL CONDITION. Pertinent Past History: History of A-Fib., HTN, History of Anxiety and Depression, Schizoaffective Disorder, History of Bipolar Disorder, History of Blackouts, Weight Loss, Nicotine Dependence. - Physical Exam Results Vital Signs: Vital Signs Temperature 97.7 F 07/21/18 06:00 Pulse Rate 56 L 07/21/18 06:00 Respiratory Rate 18 07/21/18 06:00 Blood Pressure 133/60 07/21/18 06:00 O2 Sat by Pulse Oximetry (%) Pertinent Admission Physical Exam Findings: WITHDRAWAL SYMPTOMS. Laboratory Tests 07/17/18 07/18/18 07/18/18 12:25 05:40 05:40 WBC 3.9 L RBC 3.83 L Hgb 12.9 Hct 37.3 MCV 97.3 H MCH 33.7 MCHC 34.7 RDW 15.7 D Plt Count 427 MPV 7.1 L Sickle Cell Screen Sodium 134 L Potassium 4.0 Chloride 99 Carbon Dioxide 24 Anion Gap 11 BUN 9 Creatinine 0.8 Creat Clearance w eGFR > 60 POC Glucometer Random Glucose 76 Calcium 9.0 Total Bilirubin 0.3 AST 18 ALT 13 Alkaline Phosphatase 54 Total Protein 7.4 Albumin 3.5 RPR Titer HIV 1&2 Antibody Screen Negative HIV P24 Antigen Negative 07/18/18 07/18/18 07/20/18 05:40 05:50 06:55 WBC RBC Hgb Hct MCV MCH MCHC RDW Plt Count MPV Sickle Cell Screen Negative Sodium Potassium Chloride Carbon Dioxide Anion Gap BUN Creatinine Creat Clearance w eGFR POC Glucometer 112 Random Glucose Calcium Total Bilirubin AST ALT Alkaline Phosphatase Total Protein Albumin RPR Titer Nonreactive HIV 1&2 Antibody Screen HIV P24 Antigen LABS NOTED. - Treatment Hospital Course: Detox Protocol Followed, Detoxed Safely, Responded well, Discharged Condition Good Patient has Accepted a Rehab Referral to: PATIENT GOING TO [facility] ([place], [place]). - Medication Discharge Medications: Ambulatory Orders [place] Carbonate [Lithobid] 300 mg PO TID #90 tablet.er 12/24/17 Fluoxetine HCl [Prozac -] 20 mg PO DAILY #30 tab 01/25/18 Quetiapine Fumarate [Seroquel] 100 mg PO HS #30 tablet 01/25/18 Aspirin [ASA -] 81 mg PO DAILY #30 tab.chew 07/20/18 Diltiazem HCl [Diltiazem 24Hr ER] 120 mg PO DAILY #30 cap.er.24h 07/20/18 - Diagnosis (1) Alcohol dependence with uncomplicated withdrawal Status: Acute (2) Weight loss Status: Acute (3) Bipolar disorder Status: Chronic Qualifiers: Active/Remission status: remission status unspecified Qualified Code(s): F31.9 - Bipolar disorder, unspecified (4) Cocaine dependence, uncomplicated Status: Chronic (5) Nicotine dependence Status: Chronic Qualifiers: Nicotine product type: cigarettes Substance use status: in withdrawal Qualified Code(s): F17.213 - Nicotine dependence, cigarettes, with withdrawal (6) Substance induced mood disorder Status: Acute (7) Anxiety and depression Status: Chronic (8) Schizoaffective disorder Status: Chronic Qualifiers: Schizoaffective disorder type: bipolar Qualified Code(s): F25.0 - Schizoaffective disorder, bipolar type - AMA Did Patient Leave Against Medical Advice: No
== END 2018-07-21 09:13 | disposition home or self-care (01) | DRG 774 ==
LOC: YASAS 08:24 → Y6N 11:12
PROVIDERS: ADMIT Neuromusculoskeletal Medicine & OMM; ATTEND Neuromusculoskeletal Medicine & OMM
PROC: HZ2ZZZZ Detoxification Services for Substance Abuse Treatment (ICD-10-PCS; principal; 2018-07-17)
DX: F10.230 Alcohol dependence with withdrawal, uncomplicated (principal); F13.20 Sedative, hypnotic or anxiolytic dependence, uncomplicated; F14.20 Cocaine dependence, uncomplicated; F17.213 Nicotine dependence, cigarettes, with withdrawal; F31.9 Bipolar disorder, unspecified; F19.24 Other psychoactive substance dependence with psychoactive substance-induced mood disorder; F41.9 Anxiety disorder, unspecified; F25.0 Schizoaffective disorder, bipolar type; F51.05 Insomnia due to other mental disorder; K21.9 Gastro-esophageal reflux disease without esophagitis; G47.00 Insomnia, unspecified; Z91.14 Patient's other noncompliance with medication regimen; Z86.79 Personal history of other diseases of the circulatory system; Z86.69 Personal history of other diseases of the nervous system and sense organs
CPT/HCPCS: 36415; 80053; 82962; 85027; 85660; 86593; 87389

== ENCOUNTER 2019-02-03 08:36 | Inpatient (IN) | payer BC ==
[2019-02-03 08:54] VITALS: BMI 19.1
--- NOTE | 2019-02-03 09:09 | HP ---
CIWA Score Nausea/Vomitin-Mild Nausea/No Vomiting Muscle Tremors: 1-None Visible, but [place] Anxiety: 4-Mod. Anxious/Guarded (appropriate for admission) Agitation: 4-Moderately Restless Paroxysmal Sweats: 2 Orientation: 1-Uncertain about Date (appropriate for detox) Tacttile Disturbances: 1-Very Mild Itch/Numbness Auditory Disturbances: 0-None Visual Disturbances: 0-None Headache: 0-None Present CIWA-Ar Total Score: 14 - Admission Criteria OASAS Guidelines: Admission for Medically Managed Detox: Requires at least one of the followin. CIWA greater than 12 2. Seizures within the past 24 hours 3. Delirium tremens within the past 24 hours 4. Hallucinations within the past 24 hours 5. Acute intervention needed for co occurring medical disorder 6. Acute intervention needed for co occurring psychiatric disorder 7. Severe withdrawal that cannot be handled at a lower level of care (continued vomiting, continued diarrhea, abnormal vital signs) requiring intravenous medication and/or fluids 8. Admission ROS S - HPI Chief Complaint: " I'm tired of using, I'm tired of drinking and my addiction. I want to get back to a normal life and get back into society." Allergies/Adverse Reactions: Allergies Allergy/AdvReac Type Severity Reaction Status Date / Time No Known Allergies Allergy Verified 02/03/19 08:48 History of Present Illness: 53 year old black male with alcohol dependence and cocaine use. Patient is using 2.5 pints of vodka per day, last used last night. 2 six packs. Patient has had blackouts from binging. Patient is using cocaine sporadically, last used 2 days ago. Patient denies other substance use. Last admission to detox here in 07/17/18. Patient denies current legal issues. Patient is domiciled in the [place] with his . Patient has 3 children: 2 sons, 1 daughter. States he has a good relationship with them. PsychHx: Depression and Bipolar D/O He was abstinent from 06/2018 and relapsed 6 months later, December 2018. - Ebola screening Have you traveled outside of the country in the last 21 days: No Have you had contact with anyone from an Ebola affected area: No Have you been sick,other than usual withdrawal symptoms: No Do you have a fever: No - Review of Systems Constitutional: Chills, Diaphoresis EENT: reports: No Symptoms Reported Respiratory: reports: No Symptoms reported Cardiac: reports: No Symptoms Reported GI: reports: Nausea, Poor Appetite : reports: No Symptoms Reported Musculoskeletal: reports: No Symptoms Reported Integumentary: reports: No Symptoms Reported Neuro: reports: No Symptoms reported Endocrine: reports: No Symptoms Reported Hematology: reports: No Symptoms Reported Psychiatric: reports: Anxious, Depressed (somewhat discontent but not suicidal and no suicidal ideation) Other Systems: Reviewed and Negative Patient History - Patient Medical History Hx Anemia: No Hx Asthma: No Hx Chronic Obstructive Pulmonary Disease (COPD): No Hx Cancer: No Hx Cardiac Disorders: Yes (atrial fibrillation) Hx Congestive Heart Failure: No Hx Hypertension: No Hx Hypercholesterolemia: No Hx Pacemaker: No HX Cerebrovascular Accident: No Hx Seizures: No (but h/o blackouts - last 4 days ago ) Hx Dementia: No Hx Diabetes: No Hx Gastrointestinal Disorders: No Hx Liver Disease: Yes (elevated LFTs when drinking) Hx Genitourinary Disorders: No Hx Sexually Transmitted Disorders: No Hx Renal Disease (ESRD): No Hx Thyroid Disease: No Hx Human Immunodeficiency Virus (HIV): No (NEGATIVE HX last 04/16) Hx Hepatitis C: No (NEGATIVE.) Hx Depression: Yes Hx Suicide Attempt: No Hx Bipolar Disorder: Yes (poor adherence to meds. prozac, seroquel, lithium ) Hx Schizophrenia: No - Patient Surgical History Past Surgical History: No Hx Neurologic Surgery: No Hx Cataract Extraction: No Hx Cardiac Surgery: No Hx Lung Surgery: No Hx Breast Surgery: No Hx Breast Biopsy: No Hx Abdominal Surgery: No Hx Appendectomy: No Hx Cholecystectomy: No Hx Genitourinary Surgery: No Hx Section: No Hx Orthopedic Surgery: No Anesthesia Reaction: No - PPD History Previous Implant?: No (+ PPD ) Implanted On Prior [facility] Admission?: No Results: CXR(-)12/24/17 PPD to be Administered?: No - Reproductive History Patient is a Female of Child Bearing Age (11 -55 yrs old): No - Smoking Cessation Smoking history: Current every day smoker Have you smoked in the past 12 months: Yes Aproximately how many cigarettes per day: 10 Cigars Per Day: 0 Hx Chewing Tobacco Use: No Initiated information on smoking cessation: Yes 'Breaking Loose' booklet given: 02/03/19 - Substance & Tx. History Hx Alcohol Use: Yes (2.5 pints per day of vodka) Hx Substance Use: Yes Substance Use Type: Alcohol, Cocaine Hx Substance Use Treatment: Yes - Substances abused Alcohol Substance route: Oral Frequency: Daily Amount used: 3 pints vokda & 12 beers Age of first use: 17 Date of last use: 02/03/19 Family Disease History - Family Disease History Family Disease History: Diabetes: Father (, etoh), Other: Mother ( DEMENTIA ), Brother (no contact), Sister (three - healthy) Admission Physical Exam [facility] - Vital Signs Vital Signs: Vital Signs - 24 hr 02/03/19 08:50 Temperature 97.4 F L Pulse Rate 66 Respiratory 20 Rate Blood Pressure 102/67 Cleared for Admission [facility] - Detox or Rehab [facility] Level of Care: Medically Managed Detox Regimen/Protocol: Librium Screened but not Admitted - Documentation of Visit Screened but not Admitted: No Breathalyzer - Breathalyzer Breathalyzer: 0.09 (last drank late last night) Vital Signs - Vital Signs Vital signs refused: No Temperature: 97.4 F Temperature source: Oral Pulse Rate: 66 Respiratory Rate: 20 Blood Pressure: 102/67 BP Location: Left Arm Blood Pressure position: Sitting - Height Height: 5 ft 8 in - Weight Weight: 126 lb Weight measurement method: Standing scale - BMI Body Mass Index (BMI): 19.1 - Bowel Function Bowel Movement: No POC Urine test - Test device test lot number: not applicable Urine Drug Screen - Control Is test valid?: Yes - Results Drug screen NEGATIVE: No Urine drug screen results: DOUGLAS-Cocaine Inpatient Rehab Admission - Rehab Decision to Admit Inpatient rehab admission?: No
[2019-02-03] MEDS ORDERED: BISMUTH SUBSALICYLATE 524 MG/30 ML UD PO PRN (09:29)
[2019-02-03] MEDS ORDERED: ACETAMINOPHEN 325 MG TABLET (FP) PO PRN ×2 (09:29)
[2019-02-03] MEDS ORDERED: IBUPROFEN 400 MG TABLET (FP) PO PRN (09:29)
[2019-02-03] MEDS ORDERED: MAGNESIUM CITRATE 300 ML BOTTLE PO PRN (09:29)
[2019-02-03] MEDS ORDERED: chlordiazePOXIDE HCL 10 MG CAPSULE PO PRN (09:29)
[2019-02-03] MEDS ORDERED: METHOCARBAMOL 500 MG TABLET PO PRN (09:29)
[2019-02-03] MEDS ORDERED: MAG HYDROX/AL HYDROX/SIMETH 30 ML UNIT-DOSE CUP PO PRN (09:29)
[2019-02-03] MEDS ORDERED: MENTHOL/PHENOL 1 EACH UD MM PRN (09:29)
[2019-02-03] MEDS ORDERED: hydrOXYzine PAMOATE 25 MG CAPSULE (FP) PO PRN (09:29)
[2019-02-03] MEDS ORDERED: MAGNESIUM HYDROX 2400MG/30ML ORAL SUSPENSION 30 ML CUP PO PRN (09:29)
[2019-02-03] MEDS: chlordiazePOXIDE HCL 25 MG CAPSULE PO SCH ×2 (11:57→18:29)
[2019-02-03] MEDS: PRENATAL VITAMINS W/ FOLIC ACID TABLET (FP) PO SCH (11:57)
[2019-02-03] MEDS: ASPIRIN 81 MG CHEWABLE TABLETS PO SCH (11:57)
[2019-02-03] MEDS: NICOTINE 14 MG/24 HOURS TOPICAL PATCH TD SCH (11:57)
[2019-02-03 12:55] LABS: HEMATOCRIT 35.4 % (35.4-49); HEMOGLOBIN 12.3 GM/dL (11.7-16.9); MCH 34.8 pg (25.7-33.7); MCHC 34.7 g/dl (32.0-35.9); MEAN CELL VOLUME 100.2 fl (80-96); MEAN PLT VOLUME 6.7 fl (7.5-11.1); PLATELET COUNT 398 K/MM3 (134-434); RBC 3.53 M/mm3 (4.00-5.60); RDW 14.7 % (11.9-15.9)
[2019-02-03 13:03] LABS: ALBUMIN 3.2 g/dl (3.4-5.0); BILIRUBIN,TOTAL 0.4 mg/dL (0.2-1); CALCIUM 8.6 mg/dL (8.5-10.1); CREATININE 0.7 mg/dL (0.55-1.3); POTASSIUM 3.9 mmol/L (3.5-5.1)
--- NOTE | 2019-02-03 17:08 | CONSULT ---
[facility] Psychiatric Consult - Data Date of interview: 02/03/19 Admission source: [facility] Identifying data: This is one of multiple admissions to [facility] for this 53 y/ o AA male self-referred for detoxification (cocaine, alcohol). Examined at [address] [place] [address]. Patient is , a father of one, domiciled, unemployed and supported on SSI benefits. Substance Abuse History: Discussed with the patient. Mr Reilly confirms the current [facility] report as an accurate decription of his pattern of substance abuse. Details as follows : Smoking history: Current every day smoker. Have you smoked in the past 12 months: Yes. Aproximately how many cigarettes per day: 10. Cigars Per Day: 0. Hx Chewing Tobacco Use: No. Initiated information on smoking cessation: Yes. 'Breaking Loose' booklet given: 02/03/19. - Substance & Tx. History. Hx Alcohol Use: Yes (2.5 pints per day of vodka). Hx Substance Use: Yes. Substance Use Type: Alcohol, Cocaine. Hx Substance Use Treatment: Yes. - Substances abused. Alcohol. Substance route: Oral. Frequency: Daily. Amount used: 3 pints vokda & 12 beers. Age of first use: 17. Date of last use: 02/03/19 Medical History: Medical profile is remarkable for a history of atrial fibrillation, positive PPD and sporadic elevation of liver enzymes (alcohol- related). Psychiatric History: Marginally cooperative and irritable historian. Most of longitudinal psychiatric information is extracted from records. Mr Reilly is already known to this abstract writer from multiple previous admissions to [facility]. Known history of multiple psychiatric hospitalizations. Patient has been diagnosed with Schizoaffective Disorder and PTSD. Chronically non-adherent to psychotropic medications + psychiatric OPD care. Mr Reilly admits to this abstract writer that he has NOT taken his medications for " more than three weeks ". In spite of statement that he gets OPD psychiatric care at [facility] in the [place]. Used to be prescribed lithium + seroquel. No reported history of suicide attempts. Physical/Sexual Abuse/Trauma History: Not discussed in this session. Additional Comment: Urine drug screen results: DOUGLAS-Cocaine. Noted. Mental Status Exam - Mental Status Exam Alert and Oriented to: Time, Place, Person Cognitive Function: Grossly Intact Patient Appearance: Unkempt, Disheveled Mood: Hostile, Withdrawn, Irritable Affect: Mood Congruent Patient Behavior: Uncooperative, Guarded Speech Pattern: Clear Voice Loudness: Normal Thought Process: Goal Oriented Thought Disorder: Not Present Hallucinations: Denies Suicidal Ideation: Denies Homicidal Ideation: Denies Insight/Judgement: Poor Sleep: Fair Appetite: Fair Gait/Station: Other (not observed; in bed for duration of interview) Psychiatric Findings - Problem List ([place] 1, 2,3) (1) Alcohol dependence with uncomplicated withdrawal Current Visit: Yes Status: Acute (2) Cocaine dependence, uncomplicated Current Visit: Yes Status: Chronic (3) Nicotine dependence Current Visit: Yes Status: Chronic (4) Substance induced mood disorder Current Visit: Yes Status: Chronic (5) History of bipolar disorder Current Visit: Yes Status: Chronic (6) Non-compliance with treatment Current Visit: Yes Status: Chronic - Initial Treatment Plan Initial Treatment Plan: Records reviewed. Psychoeducation deferred at this time (patient uncooperative). Sleep hygiene. Detoxification. Seroquel and lithium held for now. Observation.
[2019-02-03] MEDS: MELATONIN 5 MG TABLETS PO PRN (22:05)
[2019-02-03] MEDS: THIAMINE HCL 100 MG TABLET (FP) PO SCH (22:05)
[2019-02-04] MEDS: chlordiazePOXIDE HCL 25 MG CAPSULE PO SCH ×3 (05:32→18:21)
[2019-02-04] MEDS: PRENATAL VITAMINS W/ FOLIC ACID TABLET (FP) PO SCH (10:29)
[2019-02-04] MEDS: ASPIRIN 81 MG CHEWABLE TABLETS PO SCH (10:29)
[2019-02-04] MEDS: NICOTINE 14 MG/24 HOURS TOPICAL PATCH TD SCH (10:29)
--- NOTE | 2019-02-04 13:52 | PN ---
S CIWA - CIWA Score Nausea/Vomitin-No Nausea/No Vomiting Muscle Tremors: 3 Anxiety: 3 Agitation: 0-Normal Activity Paroxysmal Sweats: 2 Orientation: 2-Disoriented Date<2 days Tacttile Disturbances: 0-None Auditory Disturbances: 2-Mild Harshness/Frighten Visual Disturbances: 0-None Headache: 0-None Present CIWA-Ar Total Score: 12 BHS Progress Note (SOAP) Subjective: Anxious, Tremors, Sweating, Fatigue. Objective: PATIENT A & O X 2 (UNCERTAIN ABOUT CURRENT DAY / DATE). PATIENT OBSERVED AMBULATING ON UNIT UNASSISTED. IN NO ACUTE DISTRESS. 02/04/19 13:53 Vital Signs Temperature 96.6 F L 02/04/19 13:32 Pulse Rate 58 L 02/04/19 13:32 Respiratory Rate 18 02/04/19 13:32 Blood Pressure 97/58 L 02/04/19 13:32 O2 Sat by Pulse Oximetry (%) Laboratory Tests 02/03/19 02/03/19 02/03/19 09:00 09:50 09:50 WBC 4.0 RBC 3.53 L Hgb 12.3 Hct 35.4 MCV 100.2 H MCH 34.8 H MCHC 34.7 RDW 14.7 Plt Count 398 MPV 6.7 L Sodium 139 Potassium 3.9 Chloride 104 Carbon Dioxide 25 Anion Gap 10 BUN 9.0 Creatinine 0.7 Est GFR (CKD-EPI)AfAm 123.13 Est GFR (CKD-EPI)NonAf 106.24 Random Glucose 84 Calcium 8.6 Total Bilirubin 0.4 AST 24 ALT 18 Alkaline Phosphatase 43 L Total Protein 7.0 Albumin 3.2 L RPR Titer HIV 1&2 Ag/Ab, 4th Gen Non reactive HIV 1&2 Antibody Screen HIV P24 Antigen 02/03/19 02/03/19 09:50 09:50 WBC RBC Hgb Hct MCV MCH MCHC RDW Plt Count MPV Sodium Potassium Chloride Carbon Dioxide Anion Gap BUN Creatinine Est GFR (CKD-EPI)AfAm Est GFR (CKD-EPI)NonAf Random Glucose Calcium Total Bilirubin AST ALT Alkaline Phosphatase Total Protein Albumin RPR Titer Nonreactive HIV 1&2 Ag/Ab, 4th Gen HIV 1&2 Antibody Screen Cancelled HIV P24 Antigen Cancelled LABS NOTED. Assessment: 02/04/19 13:53 WITHDRAWAL SYMPTOMS. Plan: CONTINUE DETOX.
[2019-02-04] MEDS: MELATONIN 5 MG TABLETS PO PRN (22:03)
[2019-02-04] MEDS: THIAMINE HCL 100 MG TABLET (FP) PO SCH (22:03)
[2019-02-05] MEDS: chlordiazePOXIDE 5 MG CAPSULE PO SCH ×3 (06:34→22:40)
[2019-02-05] MEDS: ASPIRIN 81 MG CHEWABLE TABLETS PO SCH (10:41)
[2019-02-05] MEDS: PRENATAL VITAMINS W/ FOLIC ACID TABLET (FP) PO SCH (10:41)
[2019-02-05] MEDS: NICOTINE 14 MG/24 HOURS TOPICAL PATCH TD SCH (10:42)
--- NOTE | 2019-02-05 14:21 | PN ---
S CIWA - CIWA Score Nausea/Vomitin-No Nausea/No Vomiting Muscle Tremors: 2 Anxiety: 2 Agitation: 0-Normal Activity Paroxysmal Sweats: 3 Orientation: 0-Oriented Tacttile Disturbances: 0-None Auditory Disturbances: 0-None Visual Disturbances: 2-Mild Sensitivity Headache: 0-None Present CIWA-Ar Total Score: 9 BHS Progress Note (SOAP) Subjective: Anxious, Sweating, Tremors, Fatigue. Objective: PATIENT A & O X 3. IN NO ACUTE DISTRESS. 02/05/19 14:20 Vital Signs Temperature 97.1 F L 02/05/19 13:44 Pulse Rate 74 02/05/19 13:44 Respiratory Rate 18 02/05/19 13:44 Blood Pressure 116/69 02/05/19 13:44 O2 Sat by Pulse Oximetry (%) Laboratory Tests 02/03/19 02/03/19 02/03/19 09:00 09:50 09:50 WBC 4.0 RBC 3.53 L Hgb 12.3 Hct 35.4 MCV 100.2 H MCH 34.8 H MCHC 34.7 RDW 14.7 Plt Count 398 MPV 6.7 L Sodium 139 Potassium 3.9 Chloride 104 Carbon Dioxide 25 Anion Gap 10 BUN 9.0 Creatinine 0.7 Est GFR (CKD-EPI)AfAm 123.13 Est GFR (CKD-EPI)NonAf 106.24 Random Glucose 84 Calcium 8.6 Total Bilirubin 0.4 AST 24 ALT 18 Alkaline Phosphatase 43 L Total Protein 7.0 Albumin 3.2 L [place] RPR Titer HIV 1&2 Ag/Ab, 4th Gen Non reactive HIV 1&2 Antibody Screen HIV P24 Antigen 02/03/19 02/03/19 02/04/19 09:50 09:50 07:00 WBC RBC Hgb Hct MCV MCH MCHC RDW Plt Count MPV Sodium Potassium Chloride Carbon Dioxide Anion Gap BUN Creatinine Est GFR (CKD-EPI)AfAm Est GFR (CKD-EPI)NonAf Random Glucose Calcium Total Bilirubin AST ALT Alkaline Phosphatase Total Protein Albumin [place] 0 L RPR Titer Nonreactive HIV 1&2 Ag/Ab, 4th Gen HIV 1&2 Antibody Screen Cancelled HIV P24 Antigen Cancelled LABS NOTED. Assessment: 02/05/19 14:26 WITHDRAWAL SYMPTOMS. Plan: CONTINUE DETOX. ENCOURAGE AMBULATION.
[2019-02-05] MEDS: THIAMINE HCL 100 MG TABLET (FP) PO SCH (22:40)
[2019-02-06] MEDS ORDERED: chlordiazePOXIDE HCL 10 MG CAPSULE PO PRN
[2019-02-06] MEDS: chlordiazePOXIDE HCL 10 MG CAPSULE PO SCH ×3 (05:40→21:58)
[2019-02-06] MEDS: ASPIRIN 81 MG CHEWABLE TABLETS PO SCH (10:40)
[2019-02-06] MEDS: PRENATAL VITAMINS W/ FOLIC ACID TABLET (FP) PO SCH (10:40)
[2019-02-06] MEDS: NICOTINE 14 MG/24 HOURS TOPICAL PATCH TD SCH (10:41)
--- NOTE | 2019-02-06 11:45 | PN ---
S CIWA - CIWA Score Nausea/Vomitin-No Nausea/No Vomiting Muscle Tremors: None Anxiety: 3 Agitation: 0-Normal Activity Paroxysmal Sweats: 2 Orientation: 0-Oriented Tacttile Disturbances: 0-None Auditory Disturbances: 0-None Visual Disturbances: 0-None Headache: 0-None Present CIWA-Ar Total Score: 5 BHS Progress Note (SOAP) Subjective: c/o anxiety and sweats. Objective: 02/06/19 11:44 Vital Signs 02/06/19 02/06/19 02/06/19 06:30 06:38 09:55 Temperature 96.9 F L 98.8 F Pulse Rate 56 L 57 L Respiratory 18 18 18 Rate Blood Pressure 114/70 111/66 Lab Results WBC 4.0 K/mm3 (4.0-10.0) 02/03/19 09:50 RBC 3.53 M/mm3 (4.00-5.60) L 02/03/19 09:50 Hgb 12.3 GM/dL (11.7-16.9) 02/03/19 09:50 Hct 35.4 % (35.4-49) 02/03/19 09:50 MCV 100.2 fl (80-96) H 02/03/19 09:50 MCHC 34.7 g/dl (32.0-35.9) 02/03/19 09:50 RDW 14.7 % (11.9-15.9) 02/03/19 09:50 Plt Count 398 K/MM3 (134-434) 02/03/19 09:50 Sodium 139 mmol/L (136-145) 02/03/19 09:50 Potassium 3.9 mmol/L (3.5-5.1) 02/03/19 09:50 Chloride 104 mmol/L (98-107) 02/03/19 09:50 Carbon Dioxide 25 mmol/L (21-32) 02/03/19 09:50 Anion Gap 10 MMOL/L (8-16) 02/03/19 09:50 BUN 9.0 mg/dL (7-18) 02/03/19 09:50 Creatinine 0.7 mg/dL (0.55-1.3) 02/03/19 09:50 Random Glucose 84 mg/dL (74-106) 02/03/19 09:50 Calcium 8.6 mg/dL (8.5-10.1) 02/03/19 09:50 Labs noted. Assessment: 02/06/19 11:44 AOX3, in no acute respiratory distress Full ROM, ambulating in the unit. withdrawal symptoms. Pt is for discharge in AM. Pt states he has enough refills on his medications. Plan: continue detox. Discharge in AM.
[2019-02-06] MEDS: THIAMINE HCL 100 MG TABLET (FP) PO SCH (22:58)
[2019-02-07] MEDS ORDERED: chlordiazePOXIDE HCL 10 MG CAPSULE PO ONE (05:00)
[2019-02-07 06:23] VITALS: BP 112/72; PULSE 61; TEMP 97.5
--- NOTE | 2019-02-07 15:48 | DS ---
[facility] Detox Discharge Summary Admission Date: 02/03/19 Discharge Date: 02/07/19 - History Present History: Alcohol Dependence Additional Comments: 53 years old male admitted on 02/03/19 for acute alcohol withdrawal sx management doing well with librium detox protocol no complication through out the detox stay alert oriented x 3 speech clearly steady gait stable mood denies dizziness no shortness of breath ate 90% breakfast showered after[facility] Pertinent Past History: gerd positive ppd - Physical Exam Results Vital Signs: Vital Signs Temperature 97.5 F L 02/07/19 06:22 Pulse Rate 61 02/07/19 06:22 Respiratory Rate 18 02/07/19 06:30 Blood Pressure 112/72 02/07/19 06:22 O2 Sat by Pulse Oximetry (%) Pertinent Admission Physical Exam Findings: alcohol withdrawal sx Laboratory Last Values WBC 4.0 K/mm3 (4.0-10.0) 02/03/19 09:50 RBC 3.53 M/mm3 (4.00-5.60) L 02/03/19 09:50 Hgb 12.3 GM/dL (11.7-16.9) 02/03/19 09:50 Hct 35.4 % (35.4-49) 02/03/19 09:50 MCV 100.2 fl (80-96) H 02/03/19 09:50 MCH 34.8 pg (25.7-33.7) H 02/03/19 09:50 MCHC 34.7 g/dl (32.0-35.9) 02/03/19 09:50 RDW 14.7 % (11.9-15.9) 02/03/19 09:50 Plt Count 398 K/MM3 (134-434) 02/03/19 09:50 MPV 6.7 fl (7.5-11.1) L 02/03/19 09:50 Sodium 139 mmol/L (136-145) 02/03/19 09:50 Potassium 3.9 mmol/L (3.5-5.1) 02/03/19 09:50 Chloride 104 mmol/L (98-107) 02/03/19 09:50 Carbon Dioxide 25 mmol/L (21-32) 02/03/19 09:50 Anion Gap 10 MMOL/L (8-16) 02/03/19 09:50 BUN 9.0 mg/dL (7-18) 02/03/19 09:50 Creatinine 0.7 mg/dL (0.55-1.3) 02/03/19 09:50 Est GFR (CKD-EPI)AfAm 123.13 02/03/19 09:50 Est GFR (CKD-EPI)NonAf 106.24 02/03/19 09:50 Random Glucose 84 mg/dL (74-106) 02/03/19 09:50 Calcium 8.6 mg/dL (8.5-10.1) 02/03/19 09:50 Total Bilirubin 0.4 mg/dL (0.2-1) 02/03/19 09:50 AST 24 U/L (15-37) 02/03/19 09:50 ALT 18 U/L (13-61) 02/03/19 09:50 Alkaline Phosphatase 43 U/L (45-117) L 02/03/19 09:50 Total Protein 7.0 g/dl (6.4-8.2) 02/03/19 09:50 Albumin 3.2 g/dl (3.4-5.0) L 02/03/19 09:50 [place] 0 MEQ/L (0.6-1.2) L 02/04/19 07:00 RPR Titer Nonreactive (NONREACTIVE) 02/03/19 09:50 HIV 1&2 Ag/Ab, 4th Gen Non reactive (Non Reactive) 02/03/19 09:00 HIV 1&2 Antibody Screen Cancelled 02/03/19 09:50 HIV P24 Antigen Cancelled 02/03/19 09:50 lab noted - Treatment Hospital Course: Detox Protocol Followed, Detoxed Safely, Responded well, Discharged Condition Good, Rehab Referral Accepted Patient has Accepted a Re[facility] Referral to: [facility] - Medication Discharge Medications: Ambulatory Orders [place] Carbonate [Lithobid] 300 mg PO TID #90 tablet.er 12/24/17 Fluoxetine HCl [Prozac -] 20 mg PO DAILY #30 tab 01/25/18 Quetiapine Fumarate [Seroquel] 100 mg PO HS #30 tablet 01/25/18 Aspirin [ASA -] 81 mg PO DAILY #30 tab.chew 07/20/18 Diltiazem HCl [Diltiazem 24Hr ER (Cd)] 120 mg PO DAILY #30 cap.er.24h 07/20/18 - Diagnosis (1) History of atrial fibrillation without current medication Status: Chronic (2) PPD positive, treated Status: Resolved (3) Substance induced mood disorder Status: Suspected (4) Nicotine dependence Status: Acute Qualifiers: Nicotine product type: cigarettes Substance use status: in withdrawal Qualified Code(s): F17.213 - Nicotine dependence, cigarettes, with withdrawal (5) Alcohol dependence with uncomplicated withdrawal Status: Acute (6) Weight loss Status: Acute (7) GERD (gastroesophageal reflux disease) Status: Chronic Qualifiers: Esophagitis presence: without esophagitis Qualified Code(s): K21.9 - Gastro -esophageal reflux disease without esophagitis (8) Bipolar II disorder Status: Suspected - AMA Did Patient Leave Against Medical Advice: No CIWA Score - CIWA Score Nausea/Vomitin-No Nausea/No Vomiting Muscle Tremors: 2 Anxiety: 1-Mildly Anxious Agitation: 2 Paroxysmal Sweats: 1-Minimal Palms Moist Orientation: 0-Oriented Tacttile Disturbances: 0-None Auditory Disturbances: 0-None Visual Disturbances: 0-None Headache: 0-None Present CIWA-Ar Total Score: 6
== END 2019-02-07 08:59 | disposition home or self-care (01) | DRG 774 ==
LOC: YASAS 08:36 → Y3N 10:13
PROVIDERS: ADMIT Surgery; ATTEND Surgery
PROC: HZ2ZZZZ Detoxification Services for Substance Abuse Treatment (ICD-10-PCS; principal; 2019-02-03)
DX: F10.230 Alcohol dependence with withdrawal, uncomplicated (principal); F14.20 Cocaine dependence, uncomplicated; F17.213 Nicotine dependence, cigarettes, with withdrawal; F31.81 Bipolar II disorder; F19.24 Other psychoactive substance dependence with psychoactive substance-induced mood disorder; K21.9 Gastro-esophageal reflux disease without esophagitis; R76.11 Nonspecific reaction to tuberculin skin test without active tuberculosis; R63.4 Abnormal weight loss; Z86.79 Personal history of other diseases of the circulatory system; Z91.14 Patient's other noncompliance with medication regimen; Z91.19 Patient's noncompliance with other medical treatment and regimen
CPT/HCPCS: 36415; 80053; 80178; 85027; 86593; 87389

== ENCOUNTER 2019-02-24 11:50 | Inpatient (IN) | payer BC ==
[2019-02-24 12:23] VITALS: BMI 18.5
--- NOTE | 2019-02-24 13:00 | HP ---
CIWA Score Nausea/Vomitin-No Nausea/No Vomiting Muscle Tremors: 3 Anxiety: 3 Agitation: 3 Paroxysmal Sweats: 3 Orientation: 0-Oriented Tacttile Disturbances: 0-None Auditory Disturbances: 0-None Visual Disturbances: 0-None Headache: 0-None Present CIWA-Ar Total Score: 12 - Admission Criteria OASAS Guidelines: Admission for Medically Managed Detox: Requires at least one of the followin. CIWA greater than 12 2. Seizures within the past 24 hours 3. Delirium tremens within the past 24 hours 4. Hallucinations within the past 24 hours 5. Acute intervention needed for co occurring medical disorder 6. Acute intervention needed for co occurring psychiatric disorder 7. Severe withdrawal that cannot be handled at a lower level of care (continued vomiting, continued diarrhea, abnormal vital signs) requiring intravenous medication and/or fluids 8. Admission ROS S - HPI Chief Complaint: I am here for detox and rehab. Allergies/Adverse Reactions: Allergies Allergy/AdvReac Type Severity Reaction Status Date / Time No Known Allergies Allergy Verified 02/24/19 12:16 History of Present Illness: pt is a 53yrold male with a history of alcohol and cocaine dependence seeking detox for treatment. Exam Limitations: No Limitations - Ebola screening Have you traveled outside of the country in the last 21 days: No Have you had contact with anyone from an Ebola affected area: No Have you been sick,other than usual withdrawal symptoms: No Do you have a fever: No - Review of Systems Constitutional: Chills, Night Sweats, Changes in sleep EENT: reports: No Symptoms Reported Respiratory: reports: No Symptoms reported Cardiac: reports: No Symptoms Reported GI: reports: Poor Appetite, Poor Fluid Intake : reports: No Symptoms Reported Musculoskeletal: reports: No Symptoms Reported Integumentary: reports: Flushing Neuro: reports: Headache, Tingling, Tremors Endocrine: reports: Excessive Sweating, Flushing, Intolerance to Cold, Intolerance to Heat Hematology: reports: No Symptoms Reported Psychiatric: reports: Judgement Intact, Mood/Affect Appropiate, Orientated x3, Agitated, Anxious Other Systems: Reviewed and Negative Patient History - Patient Medical History Hx Anemia: No Hx Asthma: No Hx Chronic Obstructive Pulmonary Disease (COPD): No Hx Cancer: No Hx Cardiac Disorders: Yes (Hx of AFIB) Hx Congestive Heart Failure: No Hx Hypertension: No Hx Hypercholesterolemia: No Hx Pacemaker: No HX Cerebrovascular Accident: No Hx Seizures: No Hx Dementia: No Hx Diabetes: No Hx Gastrointestinal Disorders: No Hx Liver Disease: Yes (elevated LFTs when drinking) Hx Genitourinary Disorders: No Hx Sexually Transmitted Disorders: No Hx Renal Disease (ESRD): No Hx Thyroid Disease: No Hx Human Immunodeficiency Virus (HIV): No (NEGATIVE HX last 04/16) Hx Hepatitis C: No (NEGATIVE.) Hx Depression: Yes Hx Suicide Attempt: No Hx Bipolar Disorder: Yes (poor adherence to meds. prozac, seroquel, lithium ) Hx Schizophrenia: No - Patient Surgical History Past Surgical History: No Hx Neurologic Surgery: No Hx Cataract Extraction: No Hx Cardiac Surgery: No Hx Lung Surgery: No Hx Breast Surgery: No Hx Breast Biopsy: No Hx Abdominal Surgery: No Hx Appendectomy: No Hx Cholecystectomy: No Hx Genitourinary Surgery: No Hx Section: No Hx Orthopedic Surgery: No Anesthesia Reaction: No - PPD History Previous Implant?: Yes PPD to be Administered?: No - Reproductive History Patient is a Female of Child Bearing Age (11 -55 yrs old): No - Smoking Cessation Smoking history: Current every day smoker Have you smoked in the past 12 months: Yes Aproximately how many cigarettes per day: 10 Cigars Per Day: 0 Hx Chewing Tobacco Use: No Initiated information on smoking cessation: Yes 'Breaking Loose' booklet given: 02/24/19 - Substance & Tx. History Hx Alcohol Use: Yes Hx Substance Use: No Substance Use Type: Alcohol, Cocaine Hx Substance Use Treatment: Yes ([facility] 01/2019) - Substances abused Alcohol Substance route: Oral Frequency: Daily Amount used: 3 pints vokda & 12 beers Age of first use: 17 Date of last use: 02/24/19 Family Disease History - Family Disease History Family Disease History: Diabetes: Father (, etoh), Other: Mother ( DEMENTIA ), Brother (no contact), Sister (three - healthy) Admission Physical Exam S - Vital Signs Vital Signs: Vital Signs - 24 hr 02/24/19 12:13 Temperature 98.5 F Pulse Rate 71 Respiratory 20 Rate Blood Pressure 111/62 - Physical General Appearance: Yes: Appropriately Dressed, Mild Distress, Thin, Tremorous, Irritable, Sweating HEENTM: Yes: Normal Voice, Nasal Congestion Respiratory: Yes: Lungs Clear, Normal Breath Sounds, No Respiratory Distress Neck: Yes: No masses,lesions,Nodules Breast: Yes: Within Normal Limits Cardiology: Yes: Regular Rhythm, Regular Rate, S1, S2 Abdominal: Yes: Normal Bowel Sounds, Non Tender, Soft Genitourinary: Yes: Within Normal Limits Back: Yes: Normal Inspection Musculoskeletal: Yes: Back pain Extremities: Yes: Normal Capillary Refill, Normal Inspection, Non-Tender, Tremors Neurological: Yes: Fully Oriented, Alert, Normal Response Integumentary: Yes: Diaphoresis Lymphatic: Yes: Within Normal Limits - Diagnostic (1) Alcohol dependence with uncomplicated withdrawal Current Visit: Yes Status: Chronic (2) Alcohol-induced mood disorder Current Visit: No Status: Acute (3) Nicotine dependence Current Visit: Yes Status: Chronic Qualifiers: Nicotine product type: cigarettes Substance use status: uncomplicated Qualified Code(s): F17.210 - Nicotine dependence, cigarettes, uncomplicated (4) Non-compliant patient Current Visit: No Status: Acute (5) Substance-induced sleep disorder Current Visit: No Status: Acute (6) Weight loss Current Visit: Yes Status: Acute (7) Afib Current Visit: No Status: Chronic Qualifiers: Atrial fibrillation type: unspecified Qualified Code(s): I48.91 - Unspecified atrial fibrillation (8) Anxiety and depression Current Visit: No Status: Chronic (9) Atrial fibrillation with RVR Current Visit: No Status: Chronic (10) Bipolar disorder Current Visit: No Status: Chronic Qualifiers: Active/Remission status: remission status unspecified Qualified Code(s): F31.9 - Bipolar disorder, unspecified (11) Cocaine dependence, uncomplicated Current Visit: Yes Status: Chronic (12) Depression Current Visit: No Status: Chronic Qualifiers: Depression Type: unspecified Qualified Code(s): F32.9 - Major depressive disorder, single episode, unspecified (13) History of atrial fibrillation Current Visit: No Status: Chronic (14) History of atrial fibrillation without current medication Current Visit: No Status: Chronic (15) History of bipolar disorder Current Visit: No Status: Chronic (16) Insomnia Current Visit: No Status: Chronic Qualifiers: Insomnia type: unspecified Qualified Code(s): G47.00 - Insomnia, unspecified (17) Non-compliance with treatment Current Visit: No Status: Chronic (18) PTSD (post-traumatic stress disorder) Current Visit: No Status: Chronic (19) Schizoaffective disorder Current Visit: No Status: Chronic Qualifiers: Schizoaffective disorder type: bipolar Qualified Code(s): F25.0 - Schizoaffective disorder, bipolar type Comment: On medications.OPD care at the [facility] the [place].Questionable compliance. (20) Schizoaffective disorder, depressive type Current Visit: No Status: Chronic Comment: . (21) Bipolar II disorder Current Visit: No Status: Suspected (22) Drug-induced mood disorder Current Visit: No Status: Suspected Comment: . (23) Substance induced mood disorder Current Visit: No Status: Suspected (24) Abnormal EKG Current Visit: No Status: Resolved (25) PPD positive, treated Current Visit: No Status: Resolved Cleared for Admission S - Detox or Rehab S Level of Care: Medically Managed Detox Regimen/Protocol: Librium Breathalyzer - Breathalyzer Breathalyzer: 0.013 POC Urine test - Test device test lot number: not applicable Urine Drug Screen - Test Device Lot number: [id number] Expiration date: 11/27/20 - Control Is test valid?: Yes - Results Drug screen NEGATIVE: No Urine drug screen results: DOUGLAS-Cocaine, BZO-Benzodiazepines Inpatient Rehab Admission - Rehab Decision to Admit Inpatient rehab admission?: No
[2019-02-24] MEDS ORDERED: METHOCARBAMOL 500 MG TABLET PO PRN ×2 (13:07→13:09)
[2019-02-24] MEDS ORDERED: chlordiazePOXIDE HCL 25 MG CAPSULE PO PRN (13:07)
[2019-02-24] MEDS ORDERED: ACETAMINOPHEN 325 MG TABLET (FP) PO PRN ×4 (13:07→13:09)
[2019-02-24] MEDS ORDERED: MAGNESIUM CITRATE 300 ML BOTTLE PO PRN ×2 (13:07→13:09)
[2019-02-24] MEDS ORDERED: MAGNESIUM HYDROX 2400MG/30ML ORAL SUSPENSION 30 ML CUP PO PRN ×2 (13:07→13:09)
[2019-02-24] MEDS ORDERED: hydrOXYzine PAMOATE 25 MG CAPSULE (FP) PO PRN (13:07)
[2019-02-24] MEDS ORDERED: MAG HYDROX/AL HYDROX/SIMETH 30 ML UNIT-DOSE CUP PO PRN ×2 (13:07→13:09)
[2019-02-24] MEDS ORDERED: MELATONIN 5 MG TABLETS PO PRN ×2 (13:07→13:09)
[2019-02-24] MEDS ORDERED: MENTHOL/PHENOL 1 EACH UD MM PRN ×2 (13:07→13:09)
[2019-02-24] MEDS ORDERED: BISMUTH SUBSALICYLATE 524 MG/30 ML UD PO PRN (13:07)
[2019-02-24] MEDS ORDERED: IBUPROFEN 400 MG TABLET (FP) PO PRN ×2 (13:07→13:09)
[2019-02-24] MEDS ORDERED: ONDANSETRON *ODT* 4 MG TABLET SL PRN (13:09)
[2019-02-24] MEDS ORDERED: NICOTINE POLACRILEX 4 MG GUM BUC PRN (13:09)
[2019-02-24] MEDS ORDERED: BISMUTH SUBSALICYLATE 262 MG/15 ML BTL PO PRN (13:09)
[2019-02-24] MEDS ORDERED: DICYCLOMINE HCL 10 MG CAPSULE PO PRN (13:09)
[2019-02-24] MEDS ORDERED: PNEUMOC 13-VAL CONJ-DIP CRM/PF 0.5 ML DISP.SYRIN IM ONE (13:40)
[2019-02-24 16:50] LABS: HEMATOCRIT 39.2 % (35.4-49); MCHC 33.2 g/dl (32.0-35.9); MEAN CELL VOLUME 102.3 fl (80-96); PLATELET COUNT 526 K/MM3 (134-434); RBC 3.83 M/mm3 (4.00-5.60); RDW 14.7 % (11.9-15.9); WHITE BLOOD COUNT 3.1 K/mm3 (4.0-10.0)
[2019-02-24 17:07] LABS: ALBUMIN 3.6 g/dl (3.4-5.0); BILIRUBIN,TOTAL 0.5 mg/dL (0.2-1); BLOOD UREA NITROGEN 11.7 mg/dL (7-18); CALCIUM 9.2 mg/dL (8.5-10.1); CREATININE 0.8 mg/dL (0.55-1.3); TOT PROT 7.3 g/dl (6.4-8.2)
[2019-02-24] MEDS: chlordiazePOXIDE HCL 25 MG CAPSULE PO SCH ×2 (18:29→22:34)
[2019-02-24] MEDS ORDERED: THIAMINE HCL 100 MG TABLET (FP) PO SCH (22:00)
[2019-02-24] MEDS: THIAMINE HCL 100 MG TABLET (FP) PO SCH (22:35)
[2019-02-25] MEDS: chlordiazePOXIDE HCL 25 MG CAPSULE PO SCH ×4 (07:11→23:44)
[2019-02-25] MEDS ORDERED: PRENATAL VITAMINS W/ FOLIC ACID TABLET (FP) PO SCH (10:00)
--- NOTE | 2019-02-25 10:43 | PN ---
S CIWA - CIWA Score Nausea/Vomitin Muscle Tremors: 2 Anxiety: 3 Agitation: 3 Paroxysmal Sweats: No Perspiration Orientation: 0-Oriented Tacttile Disturbances: 1-Very Mild Itch/Numbness Auditory Disturbances: 0-None Visual Disturbances: 0-None Headache: 2-Mild CIWA-Ar Total Score: 13 S Progress Note (SOAP) Subjective: alert,irritable,anxious,interrupted sleep,tremor Objective: 02/25/19 10:42 Vital Signs Temperature 98.6 F 02/25/19 09:33 Pulse Rate 64 02/25/19 09:33 Respiratory Rate 17 02/25/19 09:33 Blood Pressure 110/71 02/25/19 09:33 O2 Sat by Pulse Oximetry (%) Laboratory Last Values WBC 3.1 K/mm3 (4.0-10.0) L 02/24/19 13:20 RBC 3.83 M/mm3 (4.00-5.60) L 02/24/19 13:20 Hgb 13.0 GM/dL (11.7-16.9) 02/24/19 13:20 Hct 39.2 % (35.4-49) 02/24/19 13:20 MCV 102.3 fl (80-96) H 02/24/19 13:20 MCH 34.0 pg (25.7-33.7) H 02/24/19 13:20 MCHC 33.2 g/dl (32.0-35.9) 02/24/19 13:20 RDW 14.7 % (11.9-15.9) 02/24/19 13:20 Plt Count 526 K/MM3 (134-434) H D 02/24/19 13:20 MPV 7.0 fl (7.5-11.1) L 02/24/19 13:20 Sodium 141 mmol/L (136-145) 02/24/19 13:20 Potassium 4.0 mmol/L (3.5-5.1) 02/24/19 13:20 Chloride 106 mmol/L (98-107) 02/24/19 13:20 Carbon Dioxide 26 mmol/L (21-32) 02/24/19 13:20 Anion Gap 9 MMOL/L (8-16) 02/24/19 13:20 BUN 11.7 mg/dL (7-18) 02/24/19 13:20 Creatinine 0.8 mg/dL (0.55-1.3) 02/24/19 13:20 Est GFR (CKD-EPI)AfAm 116.56 02/24/19 13:20 Est GFR (CKD-EPI)NonAf 100.57 02/24/19 13:20 Random Glucose 106 mg/dL (74-106) 02/24/19 13:20 Calcium 9.2 mg/dL (8.5-10.1) 02/24/19 13:20 Total Bilirubin 0.5 mg/dL (0.2-1) 02/24/19 13:20 AST 23 U/L (15-37) 02/24/19 13:20 ALT 22 U/L (13-61) 02/24/19 13:20 Alkaline Phosphatase 49 U/L (45-117) 02/24/19 13:20 Total Protein 7.3 g/dl (6.4-8.2) 02/24/19 13:20 Albumin 3.6 g/dl (3.4-5.0) 02/24/19 13:20 HIV 1&2 Antibody Screen Cancelled 02/24/19 13:20 HIV P24 Antigen Cancelled 02/24/19 13:20 Assessment: 02/25/19 10:43 withdrawal symptom Plan: continue detox lbrium regimen
--- NOTE | 2019-02-25 10:56 | CONSULT ---
[facility] Psychiatric Consult - Data Date of interview: 02/25/19 Admission source: Self-referred Identifying data: Me Reilly is a 53 years old single Black male, unemployed with no source of income, homeless seeking detox treatment for alcohol, Medical History: Significant for atrial fibrillation, positive PPD and sporadic elevation of liver enzymes (alcohol-related). Psychiatric History: Marginally cooperative and irritable historian. Most of longitudinal psychiatric information is extracted from records. Mr Reilly is already known to this law writer from multiple previous admissions to [facility]. Known history of multiple psychiatric hospitalizations. Patient has been diagnosed with Schizoaffective Disorder and PTSD. Chronically non-adherent to psychotropic medications + psychiatric OPD care. Mr Reilly admits to this law writer that he has NOT taken his medications for " more than three weeks ". In spite of statement that he gets OPD psychiatric care at [facility] in the [place]. Used to be prescribed lithium + seroquel. No reported history of suicide attempts.
[2019-02-25] MEDS: ASPIRIN 81 MG CHEWABLE TABLETS PO SCH (10:58)
[2019-02-25] MEDS: PRENATAL VITAMINS W/ FOLIC ACID TABLET (FP) PO SCH (10:58)
[2019-02-25] MEDS ORDERED: PNEUMOCOCCAL 23 VACCINE 0.5 ML VIAL IM ONE (12:00)
--- NOTE | 2019-02-25 15:20 | CONSULT ---
[facility] Psychiatric Consult - Data Date of interview: 02/25/19 Admission source: [facility] Identifying data: Patient is a 53 year old single Black male, unemployed ( supported by SSI), and currently homeless. This is one of multiple admissions for patient. Patient admitted to for alcohol dependence. Substance Abuse History: - Smoking Cessation. Smoking history: Current every day smoker. Have you smoked in the past 12 months: Yes. Aproximately how many cigarettes per day: 10. Cigars Per Day: 0. Hx Chewing Tobacco Use: No. Initiated information on smoking cessation: Yes. 'Breaking Loose' booklet given : 02/24/19. - Substance & Tx. History. Hx Alcohol Use: Yes. Hx Substance Use : No. Substance Use Type: Alcohol, Cocaine. Hx Substance Use Treatment: Yes ( [facility] 01/2019). - Substances abused. Alcohol. Substance route: Oral. Frequency: Daily. Amount used: 3 pints vokda & 12 beers. Age of first use: 17. Date of last use: 02/24/19 Medical History: history of atrial fibrillation, positive PPD and sporadic elevation of liver enzymes (alcohol-related). Psychiatric History: Patient presents as mildly irritable and marginally coooperative. Patient with an extensive history of psychiatric hospitalizations ([facility], [facility] and [facility] Reports history of bipolar disorder. He reports h/o auditory hallucinations but denies psychotic symptoms at the moment. Mr. Reilly has a chronic history of nonadherence to medications and outpatient treatment. States he is currently receiving outpatient psychiatric care at the [facility] and is prescribed medications. As per external records patient received a 30 day prescription from Everardo Gilbert for prozac 40mg + [place] 300mg ER TID + Seroquel 100mg on 02/16/19. Patient reports medication noncompliance for approximately three weeks and is requesting to resume medications while in detox. States his next psychiatric appointment is next month. Patient denies h/o suicide attempt. Physical/Sexual Abuse/Trauma History: denies. Mental Status Exam - Mental Status Exam Alert and Oriented to: Time, Place, Person Cognitive Function: Good Patient Appearance: Well Groomed Mood: Withdrawn, Irritable (slightly irritable) Affect: Mood Congruent Patient Behavior: Fatigued Speech Pattern: Clear Voice Loudness: Normal Thought Process: Goal Oriented Thought Disorder: Not Present Hallucinations: Denies Suicidal Ideation: Denies Homicidal Ideation: Denies Insight/Judgement: Poor Sleep: Poorly Appetite: Fair Muscle strength/Tone: Normal Gait/Station: Normal Psychiatric Findings - Problem List ([place] 1, 2,3) (1) Alcohol dependence with uncomplicated withdrawal Current Visit: Yes Status: Acute (2) Nicotine dependence Current Visit: Yes Status: Chronic Qualifiers: Nicotine product type: cigarettes Substance use status: uncomplicated Qualified Code(s): F17.210 - Nicotine dependence, cigarettes, uncomplicated (3) Substance-induced sleep disorder Current Visit: Yes Status: Acute (4) Substance induced mood disorder Current Visit: Yes Status: Acute (5) History of bipolar disorder Current Visit: Yes Status: Chronic - Initial Treatment Plan Initial Treatment Plan: Psychoeducation provided. Detoxification in progress. Will order Prozac 20mg + [place] 450mg ER HS ( reduced dose of prozac and lithium due to noncompliance) + Seroquel 100mg HS. Julissa (pharmacist) informed typewriter mechanic that lithium ER is only available as 450mg. Willl order lithium level for 02/26/19. Benefits and side effects discussed. Verbal consent given.
--- NOTE | 2019-02-25 15:30 | EKG ---
Test Reason : Blood Pressure : / mmHG Vent. Rate : 062 BPM Atrial Rate : 062 BPM P-R Int : 130 ms QRS Dur : 090 ms QT Int : 430 ms P-R-T Axes : 072 082 074 degrees QTc Int : 436 ms NORMAL SINUS RHYTHM NONSPECIFIC ST ABNORMALITY ABNORMAL ECG WHEN COMPARED WITH ECG OF 14-MAY-2018 13:57, NO SIGNIFICANT CHANGE WAS FOUND Confirmed by YENY BREWSTER MD ([id number]) on 02/25/2019 3:30:25 PM Referred By: Confirmed By:YENY BREWSTER MD
[2019-02-25] MEDS ORDERED: LITHIUM CARBONATE 300 MG CAPSULE (FP) PO SCH (22:00)
[2019-02-25] MEDS: LITHIUM CARBONATE 450 MG TABLET.ER PO SCH (23:04)
[2019-02-25] MEDS: THIAMINE HCL 100 MG TABLET (FP) PO SCH (23:05)
[2019-02-25] MEDS: QUEtiapine FUMARATE 100 MG TABLET (FP) PO SCH (23:05)
[2019-02-26] MEDS: chlordiazePOXIDE HCL 25 MG CAPSULE PO SCH ×3 (05:43→18:15)
--- NOTE | 2019-02-26 10:12 | PN ---
S CIWA - CIWA Score Nausea/Vomitin-Mild Nausea/No Vomiting Muscle Tremors: 3 Anxiety: 2 Agitation: 2 Paroxysmal Sweats: 1-Minimal Palms Moist Orientation: 0-Oriented Tacttile Disturbances: 0-None Auditory Disturbances: 0-None Visual Disturbances: 0-None Headache: 0-None Present CIWA-Ar Total Score: 9 BHS Progress Note (SOAP) Subjective: Patient compaining of some mild to moderate withdrawals. Seen in bed mildly uncomfortable. Objective: 02/26/19 10:09 BP:108/56 P:63 R:18 T:97.9 02/26/19 10:10 Laboratory 02/24/19 02/24/19 02/24/19 13:00 13:20 13:20 WBC 3.1 K/mm3 L K/mm3 (4.0-10.0) RBC 3.83 M/mm3 L M/mm3 (4.00-5.60) Hgb 13.0 GM/dL GM/dL (11.7-16.9) Hct 39.2 % % (35.4-49) MCV 102.3 fl H fl (80-96) MCH 34.0 pg H pg (25.7-33.7) MCHC 33.2 g/dl g/dl (32.0-35.9) RDW 14.7 % % (11.9-15.9) Plt Count 526 K/MM3 H D K/MM3 (134-434) MPV 7.0 fl L fl (7.5-11.1) Sodium 141 mmol/L mmol/L (136-145) Potassium 4.0 mmol/L mmol/L (3.5-5.1) Chloride 106 mmol/L mmol/L (98-107) Carbon Dioxide 26 mmol/L mmol/L (21-32) Anion Gap 9 MMOL/L MMOL/L (8-16) BUN 11.7 mg/dL mg/dL (7-18) Creatinine 0.8 mg/dL mg/dL (0.55-1.3) Est GFR (CKD-EPI)AfAm 116.56 Est GFR (CKD-EPI)NonAf 100.57 Random Glucose 106 mg/dL mg/dL (74-106) Calcium 9.2 mg/dL mg/dL (8.5-10.1) Total Bilirubin 0.5 mg/dL mg/dL (0.2-1) AST 23 U/L U/L (15-37) ALT 22 U/L U/L (13-61) Alkaline Phosphatase 49 U/L U/L (45-117) Total Protein 7.3 g/dl g/dl (6.4-8.2) Albumin 3.6 g/dl g/dl (3.4-5.0) RPR Titer HIV 1&2 Ag/Ab, 4th Gen Non reactive (Non Reactive) HIV 1&2 Antibody Screen HIV P24 Antigen 02/24/19 02/24/19 13:20 13:20 WBC RBC Hgb Hct MCV MCH MCHC RDW Plt Count MPV Sodium Potassium Chloride Carbon Dioxide Anion Gap BUN Creatinine Est GFR (CKD-EPI)AfAm Est GFR (CKD-EPI)NonAf Random Glucose Calcium Total Bilirubin AST ALT Alkaline Phosphatase Total Protein Albumin RPR Titer Nonreactive (NONREACTIVE) HIV 1&2 Ag/Ab, 4th Gen HIV 1&2 Antibody Screen Cancelled HIV P24 Antigen Cancelled Assessment: 02/26/19 10:11 1. Alcohol Dependence with withdrawals 2. Macrocytic Anemia 3. Bipolar Disorder Plan: 1. Continue Librium protocol. Encouraged patient to continue PO fluids. He may ask for prn medications for muscle aches. 2. Anemia secondary to thiamine or folate deficiency due to poor nutrition and alcohol. Getting supplementation while in detox. 3. Bipolar Disorder: Psych consult noted and meds started. Continue as prescribed.
[2019-02-26] MEDS: FLUoxetine HCL 20 MG CAPSULE (FP) PO SCH (11:02)
[2019-02-26] MEDS: PRENATAL VITAMINS W/ FOLIC ACID TABLET (FP) PO SCH (11:02)
[2019-02-26] MEDS: ASPIRIN 81 MG CHEWABLE TABLETS PO SCH (11:03)
[2019-02-26] MEDS: LITHIUM CARBONATE 450 MG TABLET.ER PO SCH (23:44)
[2019-02-26] MEDS: QUEtiapine FUMARATE 100 MG TABLET (FP) PO SCH (23:44)
[2019-02-26] MEDS: THIAMINE HCL 100 MG TABLET (FP) PO SCH (23:45)
[2019-02-27] MEDS ORDERED: chlordiazePOXIDE HCL 10 MG CAPSULE PO PRN
[2019-02-27] MEDS: chlordiazePOXIDE HCL 25 MG CAPSULE PO SCH (00:01)
[2019-02-27] MEDS: chlordiazePOXIDE HCL 10 MG CAPSULE PO SCH ×4 (06:34→22:30)
--- NOTE | 2019-02-27 09:53 | PN ---
S CIWA - CIWA Score Nausea/Vomitin-No Nausea/No Vomiting Muscle Tremors: 2 Anxiety: 3 Agitation: 0-Normal Activity Paroxysmal Sweats: 3 Orientation: 0-Oriented Tacttile Disturbances: 0-None Auditory Disturbances: 0-None Visual Disturbances: 0-None Headache: 2-Mild CIWA-Ar Total Score: 10 S Progress Note (SOAP) Subjective: c/o headache, sweats, anxiety, and mild shakes. Objective: 02/27/19 09:52 Vital Signs 02/27/19 02/27/19 02/27/19 03:30 06:39 09:25 Temperature 97.9 F 97.9 F Pulse Rate 61 60 Respiratory 18 17 17 Rate Blood Pressure 101/60 121/80 Lab Results WBC 3.1 K/mm3 (4.0-10.0) L 02/24/19 13:20 RBC 3.83 M/mm3 (4.00-5.60) L 02/24/19 13:20 Hgb 13.0 GM/dL (11.7-16.9) 02/24/19 13:20 Hct 39.2 % (35.4-49) 02/24/19 13:20 MCV 102.3 fl (80-96) H 02/24/19 13:20 MCHC 33.2 g/dl (32.0-35.9) 02/24/19 13:20 RDW 14.7 % (11.9-15.9) 02/24/19 13:20 Plt Count 526 K/MM3 (134-434) H D 02/24/19 13:20 Sodium 141 mmol/L (136-145) 02/24/19 13:20 Potassium 4.0 mmol/L (3.5-5.1) 02/24/19 13:20 Chloride 106 mmol/L (98-107) 02/24/19 13:20 Carbon Dioxide 26 mmol/L (21-32) 02/24/19 13:20 Anion Gap 9 MMOL/L (8-16) 02/24/19 13:20 BUN 11.7 mg/dL (7-18) 02/24/19 13:20 Creatinine 0.8 mg/dL (0.55-1.3) 02/24/19 13:20 Random Glucose 106 mg/dL (74-106) 02/24/19 13:20 Calcium 9.2 mg/dL (8.5-10.1) 02/24/19 13:20 Labs noted. Assessment: 02/27/19 09:52 AOX3, in no respiratory distress. Full ROM, ambulating in the unit. Withdrawal symptoms. Plan: continue detox.
[2019-02-27] MEDS: ASPIRIN 81 MG CHEWABLE TABLETS PO SCH (10:58)
[2019-02-27] MEDS: FLUoxetine HCL 20 MG CAPSULE (FP) PO SCH (10:58)
[2019-02-27] MEDS: PRENATAL VITAMINS W/ FOLIC ACID TABLET (FP) PO SCH (11:00)
[2019-02-27] MEDS: QUEtiapine FUMARATE 100 MG TABLET (FP) PO SCH (22:30)
[2019-02-27] MEDS: LITHIUM CARBONATE 450 MG TABLET.ER PO SCH (22:30)
[2019-02-27] MEDS: THIAMINE HCL 100 MG TABLET (FP) PO SCH (22:30)
[2019-02-28] MEDS: chlordiazePOXIDE HCL 10 MG CAPSULE PO SCH ×2 (06:35→17:53)
[2019-02-28] MEDS ORDERED: LORATADINE 10 MG TABLET PO SCH (10:30)
[2019-02-28] MEDS ORDERED: guaiFENesin/D-METHORPHAN HB 10 ML UNIT-DOSE CUPS PO PRN (10:30)
[2019-02-28] MEDS: PRENATAL VITAMINS W/ FOLIC ACID TABLET (FP) PO SCH (10:35)
[2019-02-28] MEDS: ASPIRIN 81 MG CHEWABLE TABLETS PO SCH (10:35)
[2019-02-28] MEDS: FLUoxetine HCL 20 MG CAPSULE (FP) PO SCH (10:35)
--- NOTE | 2019-02-28 13:48 | PN ---
[facility] CIWA - CIWA Score Nausea/Vomitin-No Nausea/No Vomiting Muscle Tremors: 2 Anxiety: 2 Agitation: 2 Paroxysmal Sweats: 2 Orientation: 0-Oriented Tacttile Disturbances: 0-None Auditory Disturbances: 0-None Visual Disturbances: 0-None Headache: 0-None Present CIWA-Ar Total Score: 8 S Progress Note (SOAP) Subjective: Agitated, runny nose; c/o cough requesting cough syrup and medication for runny nose Objective: 02/28/19 13:46 Last Vital Signs Temp Pulse Resp BP Pulse Ox 98.4 F 74 16 128/64 02/28/19 13:27 02/28/19 13:27 02/28/19 13:27 02/28/19 13:27 Laboratory Tests 02/24/19 02/24/19 02/24/19 13:00 13:20 13:20 WBC 3.1 L RBC 3.83 L Hgb 13.0 Hct 39.2 MCV 102.3 H MCH 34.0 H MCHC 33.2 RDW 14.7 Plt Count 526 H D MPV 7.0 L Sodium 141 Potassium 4.0 Chloride 106 Carbon Dioxide 26 Anion Gap 9 BUN 11.7 Creatinine 0.8 Est GFR (CKD-EPI)AfAm 116.56 Est GFR (CKD-EPI)NonAf 100.57 Random Glucose 106 Calcium 9.2 Total Bilirubin 0.5 AST 23 ALT 22 Alkaline Phosphatase 49 Total Protein 7.3 Albumin 3.6 [place] RPR Titer HIV 1&2 Ag/Ab, 4th Gen Non reactive HIV 1&2 Antibody Screen HIV P24 Antigen 02/24/19 02/24/19 02/26/19 13:20 13:20 08:00 WBC RBC Hgb Hct MCV MCH MCHC RDW Plt Count MPV Sodium Potassium Chloride Carbon Dioxide Anion Gap BUN Creatinine Est GFR (CKD-EPI)AfAm Est GFR (CKD-EPI)NonAf Random Glucose Calcium Total Bilirubin AST ALT Alkaline Phosphatase Total Protein Albumin [place] 0.4 L RPR Titer Nonreactive HIV 1&2 Ag/Ab, 4th Gen HIV 1&2 Antibody Screen Cancelled HIV P24 Antigen Cancelled Labs reviewed: plt 526 (high) Assessment: 02/28/19 13:46 Withdrawal sxs Noted with thrombocytosis Plan: Continue detox Encouraged PO water intake Claritin 10mg PO daily for rhinorrhea Robitussin Cough DM prn for cough Patient scheduled for discharge tomorrow Thrombocytosis: chronic as per chart review, patient is asymptomatic, follow up with PCP for monitoring
[2019-02-28] MEDS: THIAMINE HCL 100 MG TABLET (FP) PO SCH (22:40)
[2019-02-28] MEDS: LITHIUM CARBONATE 450 MG TABLET.ER PO SCH (22:40)
[2019-02-28] MEDS: QUEtiapine FUMARATE 100 MG TABLET (FP) PO SCH (22:40)
[2019-03-01] MEDS ORDERED: chlordiazePOXIDE HCL 10 MG CAPSULE PO ONE (05:00)
[2019-03-01 07:47] VITALS: BP 110/60; PULSE 65; TEMP 97
--- NOTE | 2019-03-01 09:15 | DS ---
[facility] Detox Discharge Summary Admission Date: 02/24/19 Discharge Date: 03/01/19 - History Present History: Alcohol Dependence, Cocaine Dependence - Physical Exam Results Vital Signs: Vital Signs Temperature 97 F L 03/01/19 07:46 Pulse Rate 65 03/01/19 07:46 Respiratory Rate 18 03/01/19 07:46 Blood Pressure 110/60 03/01/19 07:46 O2 Sat by Pulse Oximetry (%) Pertinent Admission Physical Exam Findings: pt arrived in withdrawals Laboratory Tests 02/24/19 02/24/19 02/24/19 13:00 13:20 13:20 WBC 3.1 L RBC 3.83 L Hgb 13.0 Hct 39.2 MCV 102.3 H MCH 34.0 H MCHC 33.2 RDW 14.7 Plt Count 526 H D MPV 7.0 L Sodium 141 Potassium 4.0 Chloride 106 Carbon Dioxide 26 Anion Gap 9 BUN 11.7 Creatinine 0.8 Est GFR (CKD-EPI)AfAm 116.56 Est GFR (CKD-EPI)NonAf 100.57 Random Glucose 106 Calcium 9.2 Total Bilirubin 0.5 AST 23 ALT 22 Alkaline Phosphatase 49 Total Protein 7.3 Albumin 3.6 [place] RPR Titer HIV 1&2 Ag/Ab, 4th Gen Non reactive HIV 1&2 Antibody Screen HIV P24 Antigen 02/24/19 02/24/19 02/26/19 13:20 13:20 08:00 WBC RBC Hgb Hct MCV MCH MCHC RDW Plt Count MPV Sodium Potassium Chloride Carbon Dioxide Anion Gap BUN Creatinine Est GFR (CKD-EPI)AfAm Est GFR (CKD-EPI)NonAf Random Glucose Calcium Total Bilirubin AST ALT Alkaline Phosphatase Total Protein Albumin [place] 0.4 L RPR Titer Nonreactive HIV 1&2 Ag/Ab, 4th Gen HIV 1&2 Antibody Screen Cancelled HIV P24 Antigen Cancelled pt is aaox3 ambulating left before 8am shift began - Treatment Hospital Course: Detox Protocol Followed, Detoxed Safely, Responded well, Discharged Condition Good, Rehab Referral Accepted Patient has Accepted a Rehab Referral to: pt declined rehab - Medication Discharge Medications: Ambulatory Orders [place] Carbonate [Lithobid] 300 mg PO TID #90 tablet.er 12/24/17 Fluoxetine HCl [Prozac -] 20 mg PO DAILY #30 tab 01/25/18 Quetiapine Fumarate [Seroquel] 100 mg PO HS #30 tablet 01/25/18 Aspirin [ASA -] 81 mg PO DAILY #30 tab.chew 07/20/18 Diltiazem HCl [Diltiazem 24Hr ER (Cd)] 120 mg PO DAILY #30 cap.er.24h 07/20/18 - Diagnosis (1) Alcohol dependence with uncomplicated withdrawal Status: Acute (2) Alcohol-induced mood disorder Status: Acute (3) Nicotine dependence Status: Chronic Qualifiers: Nicotine product type: cigarettes Substance use status: uncomplicated Qualified Code(s): F17.210 - Nicotine dependence, cigarettes, uncomplicated (4) Non-compliant patient Status: Acute (5) Substance-induced sleep disorder Status: Acute (6) Weight loss Status: Acute (7) Afib Status: Chronic Qualifiers: Atrial fibrillation type: unspecified Qualified Code(s): I48.91 - Unspecified atrial fibrillation (8) Anxiety and depression Status: Chronic (9) Atrial fibrillation with RVR Status: Chronic (10) Bipolar disorder Status: Chronic Qualifiers: Active/Remission status: remission status unspecified Qualified Code(s): F31.9 - Bipolar disorder, unspecified (11) Cocaine dependence, uncomplicated Status: Chronic (12) Depression Status: Chronic Qualifiers: Depression Type: unspecified Qualified Code(s): F32.9 - Major depressive disorder, single episode, unspecified (13) History of atrial fibrillation without current medication Status: Chronic (14) History of bipolar disorder Status: Chronic (15) Insomnia Status: Chronic Qualifiers: Insomnia type: unspecified Qualified Code(s): G47.00 - Insomnia, unspecified (16) Non-compliance with treatment Status: Chronic (17) PTSD (post-traumatic stress disorder) Status: Chronic (18) Schizoaffective disorder Status: Chronic Qualifiers: Schizoaffective disorder type: bipolar Qualified Code(s): F25.0 - Schizoaffective disorder, bipolar type (19) Schizoaffective disorder, depressive type Status: Chronic (20) Bipolar II disorder Status: Suspected (21) Drug-induced mood disorder Status: Suspected (22) Substance induced mood disorder Status: Suspected (23) Abnormal EKG Status: Resolved (24) PPD positive, treated Status: Resolved - AMA Did Patient Leave Against Medical Advice: No
== END 2019-03-01 06:50 | disposition home or self-care (01) | DRG 774 ==
LOC: YASAS 11:50 → Y6N 13:46
PROVIDERS: ADMIT Surgery; ATTEND Surgery
PROC: HZ2ZZZZ Detoxification Services for Substance Abuse Treatment (ICD-10-PCS; principal; 2019-02-24)
DX: F10.230 Alcohol dependence with withdrawal, uncomplicated (principal); F10.24 Alcohol dependence with alcohol-induced mood disorder; F14.20 Cocaine dependence, uncomplicated; F17.210 Nicotine dependence, cigarettes, uncomplicated; F19.24 Other psychoactive substance dependence with psychoactive substance-induced mood disorder; F19.282 Other psychoactive substance dependence with psychoactive substance-induced sleep disorder; F25.0 Schizoaffective disorder, bipolar type; F41.9 Anxiety disorder, unspecified; F31.81 Bipolar II disorder; F43.10 Post-traumatic stress disorder, unspecified; I48.91 Unspecified atrial fibrillation; G47.00 Insomnia, unspecified; R76.11 Nonspecific reaction to tuberculin skin test without active tuberculosis; R63.4 Abnormal weight loss; D47.3 Essential (hemorrhagic) thrombocythemia; D53.9 Nutritional anemia, unspecified; Z91.14 Patient's other noncompliance with medication regimen
CPT/HCPCS: 36415; 71046-TC-FY; 80053; 80178; 85027; 86593; 87389; 90732; 93005; 93010; G0009

== ENCOUNTER 2019-03-23 13:15 | Inpatient (IN) | payer BC ==
[2019-03-23 19:57] VITALS: BMI 20.5
--- NOTE | 2019-03-23 20:47 | HP ---
CIWA Score Nausea/Vomitin-Mild Nausea/No Vomiting Muscle Tremors: 3 Anxiety: 3 Agitation: 3 Paroxysmal Sweats: 1-Minimal Palms Moist Orientation: 0-Oriented Tacttile Disturbances: 0-None Auditory Disturbances: 0-None Visual Disturbances: 0-None Headache: 1-Very Mild CIWA-Ar Total Score: 12 - Admission Criteria OASAS Guidelines: Admission for Medically Managed Detox: Requires at least one of the followin. CIWA greater than 12 2. Seizures within the past 24 hours 3. Delirium tremens within the past 24 hours 4. Hallucinations within the past 24 hours 5. Acute intervention needed for co occurring medical disorder 6. Acute intervention needed for co occurring psychiatric disorder 7. Severe withdrawal that cannot be handled at a lower level of care (continued vomiting, continued diarrhea, abnormal vital signs) requiring intravenous medication and/or fluids 8. Patient presents the following: CIWA greater than 12 Admission Criteria Met: Admission criteria met Admission ROS BHS - HPI Chief Complaint: here for alcohol detox Allergies/Adverse Reactions: Allergies Allergy/AdvReac Type Severity Reaction Status Date / Time No Known Allergies Allergy Verified 03/23/19 19:42 History of Present Illness: 53 yo bipolar/anxiety/depression, left detox here 3 weeks ago, returns today for alcohol detox. Says he started drinking again. Lives with rudi. Alcohol- last drink last night, beer 2 6 packs/day, no seizures/DT's PCP- at [facility]-no controlled substances - Ebola screening Have you traveled outside of the country in the last 21 days: No Have you had contact with anyone from an Ebola affected area: No - Review of Systems Constitutional: No Symptoms Reported EENT: reports: No Symptoms Reported Respiratory: reports: No Symptoms reported Cardiac: reports: No Symptoms Reported GI: reports: No Symptoms Reported : reports: No Symptoms Reported Musculoskeletal: reports: No Symptoms Reported Integumentary: reports: No Symptoms Reported Neuro: reports: No Symptoms reported Endocrine: reports: No Symptoms Reported Hematology: reports: No Symptoms Reported Psychiatric: reports: No Sypmtoms Reported (no suicidal or homicidal thoughts) Patient History - Patient Medical History Hx Anemia: No Hx Asthma: No Hx Chronic Obstructive Pulmonary Disease (COPD): No Hx Cancer: No Hx Cardiac Disorders: No Hx Congestive Heart Failure: No Hx Hypertension: No Hx Hypercholesterolemia: No Hx Pacemaker: No HX Cerebrovascular Accident: No Hx Seizures: No Hx Dementia: No Hx Diabetes: No Hx Gastrointestinal Disorders: No Hx Liver Disease: Yes (elevated LFTs when drinking) Hx Genitourinary Disorders: No Hx Sexually Transmitted Disorders: No Hx Renal Disease (ESRD): No Hx Thyroid Disease: No Hx Human Immunodeficiency Virus (HIV): No (NEGATIVE HX last 04/16) Hx Hepatitis C: No (NEGATIVE.) Hx Depression: Yes Hx Suicide Attempt: No Hx Bipolar Disorder: Yes (poor adherence to meds. prozac, seroquel, lithium ) Hx Schizophrenia: No - Patient Surgical History Past Surgical History: No Hx Neurologic Surgery: No Hx Cataract Extraction: No Hx Cardiac Surgery: No Hx Lung Surgery: No Hx Breast Surgery: No Hx Breast Biopsy: No Hx Abdominal Surgery: No Hx Appendectomy: No Hx Cholecystectomy: No Hx Genitourinary Surgery: No Hx Section: No Hx Orthopedic Surgery: No Anesthesia Reaction: No - PPD History Results: CXR(-)12/24/17 - Smoking Cessation Smoking history: Current every day smoker Have you smoked in the past 12 months: Yes Aproximately how many cigarettes per day: 10 Cigars Per Day: 0 Hx Chewing Tobacco Use: No Initiated information on smoking cessation: Yes 'Breaking Loose' booklet given: 03/23/19 - Substances abused Alcohol Substance route: Oral Frequency: Daily Amount used: 3 pints vokda & 12 beers Age of first use: 17 Date of last use: 03/23/19 Cocaine Substance route: Smoking Frequency: 3-6 times per week Amount used: 2 of 20 Age of first use: 20 Date of last use: 03/21/19 Admission Physical Exam BHS - Vital Signs Vital Signs: Vital Signs - 24 hr 03/23/19 19:41 Pulse Rate 66 Respiratory 16 Rate Blood Pressure 128/80 - Physical General Appearance: Yes: Mild Distress, Thin HEENTM: Yes: Within Normal Limits, Normal Voice Respiratory: Yes: Within Normal Limits, Chest Non-Tender, Lungs Clear Cardiology: Yes: Within Normal Limits, Regular Rhythm Abdominal: Yes: Within Normal Limits, Normal Bowel Sounds Back: Yes: Within Normal Limits Musculoskeletal: Yes: Within Normal Limits Extremities: Yes: Within Normal Limits Neurological: Yes: Within Normal Limits, appliquer II-XII NML intact, Fully Oriented Integumentary: Yes: Within Normal Limits - Diagnostic (1) Alcohol dependence with uncomplicated withdrawal Current Visit: No Status: Acute (2) PTSD (post-traumatic stress disorder) Current Visit: No Status: Chronic (3) Bipolar II disorder Current Visit: No Status: Suspected (4) Cocaine dependence, uncomplicated Current Visit: No Status: Chronic Breathalyzer - Breathalyzer Breathalyzer: 0 POC Urine test - Test device test lot number: not applicable Urine Drug Screen - Test Device Lot number: [id number] Expiration date: 11/27/20 - Control Is test valid?: Yes - Results Drug screen NEGATIVE: No Urine drug screen results: [facility]-Cocaine Inpatient Rehab Admission - Rehab Decision to Admit Inpatient rehab admission?: No
[2019-03-23] MEDS ORDERED: NICOTINE POLACRILEX 2 MG GUM BUC PRN (20:58)
[2019-03-23] MEDS ORDERED: IBUPROFEN 400 MG TABLET (FP) PO PRN (20:58)
[2019-03-23] MEDS ORDERED: BISMUTH SUBSALICYLATE 524 MG/30 ML UD PO PRN (20:58)
[2019-03-23] MEDS ORDERED: MAG HYDROX/AL HYDROX/SIMETH 30 ML UNIT-DOSE CUP PO PRN (20:58)
[2019-03-23] MEDS ORDERED: ACETAMINOPHEN 325 MG TABLET (FP) PO PRN (20:58)
[2019-03-23] MEDS ORDERED: MENTHOL/PHENOL 1 EACH UD MM PRN (20:58)
[2019-03-23] MEDS ORDERED: METHOCARBAMOL 500 MG TABLET PO PRN (20:58)
[2019-03-23] MEDS ORDERED: MAGNESIUM HYDROX 2400MG/30ML ORAL SUSPENSION 30 ML CUP PO PRN (20:58)
[2019-03-23] MEDS ORDERED: hydrOXYzine PAMOATE 25 MG CAPSULE (FP) PO PRN (20:58)
[2019-03-23] MEDS ORDERED: chlordiazePOXIDE HCL 25 MG CAPSULE PO PRN (20:58)
[2019-03-23] MEDS ORDERED: MAGNESIUM CITRATE 300 ML BOTTLE PO PRN (20:58)
[2019-03-23] MEDS ORDERED: guaiFENesin/D-METHORPHAN HB 10 ML UNIT-DOSE CUPS PO PRN (21:02)
[2019-03-23] MEDS: THIAMINE HCL 100 MG TABLET (FP) PO SCH (22:21)
[2019-03-23] MEDS: QUEtiapine FUMARATE 100 MG TABLET (FP) PO SCH (22:21)
[2019-03-23] MEDS: chlordiazePOXIDE HCL 25 MG CAPSULE PO SCH (22:22)
[2019-03-23] MEDS: LITHIUM CARBONATE 300 MG CAPSULE (FP) PO SCH (22:52)
[2019-03-24] MEDS: chlordiazePOXIDE HCL 25 MG CAPSULE PO SCH ×4 (07:11→22:19)
[2019-03-24] MEDS: LITHIUM CARBONATE 300 MG CAPSULE (FP) PO SCH ×3 (07:11→22:18)
--- NOTE | 2019-03-24 10:15 | PN ---
S CIWA - CIWA Score Nausea/Vomitin-Mild Nausea/No Vomiting Muscle Tremors: 3 Anxiety: 3 Agitation: 3 Paroxysmal Sweats: 2 Orientation: 0-Oriented Tacttile Disturbances: 1-Very Mild Itch/Numbness Auditory Disturbances: 0-None Visual Disturbances: 0-None Headache: 1-Very Mild CIWA-Ar Total Score: 14 BHS Progress Note (SOAP) Subjective: able to fall asleep last night feeling tired limited conversation with staff Objective: 03/24/19 10:14 Vital Signs Temperature 97.3 F L 03/24/19 09:15 Pulse Rate 60 03/24/19 09:15 Respiratory Rate 18 03/24/19 09:15 Blood Pressure 147/79 03/24/19 09:15 O2 Sat by Pulse Oximetry (%) 03/24/19 10:15 lab pending Assessment: 03/24/19 10:16 alcohol withdrawal sx Plan: continue librium detox regimen
[2019-03-24 11:08] LABS: HEMATOCRIT 39.2 % (35.4-49); HEMOGLOBIN 13.2 GM/dL (11.7-16.9); MCH 34.2 pg (25.7-33.7); MCHC 33.7 g/dl (32.0-35.9); MEAN CELL VOLUME 101.4 fl (80-96); MEAN PLT VOLUME 7.1 fl (7.5-11.1); PLATELET COUNT 445 K/MM3 (134-434); RBC 3.87 M/mm3 (4.00-5.60); WHITE BLOOD COUNT 4.1 K/mm3 (4.0-10.0)
[2019-03-24 11:23] LABS: ALBUMIN 3.3 g/dl (3.4-5.0); BILIRUBIN,TOTAL 0.4 mg/dL (0.2-1); BLOOD UREA NITROGEN 14.2 mg/dL (7-18); CALCIUM 9.4 mg/dL (8.5-10.1); CREATININE 0.7 mg/dL (0.55-1.3); POTASSIUM 4.1 mmol/L (3.5-5.1); TOT PROT 6.8 g/dl (6.4-8.2)
[2019-03-24] MEDS: FLUoxetine HCL 20 MG CAPSULE (FP) PO SCH (11:29)
[2019-03-24] MEDS: PRENATAL VITAMINS W/ FOLIC ACID TABLET (FP) PO SCH (11:29)
--- NOTE | 2019-03-24 16:11 | CONSULT ---
[facility] Psychiatric Consult - Data Date of interview: 03/24/19 Admission source: [facility] Identifying data: Patient is approached at bedside for the psychiatric evaluation. Mr Relily declines to speak with data governance consultant. " I don't want to talk with anyone." Nursing staff is made aware.
[2019-03-24] MEDS: THIAMINE HCL 100 MG TABLET (FP) PO SCH (22:18)
[2019-03-24] MEDS: QUEtiapine FUMARATE 100 MG TABLET (FP) PO SCH (22:18)
[2019-03-24] MEDS: MELATONIN 5 MG TABLETS PO PRN (22:19)
[2019-03-25] MEDS: chlordiazePOXIDE HCL 25 MG CAPSULE PO SCH ×4 (06:50→22:22)
[2019-03-25] MEDS: LITHIUM CARBONATE 300 MG CAPSULE (FP) PO SCH ×3 (06:51→22:22)
--- NOTE | 2019-03-25 10:16 | PN ---
[facility] CIWA - CIWA Score Nausea/Vomitin-Mild Nausea/No Vomiting Muscle Tremors: 3 Anxiety: 4-Mod. Anxious/Guarded Agitation: 2 Paroxysmal Sweats: 1-Minimal Palms Moist Orientation: 0-Oriented Tacttile Disturbances: 0-None Auditory Disturbances: 0-None Visual Disturbances: 0-None Headache: 0-None Present CIWA-Ar Total Score: 11 S Progress Note (SOAP) Subjective: lying on bed comfortably ate breakfast skin warm and mild moist encourage to attend behavior therapy group Objective: 03/25/19 10:15 Vital Signs Temperature 96.7 F L 03/25/19 09:20 Pulse Rate 66 03/25/19 09:20 Respiratory Rate 18 03/25/19 09:20 Blood Pressure 120/70 03/25/19 09:20 O2 Sat by Pulse Oximetry (%) Laboratory Last Values WBC 4.1 K/mm3 (4.0-10.0) 03/24/19 07:45 RBC 3.87 M/mm3 (4.00-5.60) L 03/24/19 07:45 Hgb 13.2 GM/dL (11.7-16.9) 03/24/19 07:45 Hct 39.2 % (35.4-49) 03/24/19 07:45 MCV 101.4 fl (80-96) H 03/24/19 07:45 MCH 34.2 pg (25.7-33.7) H 03/24/19 07:45 MCHC 33.7 g/dl (32.0-35.9) 03/24/19 07:45 RDW 14.0 % (11.9-15.9) 03/24/19 07:45 Plt Count 445 K/MM3 (134-434) H 03/24/19 07:45 MPV 7.1 fl (7.5-11.1) L 03/24/19 07:45 Sodium 141 mmol/L (136-145) 03/24/19 07:45 Potassium 4.1 mmol/L (3.5-5.1) 03/24/19 07:45 Chloride 107 mmol/L (98-107) 03/24/19 07:45 Carbon Dioxide 27 mmol/L (21-32) 03/24/19 07:45 Anion Gap 6 MMOL/L (8-16) L 03/24/19 07:45 BUN 14.2 mg/dL (7-18) 03/24/19 07:45 Creatinine 0.7 mg/dL (0.55-1.3) 03/24/19 07:45 Est GFR (CKD-EPI)AfAm 123.13 03/24/19 07:45 Est GFR (CKD-EPI)NonAf 106.24 03/24/19 07:45 Random Glucose 94 mg/dL (74-106) 03/24/19 07:45 Calcium 9.4 mg/dL (8.5-10.1) 03/24/19 07:45 Total Bilirubin 0.4 mg/dL (0.2-1) 03/24/19 07:45 AST 15 U/L (15-37) 03/24/19 07:45 ALT 15 U/L (13-61) 03/24/19 07:45 Alkaline Phosphatase 45 U/L (45-117) 03/24/19 07:45 Total Protein 6.8 g/dl (6.4-8.2) 03/24/19 07:45 Albumin 3.3 g/dl (3.4-5.0) L 03/24/19 07:45 HIV 1&2 Ag/Ab, 4th Gen Non reactive (Non Reactive) 03/24/19 07:45 lab noted Assessment: 03/25/19 10:16 alcohol withdrawal sx Plan: continue librium detox regimen
[2019-03-25] MEDS: FLUoxetine HCL 20 MG CAPSULE (FP) PO SCH (10:38)
[2019-03-25] MEDS: PRENATAL VITAMINS W/ FOLIC ACID TABLET (FP) PO SCH (10:41)
[2019-03-25] MEDS: THIAMINE HCL 100 MG TABLET (FP) PO SCH (22:22)
[2019-03-25] MEDS: MELATONIN 5 MG TABLETS PO PRN (22:22)
[2019-03-25] MEDS: QUEtiapine FUMARATE 100 MG TABLET (FP) PO SCH (22:22)
[2019-03-26] MEDS ORDERED: chlordiazePOXIDE HCL 10 MG CAPSULE PO PRN
[2019-03-26] MEDS: LITHIUM CARBONATE 300 MG CAPSULE (FP) PO SCH ×3 (05:48→22:14)
[2019-03-26] MEDS: chlordiazePOXIDE HCL 10 MG CAPSULE PO SCH ×4 (05:49→22:14)
[2019-03-26] MEDS: ASPIRIN 81 MG CHEWABLE TABLETS PO SCH (10:21)
[2019-03-26] MEDS: PRENATAL VITAMINS W/ FOLIC ACID TABLET (FP) PO SCH (10:21)
[2019-03-26] MEDS: FLUoxetine HCL 20 MG CAPSULE (FP) PO SCH (10:21)
--- NOTE | 2019-03-26 14:11 | PN ---
[facility] CIWA - CIWA Score Nausea/Vomitin-No Nausea/No Vomiting Muscle Tremors: 2 Anxiety: 2 Agitation: 3 Paroxysmal Sweats: 1-Minimal Palms Moist Orientation: 0-Oriented Tacttile Disturbances: 1-Very Mild Itch/Numbness Auditory Disturbances: 0-None Visual Disturbances: 0-None Headache: 0-None Present CIWA-Ar Total Score: 9 BHS Progress Note (SOAP) Subjective: c/o of joint pain, irritable, chills, body aches Objective: 03/26/19 14:10 Vital Signs Temperature 97.7 F 03/26/19 13:21 Pulse Rate 66 03/26/19 13:21 Respiratory Rate 20 03/26/19 13:21 Blood Pressure 107/64 03/26/19 13:21 O2 Sat by Pulse Oximetry (%) Laboratory Last Values WBC 4.1 K/mm3 (4.0-10.0) 03/24/19 07:45 RBC 3.87 M/mm3 (4.00-5.60) L 03/24/19 07:45 Hgb 13.2 GM/dL (11.7-16.9) 03/24/19 07:45 Hct 39.2 % (35.4-49) 03/24/19 07:45 MCV 101.4 fl (80-96) H 03/24/19 07:45 MCH 34.2 pg (25.7-33.7) H 03/24/19 07:45 MCHC 33.7 g/dl (32.0-35.9) 03/24/19 07:45 RDW 14.0 % (11.9-15.9) 03/24/19 07:45 Plt Count 445 K/MM3 (134-434) H 03/24/19 07:45 MPV 7.1 fl (7.5-11.1) L 03/24/19 07:45 Sodium 141 mmol/L (136-145) 03/24/19 07:45 Potassium 4.1 mmol/L (3.5-5.1) 03/24/19 07:45 Chloride 107 mmol/L (98-107) 03/24/19 07:45 Carbon Dioxide 27 mmol/L (21-32) 03/24/19 07:45 Anion Gap 6 MMOL/L (8-16) L 03/24/19 07:45 BUN 14.2 mg/dL (7-18) 03/24/19 07:45 Creatinine 0.7 mg/dL (0.55-1.3) 03/24/19 07:45 Est GFR (CKD-EPI)AfAm 123.13 03/24/19 07:45 Est GFR (CKD-EPI)NonAf 106.24 03/24/19 07:45 Random Glucose 94 mg/dL (74-106) 03/24/19 07:45 Calcium 9.4 mg/dL (8.5-10.1) 03/24/19 07:45 Total Bilirubin 0.4 mg/dL (0.2-1) 03/24/19 07:45 AST 15 U/L (15-37) 03/24/19 07:45 ALT 15 U/L (13-61) 03/24/19 07:45 Alkaline Phosphatase 45 U/L (45-117) 03/24/19 07:45 Total Protein 6.8 g/dl (6.4-8.2) 03/24/19 07:45 Albumin 3.3 g/dl (3.4-5.0) L 03/24/19 07:45 HIV 1&2 Ag/Ab, 4th Gen Non reactive (Non Reactive) 03/24/19 07:45 repeat platelets Assessment: 03/26/19 14:10 Aox3 no acute distress, irritable no adventitious breath sounds full ROM ambulating in the unit withdrawal sx Plan: increase PO fluids continue detox continue to monitor
[2019-03-26] MEDS ORDERED: BENZOCAINE 20 % GEL TUBE MM PRN (17:38)
[2019-03-26] MEDS: MELATONIN 5 MG TABLETS PO PRN (22:14)
[2019-03-26] MEDS: THIAMINE HCL 100 MG TABLET (FP) PO SCH (22:14)
[2019-03-26] MEDS: QUEtiapine FUMARATE 100 MG TABLET (FP) PO SCH (22:14)
[2019-03-27] MEDS: chlordiazePOXIDE HCL 10 MG CAPSULE PO SCH ×2 (06:22→16:49)
[2019-03-27] MEDS: LITHIUM CARBONATE 300 MG CAPSULE (FP) PO SCH ×3 (06:23→22:16)
[2019-03-27] MEDS: ASPIRIN 81 MG CHEWABLE TABLETS PO SCH (12:11)
[2019-03-27] MEDS: FLUoxetine HCL 20 MG CAPSULE (FP) PO SCH (12:12)
[2019-03-27] MEDS: PRENATAL VITAMINS W/ FOLIC ACID TABLET (FP) PO SCH (12:12)
--- NOTE | 2019-03-27 15:03 | PN ---
S CIWA - CIWA Score Nausea/Vomitin-No Nausea/No Vomiting Muscle Tremors: None Anxiety: 2 Agitation: 0-Normal Activity Paroxysmal Sweats: No Perspiration Orientation: 0-Oriented Tacttile Disturbances: 1-Very Mild Itch/Numbness Auditory Disturbances: 0-None Visual Disturbances: 0-None Headache: 0-None Present CIWA-Ar Total Score: 3 BHS Progress Note (SOAP) Subjective: Fatigue, Body Aches. Objective: PATIENT A & O X 3. IN NO ACUTE DISTRESS. 03/27/19 15:01 Vital Signs Temperature 98.1 F 03/27/19 09:27 Pulse Rate 68 03/27/19 09:27 Respiratory Rate 18 03/27/19 09:27 Blood Pressure 102/75 03/27/19 09:27 O2 Sat by Pulse Oximetry (%) Laboratory Tests 03/24/19 03/24/19 03/24/19 07:45 07:45 07:45 WBC 4.1 RBC 3.87 L Hgb 13.2 Hct 39.2 MCV 101.4 H MCH 34.2 H MCHC 33.7 RDW 14.0 Plt Count 445 H MPV 7.1 L Sodium 141 Potassium 4.1 Chloride 107 Carbon Dioxide 27 Anion Gap 6 L BUN 14.2 Creatinine 0.7 Est GFR (CKD-EPI)AfAm 123.13 Est GFR (CKD-EPI)NonAf 106.24 Random Glucose 94 Calcium 9.4 Total Bilirubin 0.4 AST 15 ALT 15 Alkaline Phosphatase 45 Total Protein 6.8 Albumin 3.3 L HIV 1&2 Ag/Ab, 4th Gen Non reactive 03/27/19 07:40 WBC RBC Hgb Hct MCV MCH MCHC RDW Plt Count 382 MPV Sodium Potassium Chlor[place] Carbon Dioxide Anion Gap BUN Creatinine Est GFR (CKD-EPI)AfAm Est GFR (CKD-EPI)NonAf Random Glucose Calcium Total Bilirubin AST ALT Alkaline Phosphatase Total Protein Albumin HIV 1&2 Ag/Ab, 4th Gen LABS NOTED. Assessment: 03/27/19 15:02 WITHDRAWAL SYMPTOMS. Plan: CONTINUE DETOX. PATIENT SCHEDULED FOR D/C FROM DETOX UNIT TOMORROW.
[2019-03-27] MEDS: THIAMINE HCL 100 MG TABLET (FP) PO SCH (22:16)
[2019-03-27] MEDS: QUEtiapine FUMARATE 100 MG TABLET (FP) PO SCH (22:16)
[2019-03-28] MEDS ORDERED: chlordiazePOXIDE HCL 10 MG CAPSULE PO ONE (05:00)
[2019-03-28 06:17] VITALS: BP 109/60; PULSE 59; TEMP 97.6
[2019-03-28] MEDS: LITHIUM CARBONATE 300 MG CAPSULE (FP) PO SCH (06:55)
--- NOTE | 2019-03-28 10:25 | DS ---
[facility] Detox Discharge Summary Admission Date: 03/23/19 Discharge Date: 03/28/19 - History Present History: Alcohol Dependence Additional Comments: did well with librium detox regimen no complication through out the detox stay refuse to be seen by psychiatrist patient prefers to visit his own psychiatrist in the community upon discharged from detox patient is alert oriented x 3 ambulating steady gait cardiac S1S2 regular rate rhythm skin warm and dry - Physical Exam Results Vital Signs: Vital Signs Temperature 97.6 F 03/28/19 06:16 Pulse Rate 59 L 03/28/19 06:16 Respiratory Rate 16 03/28/19 06:16 Blood Pressure 109/60 03/28/19 06:16 O2 Sat by Pulse Oximetry (%) Pertinent Admission Physical Exam Findings: alcohol withdrawal sx Laboratory Last Values WBC 4.1 K/mm3 (4.0-10.0) 03/24/19 07:45 RBC 3.87 M/mm3 (4.00-5.60) L 03/24/19 07:45 Hgb 13.2 GM/dL (11.7-16.9) 03/24/19 07:45 Hct 39.2 % (35.4-49) 03/24/19 07:45 MCV 101.4 fl (80-96) H 03/24/19 07:45 MCH 34.2 pg (25.7-33.7) H 03/24/19 07:45 MCHC 33.7 g/dl (32.0-35.9) 03/24/19 07:45 RDW 14.0 % (11.9-15.9) 03/24/19 07:45 Plt Count 382 K/MM3 (134-434) 03/27/19 07:40 MPV 7.1 fl (7.5-11.1) L 03/24/19 07:45 Sodium 141 mmol/L (136-145) 03/24/19 07:45 Potassium 4.1 mmol/L (3.5-5.1) 03/24/19 07:45 Chloride 107 mmol/L (98-107) 03/24/19 07:45 Carbon Dioxide 27 mmol/L (21-32) 03/24/19 07:45 Anion Gap 6 MMOL/L (8-16) L 03/24/19 07:45 BUN 14.2 mg/dL (7-18) 03/24/19 07:45 Creatinine 0.7 mg/dL (0.55-1.3) 03/24/19 07:45 Est GFR (CKD-EPI)AfAm 123.13 03/24/19 07:45 Est GFR (CKD-EPI)NonAf 106.24 03/24/19 07:45 Random Glucose 94 mg/dL (74-106) 03/24/19 07:45 Calcium 9.4 mg/dL (8.5-10.1) 03/24/19 07:45 Total Bilirubin 0.4 mg/dL (0.2-1) 03/24/19 07:45 AST 15 U/L (15-37) 03/24/19 07:45 ALT 15 U/L (13-61) 03/24/19 07:45 Alkaline Phosphatase 45 U/L (45-117) 03/24/19 07:45 Total Protein 6.8 g/dl (6.4-8.2) 03/24/19 07:45 Albumin 3.3 g/dl (3.4-5.0) L 03/24/19 07:45 HIV 1&2 Ag/Ab, 4th Gen Non reactive (Non Reactive) 03/24/19 07:45 lab noted - Treatment Hospital Course: Detox Protocol Followed, Detoxed Safely, Responded well, Discharged Condition Good, Rehab Referral Accepted Patient has Accepted a Rehab Referral to: community support approach - Medication Discharge Medications: Ambulatory Orders [place] Carbonate [Lithobid] 300 mg PO TID #90 tablet.er 12/24/17 Fluoxetine HCl [Prozac -] 20 mg PO DAILY #30 tab 01/25/18 Quetiapine Fumarate [Seroquel -] 100 mg PO HS #30 tablet 01/25/18 Aspirin [ASA -] 81 mg PO DAILY #30 tab.chew 07/20/18 Diltiazem HCl [Diltiazem 24Hr ER (Cd)] 120 mg PO DAILY #30 cap.er.24h 03/28/19 - Diagnosis (1) Alcohol dependence with uncomplicated withdrawal Status: Acute (2) Weight loss Status: Acute (3) Nicotine dependence Status: Acute Qualifiers: Nicotine product type: cigarettes Substance use status: in withdrawal Qualified Code(s): F17.213 - Nicotine dependence, cigarettes, with withdrawal (4) Bipolar II disorder Status: Suspected (5) Substance induced mood disorder Status: Suspected (6) PPD positive, treated Status: Resolved - AMA Did Patient Leave Against Medical Advice: No CIWA Score - CIWA Score Nausea/Vomitin-No Nausea/No Vomiting Muscle Tremors: None Anxiety: 1-Mildly Anxious Agitation: 0-Normal Activity Paroxysmal Sweats: No Perspiration Orientation: 0-Oriented Tacttile Disturbances: 0-None Auditory Disturbances: 0-None Visual Disturbances: 0-None Headache: 0-None Present CIWA-Ar Total Score: 1
== END 2019-03-28 09:47 | disposition home or self-care (01) | DRG 774 ==
LOC: YASAS 13:15 → Y3N 21:16
PROVIDERS: ADMIT Surgery; ATTEND Surgery
PROC: HZ2ZZZZ Detoxification Services for Substance Abuse Treatment (ICD-10-PCS; principal; 2019-03-23)
DX: F10.230 Alcohol dependence with withdrawal, uncomplicated (principal); F14.20 Cocaine dependence, uncomplicated; F17.213 Nicotine dependence, cigarettes, with withdrawal; F31.81 Bipolar II disorder; F19.24 Other psychoactive substance dependence with psychoactive substance-induced mood disorder; F43.10 Post-traumatic stress disorder, unspecified; R63.4 Abnormal weight loss; R76.11 Nonspecific reaction to tuberculin skin test without active tuberculosis
CPT/HCPCS: 36415; 80053; 85027; 85032; 87389

== ENCOUNTER 2019-04-26 11:37 | Inpatient (IN) | payer BC ==
[2019-04-26 12:17] VITALS: BMI 21.2
--- NOTE | 2019-04-26 12:51 | HP ---
CIWA Score Nausea/Vomitin-No Nausea/No Vomiting Muscle Tremors: 3 Anxiety: 2 Agitation: 2 Paroxysmal Sweats: 1-Minimal Palms Moist Orientation: 0-Oriented Tacttile Disturbances: 0-None Auditory Disturbances: 0-None Visual Disturbances: 0-None Headache: 2-Mild CIWA-Ar Total Score: 10 - Admission Criteria OASAS Guidelines: Admission for Medically Managed Detox: Requires at least one of the followin. CIWA greater than 12 2. Seizures within the past 24 hours 3. Delirium tremens within the past 24 hours 4. Hallucinations within the past 24 hours 5. Acute intervention needed for co occurring medical disorder 6. Acute intervention needed for co occurring psychiatric disorder 7. Severe withdrawal that cannot be handled at a lower level of care (continued vomiting, continued diarrhea, abnormal vital signs) requiring intravenous medication and/or fluids 8. Admitting History and Physical - Smoking History Smoking history: Current every day smoker Have you smoked in the past 12 months: Yes Aproximately how many cigarettes per day: 10 - Alcohol/Substance Use Hx Alcohol Use: Yes Admission ROS [facility] Chief Complaint: Alcohol Detox Allergies/Adverse Reactions: Allergies Allergy/AdvReac Type Severity Reaction Status Date / Time No Known Allergies Allergy Verified 04/26/19 12:11 History of Present Illness: 53 year old male with a history of bipolar, anxiety, depression, here for alcohol detox. Last here in February, after left detox was clean for 2 weeks then relapsed. Alcohol: drinks every day, 3 6packs per day of 12oz beers and 2 pints of vodka. last drink this AM 3 beers. Never had a seizure. Gets shakes when he stops drinking. 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 Family: no children, he is close to his family Exam Limitations: No Limitations - Ebola screening Have you traveled outside of the country in the last 21 days: No Have you had contact with anyone from an Ebola affected area: No Do you have a fever: No - Review of Systems Constitutional: Chills EENT: reports: No Symptoms Reported Respiratory: reports: No Symptoms reported Cardiac: reports: No Symptoms Reported GI: reports: Poor Appetite : reports: No Symptoms Reported Musculoskeletal: reports: No Symptoms Reported Integumentary: reports: No Symptoms Reported Neuro: reports: No Symptoms reported Endocrine: reports: No Symptoms Reported Hematology: reports: No Symptoms Reported Psychiatric: reports: No Sypmtoms Reported, Judgement Intact, Mood/Affect Appropiate, Orientated x3, Anxious Patient History - Patient Medical History Hx Anemia: No Hx Asthma: No Hx Chronic Obstructive Pulmonary Disease (COPD): No Hx Cancer: No Hx Cardiac Disorders: No Hx Congestive Heart Failure: No Hx Hypertension: No Hx Hypercholesterolemia: No Hx Pacemaker: No HX Cerebrovascular Accident: No Hx Seizures: No Hx Dementia: No Hx Diabetes: No Hx Gastrointestinal Disorders: No Hx Liver Disease: Yes (elevated LFTs when drinking) Hx Genitourinary Disorders: No Hx Sexually Transmitted Disorders: No Hx Renal Disease (ESRD): No Hx Thyroid Disease: No Hx Human Immunodeficiency Virus (HIV): No (NEGATIVE HX last 04/16) Hx Hepatitis C: No (NEGATIVE.) Hx Depression: Yes Hx Suicide Attempt: No Hx Bipolar Disorder: Yes (poor adherence to meds. prozac, seroquel, lithium ) Hx Schizophrenia: No - Patient Surgical History Past Surgical History: No Hx Neurologic Surgery: No Hx Cataract Extraction: No Hx Cardiac Surgery: No Hx Lung Surgery: No Hx Breast Surgery: No Hx Breast Biopsy: No Hx Abdominal Surgery: No Hx Appendectomy: No Hx Cholecystectomy: No Hx Genitourinary Surgery: No Hx Section: No Hx Orthopedic Surgery: No Anesthesia Reaction: No - PPD History Results: CXR(-)12/24/17 - Smoking Cessation Smoking history: Current every day smoker Have you smoked in the past 12 months: Yes Aproximately how many cigarettes per day: 10 Cigars Per Day: 0 Hx Chewing Tobacco Use: No Initiated information on smoking cessation: No - Substances abused Alcohol Substance route: Oral Frequency: Daily Amount used: 2-3 pints vokda & 4 6pk beers Age of first use: 17 Date of last use: 04/26/19 Cocaine Substance route: Smoking Frequency: 1-2 times per week Amount used: 1/2 gram Age of first use: 20 Date of last use: 04/23/19 Admission Physical Exam [facility] - Vital Signs Vital Signs: Vital Signs - 24 hr 04/26/19 04/26/19 12:12 12:26 Temperature 97.9 F 97.9 F Pulse Rate 72 72 Respiratory 16 16 Rate Blood Pressure 127/66 127/66 - Physical General Appearance: Yes: Disheveled HEENTM: Yes: Within Normal Limits Breathalyzer - Breathalyzer Breathalyzer: 0 POC Urine test - Test device test lot number: not applicable Urine Drug Screen - Test Device Lot number: [id number] Expiration date: 12/27/20 - Control Is test valid?: Yes - Results Drug screen NEGATIVE: No Urine drug screen results: [facility]GLAS-Cocaine Inpatient Rehab Admission - Rehab Decision to Admit Inpatient rehab admission?: No
[2019-04-26] MEDS ORDERED: MAGNESIUM CITRATE 300 ML BOTTLE PO PRN (13:02)
[2019-04-26] MEDS ORDERED: ACETAMINOPHEN 325 MG TABLET (FP) PO PRN ×2 (13:02)
[2019-04-26] MEDS ORDERED: MELATONIN 5 MG TABLETS PO PRN (13:02)
[2019-04-26] MEDS ORDERED: MENTHOL/PHENOL 1 EACH UD MM PRN (13:02)
[2019-04-26] MEDS ORDERED: BISMUTH SUBSALICYLATE 262 MG/15 ML BTL PO PRN (13:02)
[2019-04-26] MEDS ORDERED: MAGNESIUM HYDROX 2400MG/30ML ORAL SUSPENSION 30 ML CUP PO PRN (13:02)
[2019-04-26] MEDS ORDERED: hydrOXYzine PAMOATE 25 MG CAPSULE (FP) PO PRN (13:02)
[2019-04-26] MEDS ORDERED: METHOCARBAMOL 500 MG TABLET PO PRN (13:02)
[2019-04-26] MEDS ORDERED: MAG HYDROX/AL HYDROX/SIMETH 30 ML UNIT-DOSE CUP PO PRN (13:02)
[2019-04-26] MEDS ORDERED: IBUPROFEN 400 MG TABLET (FP) PO PRN (13:02)
[2019-04-26] MEDS ORDERED: chlordiazePOXIDE HCL 25 MG CAPSULE PO PRN (13:02)
[2019-04-26 17:02] LABS: HEMATOCRIT 40.7 % (35.4-49); HEMOGLOBIN 13.6 GM/dL (11.7-16.9); MCHC 33.5 g/dl (32.0-35.9); MEAN CELL VOLUME 101.6 fl (80-96); PLATELET COUNT 445 K/MM3 (134-434); RBC 4.01 M/mm3 (4.00-5.60); RDW 13.7 % (11.9-15.9); WHITE BLOOD COUNT 4.7 K/mm3 (4.0-10.0)
[2019-04-26 17:06] LABS: ALBUMIN 3.5 g/dl (3.4-5.0); BILIRUBIN,TOTAL 0.2 mg/dL (0.2-1); CALCIUM 9.2 mg/dL (8.5-10.1); CREATININE 0.9 mg/dL (0.55-1.3); POTASSIUM 4.2 mmol/L (3.5-5.1); TOT PROT 7.2 g/dl (6.4-8.2)
[2019-04-26] MEDS: chlordiazePOXIDE HCL 25 MG CAPSULE PO SCH ×2 (18:25→22:26)
[2019-04-26] MEDS: THIAMINE HCL 100 MG TABLET (FP) PO SCH (22:27)
[2019-04-26] MEDS: LITHIUM CARBONATE 300 MG CAPSULE (FP) PO SCH (22:27)
[2019-04-26] MEDS: QUEtiapine FUMARATE 100 MG TABLET (FP) PO SCH (22:27)
[2019-04-27] MEDS: LITHIUM CARBONATE 300 MG CAPSULE (FP) PO SCH ×4 (01:14→22:11)
[2019-04-27] MEDS: chlordiazePOXIDE HCL 25 MG CAPSULE PO SCH ×4 (05:12→22:11)
[2019-04-27] MEDS: ASPIRIN 81 MG CHEWABLE TABLETS PO SCH (11:12)
[2019-04-27] MEDS: FLUoxetine HCL 20 MG CAPSULE (FP) PO SCH (11:12)
[2019-04-27] MEDS: PRENATAL VITAMINS W/ FOLIC ACID TABLET (FP) PO SCH (11:12)
--- NOTE | 2019-04-27 11:16 | PN ---
[facility] CIWA - CIWA Score Nausea/Vomitin-Mild Nausea/No Vomiting Muscle Tremors: 2 Anxiety: 2 Agitation: 2 Paroxysmal Sweats: No Perspiration Orientation: 0-Oriented Tacttile Disturbances: 1-Very Mild Itch/Numbness Auditory Disturbances: 0-None Visual Disturbances: 0-None Headache: 2-Mild CIWA-Ar Total Score: 10 S Progress Note (SOAP) Subjective: alert,irritable,anxios,interrupted sleep,tremor Objective: 04/27/19 11:14 Vital Signs Temperature 98.1 F 04/27/19 09:36 Pulse Rate 75 04/27/19 09:36 Respiratory Rate 18 04/27/19 09:36 Blood Pressure 122/77 04/27/19 09:36 O2 Sat by Pulse Oximetry (%) Laboratory Last Values WBC 4.7 K/mm3 (4.0-10.0) 04/26/19 13:40 RBC 4.01 M/mm3 (4.00-5.60) 04/26/19 13:40 Hgb 13.6 GM/dL (11.7-16.9) 04/26/19 13:40 Hct 40.7 % (35.4-49) 04/26/19 13:40 MCV 101.6 fl (80-96) H 04/26/19 13:40 MCH 34.0 pg (25.7-33.7) H 04/26/19 13:40 MCHC 33.5 g/dl (32.0-35.9) 04/26/19 13:40 RDW 13.7 % (11.9-15.9) 04/26/19 13:40 Plt Count 445 K/MM3 (134-434) H 04/26/19 13:40 MPV 7.0 fl (7.5-11.1) L 04/26/19 13:40 Sodium 141 mmol/L (136-145) 04/26/19 13:40 Potassium 4.2 mmol/L (3.5-5.1) 04/26/19 13:40 Chloride 107 mmol/L (98-107) 04/26/19 13:40 Carbon Dioxide 27 mmol/L (21-32) 04/26/19 13:40 Anion Gap 7 MMOL/L (8-16) L 04/26/19 13:40 BUN 17.0 mg/dL (7-18) 04/26/19 13:40 Creatinine 0.9 mg/dL (0.55-1.3) 04/26/19 13:40 Est GFR (CKD-EPI)AfAm 111.05 04/26/19 13:40 Est GFR (CKD-EPI)NonAf 95.81 04/26/19 13:40 Random Glucose 174 mg/dL (74-106) H 04/26/19 13:40 Calcium 9.2 mg/dL (8.5-10.1) 04/26/19 13:40 Total Bilirubin 0.2 mg/dL (0.2-1) 04/26/19 13:40 AST 20 U/L (15-37) 04/26/19 13:40 ALT 16 U/L (13-61) 04/26/19 13:40 Alkaline Phosphatase 51 U/L (45-117) 04/26/19 13:40 Total Protein 7.2 g/dl (6.4-8.2) 04/26/19 13:40 Albumin 3.5 g/dl (3.4-5.0) 04/26/19 13:40 RPR Titer Nonreactive (NONREACTIVE) 04/26/19 13:40 04/27/19 11:15 hiv test pending Assessment: 04/27/19 11:15 withdrawal symptom Plan: continue detox librium regimen,initial glucose 174,fasting glucose in am
[2019-04-27] MEDS ORDERED: FLU VACCINE QUAD 60 MCG/0.5 ML (MDV 19-20) IM ONE (12:00)
--- NOTE | 2019-04-27 14:16 | CONSULT ---
[facility] Psychiatric Consult - Data Date of interview: 04/27/19 Admission source: Self-referred Identifying data: Mr Reilly is a 53 years old single Black male, unemployed receiving SSI, homeless seeking detox treatment for alcohol and cocaine. Psychiatric History: Patient was approached at bedside while sleeping. He told aligner typewriter:"I don't need to see you, I have my own psych outside"
[2019-04-27] MEDS: QUEtiapine FUMARATE 100 MG TABLET (FP) PO SCH (22:11)
[2019-04-27] MEDS: THIAMINE HCL 100 MG TABLET (FP) PO SCH (22:11)
[2019-04-28] MEDS: chlordiazePOXIDE HCL 25 MG CAPSULE PO SCH ×4 (06:41→22:14)
[2019-04-28] MEDS: LITHIUM CARBONATE 300 MG CAPSULE (FP) PO SCH ×3 (06:41→22:14)
--- NOTE | 2019-04-28 09:33 | PN ---
S CIWA - CIWA Score Nausea/Vomitin-Mild Nausea/No Vomiting Muscle Tremors: 1-None Visible, but [place] Anxiety: 2 Agitation: 2 Paroxysmal Sweats: No Perspiration Orientation: 0-Oriented Tacttile Disturbances: 1-Very Mild Itch/Numbness Auditory Disturbances: 0-None Visual Disturbances: 0-None Headache: 1-Very Mild CIWA-Ar Total Score: 8 BHS Progress Note (SOAP) Subjective: alert,irritable,anxious,interrupted sleep,pain in the body Objective: 04/28/19 09:32 Vital Signs Temperature 97.6 F 04/28/19 09:09 Pulse Rate 81 04/28/19 09:09 Respiratory Rate 18 04/28/19 09:09 Blood Pressure 126/65 04/28/19 09:09 O2 Sat by Pulse Oximetry (%) 04/28/19 09:32 fasting glucose pending Assessment: 04/28/19 09:32 withdrawal symptom Plan: continue detox librium regimen,fasting gluose pending
[2019-04-28] MEDS: FLUoxetine HCL 20 MG CAPSULE (FP) PO SCH (11:33)
[2019-04-28] MEDS: ASPIRIN 81 MG CHEWABLE TABLETS PO SCH (11:34)
[2019-04-28] MEDS: PRENATAL VITAMINS W/ FOLIC ACID TABLET (FP) PO SCH (11:34)
[2019-04-28] MEDS: QUEtiapine FUMARATE 100 MG TABLET (FP) PO SCH (22:14)
[2019-04-28] MEDS: THIAMINE HCL 100 MG TABLET (FP) PO SCH (22:14)
[2019-04-29] MEDS ORDERED: chlordiazePOXIDE HCL 10 MG CAPSULE PO PRN
[2019-04-29] MEDS: chlordiazePOXIDE HCL 10 MG CAPSULE PO SCH ×4 (07:18→22:09)
[2019-04-29] MEDS: LITHIUM CARBONATE 300 MG CAPSULE (FP) PO SCH ×3 (07:18→22:09)
--- NOTE | 2019-04-29 09:40 | PN ---
S CIWA - CIWA Score Nausea/Vomitin-Mild Nausea/No Vomiting Muscle Tremors: 1-None Visible, but [place] Anxiety: 2 Agitation: 2 Paroxysmal Sweats: No Perspiration Orientation: 0-Oriented Tacttile Disturbances: 1-Very Mild Itch/Numbness Auditory Disturbances: 0-None Visual Disturbances: 0-None Headache: 1-Very Mild CIWA-Ar Total Score: 8 BHS Progress Note (SOAP) Subjective: alert,irritable,anxious,interrupted sleep Objective: 04/29/19 09:39 Vital Signs Temperature 98.1 F 04/29/19 09:17 Pulse Rate 72 04/29/19 09:17 Respiratory Rate 18 04/29/19 09:17 Blood Pressure 116/71 04/29/19 09:17 O2 Sat by Pulse Oximetry (%) Assessment: 04/29/19 09:39 withdrawal symptom Plan: continue detox librium regimen
[2019-04-29] MEDS: ASPIRIN 81 MG CHEWABLE TABLETS PO SCH (10:41)
[2019-04-29] MEDS: PRENATAL VITAMINS W/ FOLIC ACID TABLET (FP) PO SCH (10:42)
[2019-04-29] MEDS: FLUoxetine HCL 20 MG CAPSULE (FP) PO SCH (10:42)
[2019-04-29] MEDS: QUEtiapine FUMARATE 100 MG TABLET (FP) PO SCH (22:09)
[2019-04-29] MEDS: THIAMINE HCL 100 MG TABLET (FP) PO SCH (22:09)
[2019-04-30] MEDS ORDERED: chlordiazePOXIDE HCL 10 MG CAPSULE PO SCH (05:00)
[2019-04-30] MEDS: LITHIUM CARBONATE 300 MG CAPSULE (FP) PO SCH (07:15)
[2019-04-30] MEDS: FLUoxetine HCL 20 MG CAPSULE (FP) PO SCH (10:22)
[2019-04-30] MEDS: PRENATAL VITAMINS W/ FOLIC ACID TABLET (FP) PO SCH (10:22)
[2019-04-30] MEDS: ASPIRIN 81 MG CHEWABLE TABLETS PO SCH (10:22)
--- NOTE | 2019-04-30 12:22 | PN ---
S CIWA - CIWA Score Nausea/Vomitin-No Nausea/No Vomiting Muscle Tremors: 1-None Visible, but [place] Anxiety: 1-Mildly Anxious Agitation: 1-Slight > Activity Paroxysmal Sweats: 2 Orientation: 0-Oriented Tacttile Disturbances: 1-Very Mild Itch/Numbness Auditory Disturbances: 0-None Visual Disturbances: 0-None Headache: 0-None Present CIWA-Ar Total Score: 6 BHS Progress Note (SOAP) Subjective: interrupted sleep, sweats Objective: 04/30/19 12:20 Vital Signs Temperature 97.9 F 04/30/19 09:29 Pulse Rate 61 04/30/19 09:29 Respiratory Rate 18 04/30/19 09:29 Blood Pressure 110/63 04/30/19 09:29 O2 Sat by Pulse Oximetry (%) Laboratory Tests 04/26/19 04/26/19 04/26/19 13:40 13:40 13:40 WBC 4.7 RBC 4.01 Hgb 13.6 Hct 40.7 MCV 101.6 H MCH 34.0 H MCHC 33.5 RDW 13.7 Plt Count 445 H MPV 7.0 L Sodium 141 Potassium 4.2 Chloride 107 Carbon Dioxide 27 Anion Gap 7 L BUN 17.0 Creatinine 0.9 Est GFR (CKD-EPI)AfAm 111.05 Est GFR (CKD-EPI)NonAf 95.81 Random Glucose 174 H Fasting Glucose Calcium 9.2 Total Bilirubin 0.2 AST 20 ALT 16 Alkaline Phosphatase 51 Total Protein 7.2 Albumin 3.5 RPR Titer Nonreactive HIV 1&2 Ag/Ab, 4th Gen HIV 1&2 Antibody Screen HIV P24 Antigen 04/26/19 04/26/19 04/28/19 13:40 13:40 08:00 WBC RBC Hgb Hct MCV MCH MCHC RDW Plt Count MPV Sodium Potassium Chloride Carbon Dioxide Anion Gap BUN Creatinine Est GFR (CKD-EPI)AfAm Est GFR (CKD-EPI)NonAf Random Glucose Fasting Glucose 96 Calcium Total Bilirubin AST ALT Alkaline Phosphatase Total Protein Albumin RPR Titer HIV 1&2 Ag/Ab, 4th Gen Non reactive HIV 1&2 Antibody Screen Negative HIV P24 Antigen Negative pt aox3 in nad eatting breakfast Assessment: 04/30/19 12:21 withdrawal sx's Plan: cont. detox increase fluids d/c in am.
[2019-04-30 13:42] VITALS: BP 119/54; PULSE 70; TEMP 98.4
[2019-05-01] MEDS ORDERED: chlordiazePOXIDE HCL 10 MG CAPSULE PO ONE (05:00)
== END 2019-04-30 13:15 | disposition home or self-care (01) | DRG 774 ==
LOC: YASAS 11:37 → Y6N 13:42
PROVIDERS: ADMIT Allergy & Immunology; ATTEND Allergy & Immunology
PROC: HZ2ZZZZ Detoxification Services for Substance Abuse Treatment (ICD-10-PCS; principal; 2019-04-26)
DX: F10.230 Alcohol dependence with withdrawal, uncomplicated (principal); F14.20 Cocaine dependence, uncomplicated; F17.210 Nicotine dependence, cigarettes, uncomplicated; F31.9 Bipolar disorder, unspecified
CPT/HCPCS: 36415; 80053; 82947; 85027; 86593; 87389

== ENCOUNTER 2019-07-09 09:20 | Inpatient (IN) | payer BC ==
[2019-07-09 09:48] VITALS: BMI 21.4
--- NOTE | 2019-07-09 10:05 | HP ---
CIWA Score Nausea/Vomitin Muscle Tremors: 3 Anxiety: 3 Agitation: 3 Paroxysmal Sweats: 1-Minimal Palms Moist Orientation: 0-Oriented Tacttile Disturbances: 1-Very Mild Itch/Numbness Auditory Disturbances: 0-None Visual Disturbances: 0-None Headache: 2-Mild CIWA-Ar Total Score: 15 - Admission Criteria OASAS Guidelines: Admission for Medically Managed Detox: Requires at least one of the followin. CIWA greater than 12 2. Seizures within the past 24 hours 3. Delirium tremens within the past 24 hours 4. Hallucinations within the past 24 hours 5. Acute intervention needed for co occurring medical disorder 6. Acute intervention needed for co occurring psychiatric disorder 7. Severe withdrawal that cannot be handled at a lower level of care (continued vomiting, continued diarrhea, abnormal vital signs) requiring intravenous medication and/or fluids 8. Admitting History and Physical - Admission Chief Complaint: i need help to stop drinking alcohol History of Present Illness: this 54 years old male with alcohol dependence and cocaine abused,multiple admissions in detox,last 04/26/19 t0 04/30/19 History Source: Patient Limitations to Obtaining History: No Limitations - Past Medical History Psych: Yes: Anxiety, Bipolar, Depression - Smoking History Smoking history: Current every day smoker Have you smoked in the past 12 months: Yes Aproximately how many cigarettes per day: 10 - Alcohol/Substance Use Hx Alcohol Use: Yes History of Substance Use: reports: Cocaine - Social History Usual Living Arrangement: Yes: With Significant Other ADL: Support Services Occupation: unemployed Admission [facility] Chief Complaint: i need help to stop drinking alcohol and cocaine abused Allergies/Adverse Reactions: Allergies Allergy/AdvReac Type Severity Reaction Status Date / Time No Known Allergies Allergy Verified 07/09/19 09:32 History of Present Illness: this 54 years old male with alcohol dependence,cocaine abused,multiple admissions in detox,last 04/26/19 to 04/30/19 denied seizure denied syncope nicotine dependence bipolar disorder anxiety,depression living with girlfriend bipolar disorder,anxiety,depression positive ppd last chest x ray 02/26/19 no acute pathology history of atrial fibrillation non compliance with medication Exam Limitations: No Limitations - Ebola screening Have you traveled outside of the country in the last 21 days: No Have you had contact with anyone from an Ebola affected area: No Do you have a fever: No - Review of Systems Constitutional: Loss of Appetite, Malaise, Night Sweats, Changes in sleep, Unintentional Wgt. Loss EENT: reports: Nose Congestion Respiratory: reports: No Symptoms reported Cardiac: reports: No Symptoms Reported GI: reports: Nausea, Indigestion : reports: No Symptoms Reported Musculoskeletal: reports: Muscle Pain Integumentary: reports: Dryness Neuro: reports: Headache, Tremors Endocrine: reports: No Symptoms Reported Hematology: reports: No Symptoms Reported Psychiatric: reports: No Sypmtoms Reported, Judgement Intact, Mood/Affect Appropiate, Orientated x3, Anxious, Depressed, other (bipolar disorder) Patient History - Patient Medical History Hx Anemia: No Hx Asthma: No Hx Chronic Obstructive Pulmonary Disease (COPD): No Hx Cancer: No Hx Cardiac Disorders: No Hx Congestive Heart Failure: No Hx Hypertension: No Hx Hypercholesterolemia: No Hx Pacemaker: No HX Cerebrovascular Accident: No Hx Seizures: No Hx Dementia: No Hx Diabetes: No Hx Gastrointestinal Disorders: No Hx Liver Disease: Yes (elevated LFTs when drinking) Hx Genitourinary Disorders: No Hx Sexually Transmitted Disorders: No Hx Renal Disease (ESRD): No Hx Thyroid Disease: No Hx Human Immunodeficiency Virus (HIV): No (NEGATIVE HX last 04/16) Hx Hepatitis C: No (NEGATIVE.) Hx Depression: Yes Hx Suicide Attempt: No Hx Bipolar Disorder: Yes (poor adherence to meds. prozac, seroquel, lithium ) Hx Schizophrenia: No Other Medical History: no suicidal,no homicidal - Patient Surgical History Past Surgical History: No Hx Neurologic Surgery: No Hx Cataract Extraction: No Hx Cardiac Surgery: No Hx Lung Surgery: No Hx Breast Surgery: No Hx Breast Biopsy: No Hx Abdominal Surgery: No Hx Appendectomy: No Hx Cholecystectomy: No Hx Genitourinary Surgery: No Hx Section: No Hx Orthopedic Surgery: No Anesthesia Reaction: No - PPD History Previous Implant?: Yes Documented Results: Positive w/proof Results: CXR(-)02/26/19 - Smoking Cessation Smoking history: Current every day smoker Have you smoked in the past 12 months: Yes Aproximately how many cigarettes per day: 10 Cigars Per Day: 0 Hx Chewing Tobacco Use: No Initiated information on smoking cessation: Yes 'Breaking Loose' booklet given: 07/09/19 - Substance & Tx. History Hx Alcohol Use: Yes Hx Substance Use: Yes Substance Use Type: Alcohol, Cocaine Hx Substance Use Treatment: Yes ([facility] 04/26/19 to 06/30/18) - Substances abused Alcohol Substance route: Oral Frequency: Daily Amount used: 2-3 pints vokda & 4 6pk beers Age of first use: 17 Date of last use: 07/09/19 Cocaine Substance route: Smoking Frequency: 1-2 times per week Amount used: 1/2 gram Age of first use: 20 Date of last use: 04/23/19 Admission Physical Exam [facility] - Vital Signs Vital Signs: Vital Signs - 24 hr 07/09/19 09:34 Temperature 97.3 F L Pulse Rate 84 Respiratory 20 Rate Blood Pressure 103/54 L - Physical General Appearance: Yes: Moderate Distress, Tremorous, Irritable, Sweating, Anxious HEENTM: Yes: Normal ENT Inspection, [place], Pharynx Normal Respiratory: Yes: Lungs Clear, Normal Breath Sounds, No Respiratory Distress Neck: Yes: Within Normal Limits, Supple, Trachea in good position Breast: Yes: Within Normal Limits Cardiology: Yes: Within Normal Limits, Regular Rhythm, Regular Rate, S1, S2 Abdominal: Yes: Normal Bowel Sounds, Non Tender, Flat, Organomegaly Genitourinary: Yes: Within Normal Limits Back: Yes: Muscle Spasm Musculoskeletal: Yes: Back pain, Muscle Pain Extremities: Yes: Tremors Neurological: Yes: steamer operator II-XII NML intact, Fully Oriented, Alert, Motor Strength 5/5 Integumentary: Yes: Dry Lymphatic: Yes: Within Normal Limits - Diagnostic (1) Alcohol dependence with uncomplicated withdrawal Current Visit: No Status: Acute (2) Cocaine dependence, uncomplicated Current Visit: No Status: Chronic (3) Nicotine dependence Current Visit: No Status: Acute Qualifiers: Nicotine product type: cigarettes Substance use status: in withdrawal Qualified Code(s): F17.213 - Nicotine dependence, cigarettes, with withdrawal (4) Weight loss Current Visit: No Status: Acute (5) Bipolar disorder Current Visit: No Status: Chronic Qualifiers: Active/Remission status: remission status unspecified Qualified Code(s): F31.9 - Bipolar disorder, unspecified (6) History of bipolar disorder Current Visit: No Status: Chronic Cleared for Admission [facility] - Detox or Rehab [facility] Level of Care: Medically Managed Detox Regimen/Protocol: Librium Breathalyzer - Breathalyzer Breathalyzer: 0 POC Urine test - Test device test lot number: not applicable Urine Drug Screen - Test Device Lot number: [id number] Expiration date: 12/27/20 - Control Is test valid?: Yes - Results Drug screen NEGATIVE: No Urine drug screen results: [facility]GL[facility]-Cocaine Inpatient Rehab Admission - Rehab Decision to Admit Inpatient rehab admission?: No
[2019-07-09] MEDS ORDERED: MAG HYDROX/AL HYDROX/SIMETH 30 ML UNIT-DOSE CUP PO PRN (10:12)
[2019-07-09] MEDS ORDERED: METHOCARBAMOL 500 MG TABLET PO PRN (10:12)
[2019-07-09] MEDS ORDERED: MAGNESIUM HYDROX 2400MG/30ML ORAL SUSPENSION 30 ML CUP PO PRN (10:12)
[2019-07-09] MEDS ORDERED: IBUPROFEN 400 MG TABLET (FP) PO PRN (10:12)
[2019-07-09] MEDS ORDERED: ACETAMINOPHEN 325 MG TABLET (FP) PO PRN ×2 (10:12)
[2019-07-09] MEDS ORDERED: BISMUTH SUBSALICYLATE 524 MG/30 ML UD PO PRN (10:12)
[2019-07-09] MEDS ORDERED: chlordiazePOXIDE HCL 25 MG CAPSULE PO PRN (10:12)
[2019-07-09] MEDS ORDERED: NICOTINE POLACRILEX 2 MG GUM BUC PRN (10:12)
[2019-07-09] MEDS ORDERED: MENTHOL/PHENOL 1 EACH UD MM PRN (10:12)
[2019-07-09] MEDS ORDERED: MAGNESIUM CITRATE 300 ML BOTTLE PO PRN (10:12)
[2019-07-09] MEDS ORDERED: hydrOXYzine PAMOATE 25 MG CAPSULE (FP) PO PRN (10:12)
[2019-07-09] MEDS: chlordiazePOXIDE HCL 25 MG CAPSULE PO SCH ×3 (13:27→22:14)
[2019-07-09 15:48] LABS: HEMATOCRIT 35.3 % (35.4-49); HEMOGLOBIN 12.1 GM/dL (11.7-16.9); MCH 34.6 pg (25.7-33.7); MCHC 34.4 g/dl (32.0-35.9); MEAN CELL VOLUME 100.4 fl (80-96); MEAN PLT VOLUME 6.6 fl (7.5-11.1); PLATELET COUNT 536 K/MM3 (134-434); RBC 3.51 M/mm3 (4.00-5.60); RDW 13.8 % (11.9-15.9); WHITE BLOOD COUNT 5.7 K/mm3 (4.0-10.0)
[2019-07-09 15:59] LABS: ALBUMIN 3.4 g/dl (3.4-5.0); BILIRUBIN,TOTAL 0.1 mg/dL (0.2-1); BLOOD UREA NITROGEN 19.1 mg/dL (7-18); CALCIUM 8.8 mg/dL (8.5-10.1); CREATININE 1.2 mg/dL (0.55-1.3); POTASSIUM 3.8 mmol/L (3.5-5.1); TOT PROT 6.8 g/dl (6.4-8.2)
[2019-07-09] MEDS: THIAMINE HCL 100 MG TABLET (FP) PO SCH (22:15)
[2019-07-10] MEDS: chlordiazePOXIDE HCL 25 MG CAPSULE PO SCH ×4 (05:48→22:03)
--- NOTE | 2019-07-10 09:01 | EKG ---
Test Reason : Blood Pressure : / mmHG Vent. Rate : 088 BPM Atrial Rate : 125 BPM P-R Int : 000 ms QRS Dur : 090 ms QT Int : 454 ms P-R-T Axes : 074 083 075 degrees QTc Int : 549 ms POOR DATA QUALITY, INTERPRETATION MAY BE ADVERSELY AFFECTED SINUS TACHYCARDIA WITH 2ND DEGREE A-V BLOCK (MOBITZ I) WITH 2:1 A-V CONDUCTION PROLONGED QT ABNORMAL ECG WHEN COMPARED WITH ECG OF 24-FEB-2019 13:53, SINUS RHYTHM IS NOW WITH 2ND DEGREE A-V BLOCK (MOBITZ I) QT HAS LENGTHENED Confirmed by ROBERT JEAN-BAPTISTE, ADEBAYO ([id number]) on 07/10/2019 9:01:23 AM Referred By: Confirmed By:ADEBAYO JONES MD
--- NOTE | 2019-07-10 10:40 | CONSULT ---
[facility] Psychiatric Consult - Data Date of interview: 07/10/19 Admission source: [facility] Identifying data: Revisit and admission to [address] [place] [address] for this 54 y/o AA male self- referred for detoxification treatment. LILLIAN issues : cocaine, alcohol, nicotine. Patient is , a father of one, domiciled, unemployed and supported on SSI benefits. Substance Abuse History: Discussed with patient. Details in current [facility] report as follows : Smoking history: Current every day smoker. Have you smoked in the past 12 months: Yes. Aproximately how many cigarettes per day: 10. Cigars Per Day: 0. Hx Chewing Tobacco Use: No. Initiated information on smoking cessation : Yes. 'Breaking Loose' booklet given: 07/09/19. - Substance & Tx. History. Hx Alcohol Use: Yes. Hx Substance Use: Yes. Substance Use Type: Alcohol, Cocaine. Hx Substance Use Treatment: Yes ([facility] 04/26/19 to 06/30/18). - Substances abused. Alcohol. Substance route: Oral. Frequency: Daily. Amount used: 2-3 pints vokda & 4 6pk beers. Age of first use: 17. Date of last use: 07/09/19. Cocaine. Substance route: Smoking. Frequency: 1-2 times per week. Amount used: 1/2 gram. Age of first use: 20. Date of last use : 04/23/19 Medical History: Medical profile is remarkable for a history of atrial fibrillation, positive PPD and sporadic elevation of liver enzymes (alcohol- related). Psychiatric History: Patient is a frequent user of LILLIAN services at [facility] ([facility] Presents with a history of multiple psychiatric hospitalizations. Diagnosed with Schizoaffective Disorder and PTSD. Mr Reilly is chronically non-adherent to psychotropic medications + psychiatric OPD care. Hostile and easily irritable historian. Patient still reports affiliation with [facility] in the [place]. In this interview, he reports current maintenance with prozac + lithium + seroquel ( doses not recalled by patient). He denies history of suicide attempts. Physical/Sexual Abuse/Trauma History: Patient denies. Additional Comment: Urine drug screen results: DOUGLAS-Cocaine. Noted. Mental Status Exam - Mental Status Exam Alert and Oriented to: Time, Place, Person Cognitive Function: Good Patient Appearance: Unkempt, Disheveled Mood: Nervous, Withdrawn, Irritable Affect: Mood Congruent, Constricted Patient Behavior: Fatigued, Guarded, Cooperative (marginally cooperative) Speech Pattern: Clear Voice Loudness: Normal Thought Process: Goal Oriented Thought Disorder: Not Present Hallucinations: Denies Suicidal Ideation: Denies Homicidal Ideation: Denies Insight/Judgement: Poor Sleep: Poorly, Difficulty falling asleep Appetite: Good Gait/Station: Other (not observed; in bed for duration of interview) Psychiatric Findings - Problem List ([place] 1, 2,3) (1) Alcohol dependence with uncomplicated withdrawal Current Visit: Yes Status: Acute (2) Cocaine dependence, uncomplicated Current Visit: Yes Status: Chronic (3) Nicotine dependence Current Visit: Yes Status: Chronic Qualifiers: Nicotine product type: cigarettes Substance use status: in withdrawal Qualified Code(s): F17.213 - Nicotine dependence, cigarettes, with withdrawal (4) Substance induced mood disorder Current Visit: Yes Status: Chronic (5) History of bipolar disorder Current Visit: Yes Status: Chronic (6) Insomnia Current Visit: Yes Status: Chronic Qualifiers: Insomnia type: unspecified Qualified Code(s): G47.00 - Insomnia, unspecified (7) Non-compliance with treatment Current Visit: Yes Status: Chronic - Initial Treatment Plan Initial Treatment Plan: Psychoeducation. Sleep hygiene. Detoxification. Support. Patient declines to resume his OPD medications (lithium, seroquel, prozac). [place] level is requested. Observation.
[2019-07-10] MEDS: ASPIRIN 81 MG CHEWABLE TABLETS PO SCH (11:00)
[2019-07-10] MEDS: PRENATAL VITAMINS W/ FOLIC ACID TABLET (FP) PO SCH (11:00)
--- NOTE | 2019-07-10 11:42 | PN ---
S CIWA - CIWA Score Nausea/Vomitin-No Nausea/No Vomiting Muscle Tremors: 1-None Visible, but [place] Anxiety: 1-Mildly Anxious Agitation: 4-Moderately Restless Paroxysmal Sweats: 1-Minimal Palms Moist Orientation: 0-Oriented Tacttile Disturbances: 0-None Auditory Disturbances: 0-None Visual Disturbances: 0-None Headache: 2-Mild CIWA-Ar Total Score: 9 BHS Progress Note (SOAP) Subjective: Feels so-so, restless, headache, shakes and sweats Objective: 07/10/19 11:42 Vital Signs Temperature 98.4 F 07/10/19 09:24 Pulse Rate 68 07/10/19 09:24 Respiratory Rate 18 07/10/19 09:24 Blood Pressure 114/76 07/10/19 09:24 O2 Sat by Pulse Oximetry (%) Laboratory Tests 07/09/19 07/09/19 07/09/19 10:30 10:30 10:30 WBC 5.7 RBC 3.51 L Hgb 12.1 Hct 35.3 L MCV 100.4 H MCH 34.6 H MCHC 34.4 RDW 13.8 Plt Count 536 H D MPV 6.6 L Sodium 139 Potassium 3.8 Chloride 104 Carbon Dioxide 24 Anion Gap 11 BUN 19.1 H Creatinine 1.2 Est GFR (CKD-EPI)AfAm 77.88 Est GFR (CKD-EPI)NonAf 67.19 Random Glucose 91 Calcium 8.8 Total Bilirubin 0.1 L AST 21 ALT 17 Alkaline Phosphatase 46 Total Protein 6.8 Albumin 3.4 RPR Titer Nonreactive Assessment: 07/10/19 11:44 AAOx3 Vital signs are stable Withdrawal symptoms present Plan: Continue with detox Encouraged Increase fluids
[2019-07-10] MEDS ORDERED: FLU VACCINE QUAD 60 MCG/0.5 ML (MDV 19-20) IM ONE (12:00)
[2019-07-10] MEDS: THIAMINE HCL 100 MG TABLET (FP) PO SCH (22:03)
[2019-07-10] MEDS: QUEtiapine FUMARATE 100 MG TABLET (FP) PO SCH (22:03)
[2019-07-10] MEDS: MELATONIN 5 MG TABLETS PO PRN (22:05)
[2019-07-11] MEDS: chlordiazePOXIDE HCL 25 MG CAPSULE PO SCH ×4 (05:54→22:34)
[2019-07-11] MEDS ORDERED: FLUoxetine HCL 20 MG CAPSULE (FP) PO SCH (10:00)
[2019-07-11] MEDS: ASPIRIN 81 MG CHEWABLE TABLETS PO SCH (10:59)
[2019-07-11] MEDS: PRENATAL VITAMINS W/ FOLIC ACID TABLET (FP) PO SCH (10:59)
--- NOTE | 2019-07-11 11:10 | PN ---
S CIWA - CIWA Score Nausea/Vomitin-Mild Nausea/No Vomiting Muscle Tremors: 2 Anxiety: 2 Agitation: 1-Slight > Activity Paroxysmal Sweats: 2 Orientation: 0-Oriented Tacttile Disturbances: 0-None Auditory Disturbances: 0-None Visual Disturbances: 0-None Headache: 0-None Present CIWA-Ar Total Score: 8 BHS Progress Note (SOAP) Subjective: Feels ok, medication working ok Objective: 07/11/19 11:05 Last Vital Signs Temp Pulse Resp BP Pulse Ox 97.9 F 68 16 101/73 07/11/19 09:21 07/11/19 09:21 07/11/19 09:21 07/11/19 09:21 Laboratory Tests 07/09/19 07/09/19 07/09/19 10:30 10:30 10:30 WBC 5.7 RBC 3.51 L Hgb 12.1 Hct 35.3 L MCV 100.4 H MCH 34.6 H MCHC 34.4 RDW 13.8 Plt Count 536 H D MPV 6.6 L Sodium 139 Potassium 3.8 Chloride 104 Carbon Dioxide 24 Anion Gap 11 BUN 19.1 H Creatinine 1.2 Est GFR (CKD-EPI)AfAm 77.88 Est GFR (CKD-EPI)NonAf 67.19 Random Glucose 91 Calcium 8.8 Total Bilirubin 0.1 L AST 21 ALT 17 Alkaline Phosphatase 46 Total Protein 6.8 Albumin 3.4 RPR Titer Nonreactive Labs reviewed: bun 19.1 (elevated), plt 536 (high): platelets trended as per chart review from 02/03/19 to 07/09/19: [id number] Assessment: 07/11/19 11:06 Withdrawal sxs Noted with azotemia and thrombocytosis Plan: Continue detox Encouraged PO water intake Azotemia: encouraged to drink more water Thrombocytosis: chronic, resolved then returned (varies), could be r/t substance use, repeat CBC, monitor for bleeding, follow up with PCP post discharge for further evaluation
[2019-07-11] MEDS: QUEtiapine FUMARATE 100 MG TABLET (FP) PO SCH (22:34)
[2019-07-11] MEDS: THIAMINE HCL 100 MG TABLET (FP) PO SCH (22:34)
[2019-07-11] MEDS: MELATONIN 5 MG TABLETS PO PRN (22:34)
[2019-07-12] MEDS ORDERED: chlordiazePOXIDE HCL 10 MG CAPSULE PO PRN
[2019-07-12] MEDS: chlordiazePOXIDE HCL 10 MG CAPSULE PO SCH ×4 (07:05→22:10)
[2019-07-12] MEDS: PRENATAL VITAMINS W/ FOLIC ACID TABLET (FP) PO SCH (10:08)
[2019-07-12] MEDS: ASPIRIN 81 MG CHEWABLE TABLETS PO SCH (10:08)
--- NOTE | 2019-07-12 11:38 | PN ---
S CIWA - CIWA Score Nausea/Vomitin-Mild Nausea/No Vomiting Muscle Tremors: 1-None Visible, but [place] Anxiety: 1-Mildly Anxious Agitation: 1-Slight > Activity Paroxysmal Sweats: No Perspiration Orientation: 0-Oriented Tacttile Disturbances: 1-Very Mild Itch/Numbness Auditory Disturbances: 0-None Visual Disturbances: 0-None Headache: 1-Very Mild CIWA-Ar Total Score: 6 BHS Progress Note (SOAP) Subjective: alert,irritable,anxious,interrupted sleep, pain in the body Objective: 07/12/19 11:36 Vital Signs Temperature 99.1 F 07/12/19 09:01 Pulse Rate 58 L 07/12/19 09:01 Respiratory Rate 16 07/12/19 09:01 Blood Pressure 98/67 07/12/19 09:01 O2 Sat by Pulse Oximetry (%) Assessment: 07/12/19 11:37 wiithdrawal symptom Plan: continue detox librium regimenencourage oral fluid
--- NOTE | 2019-07-12 15:27 | PN ---
BHS Progress Note Note: less withdrawal symptom,stable for discharge at 07.00 am on 07/13/2019
[2019-07-12] MEDS: THIAMINE HCL 100 MG TABLET (FP) PO SCH (22:10)
[2019-07-12] MEDS: QUEtiapine FUMARATE 100 MG TABLET (FP) PO SCH (22:10)
[2019-07-13] MEDS ORDERED: chlordiazePOXIDE HCL 10 MG CAPSULE PO SCH (05:00)
[2019-07-13 08:14] VITALS: BP 101/68; PULSE 62; TEMP 97.9
[2019-07-14] MEDS ORDERED: chlordiazePOXIDE HCL 10 MG CAPSULE PO ONE (05:00)
== END 2019-07-13 07:31 | disposition home or self-care (01) | DRG 773 ==
LOC: YASAS 09:20 → Y6N 10:17
PROVIDERS: ADMIT Allergy & Immunology; ATTEND Allergy & Immunology
PROC: HZ2ZZZZ Detoxification Services for Substance Abuse Treatment (ICD-10-PCS; principal; 2019-07-09)
DX: F11.23 Opioid dependence with withdrawal (principal); F14.20 Cocaine dependence, uncomplicated; F17.213 Nicotine dependence, cigarettes, with withdrawal; F19.24 Other psychoactive substance dependence with psychoactive substance-induced mood disorder; F31.9 Bipolar disorder, unspecified; G47.00 Insomnia, unspecified; D47.3 Essential (hemorrhagic) thrombocythemia; R79.89 Other specified abnormal findings of blood chemistry; I48.91 Unspecified atrial fibrillation; R63.4 Abnormal weight loss; Z91.14 Patient's other noncompliance with medication regimen
CPT/HCPCS: 36415; 80053; 80178; 85027; 86593; 93005; 93010

== ENCOUNTER 2020-03-21 11:10 | Inpatient (IN) | payer BC ==
--- NOTE | 2020-03-21 11:20 | BHS.RME ---
Substance Use & Tx History - Substance Use History Alcohol Substance amount: 2 pints vodka + 1 six pack beer Frequency of use: Daily Substance route: Oral Date of Last Use: 03/21/20 Nicotine Substance amount: 1/2 pack Frequency of use: Daily Substance route: Smoking Date of Last Use: 03/21/20 - Last Treatment Date of last treatment: 12/06-12/12/19 Treatment type: Substance Use Disorder ([facility]) Where was last treatment: Detox Physical/Psych/Mental Status - Behavior General Behavior: Increased activity (restlessness, agitation) Eye Contact: Normal - Cooperativeness Cooperativeness: Cooperative - Thinking Thought Processes: Tight, Logical, Goal Directed - Physical Health Problems Is patient presently having any pain?: No Does patient presently have any injuries (include location): No Does patient currently have a fever: No Is patient : No CIWA Nausea/Vomitin-Mild Nausea/No Vomiting Muscle Tremors: 4-Moderate,w/Arms Extend Anxiety: 4-Mod. Anxious/Guarded Agitation: 4-Moderately Restless Paroxysmal Sweats: 4-Forehead w/Sweat Beads Orientation: 0-Oriented Tacttile Disturbances: 0-None Auditory Disturbances: 0-None Visual Disturbances: 0-None Headache: 0-None Present CIWA-Ar Total Score: 17
[2020-03-21 11:41] VITALS: BMI 22.5
--- NOTE | 2020-03-21 12:08 | HP ---
CIWA Score Nausea/Vomitin-Mild Nausea/No Vomiting Muscle Tremors: 4-Moderate,w/Arms Extend Anxiety: 4-Mod. Anxious/Guarded Agitation: 4-Moderately Restless Paroxysmal Sweats: 4-Forehead w/Sweat Beads Orientation: 0-Oriented Tacttile Disturbances: 0-None Auditory Disturbances: 0-None Visual Disturbances: 0-None Headache: 0-None Present CIWA-Ar Total Score: 17 - Admission Criteria [facility] Guidelines: Admission for Medically Managed Detox: Requires at least one of the followin. CIWA greater than 12 2. Seizures within the past 24 hours 3. Delirium tremens within the past 24 hours 4. Hallucinations within the past 24 hours 5. Acute intervention needed for co occurring medical disorder 6. Acute intervention needed for co occurring psychiatric disorder 7. Severe withdrawal that cannot be handled at a lower level of care (continued vomiting, continued diarrhea, abnormal vital signs) requiring intravenous medication and/or fluids 8. Admitting History and Physical - Admission Chief Complaint: Mr. Reilly is a 54 yo man who presents to [facility] requesting detox from alcohol. History of Present Illness: Mr. Reilly is a 54 yo man who presents to [facility] requesting detox from alcohol. He was last here between December 06 and 2019, completed detox. PMH: HTN, positive PPD, transient A fib 2018: self converted PSH: none Psych: depression, bipolar ([place], Seroquel, Prozac) SoC: lives with , unemployed Legal: no legal issues Substance Use History Alcohol Substance amount: 2 pints vodka + 1 six pack beer Frequency of use: Daily Substance route: Oral Date of Last Use: 03/21/20 First use age 15 y No seizuress. 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 Nicotine Substance amount: 1/2 pack Frequency of use: Daily Substance route: Smoking Date of Last Use: 03/21/20 First use age 15y Cocaine: few days per week, last used 2 days ago, $20, first use in his 20s - Last Treatment Date of last treatment: 12/06-12/12/19 Treatment type: Substance Use Disorder ([facility]) Where was last treatment: Detox History Source: Patient Limitations to Obtaining History: No Limitations - Past Medical History Cardiovascular: Yes: AFIB, HTN Psych: Yes: Anxiety, Bipolar, Depression - Smoking History Smoking history: Current every day smoker Have you smoked in the past 12 months: Yes Aproximately how many cigarettes per day: 10 - Alcohol/Substance Use Hx Alcohol Use: Yes History of Substance Use: reports: Cocaine - Social History ADL: Support Services Occupation: unemployed Admission ROS S - [facility] Allergies/Adverse Reactions: Allergies Allergy/AdvReac Type Severity Reaction Status Date / Time No Known Allergies Allergy Verified 03/21/20 11:37 Exam Limitations: No Limitations - Ebola screening Have you traveled outside of the country in the last 21 days: No Have you been sick,other than usual withdrawal symptoms: No Do you have a fever: No - Review of Systems Constitutional: No Symptoms Reported EENT: reports: No Symptoms Reported Respiratory: reports: No Symptoms reported Cardiac: reports: No Symptoms Reported GI: reports: Nausea : reports: No Symptoms Reported Musculoskeletal: reports: No Symptoms Reported Integumentary: reports: No Symptoms Reported Neuro: reports: No Symptoms reported Hematology: reports: No Symptoms Reported Psychiatric: reports: Anxious Patient History - Patient Medical History Hx Anemia: No Hx Asthma: No Hx Chronic Obstructive Pulmonary Disease (COPD): No Hx Cancer: No Hx Cardiac Disorders: Yes (Hx of AFIB self converted in 2018) Hx Congestive Heart Failure: No Hx Hypertension: No Hx Hypercholesterolemia: No Hx Pacemaker: No HX Cerebrovascular Accident: No Hx Seizures: No Hx Dementia: No Hx Diabetes: No Hx Gastrointestinal Disorders: No Hx Liver Disease: Yes (elevated LFTs when drinking) Hx Genitourinary Disorders: No Hx Sexually Transmitted Disorders: No Hx Renal Disease (ESRD): No Hx Thyroid Disease: No Hx Human Immunodeficiency Virus (HIV): No (NEGATIVE HX last 04/16) Hx Hepatitis C: No (NEGATIVE.) Hx Depression: Yes Hx Suicide Attempt: No Hx Bipolar Disorder: Yes (poor adherence to meds. prozac, seroquel, lithium ) Hx Schizophrenia: No - Patient Surgical History Past Surgical History: No Hx Neurologic Surgery: No Hx Cataract Extraction: No Hx Cardiac Surgery: No Hx Lung Surgery: No Hx Breast Surgery: No Hx Breast Biopsy: No Hx Abdominal Surgery: No Hx Appendectomy: No Hx Cholecystectomy: No Hx Genitourinary Surgery: No Hx Section: No Hx Orthopedic Surgery: No Anesthesia Reaction: Yes - PPD History Previous Implant?: Yes Documented Results: Positive w/proof Implanted On Prior [facility] Admission?: No Results: CXR(-)4/1/20 - Smoking Cessation Smoking history: Current every day smoker Have you smoked in the past 12 months: Yes Aproximately how many cigarettes per day: 10 Cigars Per Day: 0 Hx Chewing Tobacco Use: No Initiated information on smoking cessation: Yes 'Breaking Loose' booklet given: 03/21/20 - Substances abused Alcohol Substance route: Oral Frequency: Daily Amount used: 2 pints vodka/ 6pk beer Age of first use: 15 Date of last use: 03/21/20 Admission Physical Exam [facility] - Vital Signs Vital Signs: Vital Signs - 24 hr 03/21/20 11:38 Temperature 97.8 F Pulse Rate 86 Respiratory 18 Rate Blood Pressure 115/64 - Physical General Appearance: Yes: No Apparent Distress, Nourished, Appropriately Dressed HEENTM: Yes: EOMI, Hearing grossly Normal, Normocephalic, Normal Voice Respiratory: Yes: Lungs Clear, No Respiratory Distress, No Accessory Muscle Use Neck: Yes: Within Normal Limits, Supple Breast: Yes: Breast Exam Deferred Cardiology: Yes: Regular Rhythm, Regular Rate Abdominal: Yes: Normal Bowel Sounds, Non Tender, Flat, Soft Genitourinary: Yes: Other (deferred) Back: Yes: Normal Inspection Musculoskeletal: Yes: Gait Steady Extremities: Yes: Normal Inspection, Non-Tender Neurological: Yes: Alert, Normal Response Integumentary: Yes: Within Normal Limits - Diagnostic (1) Alcohol dependence with uncomplicated withdrawal Current Visit: Yes Status: Acute Comment: 1. Admit detox 2. Librium protocol 3. routine labs 4. comfort medications (2) Nicotine dependence Current Visit: No Status: Acute Qualifiers: Nicotine product type: cigarettes Substance use status: in withdrawal Qualified Code(s): F17.213 - Nicotine dependence, cigarettes, with withdrawal Comment: 1. nicotine replacement therapy (3) Bipolar disorder Current Visit: No Status: Chronic Qualifiers: Active/Remission status: remission status unspecified Qualified Code(s): F31.9 - Bipolar disorder, unspecified (4) HTN (hypertension) Current Visit: Yes Status: Chronic Qualifiers: Hypertension type: essential hypertension Qualified Code(s): I10 - Essential (primary) hypertension Comment: 1. BP in good range today, will monitor vs routinely Breathalyzer - Breathalyzer Breathalyzer: 0.130 POC Urine test - Test device test lot number: not applicable Urine Drug Screen - Test Device Lot number: [id number] Expiration date: 10/05/21 - Control Is test valid?: Yes - Results Drug screen NEGATIVE: No Urine drug screen results: [facility]-Cocaine Inpatient Rehab Admission - Rehab Decision to Admit Inpatient rehab admission?: No
[2020-03-21] MEDS ORDERED: chlordiazePOXIDE HCL 25 MG CAPSULE PO PRN (12:13)
[2020-03-21] MEDS ORDERED: ONDANSETRON *ODT* 4 MG TABLET SL PRN (12:13)
[2020-03-21] MEDS ORDERED: NICOTINE POLACRILEX 2 MG GUM BUC PRN (12:13)
[2020-03-21] MEDS ORDERED: MAGNESIUM CITRATE 300 ML BOTTLE PO PRN (12:13)
[2020-03-21] MEDS ORDERED: METHOCARBAMOL 500 MG TABLET PO PRN (12:13)
[2020-03-21] MEDS ORDERED: ACETAMINOPHEN 325 MG TABLET (FP) PO PRN ×2 (12:13)
[2020-03-21] MEDS ORDERED: IBUPROFEN 400 MG TABLET (FP) PO PRN (12:13)
[2020-03-21] MEDS ORDERED: MENTHOL/PHENOL 1 EACH UD MM PRN (12:13)
[2020-03-21] MEDS: NICOTINE 14 MG/24 HOURS TOPICAL PATCH TD SCH (12:52)
[2020-03-21] MEDS: ASPIRIN 81 MG CHEWABLE TABLETS PO SCH (12:52)
--- OUTSIDE RECORDS SUMMARY | 2020-03-21 13:14 | XMS ---
:1965 Author Organization [facility] Care Team Providers Name Role Phone AWAIS RED Unavailable Unavailable AWAIS RED Unavailable Unavailable Re-disclosure Warning The records that you are about to access may contain information from federally- assisted alcohol or drug abuse programs. If such information is present, then the following federally mandated warning applies: This information has been disclosed to you from records protected by federal confidentiality rules (42 CFR part 2). The federal rules prohibit you from making any further disclosure of this information unless further disclosure is expressly permitted by the written consent of the person to whom it pertains or as otherwise permitted by 42 CFR part 2. A general authorization for the release of medical or other information is NOT sufficient for this purpose. The Federal rules restrict any use of the information to criminally investigate or prosecute any alcohol or drug abuse patient.The records that you are about to access may contain highly sensitive health information, the redisclosure of which is protected by Article 27-F of the [facility] Public Health law. If you continue you may haveaccess to information: Regarding HIV / AIDS; Provided by facilities licensed or operated by the [facility] Office of Mental Health; or Provided by the [facility] Office for People With Developmental Disabilities. If such information is present, then the following [facility] mandated warning applies: This information has been disclosed to you from confidential records which are protected by state law. State law prohibits you from making any further disclosure of this information without the specific written consent of the person to whom it pertains, or as otherwise permitted by law. Any unauthorized further disclosure in violation of state law may result in a fine or nursing home sentence or both. A general authorization for the release of medical or other information is NOT sufficient authorization for further disclosure. Allergies and Adverse Reactions Type Description Substance Reaction Status Data Source(s ) Drug allergy No Known Allergies No Known Nuva [facility] - Allergies [facility] No Known No Known Allergies No Known eCW3 ( [place] [facility]) No Known No Known Allergies No Known eCW3 ( [place] Allergies Allergies [facility]) No Known No Known Allergies No Known eCW3 ( [place] Allergies Allergies [facility]) No Known No Known Allergies No Known eCW3 ( [place] Allergies Allergies [facility]) No Known No Known Allergies No Known eCW3 ( [place] Allergies Allergies [facility]) No Known No Known Allergies No Known eCW3 ( [place] Allergies Allergies [facility]) No Known No Known Allergies No known eCW3 ( [place] Allergies allergies [facility] (situation) [facility]) No Known No Known Allergies No known eCW3 ( [place] Allergies allergies [facility] (situation) [facility]) Encounters Encounter Providers Location Date Indications Data Source(s ) [facility]: [facility] PAAdmitter: AWAIS [facility] 12/16/2019 11:59:00 PM EDT Patient discharged. Outpatient [facility] 04/13/2019 12:00:00 AM eCW3 ([place] [id number] EDT - 04/13/2019 [facility] are) 12:00:[address] [facility] 02/16/2019 12:00:00 AM eCW3 ([place] [id number] EDT - 02/16/2019 [facility] are) 12:00:[address] [facility] 12/24/2018 12:00:00 AM eCW3 ([place] [id number] EDT - 12/24/2018 [facility] are) 12:00:[address] [facility] 11/10/2018 12:00:00 AM eCW3 ([place] [id number] EDT - 11/10/2018 [facility] are) 12:00:[address] [facility] 10/08/2018 12:00:00 AM eCW3 ([facility] A28 EDT - 10/08/2018 [facility] are) 12:00:[address] [facility] 09/03/2018 12:00:00 AM eCW3 ([facility] A28 EST - 09/03/2018 [facility] are) 12:00:00 AM EST Est [id number] [facility] 08/13/2018 12:00:00 AM eCW3 ([facility] EST - 08/13/2018 [facility]) 12:00:[address] [facility] 08/10/2018 12:00:00 AM eCW3 ([facility] A28 EST - 08/10/2018 [facility]) 12:00:00 AM EST Immunizations Vaccine Date Status Description Data Source(s) pneumococcal 07/06/2018 completed eCW3 ([facility] mauricio polysaccharide PPV23 11:08:00 AM [facility]) New in 2011. IIV4 05/21/2017 completed eCW3 ([facility] 09:47:00 AM [facility]) Medications Medication Brand Start Product Dose Route Administrative Pharmacy [facility] Indications Reaction Description Data Name Date Form Instructions Instructions Source(s) quetiapine Seroqu .0 active Seroquel 200 eCW3 200 MG Oral el 200 2020 {tabl MG ([facility] on Tablet MG 12:00: et_at [place] [Seroquel] 00 AM _bedt [facility] Seroquel EDT sharmila} Care) 200 MG Diazepam 5 Valium 08/30/ Nuvan ce MG Oral 5 mg 2016 See In structions, 0 Refill(s), Give in a 4hr period as follows based on withdrawal score: Score 4- 5mg PO, Score 5-6 10mg PO, Score 7-8 15mg PO, Soce 9-10 20mg PO Score of 10 or above and pulse >120 [facility] - Tablet oral 11:21: [place] Valium 5 mg tablet 00 AM Hospi [place] oral tablet [facility] Ibuprofen ibupro 08/30/ 600.0 Oral Nuvan ce 600 MG Oral fen 2017 mg 60 0 mg, = 1 tab, Oral, q8hr (specified start), 0 Refill(s), as needed for pain Health - Tablet 600 mg 11:20: [place] ibuprofen oral 00 AM Hospital 600 mg oral tablet EST Center tablet Mylanta [id number] 30.0 Oral Nuvance 2017 mL 30 mL, O ral, q2hr (specified start), 0 Refill(s), as needed for indigestion Health - 11:20: [place] 00 AM Hospital EST Center Milk of [id number] 08/30/ Oral 30.0 Oral [place] Magnesia 2017 Suspensi mL 30 mL, Oral, QHS, 0 Refill(s), as needed for constipation Health - 11:19: on [place] 00 AM Hospital EST Center multivitami [id number] 08/30/ Tablet 1.0 Oral Nu sanchez n with 2017 1 tab, Oral, Daily , 0 Refill(s) Health - minerals 11:18: [place] 00 AM Hospital EST Center Trazodone trazod 100.0 Oral Nuvan ce Hydrochlori one 2017 mg 100 mg, = 1 t ab, Oral, [facility] Health - de 100 MG 100 mg 09:48: Eli[place] Oral Tablet oral 00 AM Hospita l trazodone tablet EST Center 100 mg oral tablet 24 HR quetia 200.0 Oral [place] quetiapine pine 2017 mg 200 mg =, 1 ta b, Oral, [facility] Health - 200 MG 200 mg 09:48: [place] Extended oral 00 AM Hospital Release tablet EST Center Oral Tablet , quetiapine extend 200 mg oral ed tablet, releas extended e release Thiamine thiami 100.0 Oral Nuvanc e 100 MG Oral ne 100 2017 mg 100 mg, = 1 tab, Oral, [facility] Health - Tablet mg 09:47: [place] thiamine oral 00 AM Hospital 100 mg oral tablet EST Center tablet quetiapine [id number] 08/30/ Tablet 100.0 Oral Nu sanchez 2017 mg 100 mg, Oral, Q He alth - 09:46: [place] 00 AM Hospital EST Center Folic Acid folic 1.0 Oral Nuvanc e 1 MG Oral acid 1 2017 mg 1 mg, = 1 tab , Oral, Daily, # 30 tab Health - Tablet mg 09:46: [place] folic acid oral 00 AM Hospital 1 mg oral tablet EST Center tablet lithium [id number] 08/30/ Tablet 300.0 Oral Nuvan ce carbonate 2017 mg 300 mg, Oral, T ID Health - 09:45: Eli[place] 00 AM [facility] EST [place] fluoxetine [id number] 08/30/ Capsule 20.0 Oral Nu sanchez 2017 mg 20 mg, Oral, Daily H ealth - 09:45: [place] 00 AM [facility] EST [place] Cardizem CD UNK active Cardizem CD eCW3 ([facility]) Fluoxetine Fluoxe 1.0 active Fluoxetine eCW3 40 MG Oral nichol {caps HCl 40 MG ([facility] [place] Capsule HCl 40 ule_i [place] Fluoxetine MG n_the Health HCl 40 MG _morn Care) ing} quetiapine Quetia 1.0 active Quetiapine eCW3 100 MG Oral pine {tabl Fumarate 100 ([place] Tablet Fumara et_at MG [place] Quetiapine te 100 _bedt Health Fumarate MG sharmila} Care) 100 MG quetiapine Quetia 1.0 active Quetiapine eCW3 100 MG Oral pine {tabl Fumarate 100 ([place] Tablet Fumara et_at mg [place] Quetiapine te 100 _bedt Health Fumarate mg sharmila} Care) 100 mg [place] Lithiu active [place] eCW3 Carbonate m Carbonate ER (H udson 300 MG Carbon 300 MG [place] Extended ate ER Health Release 300 MG Care) Oral Tablet [place] Carbonate ER 300 MG [place] Lithiu active [place] eCW3 Carbonate m Carbonate ER (H udson 300 MG Carbon 300 MG [place] Extended ate ER Health Release 300 MG Care) Oral Tablet [place] Carbonate ER 300 MG Fluoxetine Fluoxe 1.0 active Fluoxetine eCW3 40 MG Oral nichol {caps HCl 40 MG ([facility] [place] Capsule HCl 40 ule_i [place] Fluoxetine MG n_the Health HCl 40 MG _[facility]orn Care) ing} Fluoxetine Fluoxe 1.0 active Fluoxetine eCW3 20 MG Oral nichol {caps HCl 20 MG ([facility] [place] Capsule HCl 20 ule_i [place] Fluoxetine MG n_the Health HCl 20 MG _morn Care) ing} quetiapine Quetia 1.0 active Quetiapine eCW3 100 MG Oral pine {tabl Fumarate 100 ([place] Tablet Fumara et_at MG [place] Quetiapine te 100 _bedt Health Fumarate MG sharmila} Care) 100 MG Cardizem CD UNK active Cardizem CD eCW3 ([facility]) Fluoxetine Fluoxe 1.0 active Fluoxetine eCW3 40 MG Oral nichol {caps HCl 40 MG ([facility] [place] Capsule HCl 40 ule_i [place] Fluoxetine MG n_the Health HCl 40 MG _morn Care) ing} Fluoxetine Fluoxe 1.0 active Fluoxetine eCW3 20 MG Oral nichol {caps HCl 20 mg ([place] Capsule HCl 20 ule_i [place] Fluoxetine mg n_the Health HCl 20 mg _morn Care) ing} Fluoxetine Fluoxe 1.0 active Fluoxetine eCW3 40 MG Oral nichol {caps HCl 40 MG ([facility] [place] Capsule HCl 40 ule_i [place] Fluoxetine MG n_the Health HCl 40 MG _morn Care) ing} [place] Lithiu active [place] eCW3 Carbonate m Carbonate ER (H udson 300 MG Carbon 300 MG [place] Extended ate ER Health Release 300 MG Care) Oral Tablet [place] Carbonate ER 300 MG Cardizem CD UNK active Cardizem CD eCW3 ([facility]) quetiapine Quetia 1.0 active Quetiapine eCW3 100 MG Oral pine {tabl Fumarate 100 ([place] Tablet Fumara et_at MG [place] Quetiapine te 100 _bedt Health Fumarate MG sharmila} Care) 100 MG quetiapine Quetia 1.0 active Quetiapine eCW3 100 MG Oral pine {tabl Fumarate 100 ([place] Tablet Fumara et_at mg [place] Quetiapine te 100 _bedt Health Fumarate mg sharmila} Care) 100 mg quetiapine Quetia 1.0 active Quetiapine eCW3 100 MG Oral pine {tabl Fumarate 100 ([place] Tablet Fumara et_at MG [place] Quetiapine te 100 _bedt Health Fumarate MG sharmila} Care) 100 MG [place] Lithiu active [place] eCW3 Carbonate m Carbonate ER (H udson 300 MG Carbon 300 MG [place] Extended ate ER Health Release 300 MG Care) Oral Tablet [place] Carbonate ER 300 MG [place] Lithiu active [place] eCW3 Carbonate m Carbonate ER (H udson 300 MG Carbon 300 MG [place] Extended ate ER Health Release 300 MG Care) Oral Tablet [place] Carbonate ER 300 MG Fluoxetine Fluoxe 1.0 active Fluoxetine eCW3 20 MG Oral nichol {caps HCl 20 MG ([facility] [place] Capsule HCl 20 ule_i [place] Fluoxetine MG n_the Health HCl 20 MG _morn Care) ing} [place] Lithiu active [place] eCW3 Carbonate m Carbonate ER (H udson 300 MG Carbon 300 MG [place] Extended ate ER Health Release 300 MG Care) Oral Tablet [place] Carbonate ER 300 MG [place] Lithiu suspend [place] eCW3 Carbonate m ed Carbonate ER (H udson 300 MG Carbon 300 MG [place] Extended ate ER Health Release 300 MG Care) Oral Tablet [place] Carbonate ER 300 MG [place] Lithiu active [place] eCW3 Carbonate m Carbonate ER (H udson 300 MG Carbon 300 MG [place] Extended ate ER Health Release 300 MG Care) Oral Tablet [place] Carbonate ER 300 MG [place] Lithiu active [place] eCW3 Carbonate m Carbonate ER (H udson 300 MG Carbon 300 MG [place] Extended ate ER Health Release 300 MG Care) Oral Tablet [place] Carbonate ER 300 MG Cardizem CD UNK active Cardizem CD eCW3 ([facility]) Fluoxetine Fluoxe 1.0 active Fluoxetine eCW3 20 MG Oral nichol {caps HCl 20 mg ([place] Capsule HCl 20 ule_i [place] Fluoxetine mg n_the Health HCl 20 mg _morn Care) ing} quetiapine Quetia 1.0 active Quetiapine eCW3 100 MG Oral pine {tabl Fumarate 100 ([place] Tablet Fumara et_at MG [place] Quetiapine te 100 _bedt Health Fumarate MG sharmila} Care) 100 MG Cardizem CD UNK active Cardizem CD eCW3 ([facility]) [place] Lithiu active [place] eCW3 Carbonate m Carbonate ER (H udson 300 MG Carbon 300 MG [place] Extended ate ER Health Release 300 MG Care) Oral Tablet [place] Carbonate ER 300 MG Fluoxetine Fluoxe 1.0 active Fluoxetine eCW3 20 MG Oral nichol {caps HCl 20 mg ([place] Capsule HCl 20 ule_i [place] Fluoxetine mg n_the Health HCl 20 mg _morn Care) ing} quetiapine Quetia 1.0 active Quetiapine eCW3 100 MG Oral pine {tabl Fumarate 100 ([place] Tablet Fumara et_at mg [place] Quetiapine te 100 _bedt Health Fumarate mg sharmila} Care) 100 mg Cardizem CD UNK active Cardizem CD eCW3 ([facility]) [place] Lithiu active [place] eCW3 Carbonate m Carbonate ER (H udson 300 MG Carbon 300 MG [place] Extended ate ER Health Release 300 MG Care) Oral Tablet [place] Carbonate ER 300 MG Fluoxetine Fluoxe 1.0 active Fluoxetine eCW3 20 MG Oral nichol {caps HCl 20 mg ([place] Capsule HCl 20 ule_i [place] Fluoxetine mg n_the Health HCl 20 mg _morn Care) ing} [place] Lithiu active [place] eCW3 Carbonate m Carbonate ER (H udson 300 MG Carbon 300 MG [place] Extended ate ER Health Release 300 MG Care) Oral Tablet [place] Carbonate ER 300 MG quetiapine Quetia 1.0 active Quetiapine eCW3 100 MG Oral pine {tabl Fumarate 100 ([place] Tablet Fumara et_at mg [place] Quetiapine te 100 _bedt Health Fumarate mg sharmila} Care) 100 mg Fluoxetine Fluoxe 1.0 active Fluoxetine eCW3 20 MG Oral nichol {caps HCl 20 mg ([place] Capsule HCl 20 ule_i [place] Fluoxetine mg n_the Health HCl 20 mg _morn Care) ing} Fluoxetine Fluoxe 1.0 suspend Fluoxetin e eCW3 20 MG Oral nichol {caps ed HCl 20 MG ([facility] [place] Capsule HCl 20 ule_i [place] Fluoxetine MG n_the Health HCl 20 MG _morn Care) ing} quetiapine Quetia 1.0 active Quetiapine eCW3 100 MG Oral pine {tabl Fumarate 100 ([place] Tablet Fumara et_at MG [place] Quetiapine te 100 _bedt Health Fumarate MG sharmila} Care) 100 MG Fluoxetine Fluoxe 1.0 active Fluoxetine eCW3 20 MG Oral nichol {caps HCl 20 MG ([place] Capsule HCl 20 ule_i [place] Fluoxetine MG n_the Health HCl 20 MG _morn Care) ing} quetiapine Quetia 1.0 active Quetiapine eCW3 100 MG Oral pine {tabl Fumarate 100 ([place] Tablet Fumara et_at MG [place] Quetiapine te 100 _bedt Health Fumarate MG sharmila} Care) 100 MG [place] Lithiu active [place] eCW3 Carbonate m Carbonate ER (H udson 300 MG Carbon 300 MG [place] Extended ate ER Health Release 300 MG Care) Oral Tablet [place] Carbonate ER 300 MG Fluoxetine Fluoxe 1.0 active Fluoxetine eCW3 20 MG Oral nichol {caps HCl 20 mg ([place] Capsule HCl 20 ule_i [place] Fluoxetine mg n_the Health HCl 20 mg _morn Care) ing} quetiapine Quetia 1.0 suspend Quetiapin e eCW3 100 MG Oral pine {tabl ed Fumarate 100 ([place] Tablet Fumara et_at MG [place] Quetiapine te 100 _bedt Health Fumarate MG sharmila} Care) 100 MG [place] Lithiu active [place] eCW3 Carbonate m Carbonate ER (H udson 300 MG Carbon 300 MG [place] Extended ate ER Health Release 300 MG Care) Oral Tablet [place] Carbonate ER 300 MG [place] Lithiu active [place] eCW3 Carbonate m Carbonate ER (H udson 300 MG Carbon 300 MG [place] Extended ate ER Health Release 300 MG Care) Oral Tablet [place] Carbonate ER 300 MG Cardizem CD UNK active Cardizem CD eCW3 ([facility]) quetiapine Quetia 1.0 active Quetiapine eCW3 100 MG Oral pine {tabl Fumarate 100 ([place] Tablet Fumara et_at mg [place] Quetiapine te 100 _bedt Health Fumarate mg sharmila} Care) 100 mg Cardizem CD UNK active Cardizem CD eCW3 ([facility]) quetiapine Quetia 1.0 active Quetiapine eCW3 100 MG Oral pine {tabl Fumarate 100 ([place] Tablet Fumara et_at MG [place] Quetiapine te 100 _bedt Health Fumarate MG sharmila} Care) 100 MG Fluoxetine Fluoxe 1.0 active Fluoxetine eCW3 20 MG Oral nichol {caps HCl 20 mg ([place] Capsule HCl 20 ule_i [place] Fluoxetine mg n_the Health HCl 20 mg _morn Care) ing} [place] Lithiu active [place] eCW3 Carbonate m Carbonate ER (H udson 300 MG Carbon 300 MG [place] Extended ate ER Health Release 300 MG Care) Oral Tablet [place] Carbonate ER 300 MG Fluoxetine Fluoxe 1.0 active Fluoxetine eCW3 40 MG Oral nichol {caps HCl 40 MG ([place] Capsule HCl 40 ule_i [place] Fluoxetine MG n_the Health HCl 40 MG _morn Care) ing} quetiapine Quetia 1.0 active Quetiapine eCW3 100 MG Oral pine {tabl Fumarate 100 ([place] Tablet Fumara et_at mg [place] Quetiapine te 100 _bedt Health Fumarate mg sharmila} Care) 100 mg quetiapine Quetia 1.0 active Quetiapine eCW3 100 MG Oral pine {tabl Fumarate 100 ([place] Tablet Fumara et_at mg [place] Quetiapine te 100 _bedt Health Fumarate mg sharmila} Care) 100 mg Insurance Providers Payer name Policy type Policy ID Covered Covered constitution party's Policy P velvet / Coverage constitution party ID relationship to [place] Inf ormation type lima JASON SCHERER BS [id number] SP [id number] [id number] MEDICAID [id number] SP [id number] COMM [id number] Self [id number] Problems, Conditions, and Diagnoses Code Display Name Description Problem Type Effective Data Sour ce(s) Dates F43.10 Posttraumatic PTSD Problem 11/10/2018 eCW3 ([place] [facility] stress disorder (post-traumatic 12:00:[facility] EDT Care) 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, PPD positive, 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/2018 eCW3 ([facility] treated treated 12:00:00 AM [facility] EST Care) Z01.84 Immunity to Immunity to Problem 05/18/2018 eCW3 ([place] measles, mumps, and measles, mumps, 12:00:00 AM [facility] rubella determined and rubella EST Care) by serologic test determined by serologic test Z78.9 Immune to varicella Immune to Problem 05/18/2018 eCW3 ([place] varicella 12:00:00 AM [facility] EST Care) Z78.9 Immune to varicella Immune to Problem 05/18/2018 eCW3 ([place] varicella 12:00:00 AM [facility] EST Care) Z01.84 Immunity to Immunity to Problem 05/18/2018 eCW3 ([place] measles, mumps, and measles, mumps, 12:00:00 AM [facility] rubella determined and rubella EST Care) by serologic test determined by serologic test Z72.0 Tobacco abuse Tobacco abuse Problem 03/26/2018 eCW3 ([facility] 12:00:00 AM [facility] EDT Care) F43.12 Posttraumatic Chronic Problem 03/17/2018 eCW3 ([place] stress disorder post-traumatic 12:00:[facility] EDT Care) (PTSD) F33.3 Severe recurrent Major psychotic Problem 03/17/2018 eCW 3 ([place] major depression depression, 12:00:00 AM [facility] with psychotic recurrent EDT Care) features F33.3 Severe recurrent Major psychotic Problem 03/17/2018 eCW 3 ([place] major depression depression, 12:00:00 AM [facility] with psychotic recurrent EDT Care) features K05.10 Gingivitis Gingivitis Problem 12/11/2017 eCW3 ([place] 12:00:00 AM [facility] EDT Care) K05.10 Gingivitis Gingivitis Problem 12/11/2017 eCW3 ([place] 12:00:00 AM [facility] EDT Care) F17.200 Smoker Smoker Problem 05/21/2017 eCW3 ([place] 12:00:00 AM [facility] EST Care) 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 B Problem 05/21/2017 eCW3 ([place] immune 12:00:00 AM [facility] EST Care) Z72.0 Tobacco use Tobacco use Diagnosis 12/16/2019 [facility] 12:35:00 PM [facility] Surgeries/Procedures Procedure Description Date Indications Data Source(s) None [facility] Results ID Date Data Source [id number] 12/16/2019 01:50:00 PM EDT [facility] Patient Name: KIMBERLY PASCUALMRN: [id number] General DiagnosticACCESSION E XAM DATE/TIME PROCEDURE ORDERING PROVIDER [id number] 12/16/2019 12:59 EDT XR Chest 2 Views Roxanna HIGGINS, Auth (Verified) Suha For Exam(XR Ch est 2 Views) pos ppdReportPROCEDURE: Radiograph Chest 2 ViewsCLINICAL HISTORY : Positive PPDSCRIPT INFORMATION: pos ppdCOMPARISON: 08/30/2016TECHNIQUE:Exhaust Emissions Automotive Technician oanterior and lateral radiographic views of the chest were performed.FINDINGS:The storm ngs are clear.There is no evidence for pleural effusion.There is no evidence fo r pneumothorax.The heart is unremarkable.The mediastinum and hilar soft tissues are u nremarkable.The bony thorax is unremarkable.IMPRESSION:Normal chest rad iographs.Thank you for allowing us to participate in the evaluation of this pa tient. Final Dictated: jM JEAN-BAPTISTE, [place] 12/16/19 13:48Signed: Palomo pruitt MD, [place] 12/16/19 13:50Transcribed by: RK Name Value Range Interpretation Code Description Data Astrid rce(s) Supporting Document(s ) ID Date Data Source [id number] 12/07/2019 02:30:00 PM EDT [facility] Name Value Range Interpretation Description Data Sup porting Code Source(s) Document(s ) SARS [facility] CORONAVIRUS 2 RNA This lab was ordered by [facility] and reported by [facility]. ID Date Data Source [id number] 09/29/2019 10:50:00 AM EDT [facility] Name Value Range Interpretation Description Data Sup porting Code Source(s) Document(s ) SARS [facility] CORONAVIRUS 2 RNA This lab was ordered by [facility] and reported by [facility]. Procedure Social History Code Duration Value Status Description Data Source(s ) Smoking 08/30/2016 Smokes completed Smokes tobacco Elisa ridley 11:46:57 AM EST tobacco daily daily (finding) - [place] (finding) [facility] Smoking Unknown if completed Unknown if ever eCW3 ([facility] son ever smoked smoked [facility]) Smoking Unknown if completed Unknown if ever eCW3 ([facility] son ever smoked smoked [facility]) Home/Environmen UNK completed [facility] Employment/Scho UNK completed [facility] Alcohol (Use UNK completed [facility] Alcohol Screen - [place] Below for [facility] Admitted Pts) Pt drinks 2 pints Vodka and "a couple of beers" daily. States he has been drinking this heavily since his mother in [facility]. Currently at [facility] for ETOH rehab. Smoking Unknown if ever smoked completed Unknown if ev er smoked eCW3 ([facility]) Smoking Unknown if ever smoked completed Unknown if ev er smoked eCW3 ([facility]) Smoking Unknown if ever smoked completed Unknown if ev er smoked eCW3 ([facility]) Smoking Unknown if ever smoked completed Unknown if ev er smoked eCW3 ([facility]) Smoking Unknown if ever smoked completed Unknown if ev er smoked eCW3 ([facility]) Smoking Unknown if ever smoked completed Unknown if ev er smoked eCW3 ([facility]) Vital Signs ID Date Data Source UNK Name Value Range Interpretation Code Description Data Source(s) Diastolic blood 76 mm[Hg] 76 mm[Hg] eCW3 ([facility]) Systolic blood 124 mm[Hg] 124 mm[Hg] eCW3 ([facility]) Body temperature 97.8 [degF] 97.8 [degF] eCW3 ( [facility] [facility] Heart rate 16 /min 16 /min eCW3 ([facility]) Body mass index 20.20 kg/m2 20.20 kg/m2 eCW3 ([facility] (BMI) [Ratio] [facility]) Body weight 129 [lb_av] 129 [lb_av] eCW3 ([facility]) Body height [in_i] eCW3 ([facility]) Diastolic blood 75 mm[Hg] 75 mm[Hg] eCW3 ([facility]) Systolic blood 121 mm[Hg] 121 mm[Hg] eCW3 ([facility]) Heart rate 16 /min 16 /min eCW3 ([facility]) Body mass index 19.11 kg/m2 19.11 kg/m2 eCW3 ([facility] (BMI) [Ratio] [facility]) Body weight 122 [lb_av] 122 [lb_av] eCW3 ([facility]) Body height [in_i] eCW3 ([facility]) Diastolic blood 86 mm[Hg] 86 mm[Hg] eCW3 ([facility]) Systolic blood 138 mm[Hg] 138 mm[Hg] eCW3 ([facility]) Body temperature 98.0 [degF] 98.0 [degF] eCW3 ( [facility]) Heart rate 16 /min 16 /min eCW3 ([facility]) Body mass index 21.45 kg/m2 21.45 kg/m2 eCW3 ([facility] (BMI) [Ratio] [facility]) Body weight 137 [lb_av] 137 [lb_av] eCW3 ([facility]) Body height [in_i] eCW3 ([facility]) Diastolic blood 87 mm[Hg] 87 mm[Hg] eCW3 ([facility]) Systolic blood 130 mm[Hg] 130 mm[Hg] eCW3 ([facility]) Body temperature 98.4 [degF] 98.4 [degF] eCW3 ( [facility]) Heart rate 16 /min 16 /min eCW3 ([facility]) Body mass index 21.92 kg/m2 21.92 kg/m2 eCW3 ([facility] (BMI) [Ratio] [facility]) Body weight 140 [lb_av] 140 [lb_av] eCW3 ([facility]) Body height [in_i] eCW3 ([facility]) Diastolic blood 74 mm[Hg] 74 mm[Hg] eCW3 ([facility]) Systolic blood 116 mm[Hg] 116 mm[Hg] eCW3 ([facility]) Body temperature 98.3 [degF] 98.3 [degF] eCW3 ( [facility]) Heart rate 16 /min 16 /min eCW3 ([facility]) Body mass index 23.49 kg/m2 23.49 kg/m2 eCW3 ([facility] (BMI) [Ratio] [facility]) Body weight 150 [lb_av] 150 [lb_av] eCW3 ([facility]) Body height [in_i] eCW3 ([facility]) Diastolic blood 81 mm[Hg] 81 mm[Hg] eCW3 ([facility]) Systolic blood 134 mm[Hg] 134 mm[Hg] eCW3 ([facility]) Body temperature 98.6 [degF] 98.6 [degF] eCW3 ( [facility]) Heart rate 18 /min 18 /min eCW3 ([facility]) Body mass index 22.24 kg/m2 22.24 kg/m2 eCW3 ([facility] (BMI) [Ratio] [facility]) Body weight 142 [lb_av] 142 [lb_av] eCW3 ([facility]) Body height [in_i] eCW3 ([facility]) Patient Treatment Plan of Care Planned Activity Planned Date Details Description Data Source (s) No data available for [facility] - this [facility] quetiapine 200 MG Oral 02/22/2020 12:00:00 eCW3 ([facility] Tablet [Seroquel] [facility]) Diazepam 5 MG Oral Tablet 08/30/2016 11:21:00 [facility] Mylanta 08/30/2016 11:20:00 [facility] Ibuprofen 600 MG Oral 08/30/2016 11:20:00 [email or web address] - Tablet [facility] Milk of Magnesia 08/30/2016 11:19:00 [facility] multivitamin with 08/30/2016 11:18:00 [facility] - minerals [facility] Trazodone Hydrochloride 08/30/2016 09:48:00 [employer] - 100 MG Oral Tablet [facility] 200 MG 08/30/2016 09:48:00 [email or web address] - Extended Release Oral [facility] Thiamine 100 MG Oral 08/30/2016 09:47:00 [facility] [employer] - Tablet [facility] Folic Acid 1 MG Oral 08/30/2016 09:46:00 [email or web address] - Tablet [facility] quetiapine 08/30/2016 09:46:00 [facility] fluoxetine 08/30/2016 09:45:00 [facility] lithium carbonate 08/30/2016 09:45:00 [facility] Fluoxetine 40 MG Oral eCW3 ( [facility] [place] Carbonate 300 MG eCW 3 ([facility] Extended [facility]) Tablet quetiapine 100 MG Oral eCW3 ([facility]) [place] Carbonate 300 MG eCW 3 ([facility]) Tablet Fluoxetine 40 MG Oral eCW3 ( [facility]) quetiapine 100 MG Oral eCW3 ([facility]) [place] Carbonate 300 MG eCW 3 ([facility]) Tablet Fluoxetine 40 MG Oral eCW3 ( [facility] [place] Carbonate 300 MG eCW 3 ([facility]) Tablet Fluoxetine 40 MG Oral eCW3 ( [facility]) quetiapine 100 MG Oral eCW3 ([facility]) [place] Carbonate 300 MG eCW 3 ([facility]) Tablet Fluoxetine 40 MG Oral eCW3 ( [facility]) quetiapine 100 MG Oral eCW3 ([facility]) quetiapine 100 MG Oral eCW3 ([facility]) Fluoxetine 20 MG Oral eCW3 ( [facility] [place] Carbonate 300 MG eCW 3 ([facility]) Tablet quetiapine 100 MG Oral eCW3 ([facility]) Fluoxetine 20 MG Oral eCW3 ( [facility] [place] Carbonate 300 MG eCW 3 ([facility]) Tablet quetiapine 100 MG Oral eCW3 ([facility]) Fluoxetine 20 MG Oral eCW3 ( [facility] [place] Carbonate 300 MG eCW 3 ([facility]) Tablet
--- OUTSIDE RECORDS SUMMARY | 2020-03-21 13:52 | XMS ---
[...] is protected by Article 27-F of the [facility] Public Health law. If you continue you may haveaccess to information: Regarding HIV / AIDS; Provided by facilities licensed or operated by the [facility] Office of Mental Health; or Provided by the [facility] Office for People With Developmental Disabilities. If such information is present, then the following [facility] mandated warning applies: This information has [...] law may result in a fine or retirement sentence or both. A general authorization for the release of medical or other information is NOT sufficient authorization for further disclosure. Allergies and Adverse Reactions Type Description Substance Reaction Status Data Source(s ) Drug allergy No Known Allergies No Known Nuva [facility] Health - Allergies [facility] No Known No Known Allergies No Known eCW3 ( [place] Allergies Allergies [facility]) No Known No Known Allergies No Known eCW3 ( [place] Allergies Allergies [facility]) No Known No Known Allergies No Known eCW3 ( [place] Allergies Allergies [facility]) No Known No Known Allergies No Known eCW3 ( [place] Allergies Allergies [facility]) No Known No Known Allergies No Known eCW3 ( [place] Allergies Allergies [facility]) No Known No Known Allergies No Known eCW3 ( [place] Allergies Allergies [facility]) No Known No Known Allergies No known eCW3 ( [place] Allergies allergies [facility] (situation) [facility]) No Known No Known Allergies No known eCW3 ( [place] Allergies allergies [facility] (situation) [facility]) Encounters Encounter Providers Location Date Indications Data Source(s ) Outpatient Attender: AWAIS [facility] PAAdmitter: AWAIS [facility] 12/16/2019 11:59:00 PM EDT Patient discharged. Outpatient [facility] 04/13/2019 12:00:00 AM eCW3 ([place] [id number] EDT - 04/13/2019 [facility] are) 12:00:00 AM EDT Outpatient [facility] 02/16/2019 12:00:00 AM eCW3 ([place] [id number] EDT - 02/16/2019 [facility] are) 12:00:00 AM EDT Outpatient [facility] 12/24/2018 12:00:00 AM eCW3 ([place] [id number] EDT - 12/24/2018 [facility] are) 12:00:00 AM EDT Outpatient [facility] 11/10/2018 12:00:00 AM eCW3 ([place] [id number] EDT - 11/10/2018 [facility] are) 12:00:00 AM EDT Outpatient [facility] 10/08/2018 12:00:00 AM eCW3 ([facility] A28 EDT - 10/08/2018 [facility] are) 12:00:00 AM EDT Outpatient [facility] 09/03/2018 12:00:00 AM eCW3 ([facility] A28 EST - 09/03/2018 [facility] are) 12:00:00 AM EST Est [id number] [facility] 08/13/2018 12:00:00 AM eCW3 ([facility] EST - 08/13/2018 [facility]) 12:00:00 AM EST Outpatient [facility] 08/10/2018 12:00:00 AM eCW3 ([facility] A28 EST - 08/10/2018 [facility]) 12:00:00 AM EST Immunizations Vaccine Date Status Description Data Source(s) pneumococcal 07/06/2018 completed eCW3 ([facility] mauricio polysaccharide PPV23 11:08:00 AM [facility]) New in 2011. IIV4 05/21/2017 completed eCW3 ([facility] 09:47:00 AM [facility]) Medications Medication Brand Start Product Dose Route Administrative Pharmacy [facility] Indications Reaction Description Data Name Date Form Instructions Instructions Source(s) quetiapine Seroqu .0 active Seroquel 200 eCW3 200 MG Oral el 200 2020 {tabl MG ([place] on Tablet MG 12:00: et_at [place] [Seroquel] 00 AM _bedt [facility] Seroquel EDT sharmila} Care) 200 MG Diazepam [...] tablet 00 AM Hospi [place] oral tablet [facility] Ibuprofen ibupro 08/30/ 600.0 Oral Nuvan ce 600 MG Oral fen 2017 mg 60 0 mg, = 1 tab, Oral, q8hr (specified start), 0 Refill(s), as needed for pain Health - Tablet 600 mg 11:20: [place] ibuprofen oral 00 AM Hospital 600 mg oral tablet EST Center tablet Mylanta [id number] 30.0 Oral Nuvance 2017 mL 30 mL, O ral, q2hr (specified start), 0 Refill(s), as needed for indigestion Health - 11:20: [place] 00 AM Hospital EST Center Milk of [id number] 08/30/ Oral 30.0 Oral Nuvance Magnesia 2017 Suspensi mL 30 mL, Oral, QHS, 0 Refill(s), as needed for constipation Health - 11:19: on [place] 00 AM Hospital EST Center multivitami [id number] 08/30/ Tablet 1.0 Oral Nu sanchez n with 2017 1 tab, Oral, Daily , 0 Refill(s) Health - minerals 11:18: [place] 00 AM Hospital EST Center Trazodone trazod 100.0 Oral Nuvan ce Hydrochlori one 2017 mg 100 mg, = 1 t ab, Oral, [facility] Health - de 100 MG 100 mg 09:48: [place] Oral Tablet oral 00 AM Hospita l trazodone tablet EST Center 100 mg oral tablet 24 HR quetia 200.0 Oral Nuvance quetiapine pine 2017 mg 200 mg =, 1 ta b, Oral, [facility] Health - 200 MG 200 mg 09:48: [place] Extended oral 00 AM Hospital Release tablet EST Center Oral Tablet , quetiapine extend 200 mg oral ed tablet, releas extended e release Thiamine thiami 100.0 Oral Nuvanc e 100 MG Oral ne 100 2017 mg 100 mg, = 1 tab, Oral, [facility] Health - Tablet mg 09:47: [place] thiamine oral 00 AM Hospital 100 mg oral tablet EST Center tablet quetiapine [id number] 08/30/ Tablet 100.0 Oral Nu sanchez 2017 mg 100 mg, Oral, Q He alth - 09:46: [place] 00 AM Hospital EST Center Folic Acid folic 1.0 Oral Nuvanc e 1 MG Oral acid 1 2017 mg 1 mg, = 1 tab , Oral, Daily, # 30 tab Health - Tablet mg 09:46: [place] folic acid oral 00 AM Hospital 1 mg oral tablet EST Center tablet lithium [id number] 08/30/ Tablet 300.0 Oral Nuvan ce carbonate 2017 mg 300 mg, Oral, T ID Health - 09:45: Elias 00 AM [facility] EST [place] fluoxetine [id number] 08/30/ Capsule 20.0 Oral Nu sanchez 2017 mg 20 mg, Oral, Daily H ealth - 09:45: [place] 00 AM [facility] EST [place] Cardizem CD UNK active Cardizem CD eCW3 ([facility]) Fluoxetine Fluoxe 1.0 active Fluoxetine eCW3 40 [...] Health Fumarate mg sharmila} Care) 100 mg [place] Lithiu active Somis eCW3 Carbonate m Carbonate ER ([facility] 300 MG Carbon 300 MG [place] Extended ate ER Health Release 300 MG Care) Oral Tablet [place] Carbonate ER 300 MG [place] Lithiu active [place] eCW3 Carbonate m Carbonate ER ([facility] 300 MG Carbon 300 MG [place] Extended ate ER Health Release 300 MG Care) Oral Tablet [place] Carbonate ER 300 MG Fluoxetine Fluoxe 1.0 [...] Cardizem CD UNK active Cardizem CD eCW3 ([facility]) Fluoxetine Fluoxe 1.0 active Fluoxetine eCW3 40 [...] Health HCl 40 MG _morn Care) ing} [place] Lithiu active [facility] eCW3 Carbonate m Carbonate ER ([facility] 300 MG Carbon 300 MG [place] Extended ate ER Health Release 300 MG Care) Oral Tablet [place] Carbonate ER 300 MG Cardizem CD UNK active Cardizem CD eCW3 ([facility]) quetiapine Quetia 1.0 active Quetiapine eCW3 100 [...] Health Fumarate MG sharmila} Care) 100 MG [place] Lithiu active [place]is eCW3 Carbonate m Carbonate ER ([facility] 300 MG Carbon 300 MG [place] Extended ate ER Health Release 300 MG Care) Oral Tablet [place] Carbonate ER 300 MG [place] Lithiu active [place] eCW3 Carbonate m Carbonate ER ([facility] [place] 300 MG Carbon 300 MG [place] Extended ate ER Health Release 300 MG Care) Oral Tablet [place] Carbonate ER 300 MG Fluoxetine Fluoxe 1.0 active Fluoxetine eCW3 20 MG Oral nichol {caps HCl 20 MG ([facility] Capsule HCl 20 ule_i [place] Fluoxetine MG n_the Health HCl 20 MG _morn Care) ing} [place] Lithiu active Somis eCW3 Carbonate m Carbonate ER ([facility] 300 MG Carbon 300 MG [place] Extended ate ER Health Release 300 MG Care) Oral Tablet [place] Carbonate ER 300 MG [place] Lithiu suspend Somis eCW3 Carbonate m ed Carbonate ER ([facility] 300 MG Carbon 300 MG [place] Extended ate ER Health Release 300 MG Care) Oral Tablet Somis Carbonate ER 300 MG Somis Lithiu active Somis eCW3 Carbonate m Carbonate ER ([facility] ud[facility] 300 MG Carbon 300 MG [place] Extended ate ER Health Release 300 MG Care) Oral Tablet Somis Carbonate ER 300 MG Somis Lithiu active Somis eCW3 Carbonate m Carbonate ER ([facility] ud[facility] 300 MG Carbon 300 MG [place] Extended ate ER Health Release 300 MG Care) Oral Tablet Somis Carbonate ER 300 MG Cardizem CD UNK active Cardizem CD eCW3 ([facility]) Fluoxetine Fluoxe 1.0 active Fluoxetine eCW3 20 [...] Cardizem CD UNK active Cardizem CD eCW3 ([facility]) Somis Lithiu active Somis eCW3 Carbonate m Carbonate ER ([facility] 300 MG Carbon 300 MG [place] Extended ate ER Health Release 300 MG Care) Oral Tablet Somis Carbonate ER 300 MG Fluoxetine Fluoxe 1.0 [...] Cardizem CD UNK active Cardizem CD eCW3 ([facility]) Somis Lithiu active Somis eCW3 Carbonate m Carbonate ER ([facility] 300 MG Carbon 300 MG [place] Extended ate ER Health Release 300 MG Care) Oral Tablet Somis Carbonate ER 300 MG Fluoxetine Fluoxe 1.0 active Fluoxetine eCW3 20 MG Oral nichol {caps HCl 20 mg ([facility] Capsule HCl 20 ule_i [place] Fluoxetine mg n_the Health HCl 20 mg _morn Care) ing} Somis Lithiu active Somis eCW3 Carbonate m Carbonate ER ([facility] 300 MG Carbon 300 MG [place] Extended ate ER Health Release 300 MG Care) Oral Tablet [place] Carbonate ER 300 MG quetiapine Quetia 1.0 [...] Health Fumarate MG sharmila} Care) 100 MG [place] Lithiu active Somis eCW3 Carbonate m Carbonate ER ([facility] ud[facility] 300 MG Carbon 300 MG [place] Extended ate ER Health Release 300 MG Care) Oral Tablet [place] Carbonate ER 300 MG Fluoxetine Fluoxe 1.0 [...] Health Fumarate MG sharmila} Care) 100 MG [place] Lithiu active Somis eCW3 Carbonate m Carbonate ER ([facility] ud[facility] 300 MG Carbon 300 MG [place] Extended ate ER Health Release 300 MG Care) Oral Tablet Somis Carbonate ER 300 MG Somis Lithiu active Somis eCW3 Carbonate m Carbonate ER ([facility] udson 300 MG Carbon 300 MG [place] Extended ate ER Health Release 300 MG Care) Oral Tablet Somis Carbonate ER 300 MG Cardizem CD UNK active Cardizem CD eCW3 ([facility]) quetiapine Quetia 1.0 active Quetiapine eCW3 100 MG Oral pine {tabl Fumarate 100 ([place] Tablet Fumara et_at mg [place] Quetiapine te 100 _bedt Health Fumarate mg sharmila} Care) 100 mg Cardizem CD UNK active Cardizem CD eCW3 ([facility]) quetiapine Quetia 1.0 active Quetiapine eCW3 100 MG Oral pine {tabl Fumarate 100 ([place] Tablet Fumara et_at MG [place] Quetiapine te 100 _bedt Health Fumarate MG sharmila} Care) 100 MG Fluoxetine Fluoxe 1.0 active Fluoxetine eCW3 20 MG Oral nichol {caps HCl 20 mg ([facility] Capsule HCl 20 ule_i [place] Fluoxetine mg n_the Health HCl 20 mg _morn Care) ing} Somis Lithiu active [place] eCW3 Carbonate m Carbonate ER ([facility] ud[place] 300 MG Carbon 300 MG [place] Extended ate ER Health Release 300 MG Care) Oral Tablet [place] Carbonate ER 300 MG Fluoxetine Fluoxe 1.0 [...] 100 MG Oral pine {tabl Fumarate 100 ([place] Tablet Fumara et_at mg [place] Quetiapine te 100 _bedt Health Fumarate mg sharmila} Care) 100 mg Insurance Providers Payer name Policy type Policy ID Covered Covered libertarian's Policy P velvet / Coverage libertarian ID relationship to [place] Inf ormation type lima JASON SCHERER BS [id number] SP [id number] [id number] MEDICAID [id number] SP [id number] COMM [id number] Self [id number] Problems, Conditions, and Diagnoses Code Display Name Description Problem Type Effective Data Sour ce(s) Dates F43.10 Posttraumatic PTSD Problem 11/10/2018 eCW3 ([place] [facility] stress disorder (post-traumatic 12:00:00 AM [facility] stress disorder) EDT Care) 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, PPD positive, 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/2018 eCW3 ([facility] treated treated 12:00:00 AM [facility] EST Care) Z01.84 Immunity to Immunity to Problem 05/18/2018 eCW3 ([place] measles, mumps, and measles, mumps, 12:00:00 AM [facility] rubella determined and rubella EST Care) by serologic test determined by serologic test Z78.9 Immune to varicella Immune to Problem 05/18/2018 eCW3 ([place] varicella 12:00:00 AM [facility] EST Care) Z78.9 Immune to varicella Immune to Problem 05/18/2018 eCW3 ([place] varicella 12:00:00 AM [facility] EST Care) Z01.84 Immunity to Immunity to Problem 05/18/2018 eCW3 ([place] measles, mumps, and measles, mumps, 12:00:00 AM [facility] rubella determined and rubella EST Care) by [...] 3 ([place] major depression depression, 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 EDT Care) features K05.10 Gingivitis Gingivitis Problem 12/11/2017 eCW3 ([place] 12:00:00 AM [facility] EDT Care) K05.10 Gingivitis Gingivitis Problem 12/11/2017 eCW3 ([place] 12:00:00 AM [facility] EDT Care) F17.200 Smoker Smoker Problem 05/21/2017 eCW3 ([place] 12:00:00 AM [facility] EST Care) 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 B Problem 05/21/2017 eCW3 ([place] immune 12:00:00 AM [facility] EST Care) Z78.9 Hepatitis A immune Hepatitis A Problem 05/21/2017 eCW3 ([place] immune 12:00:00 AM [facility] EST Care) F10.20 Alcohol dependence Alcohol Problem 05/21/2017 eCW3 ( [place] dependence 12:00:00 AM [facility] EST Care) Z78.9 Hepatitis A immune Hepatitis A Problem 05/21/2017 eCW3 ([place] immune 12:00:00 AM [facility] EST Care) F17.200 Smoker Smoker Problem 05/21/2017 eCW3 ([place] 12:00:00 AM [facility] EST Care) F10.20 Alcohol dependence Alcohol Problem 05/21/2017 eCW3 ( [place] dependence 12:00:00 AM [facility] EST Care) 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 B Problem 05/21/2017 eCW3 ([place] immune 12:00:00 AM [facility] EST Care) Z72.0 Tobacco use Tobacco use Diagnosis 12/16/2019 [facility] 12:35:00 PM [facility] Surgeries/Procedures Procedure Description Date Indications Data Source(s) None [facility] Results ID Date Data Source [id number] 12/16/2019 01:50:00 PM EDT [facility] Patient Name: KIMBERLY PASCUALMRN: [id number] General DiagnosticACCESSION E XAM DATE/TIME PROCEDURE ORDERING PROVIDER [id number] 12/16/2019 12:59 EDT XR Chest 2 Views Roxanna HIGGINS, Auth (Verified) Suha For Exam(XR Ch est 2 Views) pos ppdReportPROCEDURE: Radiograph Chest 2 ViewsCLINICAL HISTORY : Positive PPDSCRIPT INFORMATION: pos ppdCOMPARISON: 08/30/2016TECHNIQUE:Delivery Director oanterior and lateral radiographic views of the chest were performed.FINDINGS:The storm ngs are clear.There is no evidence for pleural effusion.There is no evidence fo r pneumothorax.The heart is unremarkable.The mediastinum and hilar soft tissues are u nremarkable.The bony thorax is unremarkable.IMPRESSION:Normal chest rad iographs.Thank you for allowing us to participate in the evaluation of this pa tient. Final Dictated: Mj JEAN-BAPTISTE, Italo 12/16/19 13:48Signed: Palomo pruitt MD, Italo 12/16/19 13:50Transcribed by: RK Name Value Range Interpretation Code Description Data Astrid rce(s) Supporting Document(s ) ID Date Data Source [id number] 12/07/2019 02:30:00 PM EDT [facility] Name Value Range Interpretation Description Data Sup porting Code Source(s) Document(s ) SARS [facility] CORONAVIRUS 2 RNA This lab was ordered by [facility] ct [facility] and reported by [facility]. ID Date Data Source [id number] 09/29/2019 10:50:00 AM EDT [facility] Name Value Range Interpretation Description Data Sup porting Code Source(s) Document(s ) SARS [facility] CORONAVIRUS 2 RNA This lab was ordered by [facility] and reported by [facility]. Procedure Social History Code Duration Value Status Description Data Source(s ) Smoking 08/30/2016 Smokes completed Smokes tobacco Elisa ridley 11:46:57 AM EST tobacco daily daily (finding) - [place] (finding) [facility] Smoking Unknown if completed Unknown if ever eCW3 ([facility] son ever smoked smoked [facility]) Smoking Unknown if completed Unknown if ever eCW3 ([facility] son ever smoked smoked [facility]) Home/Environmen UNK completed [facility] Employment/Scho UNK completed [facility] Alcohol (Use UNK completed [facility] Alcohol Screen - [place] Below for [facility] Admitted Pts) Pt drinks 2 pints Vodka and "a couple of beers" daily. States he has been drinking this heavily since his mother in [facility]. Currently at [facility] for ETOH rehab. Smoking Unknown if ever smoked completed Unknown if ev er smoked eCW3 ([facility]) Smoking Unknown if ever smoked completed Unknown if ev er smoked eCW3 ([facility]) Smoking Unknown if ever smoked completed Unknown if ev er smoked eCW3 ([facility]) Smoking Unknown if ever smoked completed Unknown if ev er smoked eCW3 ([facility]) Smoking Unknown if ever smoked completed Unknown if ev er smoked eCW3 ([facility]) Smoking Unknown if ever smoked completed Unknown if ev er smoked eCW3 ([facility]) Vital Signs ID Date Data Source UNK Name Value Range Interpretation Code Description Data Source(s) Diastolic blood 76 mm[Hg] 76 mm[Hg] eCW3 ([facility]) Systolic blood 124 mm[Hg] 124 mm[Hg] eCW3 ([facility]) Body temperature 97.8 [degF] 97.8 [degF] eCW3 ( [facility]) Heart rate 16 /min 16 /min eCW3 ([facility]) Body mass index 20.20 kg/m2 20.20 kg/m2 eCW3 ([place] (BMI) [Ratio] [facility]) Body weight 129 [lb_av] 129 [lb_av] eCW3 ([facility]) Body height [in_i] eCW3 ([facility]) Diastolic blood 75 mm[Hg] 75 mm[Hg] eCW3 ([facility]) Systolic blood 121 mm[Hg] 121 mm[Hg] eCW3 ([facility]) Heart rate 16 /min 16 /min eCW3 ([facility]) Body mass index 19.11 kg/m2 19.11 kg/m2 eCW3 ([place] (BMI) [Ratio] [facility]) Body weight 122 [lb_av] 122 [lb_av] eCW3 ([facility]) Body height [in_i] eCW3 ([facility]) Diastolic blood 86 mm[Hg] 86 mm[Hg] eCW3 ([facility]) Systolic blood 138 mm[Hg] 138 mm[Hg] eCW3 ([facility]) Body temperature 98.0 [degF] 98.0 [degF] eCW3 ( [facility]) Heart rate 16 /min 16 /min eCW3 ([facility]) Body mass index 21.45 kg/m2 21.45 kg/m2 eCW3 ([place] (BMI) [Ratio] [facility]) Body weight 137 [lb_av] 137 [lb_av] eCW3 ([facility]) Body height [in_i] eCW3 ([facility]) Diastolic blood 87 mm[Hg] 87 mm[Hg] eCW3 ([facility]) Systolic blood 130 mm[Hg] 130 mm[Hg] eCW3 ([facility]) Body temperature 98.4 [degF] 98.4 [degF] eCW3 ( [facility]) Heart rate 16 /min 16 /min eCW3 ([facility]) Body mass index 21.92 kg/m2 21.92 kg/m2 eCW3 ([place] (BMI) [Ratio] [facility]) Body weight 140 [lb_av] 140 [lb_av] eCW3 ([facility]) Body height [in_i] eCW3 ([facility]) Diastolic blood 74 mm[Hg] 74 mm[Hg] eCW3 ([facility]) Systolic blood 116 mm[Hg] 116 mm[Hg] eCW3 ([facility]) Body temperature 98.3 [degF] 98.3 [degF] eCW3 ( [facility]) Heart rate 16 /min 16 /min eCW3 ([facility]) Body mass index 23.49 kg/m2 23.49 kg/m2 eCW3 ([place] (BMI) [Ratio] [facility]) Body weight 150 [lb_av] 150 [lb_av] eCW3 ([facility]) Body height [in_i] eCW3 ([facility]) Diastolic blood 81 mm[Hg] 81 mm[Hg] eCW3 ([facility]) Systolic blood 134 mm[Hg] 134 mm[Hg] eCW3 ([facility]) Body temperature 98.6 [degF] 98.6 [degF] eCW3 ( [facility]) Heart rate 18 /min 18 /min eCW3 ([facility]) Body mass index 22.24 kg/m2 22.24 kg/m2 eCW3 ([place] (BMI) [Ratio] [facility]) Body weight 142 [lb_av] 142 [lb_av] eCW3 ([facility]) Body height [in_i] eCW3 ([facility]) Patient Treatment Plan of Care Planned Activity Planned Date Details Description Data Source (s) No data available for [facility] - this [facility] quetiapine 200 MG Oral 02/22/2020 12:00:00 eCW3 ([facility] Tablet [Seroquel] [facility] Health Car e) Diazepam 5 MG Oral Tablet 08/30/2016 11:21:00 [facility] Mylanta 08/30/2016 11:20:00 [facility] Ibuprofen 600 MG Oral 08/30/2016 11:20:00 [employer] bottom [email or web address] - Tablet [facility] Milk of Magnesia 08/30/2016 11:19:00 [facility] multivitamin with 08/30/2016 11:18:00 [facility] ance Health - minerals [facility] Trazodone Hydrochloride 08/30/2016 09:48:00 [employer] - 100 MG Oral Tablet [facility] 24 HR quetiapine 200 MG 08/30/2016 09:48:00 Mingleversethe dallesVidyo - Extended Release Oral [facility] Thiamine 100 MG Oral 08/30/2016 09:47:00 [facility] [email or web address] - Tablet [facility] Folic Acid 1 MG Oral 08/30/2016 09:46:00 Mingleversethe dallesVidyo - Tablet [facility] quetiapine 08/30/2016 09:46:00 [facility] fluoxetine 08/30/2016 09:45:00 [facility] lithium carbonate 08/30/2016 09:45:00 [facility] Fluoxetine 40 MG Oral eCW3 ( [facility] Capsule Health Care) Somis Carbonate 300 MG eCW 3 ([facility] Extended Release Oral Health Care) Tablet quetiapine 100 MG Oral eCW3 ([facility] Tablet Health Care) Somis Carbonate 300 MG eCW 3 ([facility] Extended Release Oral Health Care) Tablet Fluoxetine 40 MG Oral eCW3 ( [facility] Capsule Health Care) quetiapine 100 MG Oral eCW3 ([facility] Tablet Health Care) Somis Carbonate 300 MG eCW 3 ([facility] Extended Release Oral Health Care) Tablet Fluoxetine 40 MG Oral eCW3 ( [facility] Capsule Health Care) Somis Carbonate 300 MG eCW 3 ([facility] Extended Release Oral Health Care) Tablet Fluoxetine 40 MG Oral eCW3 ( [facility] Capsule Health Care) quetiapine 100 MG Oral eCW3 ([facility] Tablet Health Care) Somis Carbonate 300 MG eCW 3 ([facility] Extended Release Oral Health Care) Tablet Fluoxetine 40 MG Oral eCW3 ( [facility] Capsule Health Care) quetiapine 100 MG Oral eCW3 ([facility] Tablet Health Care) quetiapine 100 MG Oral eCW3 ([facility] Tablet Health Care) Fluoxetine 20 MG Oral eCW3 ( [facility] Capsule Health Care) Somis Carbonate 300 MG eCW 3 ([facility] Extended Release Oral Health Care) Tablet quetiapine 100 MG Oral eCW3 ([facility] Tablet Health Care) Fluoxetine 20 MG Oral eCW3 ( [facility] Capsule Health Care) Somis Carbonate 300 MG eCW 3 ([facility] Extended Release Oral Health Care) Tablet quetiapine 100 MG Oral eCW3 ([facility] Tablet [facility]) Fluoxetine 20 MG Oral eCW3 ( [facility] Capsule [facility]) Somis Carbonate 300 MG eCW 3 ([facility] Extended Release Oral Health [facility]) Tablet
[2020-03-21] MEDS ORDERED: hydrOXYzine PAMOATE 25 MG CAPSULE (FP) PO SCH (14:00)
[2020-03-21 14:27] LABS: HEMATOCRIT 39.5 % (35.4-49); HEMOGLOBIN 13.4 GM/dL (11.7-16.9); MCH 33.3 pg (25.7-33.7); MCHC 33.9 g/dl (32.0-35.9); MEAN CELL VOLUME 98.2 fl (80-96); PLATELET COUNT 395 K/MM3 (134-434); RBC 4.02 M/mm3 (4.00-5.60); RDW 15.6 % (11.9-15.9); WHITE BLOOD COUNT 4.7 K/mm3 (4.0-10.0)
[2020-03-21 14:40] LABS: ALBUMIN 3.5 g/dl (3.4-5.0); BILIRUBIN,TOTAL 0.7 mg/dL (0.2-1); BLOOD UREA NITROGEN 4.9 mg/dL (7-18); CALCIUM 9.1 mg/dL (8.5-10.1); CREATININE 0.8 mg/dL (0.55-1.3); POTASSIUM 3.5 mmol/L (3.5-5.1)
[2020-03-21] MEDS: BISMUTH SUBSALICYLATE 524 MG/30 ML UD PO PRN ×2 (15:09→18:14)
[2020-03-21] MEDS: chlordiazePOXIDE HCL 25 MG CAPSULE PO SCH ×2 (18:12→22:11)
[2020-03-21] MEDS: THIAMINE HCL 100 MG TABLET (FP) PO SCH (22:11)
[2020-03-21] MEDS: MELATONIN 5 MG TABLETS PO SCH (22:12)
[2020-03-22] MEDS: chlordiazePOXIDE HCL 25 MG CAPSULE PO SCH ×4 (05:52→23:58)
[2020-03-22] MEDS: MAG HYDROX/AL HYDROX/SIMETH 30 ML UNIT-DOSE CUP PO PRN ×2 (05:54→18:53)
--- NOTE | 2020-03-22 13:04 | PN ---
[facility] CIWA - CIWA Score Nausea/Vomitin-No Nausea/No Vomiting Muscle Tremors: 3 Anxiety: 3 Agitation: 3 Paroxysmal Sweats: 2 Orientation: 0-Oriented Tacttile Disturbances: 0-None Auditory Disturbances: 0-None Visual Disturbances: 0-None Headache: 0-None Present CIWA-Ar Total Score: 11 S Progress Note (SOAP) Subjective: sweats interrupted sleep body aches irritable Objective: 03/22/20 13:03 Vital Signs Temperature 98.6 F 03/22/20 08:17 Pulse Rate 76 03/22/20 08:17 Respiratory Rate 16 03/22/20 08:17 Blood Pressure 149/91 03/22/20 08:17 O2 Sat by Pulse Oximetry (%) 98 03/22/20 08:17 Laboratory Tests 03/21/20 03/21/20 03/21/20 11:55 11:55 11:55 WBC 4.7 RBC 4.02 Hgb 13.4 Hct 39.5 MCV 98.2 H MCH 33.3 MCHC 33.9 RDW 15.6 D Plt Count 395 D MPV 7.0 L Sodium 133 L Potassium 3.5 Chloride 98 Carbon Dioxide 24 Anion Gap 11 BUN 4.9 L Creatinine 0.8 Est GFR (CKD-EPI)AfAm 115.74 Est GFR (CKD-EPI)NonAf 99.86 Random Glucose 111 H Calcium 9.1 Total Bilirubin 0.7 AST 21 ALT 16 Alkaline Phosphatase 62 Total Protein 8.0 Albumin 3.5 Syphilis Serology HIV Ag/Ab Combo Qual Negative 03/21/20 11:55 WBC RBC Hgb Hct MCV MCH MCHC RDW Plt Count MPV Sodium Potassium Chloride Carbon Dioxide Anion Gap BUN Creatinine Est GFR (CKD-EPI)AfAm Est GFR (CKD-EPI)NonAf Random Glucose Calcium Total Bilirubin AST ALT Alkaline Phosphatase Total Protein Albumin Syphilis Serology Non-reactive HIV Ag/Ab Combo Qual labs noted aaox3 lying in bed no acute distress Assessment: 03/22/20 13:04 withdrawals Plan: continue detox increase fluids
--- NOTE | 2020-03-22 14:23 | CONSULT ---
[facility] Psychiatric Consult - Data Date of interview: 03/22/20 Admission source: Self-referred Identifying data: Mr Reilly is a 54 years old Black male, father of 14 years old daughter, unemployed SSI, domiciled seeking detox treatment for alcohol and cocaine Mental Status Exam - Mental Status Exam Alert and Oriented to: Time, Place, Person Cognitive Function: Fair Patient Appearance: Disheveled Mood: Depressed Affect: Appropriate Patient Behavior: Cooperative Speech Pattern: Clear Voice Loudness: Normal Thought Process: Intact, Goal Oriented Thought Disorder: Not Present Hallucinations: Denies Suicidal Ideation: Denies Homicidal Ideation: Denies Insight/Judgement: Poor Sleep: Poorly Appetite: Good Muscle strength/Tone: Normal Gait/Station: Normal
[2020-03-22] MEDS: PRENATAL VITAMINS W/ FOLIC ACID TABLET (FP) PO SCH (14:34)
[2020-03-22] MEDS: ASPIRIN 81 MG CHEWABLE TABLETS PO SCH (14:34)
[2020-03-22] MEDS: NICOTINE 14 MG/24 HOURS TOPICAL PATCH TD SCH (14:34)
[2020-03-22] MEDS: MAGNESIUM HYDROX 2400MG/30ML ORAL SUSPENSION 30 ML CUP PO PRN (14:37)
[2020-03-22] MEDS: THIAMINE HCL 100 MG TABLET (FP) PO SCH (23:58)
[2020-03-22] MEDS: MELATONIN 5 MG TABLETS PO SCH (23:58)
[2020-03-23] MEDS: chlordiazePOXIDE HCL 25 MG CAPSULE PO SCH ×4 (06:18→22:35)
[2020-03-23] MEDS: NICOTINE 14 MG/24 HOURS TOPICAL PATCH TD SCH (10:11)
[2020-03-23] MEDS: PRENATAL VITAMINS W/ FOLIC ACID TABLET (FP) PO SCH (10:11)
[2020-03-23] MEDS: ASPIRIN 81 MG CHEWABLE TABLETS PO SCH (10:11)
[2020-03-23] MEDS: MAGNESIUM HYDROX 2400MG/30ML ORAL SUSPENSION 30 ML CUP PO PRN ×2 (10:13→18:38)
[2020-03-23] MEDS: MAG HYDROX/AL HYDROX/SIMETH 30 ML UNIT-DOSE CUP PO PRN ×2 (12:51)
--- NOTE | 2020-03-23 13:31 | PN ---
[facility] CIWA - CIWA Score Nausea/Vomitin-No Nausea/No Vomiting Muscle Tremors: 3 Anxiety: 2 Agitation: 2 Paroxysmal Sweats: 2 Orientation: 0-Oriented Tacttile Disturbances: 0-None Auditory Disturbances: 0-None Visual Disturbances: 0-None Headache: 0-None Present CIWA-Ar Total Score: 9 S Progress Note (SOAP) Subjective: sweats body aches interrupted sleep Objective: 03/23/20 13:30 Vital Signs Temperature 97.7 F 03/23/20 12:48 Pulse Rate 76 03/23/20 12:48 Respiratory Rate 18 03/23/20 12:48 Blood Pressure 129/79 03/23/20 12:48 O2 Sat by Pulse Oximetry (%) 98 03/23/20 12:48 Laboratory Tests 03/21/20 03/21/20 03/21/20 11:55 11:55 11:55 WBC 4.7 RBC 4.02 Hgb 13.4 Hct 39.5 MCV 98.2 H MCH 33.3 MCHC 33.9 RDW 15.6 D Plt Count 395 D MPV 7.0 L Sodium 133 L Potassium 3.5 Chloride 98 Carbon Dioxide 24 Anion Gap 11 BUN 4.9 L Creatinine 0.8 Est GFR (CKD-EPI)AfAm 115.74 Est GFR (CKD-EPI)NonAf 99.86 Random Glucose 111 H Calcium 9.1 Total Bilirubin 0.7 AST 21 ALT 16 Alkaline Phosphatase 62 Total Protein 8.0 Albumin 3.5 Syphilis Serology COVID-19 (ЕКАТЕРИНА) HIV Ag/Ab Combo Qual Negative 03/21/20 03/21/20 11:55 11:55 WBC RBC Hgb Hct MCV MCH MCHC RDW Plt Count MPV Sodium Potassium Chloride Carbon Dioxide Anion Gap BUN Creatinine Est GFR (CKD-EPI)AfAm Est GFR (CKD-EPI)NonAf Random Glucose Calcium Total Bilirubin AST ALT Alkaline Phosphatase Total Protein Albumin Syphilis Serology Non-reactive COVID-19 (ЕКАТЕРИНА) Not detected HIV Ag/Ab Combo Qual labs noted aaox3 ambulating no acute distress Assessment: 03/23/20 13:30 withdrawals Plan: continue detox
[2020-03-23] MEDS ORDERED: MASKS NR ONE (18:37)
[2020-03-23] MEDS: MELATONIN 5 MG TABLETS PO SCH (22:35)
[2020-03-23] MEDS: THIAMINE HCL 100 MG TABLET (FP) PO SCH (22:35)
[2020-03-24] MEDS ORDERED: chlordiazePOXIDE HCL 10 MG CAPSULE PO PRN
[2020-03-24] MEDS: chlordiazePOXIDE HCL 10 MG CAPSULE PO SCH ×4 (05:17→22:16)
[2020-03-24] MEDS: hydrOXYzine PAMOATE 25 MG CAPSULE (FP) PO PRN ×3 (05:18→22:18)
[2020-03-24] MEDS: NICOTINE 14 MG/24 HOURS TOPICAL PATCH TD SCH (10:28)
[2020-03-24] MEDS: PRENATAL VITAMINS W/ FOLIC ACID TABLET (FP) PO SCH (10:28)
[2020-03-24] MEDS: ASPIRIN 81 MG CHEWABLE TABLETS PO SCH (10:28)
--- NOTE | 2020-03-24 13:00 | PN ---
[facility] CIWA - CIWA Score Nausea/Vomitin-No Nausea/No Vomiting Muscle Tremors: 2 Anxiety: 1-Mildly Anxious Agitation: 1-Slight > Activity Paroxysmal Sweats: No Perspiration Orientation: 0-Oriented Tacttile Disturbances: 0-None Auditory Disturbances: 0-None Visual Disturbances: 0-None Headache: 0-None Present CIWA-Ar Total Score: 4 BHS Progress Note (SOAP) Subjective: interrupted sleep sweats irritable agitation Objective: 03/24/20 12:59 Vital Signs Temperature 97.0 F L 03/24/20 08:34 Pulse Rate 66 03/24/20 08:34 Respiratory Rate 18 03/24/20 08:34 Blood Pressure 112/64 03/24/20 08:34 O2 Sat by Pulse Oximetry (%) 100 03/24/20 08:34 Laboratory Tests 03/21/20 03/21/20 03/21/20 11:55 11:55 11:55 WBC 4.7 RBC 4.02 Hgb 13.4 Hct 39.5 MCV 98.2 H MCH 33.3 MCHC 33.9 RDW 15.6 D Plt Count 395 D MPV 7.0 L Sodium 133 L Potassium 3.5 Chloride 98 Carbon Dioxide 24 Anion Gap 11 BUN 4.9 L Creatinine 0.8 Est GFR (CKD-EPI)AfAm 115.74 Est GFR (CKD-EPI)NonAf 99.86 Random Glucose 111 H Calcium 9.1 Total Bilirubin 0.7 AST 21 ALT 16 Alkaline Phosphatase 62 Total Protein 8.0 Albumin 3.5 Syphilis Serology COVID-19 (ЕКАТЕРИНА) HIV Ag/Ab Combo Qual Negative 03/21/20 03/21/20 11:55 11:55 WBC RBC Hgb Hct MCV MCH MCHC RDW Plt Count MPV Sodium Potassium Chloride Carbon Dioxide Anion Gap BUN Creatinine Est GFR (CKD-EPI)AfAm Est GFR (CKD-EPI)NonAf Random Glucose Calcium Total Bilirubin AST ALT Alkaline Phosphatase Total Protein Albumin Syphilis Serology Non-reactive COVID-19 (ЕКАТЕРИНА) Not detected HIV Ag/Ab Combo Qual labs noted aaox3 ambulating no acute distress Assessment: 03/24/20 12:59 withdrawals Plan: continue detox
[2020-03-24] MEDS: THIAMINE HCL 100 MG TABLET (FP) PO SCH (22:17)
[2020-03-24] MEDS: MELATONIN 5 MG TABLETS PO SCH (22:18)
[2020-03-25] MEDS: chlordiazePOXIDE HCL 10 MG CAPSULE PO SCH ×2 (08:10→17:25)
[2020-03-25] MEDS: NICOTINE 14 MG/24 HOURS TOPICAL PATCH TD SCH (10:57)
[2020-03-25] MEDS: PRENATAL VITAMINS W/ FOLIC ACID TABLET (FP) PO SCH (10:57)
[2020-03-25] MEDS: ASPIRIN 81 MG CHEWABLE TABLETS PO SCH (10:57)
--- NOTE | 2020-03-25 16:56 | PN ---
[facility] CIWA - CIWA Score Nausea/Vomitin-No Nausea/No Vomiting Muscle Tremors: None Anxiety: 0-No Anxiety, at Ease Agitation: 1-Slight > Activity Paroxysmal Sweats: No Perspiration Orientation: 0-Oriented Tacttile Disturbances: 0-None Auditory Disturbances: 0-None Visual Disturbances: 0-None Headache: 0-None Present CIWA-Ar Total Score: 1 BHS Progress Note (SOAP) Subjective: Patient denies current Withdrawal / Detox symptoms and reports that he feels well overall at this time. Objective: Patient A & O X 3, Observed Ambulating on Detox Unit Unassisted. In No Acute Distress. 03/25/20 16:54 Vital Signs Temperature 98.1 F 03/25/20 12:38 Pulse Rate 81 03/25/20 12:38 Respiratory Rate 18 03/25/20 12:38 Blood Pressure 131/76 03/25/20 12:38 O2 Sat by Pulse Oximetry (%) 95 03/25/20 12:38 Laboratory Tests 03/21/20 03/21/20 03/21/20 11:55 11:55 11:55 WBC 4.7 RBC 4.02 Hgb 13.4 Hct 39.5 MCV 98.2 H MCH 33.3 MCHC 33.9 RDW 15.6 D Plt Count 395 D MPV 7.0 L Sodium 133 L Potassium 3.5 Chloride 98 Carbon Dioxide 24 Anion Gap 11 BUN 4.9 L Creatinine 0.8 Est GFR (CKD-EPI)AfAm 115.74 Est GFR (CKD-EPI)NonAf 99.86 Random Glucose 111 H Calcium 9.1 Total Bilirubin 0.7 AST 21 ALT 16 Alkaline Phosphatase 62 Total Protein 8.0 Albumin 3.5 Syphilis Serology COVID-19 (ЕКАТЕРИНА) HIV Ag/Ab Combo Qual Negative 03/21/20 03/21/20 11:55 11:55 WBC RBC Hgb Hct MCV MCH MCHC RDW Plt Count MPV Sodium Potassium Chloride Carbon Dioxide Anion Gap BUN Creatinine Est GFR (CKD-EPI)AfAm Est GFR (CKD-EPI)NonAf Random Glucose Calcium Total Bilirubin AST ALT Alkaline Phosphatase Total Protein Albumin Syphilis Serology Non-reactive COVID-19 (ЕКАТЕРИНА) Not detected HIV Ag/Ab Combo Qual Lab Results noted. Assessment: 03/25/20 16:55 WITHDRAWAL SYMPTOMS. Plan: Continue Detox. Increase Daily Oral Water Intake. Patient scheduled for D/C from detox unit tomorrow pending pre-discharge medical evaluation by covering medical provider.
[2020-03-25] MEDS: hydrOXYzine PAMOATE 25 MG CAPSULE (FP) PO PRN (22:27)
[2020-03-25] MEDS: MELATONIN 5 MG TABLETS PO SCH (22:27)
[2020-03-25] MEDS: THIAMINE HCL 100 MG TABLET (FP) PO SCH (22:27)
[2020-03-26] MEDS ORDERED: chlordiazePOXIDE HCL 10 MG CAPSULE PO ONE (05:00)
[2020-03-26 07:39] VITALS: BP 112/69; PULSE 59; TEMP 97.3
--- NOTE | 2020-03-26 09:34 | DS ---
[facility] Detox Discharge Summary Admission Date: 03/21/20 Discharge Date: 03/26/20 - History Present History: Alcohol Dependence Additional Comments: Alert and oriented x3, in no acute respiratory distress. Full ROM, ambulatory in the unit without assistance. Skin warm to touch without any lesions. Detox protocol completed without any complications, stable for discharge this morning. Pertinent Past History: History of HTN, Afib,+PPD, alcohol and nicotine use disorder. - Physical Exam Results Vital Signs: Vital Signs Temperature 97.3 F L 03/26/20 05:49 Pulse Rate 59 L 03/26/20 05:49 Respiratory Rate 16 03/26/20 05:49 Blood Pressure 112/69 03/26/20 05:49 O2 Sat by Pulse Oximetry (%) 96 03/26/20 05:49 Vital Signs 03/26/20 05:49 Temperature 97.3 F L Pulse Rate 59 L Respiratory 16 Rate Blood Pressure 112/69 O2 Sat by Pulse 96 Oximetry (%) Laboratory Last Values WBC 4.7 K/mm3 (4.0-10.0) 03/21/20 11:55 RBC 4.02 M/mm3 (4.00-5.60) 03/21/20 11:55 Hgb 13.4 GM/dL (11.7-16.9) 03/21/20 11:55 Hct 39.5 % (35.4-49) 03/21/20 11:55 MCV 98.2 fl (80-96) H 03/21/20 11:55 MCH 33.3 pg (25.7-33.7) 03/21/20 11:55 MCHC 33.9 g/dl (32.0-35.9) 03/21/20 11:55 RDW 15.6 % (11.9-15.9) D 03/21/20 11:55 Plt Count 395 K/MM3 (134-434) D 03/21/20 11:55 MPV 7.0 fl (7.5-11.1) L 03/21/20 11:55 Sodium 133 mmol/L (136-145) L 03/21/20 11:55 Potassium 3.5 mmol/L (3.5-5.1) 03/21/20 11:55 Chloride 98 mmol/L (98-107) 03/21/20 11:55 Carbon Dioxide 24 mmol/L (21-32) 03/21/20 11:55 Anion Gap 11 MMOL/L (8-16) 03/21/20 11:55 BUN 4.9 mg/dL (7-18) L 03/21/20 11:55 Creatinine 0.8 mg/dL (0.55-1.3) 03/21/20 11:55 Est GFR (CKD-EPI)AfAm 115.74 03/21/20 11:55 Est GFR (CKD-EPI)NonAf 99.86 03/21/20 11:55 Random Glucose 111 mg/dL (74-106) H 03/21/20 11:55 Calcium 9.1 mg/dL (8.5-10.1) 03/21/20 11:55 Total Bilirubin 0.7 mg/dL (0.2-1) 03/21/20 11:55 AST 21 U/L (15-37) 03/21/20 11:55 ALT 16 U/L (13-61) 03/21/20 11:55 Alkaline Phosphatase 62 U/L (45-117) 03/21/20 11:55 Total Protein 8.0 g/dl (6.4-8.2) 03/21/20 11:55 Albumin 3.5 g/dl (3.4-5.0) 03/21/20 11:55 Syphilis Serology Non-reactive (NONREACTIVE) 03/21/20 11:55 COVID-19 (ЕКАТЕРИНА) Not detected (Not Detected) 03/21/20 11:55 HIV Ag/Ab Combo Qual Negative (NEGATIVE) 03/21/20 11:55 Labs noted. Pertinent Admission Physical Exam Findings: Withdrawal symptoms. - Treatment Hospital Course: Detox Protocol Followed, Detoxed Safely, Responded well, Discharged Condition Good - Medication Discharge Medications: Ambulatory Orders [place] Carbonate [Lithobid] 300 mg PO TID #90 tablet.er 12/24/17 Quetiapine Fumarate [Seroquel -] 100 mg PO HS #30 tablet 01/25/18 Aspirin [ASA -] 81 mg PO DAILY #30 tab.chew 04/30/19 Fluoxetine HCl [Prozac -] 40 mg PO DAILY 12/07/19 - Diagnosis (1) Alcohol dependence with uncomplicated withdrawal Status: Acute (2) Nicotine dependence Status: Chronic Qualifiers: Nicotine product type: cigarettes Substance use status: in withdrawal Qualified Code(s): F17.213 - Nicotine dependence, cigarettes, with withdrawal (3) Atrial fibrillation with RVR Status: Chronic (4) HTN (hypertension) Status: Chronic Qualifiers: Hypertension type: essential hypertension Qualified Code(s): I10 - Essential (primary) hypertension (5) PPD positive Status: Resolved
== END 2020-03-26 08:55 | disposition home or self-care (01) | DRG 774 ==
LOC: YASAS 11:10 → Y6N 11:53
PROVIDERS: ADMIT Allergy & Immunology; ATTEND Allergy & Immunology
PROC: HZ2ZZZZ Detoxification Services for Substance Abuse Treatment (ICD-10-PCS; principal; 2020-03-21)
DX: F10.230 Alcohol dependence with withdrawal, uncomplicated (principal); F14.10 Cocaine abuse, uncomplicated; F17.210 Nicotine dependence, cigarettes, uncomplicated; F31.9 Bipolar disorder, unspecified; I10 Essential (primary) hypertension; Z86.79 Personal history of other diseases of the circulatory system; Z56.0 Unemployment, unspecified
CPT/HCPCS: 36415; 80053; 85027; 86780; 87389; U0003

== ENCOUNTER 2020-06-20 10:10 | Inpatient (IN) | payer BC ==
[2020-06-20 12:05] VITALS: BMI 22.6
[2020-06-20 16:04] LABS: HIV INTERPRETATION NEGATIVE (NEGATIVE)
[2020-06-20] MEDS ORDERED: ACETAMINOPHEN 325 MG TABLET (FP) PO PRN ×2 (17:05)
[2020-06-20] MEDS ORDERED: MENTHOL/PHENOL 1 EACH UD MM PRN (17:05)
[2020-06-20] MEDS ORDERED: MAGNESIUM CITRATE 300 ML BOTTLE PO PRN (17:05)
[2020-06-20] MEDS ORDERED: BISMUTH SUBSALICYLATE 524 MG/30 ML UD PO PRN (17:05)
[2020-06-20] MEDS ORDERED: NICOTINE POLACRILEX 2 MG GUM BUC PRN (17:05)
[2020-06-20] MEDS ORDERED: MAG HYDROX/AL HYDROX/SIMETH 30 ML UNIT-DOSE CUP PO PRN (17:05)
[2020-06-20] MEDS ORDERED: METHOCARBAMOL 500 MG TABLET PO PRN (17:05)
[2020-06-20] MEDS ORDERED: chlordiazePOXIDE HCL 25 MG CAPSULE PO PRN (17:05)
[2020-06-20] MEDS ORDERED: MAGNESIUM HYDROX 2400MG/30ML ORAL SUSPENSION 30 ML CUP PO PRN (17:05)
[2020-06-20] MEDS ORDERED: ONDANSETRON *ODT* 4 MG TABLET SL PRN (17:05)
[2020-06-20] MEDS ORDERED: chlordiazePOXIDE HCL 25 MG CAPSULE ONE (17:25)
[2020-06-20] MEDS: chlordiazePOXIDE HCL 25 MG CAPSULE PO SCH ×2 (17:26→23:58)
[2020-06-20 19:59] VITALS: BP 111/66; PULSE 94; TEMP 97.3
[2020-06-20] MEDS ORDERED: MELATONIN 5 MG TABLETS PO SCH (22:00)
[2020-06-20] MEDS ORDERED: THIAMINE HCL 100 MG TABLET (FP) PO SCH (22:00)
[2020-06-21] MEDS ORDERED: NICOTINE 14 MG/24 HOURS TOPICAL PATCH TD SCH (10:00)
[2020-06-21] MEDS ORDERED: ENOXAPARIN NA (PORCINE) 40 MG/0.4 ML DISP.SYRIN SQ SCH (10:00)
[2020-06-21] MEDS ORDERED: ASPIRIN 81 MG CHEWABLE TABLETS PO SCH (10:00)
[2020-06-21] MEDS ORDERED: PRENATAL VITAMINS W/ FOLIC ACID TABLET (FP) PO SCH (10:00)
[2020-06-22] MEDS ORDERED: chlordiazePOXIDE HCL 25 MG CAPSULE PO SCH (05:00)
[2020-06-23] MEDS ORDERED: chlordiazePOXIDE HCL 10 MG CAPSULE PO PRN
[2020-06-23] MEDS ORDERED: chlordiazePOXIDE HCL 10 MG CAPSULE PO SCH (05:00)
[2020-06-24] MEDS ORDERED: chlordiazePOXIDE HCL 10 MG CAPSULE PO SCH (05:00)
[2020-06-25] MEDS ORDERED: chlordiazePOXIDE HCL 10 MG CAPSULE PO ONE (05:00)
== END 2020-06-21 02:56 | disposition short-term general hospital (02) | DRG 775 ==
LOC: YASAS 10:10 → Y3N 19:34
PROVIDERS: ADMIT Allergy & Immunology; ATTEND Allergy & Immunology
PROC: HZ2ZZZZ Detoxification Services for Substance Abuse Treatment (ICD-10-PCS; principal; 2020-06-20)
DX: F10.230 Alcohol dependence with withdrawal, uncomplicated (principal); F10.220 Alcohol dependence with intoxication, uncomplicated; F12.20 Cannabis dependence, uncomplicated; F17.210 Nicotine dependence, cigarettes, uncomplicated; F41.9 Anxiety disorder, unspecified; F31.9 Bipolar disorder, unspecified; I10 Essential (primary) hypertension; I48.20 Chronic atrial fibrillation, unspecified; I48.92 Unspecified atrial flutter; R94.31 Abnormal electrocardiogram [ECG] [EKG]; R25.1 Tremor, unspecified; R76.11 Nonspecific reaction to tuberculin skin test without active tuberculosis; K08.89 Other specified disorders of teeth and supporting structures; Z91.14 Patient's other noncompliance with medication regimen; Z56.0 Unemployment, unspecified
CPT/HCPCS: 36415; 87389; 93005; 93010; C9803; U0003

== ENCOUNTER 2020-06-20 21:19 | Observation (INO) | payer BC ==
[2020-06-20 21:38] VITALS: BMI 25.2
[2020-06-20] MEDS ORDERED: dilTIAZem HCL 60 MG TABLET PO ONE (21:59)
[2020-06-20 22:21] LABS: BASO % 0.7 % (0-2.0); EOS % 0.6 % (0-4.5); HEMATOCRIT 36.4 % (35.4-49); HEMOGLOBIN 12.2 GM/dL (11.7-16.9); LYMPH % 47.5 % (8-40); MCH 34.1 pg (25.7-33.7); MCHC 33.6 g/dl (32.0-35.9); MEAN CELL VOLUME 101.5 fl (80-96); MEAN PLT VOLUME 6.4 fl (7.5-11.1); MONO % 12.7 % (3.8-10.2); NEUT % 38.5 % (42.8-82.8); PLATELET COUNT 479 K/MM3 (134-434); RBC 3.59 M/mm3 (4.00-5.60); RDW 14.6 % (11.9-15.9); WHITE BLOOD COUNT 3.3 K/mm3 (4.0-10.0)
[2020-06-20 22:32] LABS: INR 0.97 (0.83-1.09); PROTHROMBIN TIME (PATIENT) 11.8 SEC (9.7-13.0)
[2020-06-20 22:35] LABS: ACTIVATED PTT 32.9 SECONDS (25.2-36.5)
[2020-06-20 22:39] LABS: CHLORIDE 107 mmol/L (98-107); POTASSIUM 4.7 mmol/L (3.5-5.1); SODIUM 141 mmol/L (136-145)
[2020-06-20 22:41] LABS: CALCIUM 9.4 mg/dL (8.5-10.1)
[2020-06-20 22:42] LABS: ALBUMIN 3.2 g/dl (3.4-5.0); ANION GAP 6 MMOL/L (8-16); BLOOD UREA NITROGEN 11.1 mg/dL (7-18); CO2 28 mmol/L (21-32); GLUCOSE,RANDOM 113 mg/dL (74-106)
[2020-06-20 22:45] LABS: SGOT/AST 20 U/L (15-37); SGPT/ALT 11 U/L (13-61)
[2020-06-20 22:46] LABS: BILIRUBIN,TOTAL 0.4 mg/dL (0.2-1)
[2020-06-20 22:48] LABS: ALK PHOS 49 U/L (45-117)
[2020-06-21] MEDS ORDERED: FOLIC ACID INJECTION - 1 MG, THIAMINE HCL 100 MG, MULTIVIT INJECTION ADULT 10 ML in SOD... IVPB ONE
[2020-06-21] MEDS ORDERED: METOPROLOL TARTRATE 5 MG/5 ML VIAL IVPUSH PRN (00:05)
[2020-06-21 07:33] LABS: HEMATOCRIT 36.1 % (35.4-49); HEMOGLOBIN 12.2 GM/dL (11.7-16.9); MCH 34.3 pg (25.7-33.7); MCHC 33.8 g/dl (32.0-35.9); MEAN CELL VOLUME 101.6 fl (80-96); MEAN PLT VOLUME 6.7 fl (7.5-11.1); PLATELET COUNT 474 K/MM3 (134-434); RBC 3.56 M/mm3 (4.00-5.60); RDW 14.6 % (11.9-15.9); WHITE BLOOD COUNT 3.9 K/mm3 (4.0-10.0)
[2020-06-21] MEDS ORDERED: chlordiazePOXIDE HCL 25 MG CAPSULE PO PRN (08:38)
[2020-06-21] MEDS ORDERED: ASPIRIN 81 MG CHEWABLE TABLETS PO SCH (10:00)
[2020-06-21] MEDS ORDERED: ENOXAPARIN NA (PORCINE) 40 MG/0.4 ML DISP.SYRIN SQ SCH (10:00)
[2020-06-21] MEDS ORDERED: THIAMINE HCL 100 MG TABLET (FP) PO SCH (10:00)
[2020-06-21] MEDS ORDERED: FOLIC ACID 1 MG TABLET (FP) PO SCH (10:00)
[2020-06-21] MEDS ORDERED: metoPROLOL SUCCINATE 25 MG TAB.SR.24H (FP) PO SCH (10:00)
[2020-06-21 10:03] LABS: MAGNESIUM 1.9 mg/dL (1.8-2.4)
[2020-06-21] MEDS ORDERED: ASPIRIN 81 MG CHEWABLE TABLETS ONE (10:54)
[2020-06-21] MEDS ORDERED: metoPROLOL SUCCINATE 25 MG TAB.SR.24H (FP) ONE (10:54)
[2020-06-21] MEDS ORDERED: THIAMINE HCL 100 MG TABLET (FP) ONE (10:54)
[2020-06-21] MEDS ORDERED: ENOXAPARIN NA (PORCINE) 40 MG/0.4 ML DISP.SYRIN SQ ONE (10:54)
[2020-06-21] MEDS ORDERED: FOLIC ACID 1 MG TABLET (FP) ONE (10:54)
[2020-06-21] MEDS ORDERED: chlordiazePOXIDE HCL 25 MG CAPSULE ONE ×2 (11:49→17:13)
[2020-06-21] MEDS: chlordiazePOXIDE HCL 25 MG CAPSULE PO SCH ×2 (11:52→17:20)
[2020-06-21] MEDS ORDERED: PATIENT'S OWN MEDICATION (NON-FORMULARY) (Lithium Carbonate [Lithobid] 300 MG Tablet.Er) PO SCH (14:00)
[2020-06-21 17:22] VITALS: BP 116/65; PULSE 66; TEMP 97.8
[2020-06-21] MEDS ORDERED: LITHIUM CARBONATE 300 MG PO SCH (22:00)
[2020-06-21] MEDS ORDERED: QUEtiapine FUMARATE 100 MG TABLET (FP) PO SCH (22:00)
[2020-06-22] MEDS ORDERED: FLUoxetine HCL 20 MG CAPSULE PO SCH (10:00)
[2020-06-23] MEDS ORDERED: chlordiazePOXIDE HCL 25 MG CAPSULE PO SCH (05:00)
[2020-06-24] MEDS ORDERED: chlordiazePOXIDE HCL 10 MG CAPSULE PO SCH (05:00)
[2020-06-25] MEDS ORDERED: chlordiazePOXIDE HCL 10 MG CAPSULE PO SCH (05:00)
[2020-06-26] MEDS ORDERED: chlordiazePOXIDE HCL 10 MG CAPSULE PO ONE (05:00)
== END 2020-06-21 18:25 | disposition home or self-care (01) ==
LOC: JER 21:19 → JERBED 23:09
PROVIDERS: ADMIT Internal Medicine; ATTEND Student in an Organized Health Care Education/Training Program
PROC: 3E023GC Introduction of Other Therapeutic Substance into Muscle, Percutaneous Approach (ICD-10-PCS; principal; 2020-06-20)
PROC: 3E033GC Introduction of Other Therapeutic Substance into Peripheral Vein, Percutaneous Approach (ICD-10-PCS; 2020-06-20)
DX: I48.20 Chronic atrial fibrillation, unspecified (principal); F10.20 Alcohol dependence, uncomplicated; I10 Essential (primary) hypertension; F31.9 Bipolar disorder, unspecified; F41.9 Anxiety disorder, unspecified; Z91.19 Patient's noncompliance with other medical treatment and regimen; F14.20 Cocaine dependence, uncomplicated; Z29.9 Encounter for prophylactic measures, unspecified
CPT/HCPCS: 36415; 71045-TC-FY; 80053; 80061; 82550; 82607; 82746; 83721; 83735; 84425; 84443; 84484; 85025; 85027; 85610; 85730; 93005; 93010; 93306-TC; 99285-25; G0378

== ENCOUNTER 2020-06-21 20:47 | Inpatient (IN) | payer BC ==
[2020-06-21 21:06] VITALS: BMI 22.6
[2020-06-21] MEDS ORDERED: MAGNESIUM HYDROX 2400MG/30ML ORAL SUSPENSION 30 ML CUP PO PRN (21:30)
[2020-06-21] MEDS ORDERED: BISMUTH SUBSALICYLATE 524 MG/30 ML UD PO PRN (21:30)
[2020-06-21] MEDS ORDERED: METHOCARBAMOL 500 MG TABLET PO PRN (21:30)
[2020-06-21] MEDS ORDERED: MAGNESIUM CITRATE 300 ML BOTTLE PO PRN (21:30)
[2020-06-21] MEDS ORDERED: chlordiazePOXIDE HCL 25 MG CAPSULE PO PRN (21:30)
[2020-06-21] MEDS ORDERED: IBUPROFEN 400 MG TABLET (FP) PO PRN (21:30)
[2020-06-21] MEDS ORDERED: ONDANSETRON *ODT* 4 MG TABLET SL PRN (21:30)
[2020-06-21] MEDS ORDERED: MENTHOL/PHENOL 1 EACH UD MM PRN (21:30)
[2020-06-21] MEDS ORDERED: MAG HYDROX/AL HYDROX/SIMETH 30 ML UNIT-DOSE CUP PO PRN (21:30)
[2020-06-21] MEDS ORDERED: ACETAMINOPHEN 325 MG TABLET (FP) PO PRN ×2 (21:30)
[2020-06-21] MEDS ORDERED: QUEtiapine FUMARATE 200 MG TABLET PO ONE (22:01)
[2020-06-21] MEDS: MELATONIN 5 MG TABLETS PO SCH (22:49)
[2020-06-21] MEDS: THIAMINE HCL 100 MG TABLET (FP) PO SCH (22:49)
[2020-06-21] MEDS: chlordiazePOXIDE HCL 25 MG CAPSULE PO SCH (23:01)
[2020-06-22] MEDS: chlordiazePOXIDE HCL 25 MG CAPSULE PO SCH ×4 (05:45→22:04)
[2020-06-22] MEDS ORDERED: THIAMINE HCL 100 MG TABLET (FP) PO SCH (10:00)
[2020-06-22] MEDS: PRENATAL VITAMINS W/ FOLIC ACID TABLET (FP) PO SCH (10:21)
[2020-06-22] MEDS: ASPIRIN 81 MG CHEWABLE TABLETS PO SCH (10:21)
[2020-06-22] MEDS: metoPROLOL SUCCINATE 25 MG TAB.SR.24H (FP) PO SCH (10:22)
[2020-06-22] MEDS: NICOTINE 14 MG/24 HOURS TOPICAL PATCH TD SCH (10:23)
[2020-06-22 10:28] LABS: HEMATOCRIT 36.2 % (35.4-49); HEMOGLOBIN 12.2 GM/dL (11.7-16.9); MCH 34.8 pg (25.7-33.7); MCHC 33.7 g/dl (32.0-35.9); MEAN CELL VOLUME 103.3 fl (80-96); MEAN PLT VOLUME 7.2 fl (7.5-11.1); PLATELET COUNT 477 K/MM3 (134-434); RBC 3.51 M/mm3 (4.00-5.60); RDW 14.5 % (11.9-15.9); WHITE BLOOD COUNT 4.2 K/mm3 (4.0-10.0)
[2020-06-22 10:30] LABS: POTASSIUM 4.4 mmol/L (3.5-5.1)
[2020-06-22 10:33] LABS: CALCIUM 9.5 mg/dL (8.5-10.1)
[2020-06-22 10:34] LABS: ALBUMIN 3.2 g/dl (3.4-5.0); BLOOD UREA NITROGEN 17.4 mg/dL (7-18)
[2020-06-22 10:37] LABS: CREATININE 0.9 mg/dL (0.55-1.3)
[2020-06-22 10:38] LABS: BILIRUBIN,TOTAL 0.8 mg/dL (0.2-1)
[2020-06-22 10:39] LABS: TOT PROT 6.8 g/dl (6.4-8.2)
[2020-06-22] MEDS: FOLIC ACID 1 MG TABLET (FP) PO SCH (10:45)
[2020-06-22] MEDS: FLUoxetine HCL 20 MG CAPSULE PO SCH (14:08)
[2020-06-22] MEDS: LITHIUM CARBONATE 300 MG CAPSULE (FP) PO SCH ×2 (14:09→22:04)
[2020-06-22] MEDS: QUEtiapine FUMARATE 200 MG TABLET PO SCH (22:04)
[2020-06-22] MEDS: THIAMINE HCL 100 MG TABLET (FP) PO SCH (22:05)
[2020-06-22] MEDS: MELATONIN 5 MG TABLETS PO SCH (22:05)
[2020-06-23] MEDS: NICOTINE POLACRILEX 2 MG GUM BUC PRN (03:03)
[2020-06-23] MEDS: chlordiazePOXIDE HCL 25 MG CAPSULE PO SCH ×2 (05:52→10:49)
[2020-06-23] MEDS: LITHIUM CARBONATE 300 MG CAPSULE (FP) PO SCH ×3 (05:52→22:16)
[2020-06-23] MEDS: PRENATAL VITAMINS W/ FOLIC ACID TABLET (FP) PO SCH (10:44)
[2020-06-23] MEDS: ASPIRIN 81 MG CHEWABLE TABLETS PO SCH (10:45)
[2020-06-23] MEDS: metoPROLOL SUCCINATE 25 MG TAB.SR.24H (FP) PO SCH (10:45)
[2020-06-23] MEDS: FLUoxetine HCL 20 MG CAPSULE PO SCH (10:45)
[2020-06-23] MEDS: FOLIC ACID 1 MG TABLET (FP) PO SCH (10:49)
[2020-06-23] MEDS: NICOTINE 14 MG/24 HOURS TOPICAL PATCH TD SCH (10:55)
[2020-06-23] MEDS: chlordiazePOXIDE HCL 10 MG CAPSULE PO SCH ×2 (17:05→22:16)
[2020-06-23] MEDS: MELATONIN 5 MG TABLETS PO SCH (22:16)
[2020-06-23] MEDS: THIAMINE HCL 100 MG TABLET (FP) PO SCH (22:16)
[2020-06-23] MEDS: QUEtiapine FUMARATE 200 MG TABLET PO SCH (22:21)
[2020-06-24] MEDS ORDERED: chlordiazePOXIDE HCL 10 MG CAPSULE PO PRN
[2020-06-24] MEDS: LITHIUM CARBONATE 300 MG CAPSULE (FP) PO SCH ×3 (05:52→22:18)
[2020-06-24] MEDS: chlordiazePOXIDE HCL 10 MG CAPSULE PO SCH ×3 (05:52→17:06)
[2020-06-24] MEDS: PRENATAL VITAMINS W/ FOLIC ACID TABLET (FP) PO SCH (10:14)
[2020-06-24] MEDS: metoPROLOL SUCCINATE 25 MG TAB.SR.24H (FP) PO SCH (10:15)
[2020-06-24] MEDS: ASPIRIN 81 MG CHEWABLE TABLETS PO SCH (10:16)
[2020-06-24] MEDS: NICOTINE 14 MG/24 HOURS TOPICAL PATCH TD SCH (10:16)
[2020-06-24] MEDS: FLUoxetine HCL 20 MG CAPSULE PO SCH (10:16)
[2020-06-24] MEDS: FOLIC ACID 1 MG TABLET (FP) PO SCH (10:16)
[2020-06-24] MEDS ORDERED: MASKS NR ONE (14:09)
[2020-06-24] MEDS: QUEtiapine FUMARATE 200 MG TABLET PO SCH (22:18)
[2020-06-24] MEDS: MELATONIN 5 MG TABLETS PO SCH (22:18)
[2020-06-24] MEDS: THIAMINE HCL 100 MG TABLET (FP) PO SCH (22:18)
[2020-06-25] MEDS: LITHIUM CARBONATE 300 MG CAPSULE (FP) PO SCH ×3 (05:26→22:18)
[2020-06-25] MEDS: chlordiazePOXIDE HCL 10 MG CAPSULE PO SCH (05:26)
[2020-06-25] MEDS: PRENATAL VITAMINS W/ FOLIC ACID TABLET (FP) PO SCH (10:07)
[2020-06-25] MEDS: ASPIRIN 81 MG CHEWABLE TABLETS PO SCH (10:07)
[2020-06-25] MEDS: FOLIC ACID 1 MG TABLET (FP) PO SCH (10:07)
[2020-06-25] MEDS: FLUoxetine HCL 20 MG CAPSULE PO SCH (10:07)
[2020-06-25] MEDS: NICOTINE 14 MG/24 HOURS TOPICAL PATCH TD SCH (10:08)
[2020-06-25] MEDS: metoPROLOL SUCCINATE 25 MG TAB.SR.24H (FP) PO SCH (10:08)
[2020-06-25] MEDS: NICOTINE POLACRILEX 2 MG GUM BUC PRN (10:38)
[2020-06-25] MEDS ORDERED: QUEtiapine FUMARATE 50 MG TABLET PO ONE (22:00)
[2020-06-25] MEDS: LACTULOSE 20 GM/30 ML UDC (FOR ORAL USE ONLY) PO SCH (22:17)
[2020-06-25] MEDS: THIAMINE HCL 100 MG TABLET (FP) PO SCH (22:18)
[2020-06-26] MEDS: LACTULOSE 20 GM/30 ML UDC (FOR ORAL USE ONLY) PO SCH (05:55)
[2020-06-26] MEDS: LITHIUM CARBONATE 300 MG CAPSULE (FP) PO SCH (05:55)
[2020-06-26 07:25] VITALS: BP 115/69; PULSE 95; TEMP 97.1
[2020-06-26] MEDS: FOLIC ACID 1 MG TABLET (FP) PO SCH (09:31)
[2020-06-26] MEDS: NICOTINE 14 MG/24 HOURS TOPICAL PATCH TD SCH (09:31)
[2020-06-26] MEDS: FLUoxetine HCL 20 MG CAPSULE PO SCH (09:31)
[2020-06-26] MEDS: ASPIRIN 81 MG CHEWABLE TABLETS PO SCH (09:31)
[2020-06-26] MEDS: metoPROLOL SUCCINATE 25 MG TAB.SR.24H (FP) PO SCH (09:31)
[2020-06-26] MEDS: PRENATAL VITAMINS W/ FOLIC ACID TABLET (FP) PO SCH (09:32)
== END 2020-06-26 12:35 | disposition home or self-care (01) | DRG 775 ==
LOC: YASAS 20:47 → Y3N 20:49
PROVIDERS: ADMIT Allergy & Immunology; ATTEND Allergy & Immunology
PROC: HZ2ZZZZ Detoxification Services for Substance Abuse Treatment (ICD-10-PCS; principal; 2020-06-21)
DX: F10.230 Alcohol dependence with withdrawal, uncomplicated (principal); F10.280 Alcohol dependence with alcohol-induced anxiety disorder; F17.210 Nicotine dependence, cigarettes, uncomplicated; F19.24 Other psychoactive substance dependence with psychoactive substance-induced mood disorder; F19.282 Other psychoactive substance dependence with psychoactive substance-induced sleep disorder; F25.0 Schizoaffective disorder, bipolar type; F31.9 Bipolar disorder, unspecified; I10 Essential (primary) hypertension; I48.91 Unspecified atrial fibrillation; E72.20 Disorder of urea cycle metabolism, unspecified; Z86.11 Personal history of tuberculosis; Z86.69 Personal history of other diseases of the nervous system and sense organs; Z62.810 Personal history of physical and sexual abuse in childhood
CPT/HCPCS: 36415; 80053; 80178; 82140; 85027; 86780

== ENCOUNTER 2020-12-01 08:56 | Inpatient (IN) | payer BC ==
[2020-12-01 09:37] VITALS: BMI 20.2
[2020-12-01] MEDS ORDERED: MAG HYDROX/AL HYDROX/SIMETH 30 ML UNIT-DOSE CUP PO PRN (12:10)
[2020-12-01] MEDS ORDERED: ONDANSETRON *ODT* 4 MG TABLET SL PRN (12:10)
[2020-12-01] MEDS ORDERED: IBUPROFEN 400 MG TABLET (FP) PO PRN (12:10)
[2020-12-01] MEDS ORDERED: MENTHOL/PHENOL 1 EACH UD MM PRN (12:10)
[2020-12-01] MEDS ORDERED: METHOCARBAMOL 500 MG TABLET PO PRN (12:10)
[2020-12-01] MEDS ORDERED: MAGNESIUM HYDROX 2400MG/30ML ORAL SUSPENSION 30 ML CUP PO PRN (12:10)
[2020-12-01] MEDS ORDERED: NICOTINE POLACRILEX 2 MG GUM BUC PRN (12:10)
[2020-12-01] MEDS ORDERED: diazePAM 5 MG TABLET PO PRN (12:10)
[2020-12-01] MEDS ORDERED: ACETAMINOPHEN 325 MG TABLET (FP) PO PRN ×2 (12:10)
[2020-12-01] MEDS ORDERED: BISMUTH SUBSALICYLATE 262 MG/15 ML BTL PO PRN (12:10)
[2020-12-01] MEDS ORDERED: MAGNESIUM CITRATE 300 ML BOTTLE PO PRN (12:10)
[2020-12-01] MEDS: PRENATAL VITAMINS W/ FOLIC ACID TABLET (FP) PO SCH (13:18)
[2020-12-01] MEDS: NICOTINE 21 MG/24 HOURS TOPICAL PATCH TD SCH (13:18)
[2020-12-01] MEDS: diazePAM 5 MG TABLET PO SCH ×3 (13:19→22:26)
[2020-12-01] MEDS: hydrOXYzine PAMOATE 25 MG CAPSULE (FP) PO SCH ×3 (13:20→22:27)
[2020-12-01 17:08] LABS: HEMOGLOBIN 12.9 GM/dL (11.7-16.9); MCH 35.2 pg (25.7-33.7); MEAN CELL VOLUME 103.4 fl (80-96); MEAN PLT VOLUME 7.1 fl (7.5-11.1); PLATELET COUNT 325 K/MM3 (134-434); RBC 3.68 M/mm3 (4.00-5.60); RDW 14.3 % (11.9-15.9)
[2020-12-01 17:12] LABS: ALBUMIN 3.8 g/dl (3.4-5.0); BLOOD UREA NITROGEN 5.8 mg/dL (7-18); CALCIUM 9.2 mg/dL (8.5-10.1)
[2020-12-01 17:16] LABS: CREATININE 0.8 mg/dL (0.55-1.3)
[2020-12-01 17:17] LABS: BILIRUBIN,TOTAL 0.4 mg/dL (0.2-1); TOT PROT 7.9 g/dl (6.4-8.2)
[2020-12-01 18:09] LABS: HIV INTERPRETATION NEGATIVE (NEGATIVE)
[2020-12-01] MEDS: THIAMINE HCL 100 MG TABLET (FP) PO SCH (22:27)
[2020-12-01] MEDS: MELATONIN 5 MG TABLETS PO SCH (22:27)
[2020-12-01] MEDS: QUEtiapine FUMARATE 100 MG TABLET (FP) PO SCH (22:27)
[2020-12-02] MEDS: hydrOXYzine PAMOATE 25 MG CAPSULE (FP) PO SCH ×5 (07:09→22:06)
[2020-12-02] MEDS: diazePAM 5 MG TABLET PO SCH ×4 (07:09→22:05)
[2020-12-02] MEDS: metoPROLOL SUCCINATE 25 MG TAB.SR.24H (FP) PO SCH (10:11)
[2020-12-02] MEDS: PRENATAL VITAMINS W/ FOLIC ACID TABLET (FP) PO SCH (10:11)
[2020-12-02] MEDS: NICOTINE 21 MG/24 HOURS TOPICAL PATCH TD SCH (10:12)
[2020-12-02] MEDS: ASPIRIN 81 MG CHEWABLE TABLETS PO SCH (10:12)
[2020-12-02] MEDS: MELATONIN 5 MG TABLETS PO SCH (22:06)
[2020-12-02] MEDS: QUEtiapine FUMARATE 100 MG TABLET (FP) PO SCH (22:06)
[2020-12-02] MEDS: THIAMINE HCL 100 MG TABLET (FP) PO SCH (22:06)
[2020-12-03] MEDS: diazePAM 5 MG TABLET PO SCH ×3 (05:43→22:15)
[2020-12-03] MEDS: hydrOXYzine PAMOATE 25 MG CAPSULE (FP) PO SCH ×5 (05:43→22:15)
[2020-12-03] MEDS: NICOTINE 21 MG/24 HOURS TOPICAL PATCH TD SCH (10:15)
[2020-12-03] MEDS: ASPIRIN 81 MG CHEWABLE TABLETS PO SCH (10:16)
[2020-12-03] MEDS: metoPROLOL SUCCINATE 25 MG TAB.SR.24H (FP) PO SCH (10:16)
[2020-12-03] MEDS: PRENATAL VITAMINS W/ FOLIC ACID TABLET (FP) PO SCH (10:16)
[2020-12-03] MEDS: MELATONIN 5 MG TABLETS PO SCH (22:15)
[2020-12-03] MEDS: QUEtiapine FUMARATE 100 MG TABLET (FP) PO SCH (22:15)
[2020-12-03] MEDS: THIAMINE HCL 100 MG TABLET (FP) PO SCH (22:15)
[2020-12-04] MEDS: diazePAM 5 MG TABLET PO SCH ×2 (05:54→18:58)
[2020-12-04] MEDS: hydrOXYzine PAMOATE 25 MG CAPSULE (FP) PO SCH ×5 (05:54→22:32)
[2020-12-04] MEDS: ASPIRIN 81 MG CHEWABLE TABLETS PO SCH (10:22)
[2020-12-04] MEDS: PRENATAL VITAMINS W/ FOLIC ACID TABLET (FP) PO SCH (10:22)
[2020-12-04] MEDS: metoPROLOL SUCCINATE 25 MG TAB.SR.24H (FP) PO SCH (10:22)
[2020-12-04] MEDS: NICOTINE 21 MG/24 HOURS TOPICAL PATCH TD SCH (10:22)
[2020-12-04] MEDS: THIAMINE HCL 100 MG TABLET (FP) PO SCH (22:32)
[2020-12-04] MEDS: MELATONIN 5 MG TABLETS PO SCH (22:32)
[2020-12-04] MEDS: QUEtiapine FUMARATE 100 MG TABLET (FP) PO SCH (22:32)
[2020-12-05] MEDS ORDERED: diazePAM 5 MG TABLET PO ONE (06:00)
[2020-12-05 06:47] VITALS: BP 102/58; PULSE 65; TEMP 97.6
[2020-12-05] MEDS: hydrOXYzine PAMOATE 25 MG CAPSULE (FP) PO SCH (07:33)
== END 2020-12-05 09:30 | disposition other institution (70) | DRG 774 ==
LOC: YASAS 08:56 → Y3N 10:07
PROVIDERS: ADMIT Allergy & Immunology; ATTEND Allergy & Immunology
PROC: HZ2ZZZZ Detoxification Services for Substance Abuse Treatment (ICD-10-PCS; principal; 2020-12-01)
DX: F10.230 Alcohol dependence with withdrawal, uncomplicated (principal); F14.20 Cocaine dependence, uncomplicated; F17.210 Nicotine dependence, cigarettes, uncomplicated; F25.0 Schizoaffective disorder, bipolar type; F31.81 Bipolar II disorder; F19.282 Other psychoactive substance dependence with psychoactive substance-induced sleep disorder; F10.24 Alcohol dependence with alcohol-induced mood disorder; F41.9 Anxiety disorder, unspecified; I10 Essential (primary) hypertension; I48.20 Chronic atrial fibrillation, unspecified; Z79.82 Long term (current) use of aspirin; R79.89 Other specified abnormal findings of blood chemistry; R76.11 Nonspecific reaction to tuberculin skin test without active tuberculosis; Z62.810 Personal history of physical and sexual abuse in childhood; Z91.19 Patient's noncompliance with other medical treatment and regimen; Z56.0 Unemployment, unspecified; Z59.0 Homelessness
CPT/HCPCS: 36415; 80053; 85027; 86780; 87389; C9803; U0003; U0005

== ENCOUNTER 2021-01-16 15:40 | Inpatient (IN) | payer BC ==
[2021-01-16] MEDS ORDERED: ACETAMINOPHEN 325 MG TABLET (FP) PO PRN ×2 (20:57)
[2021-01-16] MEDS ORDERED: IBUPROFEN 400 MG TABLET (FP) PO PRN (20:57)
[2021-01-16] MEDS ORDERED: NICOTINE POLACRILEX 2 MG GUM BUC PRN (20:57)
[2021-01-16] MEDS ORDERED: MAGNESIUM HYDROX 2400MG/30ML ORAL SUSPENSION 30 ML CUP PO PRN (20:57)
[2021-01-16] MEDS ORDERED: ONDANSETRON *ODT* 4 MG TABLET SL PRN (20:57)
[2021-01-16] MEDS ORDERED: MAGNESIUM CITRATE 300 ML BOTTLE PO PRN (20:57)
[2021-01-16] MEDS ORDERED: MENTHOL/PHENOL 1 EACH UD MM PRN (20:57)
[2021-01-16] MEDS ORDERED: LORazepam 1 MG TABLET PO PRN (20:57)
[2021-01-16] MEDS ORDERED: BISMUTH SUBSALICYLATE 524 MG/30 ML PO PRN (20:57)
[2021-01-16 21:50] VITALS: BMI 20.5
[2021-01-17] MEDS: THIAMINE HCL 100 MG TABLET (FP) PO SCH ×2 (01:05→21:59)
[2021-01-17] MEDS: MELATONIN 5 MG TABLETS PO SCH ×2 (01:05→21:59)
[2021-01-17] MEDS: LORazepam 2 MG TABLET PO SCH ×5 (01:05→21:59)
[2021-01-17] MEDS: PRENATAL VITAMINS W/ FOLIC ACID TABLET (FP) PO SCH (09:51)
[2021-01-17] MEDS: NICOTINE 14 MG/24 HOURS TOPICAL PATCH TD SCH (09:52)
[2021-01-17] MEDS: MAG HYDROX/AL HYDROX/SIMETH 30 ML UNIT-DOSE CUP PO PRN (10:10)
[2021-01-17 10:16] LABS: HEMATOCRIT 35.8 % (35.4-49); HEMOGLOBIN 12.3 GM/dL (11.7-16.9); MCH 34.7 pg (25.7-33.7); MCHC 34.4 g/dl (32.0-35.9); MEAN CELL VOLUME 100.9 fl (80-96); MEAN PLT VOLUME 7.6 fl (7.5-11.1); PLATELET COUNT 288 10^3/uL (134-434); RBC 3.55 M/mm3 (4.00-5.60); RDW 14.3 % (11.9-15.9); WHITE BLOOD COUNT 4.2 K/mm3 (4.0-10.0)
[2021-01-17 10:22] LABS: CALCIUM 9.2 mg/dL (8.5-10.1)
[2021-01-17 10:23] LABS: ALBUMIN 3.3 g/dl (3.4-5.0); BLOOD UREA NITROGEN 5.5 mg/dL (7-18)
[2021-01-17 10:26] LABS: CREATININE 0.7 mg/dL (0.55-1.3)
[2021-01-17 10:27] LABS: BILIRUBIN,TOTAL 0.7 mg/dL (0.2-1); TOT PROT 7.4 g/dl (6.4-8.2)
[2021-01-17 12:51] LABS: HIV INTERPRETATION NEGATIVE (NEGATIVE)
[2021-01-17] MEDS: QUEtiapine FUMARATE 100 MG TABLET (FP) PO SCH (21:59)
[2021-01-17] MEDS: traZODone HCL 50 MG TABLET (FP) PO PRN (21:59)
[2021-01-18] MEDS: LORazepam 1 MG TABLET PO SCH ×4 (05:11→22:16)
[2021-01-18] MEDS: NICOTINE 14 MG/24 HOURS TOPICAL PATCH TD SCH (10:09)
[2021-01-18] MEDS: METHOCARBAMOL 500 MG TABLET PO PRN (10:09)
[2021-01-18] MEDS: PRENATAL VITAMINS W/ FOLIC ACID TABLET (FP) PO SCH (10:09)
[2021-01-18] MEDS: QUEtiapine FUMARATE 100 MG TABLET (FP) PO SCH (22:17)
[2021-01-18] MEDS: MELATONIN 5 MG TABLETS PO SCH (22:17)
[2021-01-18] MEDS: traZODone HCL 50 MG TABLET (FP) PO PRN (22:17)
[2021-01-18] MEDS: THIAMINE HCL 100 MG TABLET (FP) PO SCH (22:17)
[2021-01-18] MEDS: MAG HYDROX/AL HYDROX/SIMETH 30 ML UNIT-DOSE CUP PO PRN (22:18)
[2021-01-19] MEDS ORDERED: LORazepam 0.5 MG TABLET PO PRN
[2021-01-19] MEDS: LORazepam 0.5 MG TABLET PO SCH ×4 (05:29→22:16)
[2021-01-19] MEDS: NICOTINE 14 MG/24 HOURS TOPICAL PATCH TD SCH (10:14)
[2021-01-19] MEDS: PRENATAL VITAMINS W/ FOLIC ACID TABLET (FP) PO SCH (10:14)
[2021-01-19] MEDS: METHOCARBAMOL 500 MG TABLET PO PRN (10:16)
[2021-01-19] MEDS: traZODone HCL 50 MG TABLET (FP) PO PRN (22:12)
[2021-01-19] MEDS: THIAMINE HCL 100 MG TABLET (FP) PO SCH (22:15)
[2021-01-19] MEDS: QUEtiapine FUMARATE 100 MG TABLET (FP) PO SCH (22:16)
[2021-01-19] MEDS: MELATONIN 5 MG TABLETS PO SCH (23:08)
[2021-01-20] MEDS ORDERED: LORazepam 0.5 MG TABLET PO ONE (05:00)
[2021-01-20 06:31] VITALS: BP 126/78; PULSE 68; TEMP 97.2
== END 2021-01-20 09:15 | disposition home or self-care (01) | DRG 775 ==
LOC: YASAS 15:40 → Y3W 22:03 → Y3N 23:22
PROVIDERS: ADMIT Allergy & Immunology; ATTEND Allergy & Immunology
DX: F10.230 Alcohol dependence with withdrawal, uncomplicated (principal); F17.210 Nicotine dependence, cigarettes, uncomplicated; F10.24 Alcohol dependence with alcohol-induced mood disorder; F10.282 Alcohol dependence with alcohol-induced sleep disorder; F25.0 Schizoaffective disorder, bipolar type; F41.9 Anxiety disorder, unspecified; F32.9 Major depressive disorder, single episode, unspecified; I10 Essential (primary) hypertension; I48.20 Chronic atrial fibrillation, unspecified; R76.11 Nonspecific reaction to tuberculin skin test without active tuberculosis; Z62.810 Personal history of physical and sexual abuse in childhood; Z86.69 Personal history of other diseases of the nervous system and sense organs
CPT/HCPCS: 36415; 80053; 85027; 86780; 87389; 93005; 93010

== ENCOUNTER 2021-03-26 11:53 | Inpatient (IN) | payer BC ==
[2021-03-26 12:19] VITALS: BMI 22.3
[2021-03-26] MEDS ORDERED: MENTHOL/PHENOL 1 EACH UD MM PRN (12:43)
[2021-03-26] MEDS ORDERED: diazePAM 5 MG TABLET PO PRN (12:43)
[2021-03-26] MEDS ORDERED: MAGNESIUM CITRATE 300 ML BOTTLE PO PRN (12:43)
[2021-03-26] MEDS ORDERED: MAG HYDROX/AL HYDROX/SIMETH 30 ML UNIT-DOSE CUP PO PRN (12:43)
[2021-03-26] MEDS ORDERED: METHOCARBAMOL 500 MG TABLET PO PRN (12:43)
[2021-03-26] MEDS ORDERED: ONDANSETRON *ODT* 4 MG TABLET SL PRN (12:43)
[2021-03-26] MEDS ORDERED: NICOTINE 10 MG CARTRIDGE (INHALER) IH PRN (12:43)
[2021-03-26] MEDS ORDERED: MAGNESIUM HYDROX 2400MG/30ML ORAL SUSPENSION 30 ML CUP PO PRN (12:43)
[2021-03-26] MEDS ORDERED: ACETAMINOPHEN 325 MG TABLET (FP) PO PRN ×2 (12:43)
[2021-03-26] MEDS ORDERED: BISMUTH SUBSALICYLATE 524 MG/30 ML PO PRN (12:43)
[2021-03-26] MEDS: PRENATAL VITAMINS W/ FOLIC ACID TABLET (FP) PO SCH (14:07)
[2021-03-26] MEDS: hydrOXYzine PAMOATE 25 MG CAPSULE (FP) PO SCH ×3 (14:09→22:18)
[2021-03-26] MEDS: NICOTINE 14 MG/24 HOURS TOPICAL PATCH TD SCH (14:09)
[2021-03-26 17:56] LABS: HEMATOCRIT 34.1 % (35.4-49); HEMOGLOBIN 11.7 GM/dL (11.7-16.9); MCH 34.4 pg (25.7-33.7); MCHC 34.4 g/dl (32.0-35.9); MEAN CELL VOLUME 99.8 fl (80-96); MEAN PLT VOLUME 6.8 fl (7.5-11.1); PLATELET COUNT 332 10^3/uL (134-434); RBC 3.41 M/mm3 (4.00-5.60); RDW 14.4 % (11.9-15.9); WHITE BLOOD COUNT 3.7 K/mm3 (4.0-10.0)
[2021-03-26 17:58] LABS: CALCIUM 9.2 mg/dL (8.5-10.1)
[2021-03-26 17:59] LABS: BLOOD UREA NITROGEN 11.4 mg/dL (7-18)
[2021-03-26 18:00] LABS: ALBUMIN 3.3 g/dl (3.4-5.0)
[2021-03-26 18:03] LABS: CREATININE 0.8 mg/dL (0.55-1.3)
[2021-03-26 18:04] LABS: BILIRUBIN,TOTAL 0.4 mg/dL (0.2-1); TOT PROT 7.5 g/dl (6.4-8.2)
[2021-03-26] MEDS: diazePAM 5 MG TABLET PO SCH ×2 (18:21→22:16)
[2021-03-26 18:49] LABS: HIV INTERPRETATION NEGATIVE (NEGATIVE)
[2021-03-26] MEDS ORDERED: MELATONIN 5 MG TABLETS PO SCH (22:00)
[2021-03-26] MEDS: QUEtiapine FUMARATE 100 MG TABLET (FP) PO SCH (22:15)
[2021-03-26] MEDS: THIAMINE HCL 100 MG TABLET (FP) PO SCH (22:17)
[2021-03-26] MEDS: TIMOLOL 0.5% OPHTHALMIC SOL 5 ML BOTTLE OS SCH (22:20)
[2021-03-26] MEDS: DORZOLAMIDE 2% HCL OPHTHALMIC SOLUTION 10 ML BOTTLE OS SCH (22:20)
[2021-03-27] MEDS: diazePAM 5 MG TABLET PO SCH ×4 (05:53→22:05)
[2021-03-27] MEDS: hydrOXYzine PAMOATE 25 MG CAPSULE (FP) PO SCH ×5 (05:53→22:04)
[2021-03-27] MEDS ORDERED: PATIENT'S OWN MEDICATION (NON-FORMULARY) (Dorzolamide Hcl/Timolol Maleat [Cosopt Eye Drops OS SCH (10:00)
[2021-03-27] MEDS ORDERED: PATIENT'S OWN MEDICATION (NON-FORMULARY) (Brimonidine Tartrate/Timolol [Combigan 0.2%-0.5% OS SCH (10:00)
[2021-03-27] MEDS: ASPIRIN 81 MG CHEWABLE TABLETS PO SCH (11:09)
[2021-03-27] MEDS: PRENATAL VITAMINS W/ FOLIC ACID TABLET (FP) PO SCH (11:09)
[2021-03-27] MEDS: NICOTINE 14 MG/24 HOURS TOPICAL PATCH TD SCH (11:09)
[2021-03-27] MEDS: metoPROLOL SUCCINATE 25 MG TAB.SR.24H (FP) PO SCH (13:09)
[2021-03-27] MEDS: TIMOLOL 0.5% OPHTHALMIC SOL 5 ML BOTTLE OS SCH ×2 (13:10→22:08)
[2021-03-27] MEDS: DORZOLAMIDE 2% HCL OPHTHALMIC SOLUTION 10 ML BOTTLE OS SCH ×2 (13:13→22:08)
[2021-03-27] MEDS: QUEtiapine FUMARATE 100 MG TABLET (FP) PO SCH (22:04)
[2021-03-27] MEDS: THIAMINE HCL 100 MG TABLET (FP) PO SCH (22:04)
[2021-03-28] MEDS: hydrOXYzine PAMOATE 25 MG CAPSULE (FP) PO SCH ×5 (05:57→22:01)
[2021-03-28] MEDS: diazePAM 5 MG TABLET PO SCH ×3 (05:57→22:01)
[2021-03-28] MEDS: DORZOLAMIDE 2% HCL OPHTHALMIC SOLUTION 10 ML BOTTLE OS SCH ×2 (10:44→22:02)
[2021-03-28] MEDS: PRENATAL VITAMINS W/ FOLIC ACID TABLET (FP) PO SCH (10:44)
[2021-03-28] MEDS: TIMOLOL 0.5% OPHTHALMIC SOL 5 ML BOTTLE OS SCH ×2 (10:45→22:01)
[2021-03-28] MEDS: metoPROLOL SUCCINATE 25 MG TAB.SR.24H (FP) PO SCH (10:45)
[2021-03-28] MEDS: ASPIRIN 81 MG CHEWABLE TABLETS PO SCH (10:45)
[2021-03-28] MEDS: NICOTINE 14 MG/24 HOURS TOPICAL PATCH TD SCH (10:45)
[2021-03-28] MEDS: IBUPROFEN 400 MG TABLET (FP) PO PRN (10:46)
[2021-03-28] MEDS: QUEtiapine FUMARATE 100 MG TABLET (FP) PO SCH (22:00)
[2021-03-28] MEDS: THIAMINE HCL 100 MG TABLET (FP) PO SCH (22:00)
[2021-03-29] MEDS: diazePAM 5 MG TABLET PO SCH ×2 (06:14→17:49)
[2021-03-29] MEDS: hydrOXYzine PAMOATE 25 MG CAPSULE (FP) PO SCH ×5 (06:14→22:39)
[2021-03-29] MEDS: PRENATAL VITAMINS W/ FOLIC ACID TABLET (FP) PO SCH (10:47)
[2021-03-29] MEDS: metoPROLOL SUCCINATE 25 MG TAB.SR.24H (FP) PO SCH (10:47)
[2021-03-29] MEDS: ASPIRIN 81 MG CHEWABLE TABLETS PO SCH (10:47)
[2021-03-29] MEDS: DORZOLAMIDE 2% HCL OPHTHALMIC SOLUTION 10 ML BOTTLE OS SCH ×2 (10:48→22:40)
[2021-03-29] MEDS: TIMOLOL 0.5% OPHTHALMIC SOL 5 ML BOTTLE OS SCH ×2 (10:48→22:39)
[2021-03-29] MEDS: NICOTINE 14 MG/24 HOURS TOPICAL PATCH TD SCH (10:48)
[2021-03-29] MEDS: IBUPROFEN 400 MG TABLET (FP) PO PRN (22:38)
[2021-03-29] MEDS: THIAMINE HCL 100 MG TABLET (FP) PO SCH (22:39)
[2021-03-29] MEDS: QUEtiapine FUMARATE 100 MG TABLET (FP) PO SCH (22:39)
[2021-03-30] MEDS ORDERED: diazePAM 5 MG TABLET PO ONE (06:00)
[2021-03-30] MEDS: hydrOXYzine PAMOATE 25 MG CAPSULE (FP) PO SCH ×2 (06:23→10:27)
[2021-03-30 09:16] VITALS: BP 125/62; PULSE 65; TEMP 98.9
[2021-03-30] MEDS: PRENATAL VITAMINS W/ FOLIC ACID TABLET (FP) PO SCH (10:27)
[2021-03-30] MEDS: metoPROLOL SUCCINATE 25 MG TAB.SR.24H (FP) PO SCH (10:27)
[2021-03-30] MEDS: ASPIRIN 81 MG CHEWABLE TABLETS PO SCH (10:27)
[2021-03-30] MEDS: NICOTINE 14 MG/24 HOURS TOPICAL PATCH TD SCH (10:28)
[2021-03-30] MEDS: TIMOLOL 0.5% OPHTHALMIC SOL 5 ML BOTTLE OS SCH (10:28)
[2021-03-30] MEDS: DORZOLAMIDE 2% HCL OPHTHALMIC SOLUTION 10 ML BOTTLE OS SCH (10:28)
== END 2021-03-30 11:19 | disposition other institution (70) | DRG 774 ==
LOC: YASAS 11:53 → Y6N 13:10
PROVIDERS: ADMIT Allergy & Immunology; ATTEND Allergy & Immunology
PROC: HZ2ZZZZ Detoxification Services for Substance Abuse Treatment (ICD-10-PCS; principal; 2021-03-26)
DX: F10.230 Alcohol dependence with withdrawal, uncomplicated (principal); F14.20 Cocaine dependence, uncomplicated; F17.210 Nicotine dependence, cigarettes, uncomplicated; F19.282 Other psychoactive substance dependence with psychoactive substance-induced sleep disorder; F31.81 Bipolar II disorder; F25.0 Schizoaffective disorder, bipolar type; F41.8 Other specified anxiety disorders; R76.11 Nonspecific reaction to tuberculin skin test without active tuberculosis; Z62.810 Personal history of physical and sexual abuse in childhood; R73.9 Hyperglycemia, unspecified; Z86.79 Personal history of other diseases of the circulatory system; Z91.19 Patient's noncompliance with other medical treatment and regimen
CPT/HCPCS: 36415; 80053; 82962; 85027; 86780; 87389; C9803; U0003; U0005

== ENCOUNTER 2021-03-30 11:23 | Inpatient (IN) | payer BC ==
[2021-03-30] MEDS ORDERED: MAGNESIUM HYDROX 2400MG/30ML ORAL SUSPENSION 30 ML CUP PO PRN (12:18)
[2021-03-30] MEDS ORDERED: MENTHOL/PHENOL 1 EACH UD MM PRN (12:18)
[2021-03-30] MEDS ORDERED: ACETAMINOPHEN 325 MG TABLET (FP) PO PRN (12:18)
[2021-03-30] MEDS ORDERED: LOPERAMIDE HCL 2 MG CAPSULE PO PRN (12:18)
[2021-03-30] MEDS ORDERED: MAGNESIUM CITRATE 300 ML BOTTLE PO PRN (12:18)
[2021-03-30] MEDS ORDERED: MAG HYDROX/AL HYDROX/SIMETH 30 ML UNIT-DOSE CUP PO PRN (12:18)
[2021-03-30] MEDS ORDERED: guaiFENesin 200 MG/10 ML 10 ML UNIT-DOSE CUPS PO PRN (12:18)
[2021-03-30] MEDS ORDERED: NICOTINE 10 MG CARTRIDGE (INHALER) IH PRN (12:21)
[2021-03-30] MEDS: THIAMINE HCL 100 MG TABLET (FP) PO SCH (21:19)
[2021-03-30] MEDS: QUEtiapine FUMARATE 100 MG TABLET (FP) PO SCH (21:19)
[2021-03-30] MEDS: MELATONIN 5 MG TABLETS PO SCH (21:19)
[2021-03-30] MEDS: TIMOLOL 0.5% OPHTHALMIC SOL 5 ML BOTTLE OS SCH (21:20)
[2021-03-30] MEDS: DORZOLAMIDE 2% HCL OPHTHALMIC SOLUTION 10 ML BOTTLE OS SCH (21:20)
[2021-03-31] MEDS ORDERED: PATIENT'S OWN MEDICATION (NON-FORMULARY) (Dorzolamide Hcl/Timolol Maleat [Cosopt Eye Drops OS SCH (10:00)
[2021-03-31] MEDS ORDERED: PATIENT'S OWN MEDICATION (NON-FORMULARY) (Brimonidine Tartrate/Timolol [Combigan 0.2%-0.5% OS SCH (10:00)
[2021-03-31] MEDS: ASPIRIN 81 MG CHEWABLE TABLETS PO SCH (10:14)
[2021-03-31] MEDS: metoPROLOL SUCCINATE 25 MG TAB.SR.24H (FP) PO SCH (10:14)
[2021-03-31] MEDS: PRENATAL VITAMINS W/ FOLIC ACID TABLET (FP) PO SCH (10:14)
[2021-03-31] MEDS: IBUPROFEN 400 MG TABLET (FP) PO PRN ×2 (10:15→21:34)
[2021-03-31] MEDS: DORZOLAMIDE 2% HCL OPHTHALMIC SOLUTION 10 ML BOTTLE OS SCH ×2 (10:17→21:35)
[2021-03-31] MEDS: TIMOLOL 0.5% OPHTHALMIC SOL 5 ML BOTTLE OS SCH ×2 (10:17→21:35)
[2021-03-31] MEDS: NICOTINE 14 MG/24 HOURS TOPICAL PATCH TD SCH (10:19)
[2021-03-31] MEDS: THIAMINE HCL 100 MG TABLET (FP) PO SCH (21:33)
[2021-03-31] MEDS: QUEtiapine FUMARATE 100 MG TABLET (FP) PO SCH (21:33)
[2021-03-31] MEDS: MELATONIN 5 MG TABLETS PO SCH (21:33)
[2021-04-01] MEDS: IBUPROFEN 400 MG TABLET (FP) PO PRN (06:30)
[2021-04-01] MEDS: PRENATAL VITAMINS W/ FOLIC ACID TABLET (FP) PO SCH (09:43)
[2021-04-01] MEDS: metoPROLOL SUCCINATE 25 MG TAB.SR.24H (FP) PO SCH (09:43)
[2021-04-01] MEDS: ASPIRIN 81 MG CHEWABLE TABLETS PO SCH (09:43)
[2021-04-01] MEDS: NICOTINE 14 MG/24 HOURS TOPICAL PATCH TD SCH (09:43)
[2021-04-01] MEDS: DORZOLAMIDE 2% HCL OPHTHALMIC SOLUTION 10 ML BOTTLE OS SCH ×2 (09:44→21:06)
[2021-04-01] MEDS: TIMOLOL 0.5% OPHTHALMIC SOL 5 ML BOTTLE OS SCH ×2 (09:44→21:06)
[2021-04-01] MEDS: MELATONIN 5 MG TABLETS PO SCH (21:05)
[2021-04-01] MEDS: hydrOXYzine PAMOATE 25 MG CAPSULE (FP) PO PRN (21:05)
[2021-04-01] MEDS: THIAMINE HCL 100 MG TABLET (FP) PO SCH (21:05)
[2021-04-01] MEDS: QUEtiapine FUMARATE 100 MG TABLET (FP) PO SCH (21:05)
[2021-04-02] MEDS ORDERED: PT OWN MED DRAWER 7, Y5N ONE ×2 (08:53→19:49)
[2021-04-02] MEDS: PRENATAL VITAMINS W/ FOLIC ACID TABLET (FP) PO SCH (09:24)
[2021-04-02] MEDS: DORZOLAMIDE 2% HCL OPHTHALMIC SOLUTION 10 ML BOTTLE OS SCH ×2 (09:24→22:07)
[2021-04-02] MEDS: metoPROLOL SUCCINATE 25 MG TAB.SR.24H (FP) PO SCH (09:24)
[2021-04-02] MEDS: TIMOLOL 0.5% OPHTHALMIC SOL 5 ML BOTTLE OS SCH ×2 (09:24→22:07)
[2021-04-02] MEDS: hydrOXYzine PAMOATE 25 MG CAPSULE (FP) PO PRN (09:24)
[2021-04-02] MEDS: ASPIRIN 81 MG CHEWABLE TABLETS PO SCH (09:25)
[2021-04-02] MEDS: NICOTINE 14 MG/24 HOURS TOPICAL PATCH TD SCH (09:25)
[2021-04-02] MEDS: IBUPROFEN 400 MG TABLET (FP) PO PRN ×2 (09:25→21:42)
[2021-04-02] MEDS: SUVOREXANT 10 MG TABLET PO PRN (21:41)
[2021-04-02] MEDS: QUEtiapine FUMARATE 100 MG TABLET (FP) PO SCH (21:42)
[2021-04-02] MEDS: THIAMINE HCL 100 MG TABLET (FP) PO SCH (21:42)
[2021-04-02] MEDS: P-EPHED 60MG/TRIPROLIDI 2.5MG TABLET PO PRN (21:44)
[2021-04-03] MEDS: P-EPHED 60MG/TRIPROLIDI 2.5MG TABLET PO PRN (06:32)
[2021-04-03] MEDS: IBUPROFEN 400 MG TABLET (FP) PO PRN (06:32)
[2021-04-03] MEDS: PRENATAL VITAMINS W/ FOLIC ACID TABLET (FP) PO SCH (09:55)
[2021-04-03] MEDS: ASPIRIN 81 MG CHEWABLE TABLETS PO SCH (09:55)
[2021-04-03] MEDS: DORZOLAMIDE 2% HCL OPHTHALMIC SOLUTION 10 ML BOTTLE OS SCH ×2 (09:56→21:31)
[2021-04-03] MEDS: NICOTINE 14 MG/24 HOURS TOPICAL PATCH TD SCH (09:56)
[2021-04-03] MEDS: TIMOLOL 0.5% OPHTHALMIC SOL 5 ML BOTTLE OS SCH ×2 (09:56→21:31)
[2021-04-03] MEDS: metoPROLOL SUCCINATE 25 MG TAB.SR.24H (FP) PO SCH (10:24)
[2021-04-03] MEDS: QUEtiapine FUMARATE 100 MG TABLET (FP) PO SCH (21:29)
[2021-04-03] MEDS: SUVOREXANT 10 MG TABLET PO PRN (21:29)
[2021-04-03] MEDS: THIAMINE HCL 100 MG TABLET (FP) PO SCH (21:30)
[2021-04-03] MEDS: hydrOXYzine PAMOATE 25 MG CAPSULE (FP) PO PRN (21:30)
[2021-04-04] MEDS: IBUPROFEN 400 MG TABLET (FP) PO PRN (06:10)
[2021-04-04] MEDS: PRENATAL VITAMINS W/ FOLIC ACID TABLET (FP) PO SCH (10:17)
[2021-04-04] MEDS: ASPIRIN 81 MG CHEWABLE TABLETS PO SCH (10:17)
[2021-04-04] MEDS: NICOTINE 14 MG/24 HOURS TOPICAL PATCH TD SCH (10:17)
[2021-04-04] MEDS: metoPROLOL SUCCINATE 25 MG TAB.SR.24H (FP) PO SCH (10:18)
[2021-04-04] MEDS: TIMOLOL 0.5% OPHTHALMIC SOL 5 ML BOTTLE OS SCH ×2 (10:19→21:10)
[2021-04-04] MEDS: DORZOLAMIDE 2% HCL OPHTHALMIC SOLUTION 10 ML BOTTLE OS SCH ×2 (10:19→21:10)
[2021-04-04] MEDS: QUEtiapine FUMARATE 100 MG TABLET (FP) PO SCH (21:08)
[2021-04-04] MEDS: THIAMINE HCL 100 MG TABLET (FP) PO SCH (21:08)
[2021-04-04] MEDS: SUVOREXANT 10 MG TABLET PO PRN (21:09)
[2021-04-04] MEDS: hydrOXYzine PAMOATE 25 MG CAPSULE (FP) PO PRN (21:09)
[2021-04-04] MEDS: P-EPHED 60MG/TRIPROLIDI 2.5MG TABLET PO PRN (21:10)
[2021-04-05] MEDS: IBUPROFEN 400 MG TABLET (FP) PO PRN ×2 (06:11→21:32)
[2021-04-05] MEDS ORDERED: BENZOCAINE 20 % GEL TUBE MM PRN (09:23)
[2021-04-05] MEDS: PRENATAL VITAMINS W/ FOLIC ACID TABLET (FP) PO SCH (10:00)
[2021-04-05] MEDS: metoPROLOL SUCCINATE 25 MG TAB.SR.24H (FP) PO SCH (10:00)
[2021-04-05] MEDS: TIMOLOL 0.5% OPHTHALMIC SOL 5 ML BOTTLE OS SCH ×2 (10:00→21:33)
[2021-04-05] MEDS: ASPIRIN 81 MG CHEWABLE TABLETS PO SCH (10:00)
[2021-04-05] MEDS: hydrOXYzine PAMOATE 25 MG CAPSULE (FP) PO PRN ×2 (10:00→21:32)
[2021-04-05] MEDS: DORZOLAMIDE 2% HCL OPHTHALMIC SOLUTION 10 ML BOTTLE OS SCH ×2 (10:01→21:33)
[2021-04-05] MEDS: AMOXICILLIN 500 MG CAPSULE (FP) PO SCH ×2 (10:01→21:30)
[2021-04-05] MEDS: NICOTINE 14 MG/24 HOURS TOPICAL PATCH TD SCH (10:01)
[2021-04-05] MEDS: P-EPHED 60MG/TRIPROLIDI 2.5MG TABLET PO PRN ×2 (10:03→21:33)
[2021-04-05] MEDS: QUEtiapine FUMARATE 100 MG TABLET (FP) PO SCH (21:30)
[2021-04-05] MEDS: THIAMINE HCL 100 MG TABLET (FP) PO SCH (21:31)
[2021-04-05] MEDS: SUVOREXANT 10 MG TABLET PO PRN (21:31)
[2021-04-06] MEDS: AMOXICILLIN 500 MG CAPSULE (FP) PO SCH ×2 (09:32→21:15)
[2021-04-06] MEDS: metoPROLOL SUCCINATE 25 MG TAB.SR.24H (FP) PO SCH (09:32)
[2021-04-06] MEDS: ASPIRIN 81 MG CHEWABLE TABLETS PO SCH (09:32)
[2021-04-06] MEDS: IBUPROFEN 400 MG TABLET (FP) PO PRN (09:33)
[2021-04-06] MEDS: PRENATAL VITAMINS W/ FOLIC ACID TABLET (FP) PO SCH (09:34)
[2021-04-06] MEDS: TIMOLOL 0.5% OPHTHALMIC SOL 5 ML BOTTLE OS SCH ×2 (09:35→21:18)
[2021-04-06] MEDS: DORZOLAMIDE 2% HCL OPHTHALMIC SOLUTION 10 ML BOTTLE OS SCH ×2 (09:35→21:18)
[2021-04-06] MEDS: NICOTINE 14 MG/24 HOURS TOPICAL PATCH TD SCH (09:35)
[2021-04-06] MEDS: QUEtiapine FUMARATE 100 MG TABLET (FP) PO SCH (21:15)
[2021-04-06] MEDS: THIAMINE HCL 100 MG TABLET (FP) PO SCH (21:15)
[2021-04-06] MEDS: hydrOXYzine PAMOATE 25 MG CAPSULE (FP) PO PRN (21:16)
[2021-04-06] MEDS: SUVOREXANT 10 MG TABLET PO PRN (21:16)
[2021-04-06] MEDS: P-EPHED 60MG/TRIPROLIDI 2.5MG TABLET PO PRN (21:17)
[2021-04-07] MEDS: IBUPROFEN 400 MG TABLET (FP) PO PRN (05:11)
[2021-04-07] MEDS: AMOXICILLIN 500 MG CAPSULE (FP) PO SCH ×2 (10:40→21:38)
[2021-04-07] MEDS: PRENATAL VITAMINS W/ FOLIC ACID TABLET (FP) PO SCH (10:40)
[2021-04-07] MEDS: ASPIRIN 81 MG CHEWABLE TABLETS PO SCH (10:40)
[2021-04-07] MEDS: metoPROLOL SUCCINATE 25 MG TAB.SR.24H (FP) PO SCH (10:40)
[2021-04-07] MEDS: TIMOLOL 0.5% OPHTHALMIC SOL 5 ML BOTTLE OS SCH ×2 (10:41→21:40)
[2021-04-07] MEDS: NICOTINE 14 MG/24 HOURS TOPICAL PATCH TD SCH (10:41)
[2021-04-07] MEDS: P-EPHED 60MG/TRIPROLIDI 2.5MG TABLET PO PRN (10:42)
[2021-04-07] MEDS: DORZOLAMIDE 2% HCL OPHTHALMIC SOLUTION 10 ML BOTTLE OS SCH ×2 (10:42→21:39)
[2021-04-07] MEDS: QUEtiapine FUMARATE 100 MG TABLET (FP) PO SCH (21:38)
[2021-04-07] MEDS: THIAMINE HCL 100 MG TABLET (FP) PO SCH (21:38)
[2021-04-07] MEDS: SUVOREXANT 10 MG TABLET PO PRN (21:38)
[2021-04-07] MEDS: hydrOXYzine PAMOATE 25 MG CAPSULE (FP) PO PRN (21:39)
[2021-04-08] MEDS: IBUPROFEN 400 MG TABLET (FP) PO PRN (06:07)
[2021-04-08] MEDS: TIMOLOL 0.5% OPHTHALMIC SOL 5 ML BOTTLE OS SCH ×2 (10:12→21:56)
[2021-04-08] MEDS: metoPROLOL SUCCINATE 25 MG TAB.SR.24H (FP) PO SCH (10:12)
[2021-04-08] MEDS: DORZOLAMIDE 2% HCL OPHTHALMIC SOLUTION 10 ML BOTTLE OS SCH ×2 (10:12→21:56)
[2021-04-08] MEDS: PRENATAL VITAMINS W/ FOLIC ACID TABLET (FP) PO SCH (10:12)
[2021-04-08] MEDS: ASPIRIN 81 MG CHEWABLE TABLETS PO SCH (10:12)
[2021-04-08] MEDS: AMOXICILLIN 500 MG CAPSULE (FP) PO SCH ×2 (10:12→21:32)
[2021-04-08] MEDS: NICOTINE 14 MG/24 HOURS TOPICAL PATCH TD SCH (10:14)
[2021-04-08] MEDS: P-EPHED 60MG/TRIPROLIDI 2.5MG TABLET PO PRN ×2 (10:14→21:36)
[2021-04-08] MEDS: QUEtiapine FUMARATE 100 MG TABLET (FP) PO SCH (21:32)
[2021-04-08] MEDS: THIAMINE HCL 100 MG TABLET (FP) PO SCH (21:33)
[2021-04-08] MEDS: SUVOREXANT 10 MG TABLET PO PRN (21:34)
[2021-04-08] MEDS: hydrOXYzine PAMOATE 25 MG CAPSULE (FP) PO PRN (21:35)
[2021-04-09] MEDS: IBUPROFEN 400 MG TABLET (FP) PO PRN (05:58)
[2021-04-09] MEDS: P-EPHED 60MG/TRIPROLIDI 2.5MG TABLET PO PRN ×2 (06:00→21:33)
[2021-04-09] MEDS ORDERED: PT OWN MED DRAWER 7, Y5N ONE (08:51)
[2021-04-09] MEDS: DORZOLAMIDE 2% HCL OPHTHALMIC SOLUTION 10 ML BOTTLE OS SCH ×2 (09:57→21:33)
[2021-04-09] MEDS: AMOXICILLIN 500 MG CAPSULE (FP) PO SCH ×2 (09:57→21:30)
[2021-04-09] MEDS: PRENATAL VITAMINS W/ FOLIC ACID TABLET (FP) PO SCH (09:57)
[2021-04-09] MEDS: hydrOXYzine PAMOATE 25 MG CAPSULE (FP) PO PRN ×3 (09:57→21:32)
[2021-04-09] MEDS: TIMOLOL 0.5% OPHTHALMIC SOL 5 ML BOTTLE OS SCH ×2 (09:58→21:33)
[2021-04-09] MEDS: NICOTINE 14 MG/24 HOURS TOPICAL PATCH TD SCH (10:30)
[2021-04-09] MEDS: metoPROLOL SUCCINATE 25 MG TAB.SR.24H (FP) PO SCH (10:32)
[2021-04-09] MEDS: ASPIRIN 81 MG CHEWABLE TABLETS PO SCH (10:33)
[2021-04-09] MEDS: CYCLOBENZAPRINE HCL 5 MG TABLET PO SCH ×2 (15:37→21:30)
[2021-04-09] MEDS: THIAMINE HCL 100 MG TABLET (FP) PO SCH (21:30)
[2021-04-09] MEDS: QUEtiapine FUMARATE 100 MG TABLET (FP) PO SCH (21:30)
[2021-04-09] MEDS: SUVOREXANT 10 MG TABLET PO PRN (21:32)
[2021-04-10] MEDS: IBUPROFEN 400 MG TABLET (FP) PO PRN ×2 (06:23→21:22)
[2021-04-10] MEDS: P-EPHED 60MG/TRIPROLIDI 2.5MG TABLET PO PRN (06:24)
[2021-04-10] MEDS: CYCLOBENZAPRINE HCL 5 MG TABLET PO SCH ×3 (06:56→21:21)
[2021-04-10] MEDS: ASPIRIN 81 MG CHEWABLE TABLETS PO SCH (10:09)
[2021-04-10] MEDS: hydrOXYzine PAMOATE 25 MG CAPSULE (FP) PO PRN ×3 (10:09→21:20)
[2021-04-10] MEDS: metoPROLOL SUCCINATE 25 MG TAB.SR.24H (FP) PO SCH (10:09)
[2021-04-10] MEDS: PRENATAL VITAMINS W/ FOLIC ACID TABLET (FP) PO SCH (10:09)
[2021-04-10] MEDS: AMOXICILLIN 500 MG CAPSULE (FP) PO SCH ×2 (10:09→21:20)
[2021-04-10] MEDS: TIMOLOL 0.5% OPHTHALMIC SOL 5 ML BOTTLE OS SCH ×2 (10:10→23:20)
[2021-04-10] MEDS: DORZOLAMIDE 2% HCL OPHTHALMIC SOLUTION 10 ML BOTTLE OS SCH ×2 (10:10→23:20)
[2021-04-10] MEDS: NICOTINE 14 MG/24 HOURS TOPICAL PATCH TD SCH (10:10)
[2021-04-10] MEDS: QUEtiapine FUMARATE 100 MG TABLET (FP) PO SCH (21:20)
[2021-04-10] MEDS: THIAMINE HCL 100 MG TABLET (FP) PO SCH (21:20)
[2021-04-10] MEDS: SUVOREXANT 10 MG TABLET PO PRN (21:21)
[2021-04-11] MEDS: CYCLOBENZAPRINE HCL 5 MG TABLET PO SCH ×3 (06:16→21:26)
[2021-04-11] MEDS: IBUPROFEN 400 MG TABLET (FP) PO PRN ×2 (06:16→21:27)
[2021-04-11] MEDS: AMOXICILLIN 500 MG CAPSULE (FP) PO SCH ×2 (10:12→21:26)
[2021-04-11] MEDS: hydrOXYzine PAMOATE 25 MG CAPSULE (FP) PO PRN ×2 (10:12→21:26)
[2021-04-11] MEDS: PRENATAL VITAMINS W/ FOLIC ACID TABLET (FP) PO SCH (10:12)
[2021-04-11] MEDS: NICOTINE 14 MG/24 HOURS TOPICAL PATCH TD SCH (10:12)
[2021-04-11] MEDS: ASPIRIN 81 MG CHEWABLE TABLETS PO SCH (10:12)
[2021-04-11] MEDS: metoPROLOL SUCCINATE 25 MG TAB.SR.24H (FP) PO SCH (10:12)
[2021-04-11] MEDS: DORZOLAMIDE 2% HCL OPHTHALMIC SOLUTION 10 ML BOTTLE OS SCH ×2 (10:13→21:28)
[2021-04-11] MEDS: TIMOLOL 0.5% OPHTHALMIC SOL 5 ML BOTTLE OS SCH ×2 (10:13→21:28)
[2021-04-11] MEDS: THIAMINE HCL 100 MG TABLET (FP) PO SCH (21:26)
[2021-04-11] MEDS: SUVOREXANT 10 MG TABLET PO PRN (21:26)
[2021-04-11] MEDS: QUEtiapine FUMARATE 100 MG TABLET (FP) PO SCH (21:26)
[2021-04-11] MEDS: P-EPHED 60MG/TRIPROLIDI 2.5MG TABLET PO PRN (23:19)
[2021-04-12] MEDS: CYCLOBENZAPRINE HCL 5 MG TABLET PO SCH ×3 (06:02→21:18)
[2021-04-12] MEDS: IBUPROFEN 400 MG TABLET (FP) PO PRN ×3 (06:02→21:19)
[2021-04-12] MEDS: ASPIRIN 81 MG CHEWABLE TABLETS PO SCH (10:00)
[2021-04-12] MEDS: NICOTINE 14 MG/24 HOURS TOPICAL PATCH TD SCH (10:00)
[2021-04-12] MEDS: PRENATAL VITAMINS W/ FOLIC ACID TABLET (FP) PO SCH (10:00)
[2021-04-12] MEDS: DORZOLAMIDE 2% HCL OPHTHALMIC SOLUTION 10 ML BOTTLE OS SCH ×2 (10:01→21:20)
[2021-04-12] MEDS: TIMOLOL 0.5% OPHTHALMIC SOL 5 ML BOTTLE OS SCH ×2 (10:01→21:20)
[2021-04-12] MEDS: metoPROLOL SUCCINATE 25 MG TAB.SR.24H (FP) PO SCH (10:01)
[2021-04-12] MEDS: THIAMINE HCL 100 MG TABLET (FP) PO SCH (21:17)
[2021-04-12] MEDS: QUEtiapine FUMARATE 100 MG TABLET (FP) PO SCH (21:17)
[2021-04-12] MEDS: hydrOXYzine PAMOATE 25 MG CAPSULE (FP) PO PRN (21:18)
[2021-04-12] MEDS: SUVOREXANT 10 MG TABLET PO PRN (21:18)
[2021-04-12] MEDS: P-EPHED 60MG/TRIPROLIDI 2.5MG TABLET PO PRN (21:20)
[2021-04-13] MEDS: IBUPROFEN 400 MG TABLET (FP) PO PRN (06:10)
[2021-04-13] MEDS: CYCLOBENZAPRINE HCL 5 MG TABLET PO SCH (06:10)
[2021-04-13 07:14] VITALS: BP 157/100; PULSE 59; TEMP 97.4
[2021-04-13] MEDS ORDERED: PT OWN MED DRAWER 7, Y5N ONE (08:36)
== END 2021-04-13 08:43 | disposition home or self-care (01) | DRG 772 ==
LOC: YASAS 11:23 → Y3W 11:24
PROVIDERS: ADMIT Allergy & Immunology; ATTEND Allergy & Immunology
PROC: HZ42ZZZ Group Counseling for Substance Abuse Treatment, Cognitive-Behavioral (ICD-10-PCS; principal; 2021-03-30)
DX: F10.20 Alcohol dependence, uncomplicated (principal); F14.20 Cocaine dependence, uncomplicated; F17.210 Nicotine dependence, cigarettes, uncomplicated; I10 Essential (primary) hypertension; M25.511 Pain in right shoulder; G89.29 Other chronic pain; K08.9 Disorder of teeth and supporting structures, unspecified

== ENCOUNTER 2021-05-03 10:29 | Inpatient (IN) | payer BC ==
[2021-05-03] MEDS ORDERED: MAG HYDROX/AL HYDROX/SIMETH 30 ML UNIT-DOSE CUP PO PRN (11:09)
[2021-05-03] MEDS ORDERED: METHOCARBAMOL 500 MG TABLET PO PRN (11:09)
[2021-05-03] MEDS ORDERED: BISMUTH SUBSALICYLATE 524 MG/30 ML PO PRN (11:09)
[2021-05-03] MEDS ORDERED: MENTHOL/PHENOL 1 EACH UD MM PRN (11:09)
[2021-05-03] MEDS ORDERED: MAGNESIUM CITRATE 300 ML BOTTLE PO PRN (11:09)
[2021-05-03] MEDS ORDERED: NICOTINE 10 MG CARTRIDGE (INHALER) IH PRN (11:09)
[2021-05-03] MEDS ORDERED: ONDANSETRON *ODT* 4 MG TABLET SL PRN (11:09)
[2021-05-03] MEDS ORDERED: diazePAM 5 MG TABLET PO PRN (11:09)
[2021-05-03] MEDS ORDERED: IBUPROFEN 400 MG TABLET (FP) PO PRN (11:09)
[2021-05-03] MEDS ORDERED: ACETAMINOPHEN 325 MG TABLET (FP) PO PRN ×2 (11:09)
[2021-05-03] MEDS ORDERED: MAGNESIUM HYDROX 2400MG/30ML ORAL SUSPENSION 30 ML CUP PO PRN (11:09)
[2021-05-03 11:49] VITALS: BMI 22.1
[2021-05-03] MEDS ORDERED: NICOTINE 14 MG/24 HOURS TOPICAL PATCH TD SCH (13:00)
[2021-05-03] MEDS ORDERED: PRENATAL VITAMINS W/ FOLIC ACID TABLET (FP) PO SCH (13:00)
[2021-05-03] MEDS: hydrOXYzine PAMOATE 25 MG CAPSULE (FP) PO SCH ×3 (14:05→22:01)
[2021-05-03] MEDS: AMOX TR/POT CLAV 875MG/125MG TABLETS (FP) PO SCH ×2 (14:41→17:45)
[2021-05-03 17:37] LABS: HEMATOCRIT 36.6 % (35.4-49); MCH 34.3 pg (25.7-33.7); MCHC 35.5 g/dl (32.0-35.9); MEAN CELL VOLUME 96.5 fl (80-96); MEAN PLT VOLUME 6.6 fl (7.5-11.1); PLATELET COUNT 362 10^3/uL (134-434); RBC 3.79 M/mm3 (4.00-5.60); RDW 14.3 % (11.9-15.9); WHITE BLOOD COUNT 6.9 K/mm3 (4.0-10.0)
[2021-05-03 17:40] LABS: CALCIUM 8.8 mg/dL (8.5-10.1)
[2021-05-03 17:41] LABS: ALBUMIN 3.6 g/dl (3.4-5.0); BLOOD UREA NITROGEN 4.8 mg/dL (7-18)
[2021-05-03 17:44] LABS: BILIRUBIN,TOTAL 0.4 mg/dL (0.2-1); CREATININE 0.7 mg/dL (0.55-1.3); TOT PROT 8.3 g/dl (6.4-8.2)
[2021-05-03] MEDS: diazePAM 5 MG TABLET PO SCH ×2 (17:45→22:01)
[2021-05-03] MEDS ORDERED: METOPROLOL TARTRATE 25 MG TABLET (FP) PO ONE (19:13)
[2021-05-03] MEDS ORDERED: QUEtiapine FUMARATE 100 MG TABLET (FP) PO SCH (22:00)
[2021-05-03] MEDS ORDERED: MELATONIN 5 MG TABLETS PO SCH (22:00)
[2021-05-03] MEDS ORDERED: THIAMINE HCL 100 MG TABLET (FP) PO SCH (22:00)
[2021-05-04] MEDS: hydrOXYzine PAMOATE 25 MG CAPSULE (FP) PO SCH (06:28)
[2021-05-04] MEDS: diazePAM 5 MG TABLET PO SCH (06:28)
[2021-05-04 07:26] VITALS: BP 99/62; PULSE 82; TEMP 97.1
[2021-05-04] MEDS ORDERED: metoPROLOL SUCCINATE 25 MG TAB.SR.24H (FP) PO SCH (10:00)
[2021-05-04] MEDS ORDERED: DORZOLAMIDE 2% HCL OPHTHALMIC SOLUTION 10 ML BOTTLE OS SCH (10:00)
[2021-05-04] MEDS ORDERED: ASPIRIN 81 MG CHEWABLE TABLETS PO SCH (10:00)
[2021-05-04] MEDS ORDERED: PATIENT'S OWN MEDICATION (NON-FORMULARY) (Brimonidine Tartrate/Timolol [Combigan 0.2%-0.5% OS SCH (10:00)
[2021-05-04] MEDS ORDERED: TIMOLOL 0.5% OPHTHALMIC SOL 5 ML BOTTLE OS SCH (10:00)
[2021-05-05] MEDS ORDERED: diazePAM 5 MG TABLET PO SCH (06:00)
[2021-05-06] MEDS ORDERED: diazePAM 5 MG TABLET PO SCH (06:00)
[2021-05-07] MEDS ORDERED: diazePAM 5 MG TABLET PO ONE (06:00)
== END 2021-05-04 07:49 | disposition short-term general hospital (02) | DRG 774 ==
LOC: YASAS 10:29 → Y6N 11:25
PROVIDERS: ADMIT Allergy & Immunology; ATTEND Allergy & Immunology
PROC: HZ2ZZZZ Detoxification Services for Substance Abuse Treatment (ICD-10-PCS; principal; 2021-05-03)
DX: F10.230 Alcohol dependence with withdrawal, uncomplicated (principal); F14.20 Cocaine dependence, uncomplicated; F17.210 Nicotine dependence, cigarettes, uncomplicated; F25.0 Schizoaffective disorder, bipolar type; F41.9 Anxiety disorder, unspecified; I48.92 Unspecified atrial flutter; H92.02 Otalgia, left ear; I10 Essential (primary) hypertension; Z62.810 Personal history of physical and sexual abuse in childhood; Z86.79 Personal history of other diseases of the circulatory system; Z86.69 Personal history of other diseases of the nervous system and sense organs; Z86.11 Personal history of tuberculosis
CPT/HCPCS: 36415; 80053; 85027; 86780; 93005; 93010; C9803; U0003; U0005

== ENCOUNTER 2021-05-04 00:08 | Inpatient (IN) | payer BC ==
[2021-05-04] MEDS ORDERED: METOPROLOL TARTRATE 5 MG/5 ML VIAL IVPUSH ONE ×4 (00:33→20:30)
[2021-05-04] MEDS ORDERED: SODIUM CHLORIDE 2,000 ML IV ONE (00:34)
[2021-05-04] MEDS ORDERED: SODIUM CHLORIDE 1,000 ML IV STA (00:35)
[2021-05-04] MEDS ORDERED: METOPROLOL TARTRATE 5 MG/5 ML VIAL ONE ×2 (00:36→17:20)
[2021-05-04] MEDS ORDERED: PIPERACILLIN/TAZOB 4.5 GM 4.5 GM in DEXTROSE 5%-WATER 100 ML IVPB ONE (00:39)
[2021-05-04 00:57] VITALS: BMI 22.3
[2021-05-04 01:21] LABS: BASO % 0.5 % (0-2.0); EOS % 0.3 % (0-4.5); HEMATOCRIT 30.9 % (35.4-49); HEMOGLOBIN 10.9 GM/dL (11.7-16.9); LYMPH % 20.8 % (8-40); MCH 33.8 pg (25.7-33.7); MCHC 35.2 g/dl (32.0-35.9); MEAN PLT VOLUME 6.3 fl (7.5-11.1); NEUT % 61.4 % (42.8-82.8); PLATELET COUNT 290 10^3/uL (134-434); RBC 3.22 M/mm3 (4.00-5.60); RDW 13.8 % (11.9-15.9); WHITE BLOOD COUNT 4.6 K/mm3 (4.0-10.0)
[2021-05-04 01:28] LABS: INR 1.11 (0.83-1.09); PROTHROMBIN TIME (PATIENT) 12.5 SEC (9.7-13.0)
[2021-05-04 01:30] LABS: ACTIVATED PTT 32.6 SECONDS (25.2-36.5)
[2021-05-04] MEDS ORDERED: PIPERACILLIN/TAZOB 4.5 GM 4.5 GM/100 ML BAG IVPB ONE (01:34)
[2021-05-04] MEDS ORDERED: ADENOSINE 6 MG/2 ML VIAL IVPUSH ONE ×5 (01:39→04:00)
[2021-05-04 01:43] LABS: CHLORIDE 100 mmol/L (98-107); SODIUM 134 mmol/L (136-145)
[2021-05-04 01:46] LABS: CALCIUM 8.6 mg/dL (8.5-10.1)
[2021-05-04 01:47] LABS: ANION GAP 8 MMOL/L (8-16); CO2 26 mmol/L (21-32); GLUCOSE,RANDOM 132 mg/dL (74-106)
[2021-05-04 01:49] LABS: CREATININE 0.7 mg/dL (0.55-1.3); SGOT/AST 22 U/L (15-37); SGPT/ALT 11 U/L (13-61)
[2021-05-04 01:52] LABS: ALK PHOS 72 U/L (45-117); BILIRUBIN,TOTAL 0.3 mg/dL (0.2-1); TOT PROT 6.8 g/dl (6.4-8.2)
[2021-05-04 02:22] LABS: ALBUMIN 2.8 g/dl (3.4-5.0)
[2021-05-04 03:23] LABS: PH,URINE 6.5 (5.0-8.0); URINE APPEARANCE CLEAR; URINE BILIRUBIN NEGATIVE (NEGATIVE); URINE COLOR YELLOW; URINE GLUCOSE (UA) NEGATIVE (NEGATIVE); URINE KETONE NEGATIVE (NEGATIVE); URINE LEUK ESTERASE NEGATIVE (NEGATIVE); URINE NITRITE NEGATIVE (NEGATIVE); URINE PROTEIN NEGATIVE (NEGATIVE)
[2021-05-04 03:30] LABS: COCAINE, UR NEGATIVE (NEGATIVE); METHADONE, UR NEGATIVE (NEGATIVE); OPIATES, URI NEGATIVE (NEGATIVE); PHENCYCLIDINE,URINE NEGATIVE (NEGATIVE); URINE BARBITURATES NEGATIVE (NEGATIVE); URINE BENZODIAZEPINES NEGATIVE (NEGATIVE)
[2021-05-04 03:46] LABS: URINE AMPHETAMINES NEGATIVE (NEGATIVE)
[2021-05-04] MEDS ORDERED: dilTIAZem HCL 50 MG/10 ML - 10 ML VIAL IVPUSH ONE ×4 (04:01→05:45)
[2021-05-04] MEDS ORDERED: dilTIAZem HCL 125 MG/25 ML - 25 ML VIAL ONE (04:14)
[2021-05-04] MEDS ORDERED: dilTIAZem HCL 30 MG TABLET PO ONE (05:02)
[2021-05-04] MEDS ORDERED: dilTIAZem HCL 30 MG TABLET ONE (05:04)
[2021-05-04] MEDS ORDERED: HEPARIN NA (PORCINE) 5,000 UNITS/ML 1ML VIAL ONE ×2 (08:49→14:13)
[2021-05-04] MEDS: HEPARIN NA (PORCINE) 5,000 UNITS/ML 1ML VIAL SQ SCH ×2 (09:00→14:20)
[2021-05-04] MEDS ORDERED: PATIENT'S OWN MEDICATION (NON-FORMULARY) (Dorzolamide Hcl/Timolol Maleat [Cosopt Eye Drops OS SCH (10:00)
[2021-05-04] MEDS ORDERED: metoPROLOL SUCCINATE 25 MG TAB.SR.24H (FP) PO SCH (10:00)
[2021-05-04] MEDS ORDERED: PATIENT'S OWN MEDICATION (NON-FORMULARY) (Brimonidine Tartrate/Timolol [Combigan 0.2%-0.5% OS SCH (10:00)
[2021-05-04] MEDS ORDERED: MULTIVIT INJ. ADULT COMBO WITH VIT K 1 COMBO 10 ML VIAL IV SCH (10:15)
[2021-05-04] MEDS ORDERED: AMOX TR/POT CLAV 875MG/125MG TABLETS (FP) PO SCH ×2 (10:30→17:30)
[2021-05-04] MEDS ORDERED: PT OWN MED DRAWER 7, Y5N ONE (11:02)
[2021-05-04] MEDS ORDERED: ASPIRIN 81 MG CHEWABLE TABLETS ONE (11:02)
[2021-05-04] MEDS ORDERED: AMOX TR/POT CLAV 875MG/125MG TABLETS (FP) ONE (11:02)
[2021-05-04] MEDS: ASPIRIN 81 MG CHEWABLE TABLETS PO SCH (11:11)
[2021-05-04] MEDS ORDERED: MULTIVITAMINS (DAILY MVI) TABLET (FP) ONE (11:12)
[2021-05-04] MEDS: MULTIVITAMINS (DAILY MVI) TABLET (FP) PO SCH (11:12)
[2021-05-04] MEDS ORDERED: OFLOXACIN 0.3% OPHTHALMIC SOLUTION 5 ML BOTTLE AU SCH (11:45)
[2021-05-04] MEDS: METOPROLOL TARTRATE 5 MG/5 ML VIAL IVPUSH PRN ×2 (13:29→17:24)
[2021-05-04] MEDS ORDERED: SODIUM CHLORIDE 500 ML IV STA (13:44)
[2021-05-04] MEDS ORDERED: LORazepam 2 MG/ML SDV VIAL IVPUSH ONE (13:45)
[2021-05-04] MEDS ORDERED: LORazepam 2 MG/ML SDV VIAL ONE (14:12)
[2021-05-04] MEDS: LITHIUM CARBONATE 300 MG CAPSULE PO SCH ×2 (14:19→21:29)
[2021-05-04] MEDS: FLUoxetine HCL 20 MG CAPSULE PO SCH (14:20)
[2021-05-04] MEDS: OFLOXACIN 0.3% OTIC SOLUTION 5 ML BOTTLE AS SCH ×2 (14:20→21:32)
[2021-05-04] MEDS ORDERED: FOLIC ACID INJECTION - 1 MG, THIAMINE HCL 100 MG in SODIUM CHLORIDE 998.8 ML IVPB ONE (15:05)
[2021-05-04] MEDS ORDERED: LORazepam 1 MG TABLET ONE (16:11)
[2021-05-04] MEDS: LORazepam 1 MG TABLET PO SCH ×2 (16:15→23:06)
[2021-05-04] MEDS ORDERED: DIGOXIN 0.25 MG TABLET PO ONE ×2 (17:04→23:00)
[2021-05-04] MEDS: DIGOXIN 0.5 MG/2 ML AMPUL IVPUSH SCH (20:32)
[2021-05-04] MEDS: metoPROLOL SUCCINATE 25 MG TAB.SR.24H (FP) PO SCH (21:29)
[2021-05-04] MEDS: APIXABAN 5 MG TABLET PO SCH (21:29)
[2021-05-04] MEDS ORDERED: QUEtiapine FUMARATE 100 MG TABLET (FP) PO SCH (22:00)
[2021-05-04] MEDS ORDERED: MELATONIN 5 MG TABLETS PO PRN (22:28)
[2021-05-05] MEDS: METOPROLOL TARTRATE 5 MG/5 ML VIAL IVPUSH PRN ×2 (00:40→17:21)
[2021-05-05] MEDS: LORazepam 1 MG TABLET PO PRN ×2 (01:32→09:23)
[2021-05-05] MEDS: DIGOXIN 0.5 MG/2 ML AMPUL IVPUSH SCH (03:01)
[2021-05-05] MEDS ORDERED: NICOTINE POLACRILEX 2 MG GUM BUC PRN ×2 (03:23→19:18)
[2021-05-05] MEDS: NICOTINE 21 MG/24 HOURS TOPICAL PATCH TD SCH ×2 (04:55→09:22)
[2021-05-05] MEDS: LORazepam 1 MG TABLET PO SCH ×3 (04:56→17:45)
[2021-05-05] MEDS ORDERED: DIGOXIN 0.25 MG TABLET PO ONE ×3 (06:00→19:18)
[2021-05-05] MEDS: metoPROLOL SUCCINATE 25 MG TAB.SR.24H (FP) PO SCH (09:22)
[2021-05-05] MEDS: ASPIRIN 81 MG CHEWABLE TABLETS PO SCH (09:24)
[2021-05-05] MEDS: APIXABAN 5 MG TABLET PO SCH ×2 (09:24→22:30)
[2021-05-05] MEDS: LITHIUM CARBONATE 300 MG CAPSULE PO SCH ×2 (09:24→22:56)
[2021-05-05] MEDS: FLUoxetine HCL 20 MG CAPSULE PO SCH (09:24)
[2021-05-05] MEDS: MULTIVITAMINS (DAILY MVI) TABLET (FP) PO SCH (09:24)
[2021-05-05] MEDS ORDERED: PT OWN MED DRAWER 7, Y5N ONE ×2 (10:41→16:27)
[2021-05-05] MEDS: OFLOXACIN 0.3% OTIC SOLUTION 5 ML BOTTLE AS SCH ×2 (10:47→22:31)
[2021-05-05 12:31] LABS: HEMATOCRIT 33.6 % (35.4-49); HEMOGLOBIN 11.5 GM/dL (11.7-16.9); MCH 33.9 pg (25.7-33.7); MCHC 34.1 g/dl (32.0-35.9); MEAN CELL VOLUME 99.3 fl (80-96); PLATELET COUNT 353 10^3/uL (134-434); RBC 3.38 M/mm3 (4.00-5.60); RDW 13.7 % (11.9-15.9); WHITE BLOOD COUNT 7.3 K/mm3 (4.0-10.0)
[2021-05-05 12:59] LABS: BLOOD UREA NITROGEN 9.8 mg/dL (7-18)
[2021-05-05 13:00] LABS: CALCIUM 9.8 mg/dL (8.5-10.1)
[2021-05-05 13:04] LABS: CREATININE 0.7 mg/dL (0.55-1.3); MAGNESIUM 1.7 mg/dL (1.8-2.4); PHOSPHOROUS 3.8 mg/dL (2.5-4.9)
[2021-05-05] MEDS ORDERED: MAGNESIUM SULF 50% (8.12 MEQ/2 ML-1 GM VIAL) IVPB ONE (16:07)
[2021-05-05] MEDS ORDERED: DIGOXIN 0.25 MG TABLET PO SCH (16:15)
[2021-05-05] MEDS ORDERED: LISINOPRIL 10 MG TABLET PO SCH (16:15)
[2021-05-05] MEDS ORDERED: LORazepam 0.5 MG TABLET ONE (16:27)
[2021-05-05] MEDS ORDERED: CYANOCOBALAMIN 1,000 MCG TABLET (FP) PO SCH (17:00)
[2021-05-05] MEDS ORDERED: THIAMINE HCL 200 MG/2 ML VIAL IVPB SCH (17:00)
[2021-05-05] MEDS ORDERED: FOLIC ACID 1 MG TABLET (FP) PO SCH (17:00)
[2021-05-05] MEDS ORDERED: MAGNESIUM 2GM/50ML STERILE WATER IVPB IVPB ONE (17:15)
[2021-05-05] MEDS ORDERED: AMOX TR/POT CLAV 875MG/125MG TABLETS (FP) PO SCH (17:30)
[2021-05-05] MEDS ORDERED: ESMOLOL 2500 MG/250 ML 2,500,000 MCG/250 ML INFUS.BAG IVPB SCH ×2 (18:30→19:00)
[2021-05-05] MEDS ORDERED: MELATONIN 5 MG TABLETS PO PRN (19:18)
[2021-05-05] MEDS ORDERED: LORazepam 1 MG TABLET PO PRN (19:18)
[2021-05-05] MEDS: ESMOLOL 2500 MG/250 ML 2,500,000 MCG/250 ML INFUS.BAG IVPB SCH (19:35)
[2021-05-05] MEDS ORDERED: LORazepam 2 MG/ML SDV VIAL IVPUSH ONE (21:15)
[2021-05-05] MEDS ORDERED: MIDAZOLAM HCL 2 MG/2 ML SINGLE DOSE VIAL IM ONE (21:27)
[2021-05-05] MEDS ORDERED: MIDAZOLAM HCL 2 MG/2 ML SINGLE DOSE VIAL IVPUSH ONE (21:32)
[2021-05-05] MEDS: MUPIROCIN 2% TOPICAL OINTMENT FOR DECOLONIZATION NS SCH (21:35)
[2021-05-05] MEDS: CHLORHEXIDINE GLUCONATE 4% CLEANSER FOR DECOLONIZATION TP SCH (21:36)
[2021-05-05] MEDS: QUEtiapine FUMARATE 100 MG TABLET (FP) PO SCH (21:36)
[2021-05-05] MEDS ORDERED: diazePAM CARPU-JECT 10 MG/2 ML DISP.SYRIN IVPUSH ONE (21:41)
[2021-05-05] MEDS ORDERED: LORazepam 1 MG TABLET PO SCH (23:00)
[2021-05-05] MEDS: DEXMEDETOMIDINE IN 0.9 % NACL 400 MCG/100 ML VIAL IVPB SCH (23:39)
[2021-05-06] MEDS ORDERED: LORazepam 1 MG TABLET PO SCH ×2 (05:00)
[2021-05-06] MEDS: LORazepam 1 MG TABLET PO SCH ×5 (06:35→23:52)
[2021-05-06 06:39] LABS: HEMATOCRIT 33.7 % (35.4-49); HEMOGLOBIN 11.6 GM/dL (11.7-16.9); MCH 34.1 pg (25.7-33.7); MCHC 34.5 g/dl (32.0-35.9); MEAN CELL VOLUME 98.7 fl (80-96); PLATELET COUNT 363 10^3/uL (134-434); RBC 3.41 M/mm3 (4.00-5.60); RDW 13.7 % (11.9-15.9); WHITE BLOOD COUNT 4.7 K/mm3 (4.0-10.0)
[2021-05-06 07:00] LABS: BLOOD UREA NITROGEN 7.9 mg/dL (7-18); MAGNESIUM 1.9 mg/dL (1.8-2.4)
[2021-05-06 07:03] LABS: CREATININE 0.6 mg/dL (0.55-1.3); PHOSPHOROUS 4.2 mg/dL (2.5-4.9)
[2021-05-06] MEDS ORDERED: PT OWN MED DRAWER 7, Y5N ONE ×3 (08:32→21:51)
[2021-05-06] MEDS: CYANOCOBALAMIN 1,000 MCG TABLET (FP) PO SCH (09:27)
[2021-05-06] MEDS: AMOX TR/POT CLAV 875MG/125MG TABLETS (FP) PO SCH ×2 (09:27→17:50)
[2021-05-06] MEDS: LITHIUM CARBONATE 300 MG CAPSULE PO SCH ×3 (09:28→21:53)
[2021-05-06] MEDS: ASPIRIN 81 MG CHEWABLE TABLETS PO SCH (09:28)
[2021-05-06] MEDS: THIAMINE HCL 200 MG/2 ML VIAL IVPB SCH (09:29)
[2021-05-06] MEDS: MUPIROCIN 2% TOPICAL OINTMENT FOR DECOLONIZATION NS SCH ×2 (09:29→21:48)
[2021-05-06] MEDS: MULTIVITAMINS (DAILY MVI) TABLET (FP) PO SCH (09:29)
[2021-05-06] MEDS: NICOTINE 21 MG/24 HOURS TOPICAL PATCH TD SCH (09:29)
[2021-05-06] MEDS: APIXABAN 5 MG TABLET PO SCH ×2 (09:29→21:53)
[2021-05-06] MEDS: FOLIC ACID 1 MG TABLET (FP) PO SCH (09:29)
[2021-05-06] MEDS: DIGOXIN 0.25 MG TABLET PO SCH (09:29)
[2021-05-06] MEDS: OFLOXACIN 0.3% OTIC SOLUTION 5 ML BOTTLE AS SCH ×2 (11:18→21:52)
[2021-05-06] MEDS: FLUoxetine HCL 20 MG CAPSULE PO SCH (11:19)
[2021-05-06] MEDS ORDERED: ACETAMINOPHEN 1000 MG/100 ML VIAL IVPB ONE (19:52)
[2021-05-06] MEDS: ESMOLOL 2500 MG/250 ML 2,500,000 MCG/250 ML INFUS.BAG IVPB SCH (19:58)
[2021-05-06] MEDS: QUEtiapine FUMARATE 100 MG TABLET (FP) PO SCH (21:53)
[2021-05-06] MEDS: CHLORHEXIDINE GLUCONATE 4% CLEANSER FOR DECOLONIZATION TP SCH (21:53)
[2021-05-06] MEDS: DEXMEDETOMIDINE IN 0.9 % NACL 400 MCG/100 ML VIAL IVPB SCH (23:51)
[2021-05-07] MEDS ORDERED: LORazepam 0.5 MG TABLET PO PRN ×2
[2021-05-07] MEDS ORDERED: LORazepam 0.5 MG TABLET PO SCH (05:00)
[2021-05-07] MEDS: LORazepam 0.5 MG TABLET PO SCH ×4 (05:50→22:55)
[2021-05-07 07:21] LABS: BASO % 0.6 % (0-2.0); EOS % 0.7 % (0-4.5); HEMATOCRIT 33.8 % (35.4-49); HEMOGLOBIN 11.6 GM/dL (11.7-16.9); LYMPH % 15.1 % (8-40); MCH 33.4 pg (25.7-33.7); MCHC 34.3 g/dl (32.0-35.9); MEAN CELL VOLUME 97.4 fl (80-96); MEAN PLT VOLUME 6.5 fl (7.5-11.1); MONO % 11.6 % (3.8-10.2); PLATELET COUNT 434 10^3/uL (134-434); RBC 3.47 M/mm3 (4.00-5.60); RDW 13.7 % (11.9-15.9); WHITE BLOOD COUNT 11.4 K/mm3 (4.0-10.0)
[2021-05-07 07:45] LABS: ALBUMIN 2.8 g/dl (3.4-5.0); BLOOD UREA NITROGEN 8.7 mg/dL (7-18)
[2021-05-07 07:48] LABS: CREATININE 0.7 mg/dL (0.55-1.3); PHOSPHOROUS 3.5 mg/dL (2.5-4.9)
[2021-05-07 07:49] LABS: BILIRUBIN,TOTAL 0.4 mg/dL (0.2-1); TOT PROT 6.9 g/dl (6.4-8.2)
[2021-05-07] MEDS: THIAMINE HCL 200 MG/2 ML VIAL IVPB SCH (09:13)
[2021-05-07] MEDS: NICOTINE 21 MG/24 HOURS TOPICAL PATCH TD SCH (09:18)
[2021-05-07] MEDS: ASPIRIN 81 MG CHEWABLE TABLETS PO SCH (09:18)
[2021-05-07] MEDS: MULTIVITAMINS (DAILY MVI) TABLET (FP) PO SCH (09:18)
[2021-05-07] MEDS: APIXABAN 5 MG TABLET PO SCH ×2 (09:18→21:52)
[2021-05-07] MEDS: FOLIC ACID 1 MG TABLET (FP) PO SCH (09:18)
[2021-05-07] MEDS: AMOX TR/POT CLAV 875MG/125MG TABLETS (FP) PO SCH ×2 (09:18→17:02)
[2021-05-07] MEDS: FLUoxetine HCL 20 MG CAPSULE PO SCH (09:19)
[2021-05-07] MEDS: LITHIUM CARBONATE 300 MG CAPSULE PO SCH ×2 (09:20→21:52)
[2021-05-07] MEDS: DIGOXIN 0.25 MG TABLET PO SCH (09:21)
[2021-05-07] MEDS: CYANOCOBALAMIN 1,000 MCG TABLET (FP) PO SCH (09:21)
[2021-05-07] MEDS: OFLOXACIN 0.3% OTIC SOLUTION 5 ML BOTTLE AS SCH ×2 (09:22→21:55)
[2021-05-07] MEDS: MUPIROCIN 2% TOPICAL OINTMENT FOR DECOLONIZATION NS SCH ×2 (09:22→21:56)
[2021-05-07] MEDS ORDERED: PT OWN MED DRAWER 7, Y5N ONE (21:51)
[2021-05-07] MEDS: CHLORHEXIDINE GLUCONATE 4% CLEANSER FOR DECOLONIZATION TP SCH (21:52)
[2021-05-07] MEDS: QUEtiapine FUMARATE 100 MG TABLET (FP) PO SCH (21:52)
[2021-05-08] MEDS ORDERED: LORazepam 0.5 MG TABLET PO ONE ×2 (05:00)
[2021-05-08 06:44] LABS: BASO % 0.6 % (0-2.0); EOS % 1.4 % (0-4.5); HEMATOCRIT 35.1 % (35.4-49); LYMPH % 21.9 % (8-40); MCH 34.1 pg (25.7-33.7); MCHC 34.2 g/dl (32.0-35.9); MEAN CELL VOLUME 99.7 fl (80-96); MEAN PLT VOLUME 6.5 fl (7.5-11.1); MONO % 14.5 % (3.8-10.2); NEUT % 61.6 % (42.8-82.8); PLATELET COUNT 502 10^3/uL (134-434); RBC 3.52 M/mm3 (4.00-5.60); RDW 13.6 % (11.9-15.9); WHITE BLOOD COUNT 7.7 K/mm3 (4.0-10.0)
[2021-05-08 07:00] LABS: CALCIUM 9.1 mg/dL (8.5-10.1)
[2021-05-08 07:01] LABS: ALBUMIN 2.8 g/dl (3.4-5.0); BLOOD UREA NITROGEN 10.2 mg/dL (7-18); MAGNESIUM 2.1 mg/dL (1.8-2.4)
[2021-05-08 07:04] LABS: CREATININE 0.7 mg/dL (0.55-1.3); PHOSPHOROUS 3.2 mg/dL (2.5-4.9)
[2021-05-08 07:05] LABS: BILIRUBIN,TOTAL 0.2 mg/dL (0.2-1); TOT PROT 7.1 g/dl (6.4-8.2)
[2021-05-08] MEDS: LITHIUM CARBONATE 300 MG CAPSULE PO SCH ×2 (09:34→21:03)
[2021-05-08] MEDS: FLUoxetine HCL 20 MG CAPSULE PO SCH (09:34)
[2021-05-08] MEDS: CYANOCOBALAMIN 1,000 MCG TABLET (FP) PO SCH (09:35)
[2021-05-08] MEDS: THIAMINE HCL 200 MG/2 ML VIAL IVPB SCH (09:35)
[2021-05-08] MEDS: ASPIRIN 81 MG CHEWABLE TABLETS PO SCH (09:36)
[2021-05-08] MEDS: AMOX TR/POT CLAV 875MG/125MG TABLETS (FP) PO SCH ×2 (09:36→18:03)
[2021-05-08] MEDS: NICOTINE 21 MG/24 HOURS TOPICAL PATCH TD SCH (09:36)
[2021-05-08] MEDS: MULTIVITAMINS (DAILY MVI) TABLET (FP) PO SCH (09:36)
[2021-05-08] MEDS: APIXABAN 5 MG TABLET PO SCH ×2 (09:36→21:03)
[2021-05-08] MEDS: FOLIC ACID 1 MG TABLET (FP) PO SCH (09:36)
[2021-05-08] MEDS: DIGOXIN 0.125 MG TABLET PO SCH (09:43)
[2021-05-08] MEDS: OFLOXACIN 0.3% OTIC SOLUTION 5 ML BOTTLE AS SCH (10:38)
[2021-05-08] MEDS: MUPIROCIN 2% TOPICAL OINTMENT FOR DECOLONIZATION NS SCH ×2 (10:39→21:05)
[2021-05-08] MEDS ORDERED: MELATONIN 5 MG TABLETS PO PRN (11:45)
[2021-05-08] MEDS ORDERED: NICOTINE POLACRILEX 2 MG GUM BUC PRN (11:45)
[2021-05-08] MEDS ORDERED: PT OWN MED DRAWER 7, Y5N ONE (21:01)
[2021-05-08] MEDS ORDERED: CHLORHEXIDINE GLUCONATE 4% CLEANSER FOR DECOLONIZATION TP SCH (22:00)
[2021-05-08] MEDS ORDERED: QUEtiapine FUMARATE 100 MG TABLET (FP) PO SCH (22:00)
[2021-05-08] MEDS ORDERED: OFLOXACIN 0.3% OTIC SOLUTION 5 ML BOTTLE AS SCH (22:00)
[2021-05-09] MEDS ORDERED: PT OWN MED DRAWER 7, Y5N ONE (09:36)
[2021-05-09] MEDS: APIXABAN 5 MG TABLET PO SCH (09:52)
[2021-05-09] MEDS: AMOX TR/POT CLAV 875MG/125MG TABLETS (FP) PO SCH (09:52)
[2021-05-09] MEDS: LITHIUM CARBONATE 300 MG CAPSULE PO SCH (09:52)
[2021-05-09] MEDS: MUPIROCIN 2% TOPICAL OINTMENT FOR DECOLONIZATION NS SCH (09:52)
[2021-05-09] MEDS: DIGOXIN 0.125 MG TABLET PO SCH (09:53)
[2021-05-09] MEDS ORDERED: ASPIRIN 81 MG CHEWABLE TABLETS PO SCH (10:00)
[2021-05-09] MEDS ORDERED: FOLIC ACID 1 MG TABLET (FP) PO SCH (10:00)
[2021-05-09] MEDS ORDERED: FLUoxetine HCL 20 MG CAPSULE PO SCH (10:00)
[2021-05-09] MEDS ORDERED: MULTIVITAMINS (DAILY MVI) TABLET (FP) PO SCH (10:00)
[2021-05-09] MEDS ORDERED: THIAMINE HCL 200 MG/2 ML VIAL IVPB SCH (10:00)
[2021-05-09] MEDS ORDERED: CYANOCOBALAMIN 1,000 MCG TABLET (FP) PO SCH (10:00)
[2021-05-09] MEDS ORDERED: NICOTINE 21 MG/24 HOURS TOPICAL PATCH TD SCH (10:00)
[2021-05-09 13:26] VITALS: BP 101/65
[2021-05-09 13:28] VITALS: PULSE 61; TEMP 98.1
== END 2021-05-09 13:35 | disposition other institution (70) | DRG 201 ==
LOC: JER 00:08 → UNDOADMOB 00:53 → INTOOBSV 00:53 → JERBED 00:53 → OBSVTOIN 15:15 → J4W 18:15 → JICU 05-05 19:03 → J2W 05-07 18:56
PROVIDERS: ADMIT Internal Medicine; ATTEND Internal Medicine
DX: I48.92 Unspecified atrial flutter (principal); I48.91 Unspecified atrial fibrillation; I11.0 Hypertensive heart disease with heart failure; I50.22 Chronic systolic (congestive) heart failure; F10.239 Alcohol dependence with withdrawal, unspecified; F17.210 Nicotine dependence, cigarettes, uncomplicated; F31.9 Bipolar disorder, unspecified; H66.92 Otitis media, unspecified, left ear; R45.1 Restlessness and agitation; I42.6 Alcoholic cardiomyopathy; D64.9 Anemia, unspecified; E88.09 Other disorders of plasma-protein metabolism, not elsewhere classified; F41.8 Other specified anxiety disorders; R94.5 Abnormal results of liver function studies; H57.9 Unspecified disorder of eye and adnexa; R00.0 Tachycardia, unspecified
CPT/HCPCS: 36415; 70450-TC; 70486-TC; 71045-TC-FY; 71275-TC; 80048; 80053; 80162; 80307; 81003; 82962; 83605; 83735; 84100; 84443; 84484; 85025; 85027; 85379; 85610; 85730; 87040; 87086; 93005; 93010; 93306-TC; 99285-25; C9803; G0378; J0131; J1644; U0003; U0005

== ENCOUNTER 2021-05-09 13:59 | Inpatient (IN) | payer BC ==
[2021-05-09] MEDS ORDERED: NICOTINE 10 MG CARTRIDGE (INHALER) IH PRN (14:30)
[2021-05-09] MEDS ORDERED: MAGNESIUM CITRATE 300 ML BOTTLE PO PRN (14:30)
[2021-05-09] MEDS ORDERED: LOPERAMIDE HCL 2 MG CAPSULE PO PRN (14:30)
[2021-05-09] MEDS ORDERED: MAGNESIUM HYDROX 2400MG/30ML ORAL SUSPENSION 30 ML CUP PO PRN (14:30)
[2021-05-09] MEDS ORDERED: guaiFENesin 200 MG/10 ML 10 ML UNIT-DOSE CUPS PO PRN (14:30)
[2021-05-09] MEDS ORDERED: IBUPROFEN 400 MG TABLET (FP) PO PRN (14:30)
[2021-05-09] MEDS ORDERED: MAG HYDROX/AL HYDROX/SIMETH 30 ML UNIT-DOSE CUP PO PRN (14:30)
[2021-05-09 14:37] VITALS: BMI 22.5
[2021-05-09] MEDS ORDERED: NEOMYCIN/POLYMYXN/HC OTIC SOLUTION 10 ML BOTTLE AS SCH (15:00)
[2021-05-09] MEDS: FLUOCINONIDE 0.05% CREAM (60 GM TUBE) TP SCH ×2 (17:19→21:29)
[2021-05-09] MEDS: NEOMYCIN/POLYMYXN/HC OTIC SUSPENSION 10 ML BOTTLE AU SCH (17:20)
[2021-05-09] MEDS ORDERED: hydrOXYzine PAMOATE 25 MG CAPSULE (FP) PO SCH (18:00)
[2021-05-09] MEDS: APIXABAN 5 MG TABLET PO SCH (21:28)
[2021-05-09] MEDS: THIAMINE HCL 100 MG TABLET (FP) PO SCH (21:28)
[2021-05-09] MEDS: COLLOIDAL OATMEAL 1 BAR EACH TP PRN (21:49)
[2021-05-09] MEDS ORDERED: MELATONIN 5 MG TABLETS PO SCH (22:00)
[2021-05-10] MEDS: NEOMYCIN/POLYMYXN/HC OTIC SUSPENSION 10 ML BOTTLE AU SCH ×4 (00:05→19:30)
[2021-05-10] MEDS ORDERED: PT OWN MED DRAWER 7, Y5N ONE (08:52)
[2021-05-10] MEDS ORDERED: PATIENT'S OWN MEDICATION (NON-FORMULARY) (Dorzolamide Hcl/Timolol Maleat [Cosopt Eye Drops OS SCH (10:00)
[2021-05-10] MEDS ORDERED: NICOTINE 7 MG/24 HOURS TOPICAL PATCH TD SCH (10:00)
[2021-05-10] MEDS ORDERED: PATIENT'S OWN MEDICATION (NON-FORMULARY) (Brimonidine Tartrate/Timolol [Combigan 0.2%-0.5% OS SCH (10:00)
[2021-05-10] MEDS: BRIMONIDINE TARTRATE 0.2% OPHTHALMIC 5 ML BOTTLE OS SCH (10:40)
[2021-05-10] MEDS: APIXABAN 5 MG TABLET PO SCH ×2 (10:40→21:08)
[2021-05-10] MEDS: ASPIRIN 81 MG CHEWABLE TABLETS PO SCH (10:40)
[2021-05-10 10:41] LABS: URINE APPEARANCE CLEAR; URINE BILIRUBIN NEGATIVE (NEGATIVE); URINE COLOR YELLOW; URINE GLUCOSE (UA) NEGATIVE (NEGATIVE); URINE KETONE NEGATIVE (NEGATIVE); URINE LEUK ESTERASE NEGATIVE (NEGATIVE); URINE NITRITE NEGATIVE (NEGATIVE); URINE PROTEIN NEGATIVE (NEGATIVE); URINE UROBILINOGEN 0.2 mg/dL (0.2-1.0)
[2021-05-10] MEDS: DIGOXIN 0.125 MG TABLET PO SCH (10:41)
[2021-05-10] MEDS: FLUoxetine HCL 10 MG CAPSULE PO SCH (10:41)
[2021-05-10] MEDS: PRENATAL VITAMINS W/ FOLIC ACID TABLET (FP) PO SCH (10:41)
[2021-05-10] MEDS: FLUOCINONIDE 0.05% CREAM (60 GM TUBE) TP SCH ×4 (10:41→21:10)
[2021-05-10] MEDS: NICOTINE 21 MG/24 HOURS TOPICAL PATCH TD SCH (10:41)
[2021-05-10] MEDS: TIMOLOL 0.5% OPHTHALMIC SOL 5 ML BOTTLE OS SCH (10:42)
[2021-05-10] MEDS: DORZOLAMIDE 2% HCL OPHTHALMIC SOLUTION 10 ML BOTTLE OS SCH (10:43)
[2021-05-10] MEDS: THIAMINE HCL 100 MG TABLET (FP) PO SCH (21:08)
[2021-05-10] MEDS: QUEtiapine FUMARATE 200 MG TABLET PO SCH (21:08)
[2021-05-10] MEDS: P-EPHED 60MG/TRIPROLIDI 2.5MG TABLET PO PRN (21:10)
[2021-05-11] MEDS: NEOMYCIN/POLYMYXN/HC OTIC SUSPENSION 10 ML BOTTLE AU SCH ×4 (01:02→18:30)
[2021-05-11] MEDS: ACETAMINOPHEN 325 MG TABLET (FP) PO PRN (06:27)
[2021-05-11] MEDS: ASPIRIN 81 MG CHEWABLE TABLETS PO SCH (09:54)
[2021-05-11] MEDS: FLUoxetine HCL 10 MG CAPSULE PO SCH (09:54)
[2021-05-11] MEDS: APIXABAN 5 MG TABLET PO SCH ×2 (09:54→22:01)
[2021-05-11] MEDS: DIGOXIN 0.125 MG TABLET PO SCH (09:54)
[2021-05-11] MEDS: PRENATAL VITAMINS W/ FOLIC ACID TABLET (FP) PO SCH (09:54)
[2021-05-11] MEDS: DORZOLAMIDE 2% HCL OPHTHALMIC SOLUTION 10 ML BOTTLE OS SCH (09:55)
[2021-05-11] MEDS: BRIMONIDINE TARTRATE 0.2% OPHTHALMIC 5 ML BOTTLE OS SCH (09:56)
[2021-05-11] MEDS: TIMOLOL 0.5% OPHTHALMIC SOL 5 ML BOTTLE OS SCH (09:57)
[2021-05-11] MEDS: NICOTINE 21 MG/24 HOURS TOPICAL PATCH TD SCH (09:57)
[2021-05-11] MEDS: FLUOCINONIDE 0.05% CREAM (60 GM TUBE) TP SCH ×4 (09:57→22:02)
[2021-05-11] MEDS: THIAMINE HCL 100 MG TABLET (FP) PO SCH (22:01)
[2021-05-11] MEDS: QUEtiapine FUMARATE 200 MG TABLET PO SCH (22:01)
[2021-05-11] MEDS: hydrOXYzine PAMOATE 25 MG CAPSULE (FP) PO PRN (22:01)
[2021-05-12] MEDS: NEOMYCIN/POLYMYXN/HC OTIC SUSPENSION 10 ML BOTTLE AU SCH ×5 (00:22→23:32)
[2021-05-12] MEDS: ASPIRIN 81 MG CHEWABLE TABLETS PO SCH (11:35)
[2021-05-12] MEDS: FLUoxetine HCL 10 MG CAPSULE PO SCH (11:36)
[2021-05-12] MEDS: DIGOXIN 0.125 MG TABLET PO SCH (11:36)
[2021-05-12] MEDS: APIXABAN 5 MG TABLET PO SCH ×2 (11:36→21:01)
[2021-05-12] MEDS: BRIMONIDINE TARTRATE 0.2% OPHTHALMIC 5 ML BOTTLE OS SCH (11:38)
[2021-05-12] MEDS: TIMOLOL 0.5% OPHTHALMIC SOL 5 ML BOTTLE OS SCH (11:38)
[2021-05-12] MEDS: FLUOCINONIDE 0.05% CREAM (60 GM TUBE) TP SCH ×4 (11:53→21:02)
[2021-05-12] MEDS: NICOTINE 21 MG/24 HOURS TOPICAL PATCH TD SCH (11:54)
[2021-05-12] MEDS: PRENATAL VITAMINS W/ FOLIC ACID TABLET (FP) PO SCH (11:55)
[2021-05-12] MEDS: DORZOLAMIDE 2% HCL OPHTHALMIC SOLUTION 10 ML BOTTLE OS SCH (11:56)
[2021-05-12] MEDS: QUEtiapine FUMARATE 200 MG TABLET PO SCH (21:01)
[2021-05-12] MEDS: THIAMINE HCL 100 MG TABLET (FP) PO SCH (21:01)
[2021-05-12] MEDS: hydrOXYzine PAMOATE 25 MG CAPSULE (FP) PO PRN (21:02)
[2021-05-13] MEDS: NEOMYCIN/POLYMYXN/HC OTIC SUSPENSION 10 ML BOTTLE AU SCH ×4 (06:20→23:20)
[2021-05-13] MEDS: ACETAMINOPHEN 325 MG TABLET (FP) PO PRN (06:22)
[2021-05-13] MEDS: PRENATAL VITAMINS W/ FOLIC ACID TABLET (FP) PO SCH (09:42)
[2021-05-13] MEDS: DIGOXIN 0.125 MG TABLET PO SCH (09:42)
[2021-05-13] MEDS: BRIMONIDINE TARTRATE 0.2% OPHTHALMIC 5 ML BOTTLE OS SCH (09:43)
[2021-05-13] MEDS: NICOTINE 21 MG/24 HOURS TOPICAL PATCH TD SCH (09:43)
[2021-05-13] MEDS: APIXABAN 5 MG TABLET PO SCH ×2 (09:43→21:17)
[2021-05-13] MEDS: FLUOCINONIDE 0.05% CREAM (60 GM TUBE) TP SCH ×4 (09:43→21:17)
[2021-05-13] MEDS: FLUoxetine HCL 10 MG CAPSULE PO SCH (09:43)
[2021-05-13] MEDS: DORZOLAMIDE 2% HCL OPHTHALMIC SOLUTION 10 ML BOTTLE OS SCH (09:43)
[2021-05-13] MEDS: ASPIRIN 81 MG CHEWABLE TABLETS PO SCH (09:43)
[2021-05-13] MEDS: TIMOLOL 0.5% OPHTHALMIC SOL 5 ML BOTTLE OS SCH (09:44)
[2021-05-13] MEDS: THIAMINE HCL 100 MG TABLET (FP) PO SCH (21:17)
[2021-05-13] MEDS: hydrOXYzine PAMOATE 25 MG CAPSULE (FP) PO PRN (21:17)
[2021-05-13] MEDS: QUEtiapine FUMARATE 200 MG TABLET PO SCH (21:17)
[2021-05-14] MEDS: NEOMYCIN/POLYMYXN/HC OTIC SUSPENSION 10 ML BOTTLE AU SCH ×3 (06:47→18:12)
[2021-05-14] MEDS: ASPIRIN 81 MG CHEWABLE TABLETS PO SCH (10:50)
[2021-05-14] MEDS: APIXABAN 5 MG TABLET PO SCH ×2 (10:50→21:03)
[2021-05-14] MEDS: DIGOXIN 0.125 MG TABLET PO SCH (10:50)
[2021-05-14] MEDS: NICOTINE 21 MG/24 HOURS TOPICAL PATCH TD SCH (10:51)
[2021-05-14] MEDS: PRENATAL VITAMINS W/ FOLIC ACID TABLET (FP) PO SCH (10:51)
[2021-05-14] MEDS: FLUOCINONIDE 0.05% CREAM (60 GM TUBE) TP SCH ×4 (10:51→21:05)
[2021-05-14] MEDS: FLUoxetine HCL 10 MG CAPSULE PO SCH (10:51)
[2021-05-14] MEDS: TIMOLOL 0.5% OPHTHALMIC SOL 5 ML BOTTLE OS SCH (10:52)
[2021-05-14] MEDS: BRIMONIDINE TARTRATE 0.2% OPHTHALMIC 5 ML BOTTLE OS SCH (10:53)
[2021-05-14] MEDS: DORZOLAMIDE 2% HCL OPHTHALMIC SOLUTION 10 ML BOTTLE OS SCH (10:53)
[2021-05-14] MEDS: QUEtiapine FUMARATE 200 MG TABLET PO SCH (21:03)
[2021-05-14] MEDS: hydrOXYzine PAMOATE 25 MG CAPSULE (FP) PO PRN (21:04)
[2021-05-14] MEDS: THIAMINE HCL 100 MG TABLET (FP) PO SCH (21:04)
[2021-05-15] MEDS: NEOMYCIN/POLYMYXN/HC OTIC SUSPENSION 10 ML BOTTLE AU SCH ×5 (01:17→23:40)
[2021-05-15] MEDS: PRENATAL VITAMINS W/ FOLIC ACID TABLET (FP) PO SCH (09:44)
[2021-05-15] MEDS: APIXABAN 5 MG TABLET PO SCH ×2 (09:44→21:20)
[2021-05-15] MEDS: ASPIRIN 81 MG CHEWABLE TABLETS PO SCH (09:44)
[2021-05-15] MEDS: FLUoxetine HCL 10 MG CAPSULE PO SCH (09:44)
[2021-05-15] MEDS: DIGOXIN 0.125 MG TABLET PO SCH (09:45)
[2021-05-15] MEDS: TIMOLOL 0.5% OPHTHALMIC SOL 5 ML BOTTLE OS SCH (09:45)
[2021-05-15] MEDS: FLUOCINONIDE 0.05% CREAM (60 GM TUBE) TP SCH ×4 (09:45→21:22)
[2021-05-15] MEDS: DORZOLAMIDE 2% HCL OPHTHALMIC SOLUTION 10 ML BOTTLE OS SCH (09:45)
[2021-05-15] MEDS: BRIMONIDINE TARTRATE 0.2% OPHTHALMIC 5 ML BOTTLE OS SCH (09:45)
[2021-05-15] MEDS: NICOTINE 21 MG/24 HOURS TOPICAL PATCH TD SCH (09:45)
[2021-05-15] MEDS: QUEtiapine FUMARATE 200 MG TABLET PO SCH (21:20)
[2021-05-15] MEDS: THIAMINE HCL 100 MG TABLET (FP) PO SCH (21:20)
[2021-05-15] MEDS: hydrOXYzine PAMOATE 25 MG CAPSULE (FP) PO PRN (21:21)
[2021-05-15] MEDS: P-EPHED 60MG/TRIPROLIDI 2.5MG TABLET PO PRN (21:22)
[2021-05-16] MEDS: NEOMYCIN/POLYMYXN/HC OTIC SUSPENSION 10 ML BOTTLE AU SCH ×4 (06:18→23:38)
[2021-05-16] MEDS: PRENATAL VITAMINS W/ FOLIC ACID TABLET (FP) PO SCH (10:13)
[2021-05-16] MEDS: ASPIRIN 81 MG CHEWABLE TABLETS PO SCH (10:13)
[2021-05-16] MEDS: hydrOXYzine PAMOATE 25 MG CAPSULE (FP) PO PRN ×2 (10:14→21:05)
[2021-05-16] MEDS: APIXABAN 5 MG TABLET PO SCH ×2 (10:14→21:05)
[2021-05-16] MEDS: FLUoxetine HCL 10 MG CAPSULE PO SCH (10:14)
[2021-05-16] MEDS: DIGOXIN 0.125 MG TABLET PO SCH (10:15)
[2021-05-16] MEDS: ACETAMINOPHEN 325 MG TABLET (FP) PO PRN (10:17)
[2021-05-16] MEDS: NICOTINE 21 MG/24 HOURS TOPICAL PATCH TD SCH (10:58)
[2021-05-16] MEDS: BRIMONIDINE TARTRATE 0.2% OPHTHALMIC 5 ML BOTTLE OS SCH (10:58)
[2021-05-16] MEDS: FLUOCINONIDE 0.05% CREAM (60 GM TUBE) TP SCH ×4 (10:58→21:06)
[2021-05-16] MEDS: TIMOLOL 0.5% OPHTHALMIC SOL 5 ML BOTTLE OS SCH (10:59)
[2021-05-16] MEDS: DORZOLAMIDE 2% HCL OPHTHALMIC SOLUTION 10 ML BOTTLE OS SCH (10:59)
[2021-05-16] MEDS: COLLOIDAL OATMEAL 1 BAR EACH TP PRN (16:51)
[2021-05-16] MEDS: THIAMINE HCL 100 MG TABLET (FP) PO SCH (21:05)
[2021-05-16] MEDS: P-EPHED 60MG/TRIPROLIDI 2.5MG TABLET PO PRN (21:06)
[2021-05-16] MEDS: QUEtiapine FUMARATE 200 MG TABLET PO SCH (21:06)
[2021-05-17] MEDS: NEOMYCIN/POLYMYXN/HC OTIC SUSPENSION 10 ML BOTTLE AU SCH ×3 (05:57→18:02)
[2021-05-17] MEDS: ASPIRIN 81 MG CHEWABLE TABLETS PO SCH (10:51)
[2021-05-17] MEDS: PRENATAL VITAMINS W/ FOLIC ACID TABLET (FP) PO SCH (10:52)
[2021-05-17] MEDS: FLUoxetine HCL 10 MG CAPSULE PO SCH (10:52)
[2021-05-17] MEDS: APIXABAN 5 MG TABLET PO SCH ×2 (10:52→21:43)
[2021-05-17] MEDS: DIGOXIN 0.125 MG TABLET PO SCH (10:53)
[2021-05-17] MEDS: TIMOLOL 0.5% OPHTHALMIC SOL 5 ML BOTTLE OS SCH (10:54)
[2021-05-17] MEDS: BRIMONIDINE TARTRATE 0.2% OPHTHALMIC 5 ML BOTTLE OS SCH (10:55)
[2021-05-17] MEDS: DORZOLAMIDE 2% HCL OPHTHALMIC SOLUTION 10 ML BOTTLE OS SCH (10:55)
[2021-05-17] MEDS: FLUOCINONIDE 0.05% CREAM (60 GM TUBE) TP SCH ×4 (10:55→21:45)
[2021-05-17] MEDS: NICOTINE 21 MG/24 HOURS TOPICAL PATCH TD SCH (10:57)
[2021-05-17] MEDS: THIAMINE HCL 100 MG TABLET (FP) PO SCH (21:43)
[2021-05-17] MEDS: QUEtiapine FUMARATE 200 MG TABLET PO SCH (21:43)
[2021-05-17] MEDS: SUVOREXANT 10 MG TABLET PO PRN (21:44)
[2021-05-17] MEDS: hydrOXYzine PAMOATE 25 MG CAPSULE (FP) PO PRN (21:45)
[2021-05-18] MEDS: NEOMYCIN/POLYMYXN/HC OTIC SUSPENSION 10 ML BOTTLE AU SCH ×5 (00:12→23:28)
[2021-05-18] MEDS: ASPIRIN 81 MG CHEWABLE TABLETS PO SCH (09:55)
[2021-05-18] MEDS: FLUoxetine HCL 10 MG CAPSULE PO SCH (09:55)
[2021-05-18] MEDS: APIXABAN 5 MG TABLET PO SCH ×2 (09:55→21:32)
[2021-05-18] MEDS: DIGOXIN 0.125 MG TABLET PO SCH (09:56)
[2021-05-18] MEDS: PRENATAL VITAMINS W/ FOLIC ACID TABLET (FP) PO SCH (09:57)
[2021-05-18] MEDS: BRIMONIDINE TARTRATE 0.2% OPHTHALMIC 5 ML BOTTLE OS SCH (09:57)
[2021-05-18] MEDS: TIMOLOL 0.5% OPHTHALMIC SOL 5 ML BOTTLE OS SCH (09:57)
[2021-05-18] MEDS: DORZOLAMIDE 2% HCL OPHTHALMIC SOLUTION 10 ML BOTTLE OS SCH (09:57)
[2021-05-18] MEDS: NICOTINE 21 MG/24 HOURS TOPICAL PATCH TD SCH (11:05)
[2021-05-18] MEDS: FLUOCINONIDE 0.05% CREAM (60 GM TUBE) TP SCH ×4 (11:05→21:34)
[2021-05-18] MEDS: hydrOXYzine PAMOATE 25 MG CAPSULE (FP) PO PRN (21:32)
[2021-05-18] MEDS: QUEtiapine FUMARATE 200 MG TABLET PO SCH (21:32)
[2021-05-18] MEDS: THIAMINE HCL 100 MG TABLET (FP) PO SCH (21:32)
[2021-05-18] MEDS: SUVOREXANT 10 MG TABLET PO PRN (21:33)
[2021-05-19] MEDS: NEOMYCIN/POLYMYXN/HC OTIC SUSPENSION 10 ML BOTTLE AU SCH ×3 (06:01→19:31)
[2021-05-19] MEDS: ACETAMINOPHEN 325 MG TABLET (FP) PO PRN (06:01)
[2021-05-19] MEDS: FLUoxetine HCL 10 MG CAPSULE PO SCH (10:29)
[2021-05-19] MEDS: BRIMONIDINE TARTRATE 0.2% OPHTHALMIC 5 ML BOTTLE OS SCH (10:29)
[2021-05-19] MEDS: PRENATAL VITAMINS W/ FOLIC ACID TABLET (FP) PO SCH (10:29)
[2021-05-19] MEDS: DORZOLAMIDE 2% HCL OPHTHALMIC SOLUTION 10 ML BOTTLE OS SCH (10:29)
[2021-05-19] MEDS: ASPIRIN 81 MG CHEWABLE TABLETS PO SCH (10:29)
[2021-05-19] MEDS: TIMOLOL 0.5% OPHTHALMIC SOL 5 ML BOTTLE OS SCH (10:29)
[2021-05-19] MEDS: hydrOXYzine PAMOATE 25 MG CAPSULE (FP) PO PRN ×2 (10:29→22:06)
[2021-05-19] MEDS: APIXABAN 5 MG TABLET PO SCH ×2 (10:29→22:07)
[2021-05-19] MEDS: DIGOXIN 0.125 MG TABLET PO SCH (10:30)
[2021-05-19] MEDS: FLUOCINONIDE 0.05% CREAM (60 GM TUBE) TP SCH ×4 (10:30→22:07)
[2021-05-19] MEDS: NICOTINE 21 MG/24 HOURS TOPICAL PATCH TD SCH (10:30)
[2021-05-19] MEDS: SUVOREXANT 10 MG TABLET PO PRN (22:06)
[2021-05-19] MEDS: THIAMINE HCL 100 MG TABLET (FP) PO SCH (22:07)
[2021-05-19] MEDS: QUEtiapine FUMARATE 200 MG TABLET PO SCH (22:07)
[2021-05-20] MEDS: NEOMYCIN/POLYMYXN/HC OTIC SUSPENSION 10 ML BOTTLE AU SCH ×4 (01:13→17:16)
[2021-05-20] MEDS: COLLOIDAL OATMEAL 1 BAR EACH TP PRN (06:07)
[2021-05-20] MEDS: PRENATAL VITAMINS W/ FOLIC ACID TABLET (FP) PO SCH (10:02)
[2021-05-20] MEDS: NICOTINE 21 MG/24 HOURS TOPICAL PATCH TD SCH (10:02)
[2021-05-20] MEDS: hydrOXYzine PAMOATE 25 MG CAPSULE (FP) PO PRN ×2 (10:02→22:25)
[2021-05-20] MEDS: FLUoxetine HCL 10 MG CAPSULE PO SCH (10:02)
[2021-05-20] MEDS: ASPIRIN 81 MG CHEWABLE TABLETS PO SCH (10:02)
[2021-05-20] MEDS: APIXABAN 5 MG TABLET PO SCH ×2 (10:02→21:55)
[2021-05-20] MEDS: TIMOLOL 0.5% OPHTHALMIC SOL 5 ML BOTTLE OS SCH (10:03)
[2021-05-20] MEDS: DIGOXIN 0.125 MG TABLET PO SCH (10:03)
[2021-05-20] MEDS: BRIMONIDINE TARTRATE 0.2% OPHTHALMIC 5 ML BOTTLE OS SCH (10:03)
[2021-05-20] MEDS: DORZOLAMIDE 2% HCL OPHTHALMIC SOLUTION 10 ML BOTTLE OS SCH (10:04)
[2021-05-20] MEDS: FLUOCINONIDE 0.05% CREAM (60 GM TUBE) TP SCH ×4 (10:41→21:55)
[2021-05-20] MEDS: THIAMINE HCL 100 MG TABLET (FP) PO SCH (21:55)
[2021-05-20] MEDS: QUEtiapine FUMARATE 200 MG TABLET PO SCH (21:55)
[2021-05-20] MEDS ORDERED: SUVOREXANT 10 MG TABLET PO PRN (22:00)
[2021-05-20] MEDS: ACETAMINOPHEN 325 MG TABLET (FP) PO PRN (22:23)
[2021-05-20] MEDS: P-EPHED 60MG/TRIPROLIDI 2.5MG TABLET PO PRN (22:25)
[2021-05-21] MEDS: NEOMYCIN/POLYMYXN/HC OTIC SUSPENSION 10 ML BOTTLE AU SCH ×2 (01:08→06:21)
[2021-05-21] MEDS: ASPIRIN 81 MG CHEWABLE TABLETS PO SCH (10:43)
[2021-05-21] MEDS: APIXABAN 5 MG TABLET PO SCH ×2 (10:43→21:57)
[2021-05-21] MEDS: PRENATAL VITAMINS W/ FOLIC ACID TABLET (FP) PO SCH (10:43)
[2021-05-21] MEDS: FLUoxetine HCL 10 MG CAPSULE PO SCH (10:43)
[2021-05-21] MEDS: hydrOXYzine PAMOATE 25 MG CAPSULE (FP) PO PRN ×2 (10:43→21:57)
[2021-05-21] MEDS: NICOTINE 21 MG/24 HOURS TOPICAL PATCH TD SCH (10:44)
[2021-05-21] MEDS: TIMOLOL 0.5% OPHTHALMIC SOL 5 ML BOTTLE OS SCH (10:44)
[2021-05-21] MEDS: BRIMONIDINE TARTRATE 0.2% OPHTHALMIC 5 ML BOTTLE OS SCH (10:44)
[2021-05-21] MEDS: FLUOCINONIDE 0.05% CREAM (60 GM TUBE) TP SCH ×4 (10:44→21:58)
[2021-05-21] MEDS: DIGOXIN 0.125 MG TABLET PO SCH (10:44)
[2021-05-21] MEDS: DORZOLAMIDE 2% HCL OPHTHALMIC SOLUTION 10 ML BOTTLE OS SCH (10:44)
[2021-05-21] MEDS: THIAMINE HCL 100 MG TABLET (FP) PO SCH (21:57)
[2021-05-21] MEDS: QUEtiapine FUMARATE 200 MG TABLET PO SCH (21:58)
[2021-05-22 06:51] VITALS: BP 157/92; PULSE 61; TEMP 98.6
== END 2021-05-22 07:30 | disposition home or self-care (01) | DRG 772 ==
LOC: YASAS 13:59 → Y3W 14:26
PROVIDERS: ADMIT Allergy & Immunology; ATTEND Allergy & Immunology
PROC: HZ42ZZZ Group Counseling for Substance Abuse Treatment, Cognitive-Behavioral (ICD-10-PCS; principal; 2021-05-09)
DX: F10.20 Alcohol dependence, uncomplicated (principal); F12.20 Cannabis dependence, uncomplicated; F17.210 Nicotine dependence, cigarettes, uncomplicated; F25.9 Schizoaffective disorder, unspecified; F10.282 Alcohol dependence with alcohol-induced sleep disorder; F10.24 Alcohol dependence with alcohol-induced mood disorder; I10 Essential (primary) hypertension; I48.92 Unspecified atrial flutter; Z62.810 Personal history of physical and sexual abuse in childhood; Z79.01 Long term (current) use of anticoagulants
CPT/HCPCS: 81003

== ENCOUNTER 2021-08-07 13:38 | Inpatient (IN) | payer BC ==
[2021-08-07] MEDS ORDERED: IBUPROFEN 400 MG TABLET (FP) PO PRN (14:20)
[2021-08-07] MEDS ORDERED: NICOTINE 10 MG CARTRIDGE (INHALER) IH PRN (14:20)
[2021-08-07] MEDS ORDERED: ACETAMINOPHEN 325 MG TABLET (FP) PO PRN ×2 (14:20)
[2021-08-07] MEDS ORDERED: BISMUTH SUBSALICYLATE 524 MG/30 ML PO PRN (14:20)
[2021-08-07] MEDS ORDERED: MAGNESIUM HYDROX 2400MG/30ML ORAL SUSPENSION 30 ML CUP PO PRN (14:20)
[2021-08-07] MEDS ORDERED: MAG HYDROX/AL HYDROX/SIMETH 30 ML UNIT-DOSE CUP PO PRN (14:20)
[2021-08-07] MEDS ORDERED: ONDANSETRON *ODT* 4 MG TABLET SL PRN (14:20)
[2021-08-07] MEDS ORDERED: diazePAM 5 MG TABLET PO PRN (14:20)
[2021-08-07] MEDS ORDERED: MAGNESIUM CITRATE 300 ML BOTTLE PO PRN (14:20)
[2021-08-07] MEDS ORDERED: MENTHOL/PHENOL 1 EACH UD MM PRN (14:20)
[2021-08-07 14:45] VITALS: BMI 23.6
[2021-08-07] MEDS: METHOCARBAMOL 500 MG TABLET PO PRN (15:34)
[2021-08-07] MEDS: PRENATAL VITAMINS W/ FOLIC ACID TABLET (FP) PO SCH (15:36)
[2021-08-07] MEDS: NICOTINE 14 MG/24 HOURS TOPICAL PATCH TD SCH (15:36)
[2021-08-07] MEDS: diazePAM 5 MG TABLET PO SCH ×2 (18:13→23:00)
[2021-08-07] MEDS: hydrOXYzine PAMOATE 25 MG CAPSULE (FP) PO SCH ×2 (18:15→23:00)
[2021-08-07] MEDS: THIAMINE HCL 100 MG TABLET (FP) PO SCH (23:00)
[2021-08-07] MEDS: MELATONIN 5 MG TABLETS PO SCH (23:00)
[2021-08-08] MEDS: hydrOXYzine PAMOATE 25 MG CAPSULE (FP) PO SCH ×5 (06:20→22:11)
[2021-08-08] MEDS: diazePAM 5 MG TABLET PO SCH ×4 (06:21→22:13)
[2021-08-08 10:23] LABS: HEMATOCRIT 42.9 % (35.4-49); HEMOGLOBIN 14.5 GM/dL (11.7-16.9); MCH 32.1 pg (25.7-33.7); MCHC 33.8 g/dl (32.0-35.9); MEAN CELL VOLUME 94.8 fl (80-96); PLATELET COUNT 552 10^3/uL (134-434); RBC 4.53 M/mm3 (4.00-5.60); RDW 15.6 % (11.9-15.9); WHITE BLOOD COUNT 5.1 K/mm3 (4.0-10.0)
[2021-08-08 10:32] LABS: CALCIUM 9.2 mg/dL (8.5-10.1)
[2021-08-08 10:33] LABS: ALBUMIN 4.1 g/dl (3.4-5.0)
[2021-08-08 10:36] LABS: BILIRUBIN,TOTAL 0.6 mg/dL (0.2-1); CREATININE 0.8 mg/dL (0.55-1.3); TOT PROT 8.4 g/dl (6.4-8.2)
[2021-08-08] MEDS: NICOTINE 14 MG/24 HOURS TOPICAL PATCH TD SCH (10:52)
[2021-08-08] MEDS: PRENATAL VITAMINS W/ FOLIC ACID TABLET (FP) PO SCH (10:53)
[2021-08-08] MEDS: THIAMINE HCL 100 MG TABLET (FP) PO SCH (22:11)
[2021-08-08] MEDS: QUEtiapine FUMARATE 100 MG TABLET (FP) PO SCH (22:11)
[2021-08-08] MEDS: MELATONIN 5 MG TABLETS PO SCH (22:11)
[2021-08-08] MEDS: METHOCARBAMOL 500 MG TABLET PO PRN (22:12)
[2021-08-09] MEDS: diazePAM 5 MG TABLET PO SCH ×3 (06:59→22:57)
[2021-08-09] MEDS: hydrOXYzine PAMOATE 25 MG CAPSULE (FP) PO SCH ×5 (07:00→22:52)
[2021-08-09] MEDS: PRENATAL VITAMINS W/ FOLIC ACID TABLET (FP) PO SCH (11:21)
[2021-08-09] MEDS: NICOTINE 14 MG/24 HOURS TOPICAL PATCH TD SCH (11:21)
[2021-08-09] MEDS ORDERED: DIGOXIN 0.125 MG TABLET PO SCH (14:15)
[2021-08-09] MEDS ORDERED: PATIENT'S OWN MEDICATION (NON-FORMULARY) (Brimonidine Tartrate/Timolol [Combigan 0.2%-0.5% OS SCH (14:15)
[2021-08-09] MEDS: DORZOLAMIDE 2% HCL OPHTHALMIC SOLUTION 10 ML BOTTLE OS SCH (15:49)
[2021-08-09] MEDS: ASPIRIN 81 MG CHEWABLE TABLETS PO SCH (15:49)
[2021-08-09] MEDS: THIAMINE HCL 100 MG TABLET (FP) PO SCH (22:52)
[2021-08-09] MEDS: APIXABAN 5 MG TABLET PO SCH (22:52)
[2021-08-09] MEDS: QUEtiapine FUMARATE 100 MG TABLET (FP) PO SCH (22:52)
[2021-08-09] MEDS: MELATONIN 5 MG TABLETS PO SCH (22:52)
[2021-08-10] MEDS: diazePAM 5 MG TABLET PO SCH ×2 (06:00→18:00)
[2021-08-10] MEDS: hydrOXYzine PAMOATE 25 MG CAPSULE (FP) PO SCH ×5 (06:00→22:14)
[2021-08-10] MEDS: DORZOLAMIDE 2% HCL OPHTHALMIC SOLUTION 10 ML BOTTLE OS SCH (10:48)
[2021-08-10] MEDS: PRENATAL VITAMINS W/ FOLIC ACID TABLET (FP) PO SCH (10:48)
[2021-08-10] MEDS: APIXABAN 5 MG TABLET PO SCH ×2 (10:48→22:14)
[2021-08-10] MEDS: ASPIRIN 81 MG CHEWABLE TABLETS PO SCH (10:48)
[2021-08-10] MEDS: NICOTINE 14 MG/24 HOURS TOPICAL PATCH TD SCH (10:48)
[2021-08-10] MEDS: MELATONIN 5 MG TABLETS PO SCH (22:14)
[2021-08-10] MEDS: THIAMINE HCL 100 MG TABLET (FP) PO SCH (22:14)
[2021-08-10] MEDS: QUEtiapine FUMARATE 100 MG TABLET (FP) PO SCH (22:14)
[2021-08-11] MEDS ORDERED: diazePAM 5 MG TABLET PO ONE (06:00)
[2021-08-11] MEDS: hydrOXYzine PAMOATE 25 MG CAPSULE (FP) PO SCH ×2 (06:15→10:50)
[2021-08-11 06:59] VITALS: BP 124/72; PULSE 64; TEMP 97.8
[2021-08-11] MEDS: ASPIRIN 81 MG CHEWABLE TABLETS PO SCH (10:49)
[2021-08-11] MEDS: APIXABAN 5 MG TABLET PO SCH (10:50)
[2021-08-11] MEDS: PRENATAL VITAMINS W/ FOLIC ACID TABLET (FP) PO SCH (10:50)
[2021-08-11] MEDS: NICOTINE 14 MG/24 HOURS TOPICAL PATCH TD SCH (10:50)
[2021-08-11] MEDS: DORZOLAMIDE 2% HCL OPHTHALMIC SOLUTION 10 ML BOTTLE OS SCH (10:50)
== END 2021-08-11 10:29 | disposition home or self-care (01) | DRG 775 ==
LOC: YASAS 13:38 → Y6N 14:58
PROVIDERS: ADMIT Allergy & Immunology; ATTEND Allergy & Immunology
PROC: HZ2ZZZZ Detoxification Services for Substance Abuse Treatment (ICD-10-PCS; principal; 2021-08-07)
DX: F10.230 Alcohol dependence with withdrawal, uncomplicated (principal); F17.210 Nicotine dependence, cigarettes, uncomplicated; F31.9 Bipolar disorder, unspecified; F25.9 Schizoaffective disorder, unspecified; F19.282 Other psychoactive substance dependence with psychoactive substance-induced sleep disorder; F10.280 Alcohol dependence with alcohol-induced anxiety disorder; F10.24 Alcohol dependence with alcohol-induced mood disorder; F41.8 Other specified anxiety disorders; F32.A Depression, unspecified; I10 Essential (primary) hypertension; I48.91 Unspecified atrial fibrillation; Z79.01 Long term (current) use of anticoagulants; Z86.11 Personal history of tuberculosis; Z86.69 Personal history of other diseases of the nervous system and sense organs; Z91.19 Patient's noncompliance with other medical treatment and regimen
CPT/HCPCS: 36415; 80053; 85027; 86780; 93005; 93010; C9803; U0003; U0005

== ENCOUNTER 2021-09-30 09:23 | Inpatient (IN) | payer BC ==
[2021-09-30] MEDS ORDERED: MAGNESIUM CITRATE 300 ML BOTTLE PO PRN (10:31)
[2021-09-30] MEDS ORDERED: NICOTINE POLACRILEX 2 MG GUM BUC PRN (10:31)
[2021-09-30] MEDS ORDERED: MAGNESIUM HYDROX 2400MG/30ML ORAL SUSPENSION 30 ML CUP PO PRN (10:31)
[2021-09-30] MEDS ORDERED: METHOCARBAMOL 500 MG TABLET PO PRN (10:31)
[2021-09-30] MEDS ORDERED: LOPERAMIDE HCL 2 MG CAPSULE PO PRN (10:31)
[2021-09-30] MEDS ORDERED: ONDANSETRON *ODT* 4 MG TABLET SL PRN (10:31)
[2021-09-30] MEDS ORDERED: MENTHOL/PHENOL 1 EACH UD MM PRN (10:31)
[2021-09-30] MEDS ORDERED: MAG HYDROX/AL HYDROX/SIMETH 30 ML UNIT-DOSE CUP PO PRN (10:31)
[2021-09-30] MEDS ORDERED: MELATONIN 5 MG TABLETS PO PRN (10:31)
[2021-09-30] MEDS ORDERED: DICYCLOMINE HCL 10 MG CAPSULE PO PRN (10:31)
[2021-09-30] MEDS ORDERED: ACETAMINOPHEN 325 MG TABLET (FP) PO PRN (10:31)
[2021-09-30] MEDS ORDERED: hydrOXYzine PAMOATE 25 MG CAPSULE (FP) PO PRN (10:31)
[2021-09-30] MEDS ORDERED: diazePAM 5 MG TABLET PO PRN (10:34)
[2021-09-30 10:43] VITALS: BMI 24.0
[2021-09-30] MEDS: diazePAM 5 MG TABLET PO SCH ×3 (11:53→22:39)
[2021-09-30] MEDS: THIAMINE HCL 100 MG TABLET (FP) PO SCH (22:39)
[2021-09-30] MEDS: APIXABAN 5 MG TABLET PO SCH (22:39)
[2021-10-01] MEDS: diazePAM 5 MG TABLET PO SCH ×4 (06:22→22:41)
[2021-10-01] MEDS: APIXABAN 5 MG TABLET PO SCH ×2 (10:17→22:41)
[2021-10-01] MEDS: PRENATAL VITAMINS W/ FOLIC ACID TABLET (FP) PO SCH (10:17)
[2021-10-01] MEDS: LIDOCAINE 5% TOPICAL PATCH TP SCH (14:04)
[2021-10-01 14:35] LABS: HEMATOCRIT 41.4 % (35.4-49); MCH 31.6 pg (25.7-33.7); MCHC 33.7 g/dl (32.0-35.9); MEAN CELL VOLUME 93.5 fl (80-96); MEAN PLT VOLUME 7.1 fl (7.5-11.1); PLATELET COUNT 508 10^3/uL (134-434); RBC 4.43 M/mm3 (4.00-5.60); RDW 15.2 % (11.9-15.9)
[2021-10-01 14:55] LABS: ALBUMIN 3.7 g/dl (3.4-5.0); BLOOD UREA NITROGEN 13.4 mg/dL (7-18); CALCIUM 9.5 mg/dL (8.5-10.1); CREATININE 1.1 mg/dL (0.55-1.3)
[2021-10-01 14:57] LABS: BILIRUBIN,TOTAL 0.5 mg/dL (0.2-1); TOT PROT 7.5 g/dl (6.4-8.2)
[2021-10-01] MEDS: ACETAMINOPHEN 325 MG TABLET (FP) PO PRN (17:50)
[2021-10-01] MEDS: THIAMINE HCL 100 MG TABLET (FP) PO SCH (22:41)
[2021-10-01] MEDS: QUEtiapine FUMARATE 100 MG TABLET (FP) PO SCH (22:41)
[2021-10-01] MEDS: LIDOCAINE PATCH REMOVAL MC SCH (22:50)
[2021-10-02] MEDS: diazePAM 5 MG TABLET PO SCH ×3 (06:29→22:18)
[2021-10-02] MEDS: APIXABAN 5 MG TABLET PO SCH ×2 (10:39→22:18)
[2021-10-02] MEDS: PRENATAL VITAMINS W/ FOLIC ACID TABLET (FP) PO SCH (10:39)
[2021-10-02] MEDS: ACETAMINOPHEN 325 MG TABLET (FP) PO PRN (10:41)
[2021-10-02] MEDS: LIDOCAINE 5% TOPICAL PATCH TP SCH (10:42)
[2021-10-02 21:04] VITALS: TEMP 97.5
[2021-10-02] MEDS: QUEtiapine FUMARATE 100 MG TABLET (FP) PO SCH (22:18)
[2021-10-02] MEDS: THIAMINE HCL 100 MG TABLET (FP) PO SCH (22:18)
[2021-10-02] MEDS: LIDOCAINE PATCH REMOVAL MC SCH (22:20)
[2021-10-03] MEDS ORDERED: diazePAM 5 MG TABLET PO SCH (06:00)
[2021-10-03 06:33] VITALS: BP 123/69; PULSE 64
[2021-10-04] MEDS ORDERED: diazePAM 5 MG TABLET PO ONE (06:00)
[2021-10-04 10:13] LABS: SARS-CoV-2 NAA Not Detected (Not Detected)
== END 2021-10-03 08:53 | disposition home or self-care (01) | DRG 774 ==
LOC: YASAS 09:23 → Y6N 10:30
PROVIDERS: ADMIT Allergy & Immunology; ATTEND Allergy & Immunology
PROC: HZ2ZZZZ Detoxification Services for Substance Abuse Treatment (ICD-10-PCS; principal; 2021-09-30)
DX: F10.230 Alcohol dependence with withdrawal, uncomplicated (principal); F10.220 Alcohol dependence with intoxication, uncomplicated; F10.24 Alcohol dependence with alcohol-induced mood disorder; F14.20 Cocaine dependence, uncomplicated; F12.10 Cannabis abuse, uncomplicated; F17.210 Nicotine dependence, cigarettes, uncomplicated; F31.81 Bipolar II disorder; F19.282 Other psychoactive substance dependence with psychoactive substance-induced sleep disorder; F41.9 Anxiety disorder, unspecified; F32.A Depression, unspecified; F25.9 Schizoaffective disorder, unspecified; I10 Essential (primary) hypertension; I48.91 Unspecified atrial fibrillation; Z28.310 Unvaccinated for COVID-19; Z62.810 Personal history of physical and sexual abuse in childhood; Z86.11 Personal history of tuberculosis; Z86.69 Personal history of other diseases of the nervous system and sense organs; Z91.19 Patient's noncompliance with other medical treatment and regimen; Z56.0 Unemployment, unspecified
CPT/HCPCS: 36415; 80053; 80178; 85027; 86780; C9803-CS; U0003; U0005

== ENCOUNTER 2021-11-04 08:26 | Inpatient (IN) | payer BC ==
[2021-11-04 09:44] VITALS: BMI 23.6
[2021-11-04] MEDS ORDERED: ACETAMINOPHEN 325 MG TABLET (FP) PO PRN ×2 (10:23)
[2021-11-04] MEDS ORDERED: MAGNESIUM HYDROX 2400MG/30ML ORAL SUSPENSION 30 ML CUP PO PRN (10:23)
[2021-11-04] MEDS ORDERED: MAG HYDROX/AL HYDROX/SIMETH 30 ML UNIT-DOSE CUP PO PRN (10:23)
[2021-11-04] MEDS ORDERED: MAGNESIUM CITRATE 300 ML BOTTLE PO PRN (10:23)
[2021-11-04] MEDS ORDERED: LOPERAMIDE HCL 2 MG CAPSULE PO PRN (10:23)
[2021-11-04] MEDS ORDERED: chlordiazePOXIDE HCL 25 MG CAPSULE PO PRN (10:23)
[2021-11-04] MEDS ORDERED: DICYCLOMINE HCL 10 MG CAPSULE PO PRN (10:23)
[2021-11-04] MEDS ORDERED: ONDANSETRON *ODT* 4 MG TABLET SL PRN (10:23)
[2021-11-04] MEDS ORDERED: BISMUTH SUBSALICYLATE 524 MG/30 ML PO PRN (10:23)
[2021-11-04] MEDS ORDERED: NICOTINE 10 MG CARTRIDGE (INHALER) IH PRN (10:23)
[2021-11-04] MEDS ORDERED: BENZOCAINE/MENTHOL (CHLORASEPTIC ) LOZENGE MM PRN (10:23)
[2021-11-04] MEDS: chlordiazePOXIDE HCL 25 MG CAPSULE PO SCH ×3 (12:56→22:07)
[2021-11-04] MEDS: hydrOXYzine PAMOATE 25 MG CAPSULE (FP) PO SCH ×3 (14:23→22:07)
[2021-11-04] MEDS: THIAMINE HCL 100 MG TABLET (FP) PO SCH (22:07)
[2021-11-04] MEDS: BACITRACIN 0.9 GM PACKET TP SCH (22:07)
[2021-11-04] MEDS: MELATONIN 5 MG TABLETS PO SCH (22:08)
[2021-11-05] MEDS: hydrOXYzine PAMOATE 25 MG CAPSULE (FP) PO SCH ×2 (05:17→12:40)
[2021-11-05] MEDS: chlordiazePOXIDE HCL 25 MG CAPSULE PO SCH ×2 (05:17→12:40)
[2021-11-05 11:13] LABS: ALBUMIN 3.8 g/dl (3.4-5.0); CALCIUM 9.2 mg/dL (8.5-10.1)
[2021-11-05 11:16] LABS: HEMATOCRIT 39.7 % (35.4-49); HEMOGLOBIN 13.5 GM/dL (11.7-16.9); MCH 31.8 pg (25.7-33.7); MEAN CELL VOLUME 93.5 fl (80-96); MEAN PLT VOLUME 6.8 fl (7.5-11.1); PLATELET COUNT 454 10^3/uL (134-434); RBC 4.25 M/mm3 (4.00-5.60); RDW 14.1 % (11.9-15.9); WHITE BLOOD COUNT 4.7 K/mm3 (4.0-10.0)
[2021-11-05 11:17] LABS: CREATININE 0.8 mg/dL (0.55-1.3)
[2021-11-05 11:19] LABS: TOT PROT 7.7 g/dl (6.4-8.2)
[2021-11-05] MEDS: BACITRACIN 0.9 GM PACKET TP SCH ×2 (12:40→22:21)
[2021-11-05] MEDS: PRENATAL VITAMINS W/ FOLIC ACID TABLET (FP) PO SCH (12:40)
[2021-11-05] MEDS: chlordiazePOXIDE HCL 10 MG CAPSULE PO SCH ×2 (18:20→23:00)
[2021-11-05] MEDS: THIAMINE HCL 100 MG TABLET (FP) PO SCH (22:21)
[2021-11-05] MEDS: QUEtiapine FUMARATE 100 MG TABLET (FP) PO SCH (22:21)
[2021-11-05] MEDS: MELATONIN 5 MG TABLETS PO SCH (22:22)
[2021-11-06] MEDS: chlordiazePOXIDE HCL 25 MG CAPSULE PO SCH ×4 (06:38→22:34)
[2021-11-06] MEDS: BACITRACIN 0.9 GM PACKET TP SCH ×2 (10:33→23:15)
[2021-11-06] MEDS: PRENATAL VITAMINS W/ FOLIC ACID TABLET (FP) PO SCH (10:33)
[2021-11-06] MEDS: hydrOXYzine PAMOATE 25 MG CAPSULE (FP) PO PRN ×2 (10:33→18:23)
[2021-11-06] MEDS: IBUPROFEN 400 MG TABLET (FP) PO PRN ×2 (10:36→18:22)
[2021-11-06] MEDS: METHOCARBAMOL 500 MG TABLET PO PRN ×2 (10:36→18:23)
[2021-11-06] MEDS: MELATONIN 5 MG TABLETS PO SCH (22:33)
[2021-11-06] MEDS: THIAMINE HCL 100 MG TABLET (FP) PO SCH (22:33)
[2021-11-06] MEDS: QUEtiapine FUMARATE 100 MG TABLET (FP) PO SCH (22:34)
[2021-11-07] MEDS ORDERED: chlordiazePOXIDE HCL 10 MG CAPSULE PO PRN
[2021-11-07] MEDS: chlordiazePOXIDE HCL 10 MG CAPSULE PO SCH ×4 (06:23→23:49)
[2021-11-07] MEDS: PRENATAL VITAMINS W/ FOLIC ACID TABLET (FP) PO SCH (10:58)
[2021-11-07] MEDS: BACITRACIN 0.9 GM PACKET TP SCH ×2 (10:58→22:43)
[2021-11-07] MEDS: MELATONIN 5 MG TABLETS PO SCH (22:44)
[2021-11-07] MEDS: QUEtiapine FUMARATE 100 MG TABLET (FP) PO SCH (22:44)
[2021-11-07] MEDS: THIAMINE HCL 100 MG TABLET (FP) PO SCH (22:44)
[2021-11-08] MEDS ORDERED: chlordiazePOXIDE HCL 10 MG CAPSULE PO SCH (05:00)
[2021-11-08 05:56] VITALS: BP 148/56; PULSE 67; TEMP 96.8
[2021-11-09] MEDS ORDERED: chlordiazePOXIDE HCL 10 MG CAPSULE PO ONE (05:00)
== END 2021-11-08 07:21 | disposition home or self-care (01) | DRG 774 ==
LOC: YASAS 08:26 → Y6N 12:01
PROVIDERS: ADMIT Allergy & Immunology; ATTEND Allergy & Immunology
PROC: HZ2ZZZZ Detoxification Services for Substance Abuse Treatment (ICD-10-PCS; principal; 2021-11-04)
DX: F10.230 Alcohol dependence with withdrawal, uncomplicated (principal); F14.20 Cocaine dependence, uncomplicated; F12.20 Cannabis dependence, uncomplicated; F17.210 Nicotine dependence, cigarettes, uncomplicated; F19.282 Other psychoactive substance dependence with psychoactive substance-induced sleep disorder; F31.9 Bipolar disorder, unspecified; F25.9 Schizoaffective disorder, unspecified; I48.91 Unspecified atrial fibrillation; I10 Essential (primary) hypertension; R76.11 Nonspecific reaction to tuberculin skin test without active tuberculosis; Z62.810 Personal history of physical and sexual abuse in childhood; Z86.69 Personal history of other diseases of the nervous system and sense organs; Z91.14 Patient's other noncompliance with medication regimen
CPT/HCPCS: 36415; 80053; 85027; 86780; 87811; 93005; 93010; C9803-CS; U0003; U0005